=== PATIENT | female | born 1940 | race Caucasian/White ===

== ENCOUNTER → 2019-02-18 | Outpatient (CLI) | payer MEDICARE, SELFPAY ==
--- NOTE | 2019-02-18 10:46 | BD_ITS ---
STUDY: DUAL ENERGY X-RAY ABSORPTIOMETRY / DXA REASON FOR EXAM: Female, 78 years old. The patient is postmenopausal. Loss of height. TECHNIQUE: Bone Mineral Density (BMD) measurements of lumbar spine and bilateral hips were obtained. COMPARISON: None. FINDINGS: Lumbar Spine (L1-L4): g/cm2 (1.187) / T-score (0.1) / Z-score (2.0) Findings are suggestive of normal bone density with a low fracture risk. Left Femur Total: g/cm2 (1.036) / T-score (0.2) / Z-score (2.2) Left Femoral Neck: g/cm2 (0.975) / T-score (-0.5) / Z-score (1.7) Right Femur Total: g/cm2 (1.005) / T-score (0.0) / Z-score (2.0) Right Femoral Neck: g/cm2 (0.987) / T-score (-0.4) / Z-score (1.8) BD/Dexa Bone Density Study IMPRESSION: The patient is considered normal as outlined below according to World Jesse Organization (WHO) criteria with a low fracture risk. Reference Information: The T-score is the number of standard deviations above or below the standard which is normal for young adults at their peak bone mineral density. The World Health Organization (WHO) interprets the T-scores as follows: Above -1 Normal bone density Between -1 and -2.5 Osteopenia Equal to / or below -2.5 Osteoporosis As a practical clinical guideline, osteopenia may be graded as follows: Mild -1 through -1.5 Moderate -1.6 through -2.0 Severe -2.1 through -2.4 The Z-score is the number of standard deviations above or below age-matched controls. A Z-score of less than -1.5 would be considered abnormal. References: 1. NIH Osteoporosis and Related Bone Diseases http://www.osteo.org 2. International Society for Clinical Densitometry http://www.iscd.org 3. National Osteoporosis Foundation http://www.nof.org Electronically Signed: Santiago Bradshaw, at 15:55 EDT , Service support ,
== END | disposition home or self-care (01) ==
LOC: OPBD 10:35
PROVIDERS: Family Provider Family Medicine; PCP Family Medicine; Referring Provider Family Medicine; Visit Provider Family Medicine
DX: Z78.0 Asymptomatic menopausal state (principal)
CPT/HCPCS: 77080

== ENCOUNTER 2019-04-10 09:56 | Day surgery (SDC) | payer MEDICARE, SELFPAY ==
[2019-02-18 13:08] VITALS: BMI 26.5
[2019-04-10 10:47] VITALS: BP 137/76; PULSE 70; RESP 16; TEMP 36.6; O2SAT 96; BMI 25.5
--- NOTE | 2019-04-10 10:57 | PCM.HP.BLA ---
Problem List (1) Personal history of colonic polyps Status: Acute History and Physical Date of Admission: 04/10/19 Intake Vital Signs 02/18/19 Height 5 ft 0.5 in 02/18/19 Weight: 138 lb 02/18/19 Body Mass Index (BMI) 26.5 02/18/19 Blood Pressure 145/82 H 02/18/19 Blood Pressure Location Rt brachial 02/18/19 Blood Pressure Position Sitting 02/18/19 Respiratory Rate 14 02/18/19 Pulse Rate 88 02/18/19 Pulse Source Monitor 02/18/19 Temperature 98.8 F 02/18/19 Temperature Source Oral 02/18/19 Pulse Ox 96 02/18/19 Oxygen Delivery Method room air Intake Visit Reasons: SCREENING C-SCOPE Crisis Worker Required: No Is patient in pain?: No Allergies No Known Allergies Allergy (Verified 02/18/19 13:09) PFSH Medical History Intermittent constipation (Acute) COPD (chronic obstructive pulmonary disease) (Chronic) SOB (shortness of breath) (Acute) Arthritis (Acute) Thyroid disease (Acute) Surgical History Hx of colonoscopy (Acute) Hx of foot surgery (Acute) Family History Mother Hypertension Social History Smoking Status: Former smoker second hand exposure: No alcohol intake: current alcohol intake frequency: holidays/special occasions only substance use type: does not use caffeine: Yes frequency: does not exercise HPI HPI HPI: MARIELA LARIOS, is a 78 F who presents to the office today for surgical consultation regarding personal history of colon polyps. The patient's most recent colonoscopy was performed about 6 years ago in [facility]. At that time she had had a history of adenomatous polyp. She denies bright red blood per rectum or melena. No change of body habits. No change of bowel habits. She does have COPD. She was a long-term cigarette smoker. She quit 6 years ago. She is on inhalers. She denies myocardial infarction or CVA or diabetes. HPI HPI HPI: MARIELA LARIOS, is a 78 F who presents to the office today for ROS General General: No weight change, appetite, fatigue, colon cancer, breast cancer or weakness HEENT HEENT: No difficulty swallowing, eye injury, eye surgery, swollen glands or hoarseness Endo Endocrine: Yes thyroid disease; no diabetes mellitus, thyroid cancer, Hair loss, heat intolerance or cold intolerance Skin Skin: No rash or changing moles Musc Musculoskeletal: Yes arthritis; no back problems, rheumatoid arthritis, gout or joint pain Cardio Cardiovascular: No murmur, pacemaker, heart disease, atrial fibrillation, high blood pressure, heart attack, heart stent, palpitations, shortness of breat with exertion or chest pain Psych Psychiatric: No depression, anxiety or hearing voices Resp Respiratory: Yes shortness of breath, No sleep apnea, No cough, Yes COPD, No asthma, No emphysema, No wheezing Gastro Gastrointestinal: No abdominal pain, No nausea or vomiting, No diarrhea, No constipation, No blood in stool, No acid reflux, No hemorrhoids, No ulcers, No gallbladder problem, No black,tarry stools Dennis Hematologic: No blood thinners, No blood disorders, No bleeding, No anemia, No blood clots Neuro Neurologic: Yes numbness, Yes tingling, No weakness Exam Const General: cooperative, comfortable, no acute distress Nutritional Appearance: average body habitus Orientation: alert, awake [facility] Head: normal to inspection Eyes General: appearance normal, both eyes and all related structures Chest Other: Increased anterior posterior diameter Resp Other: Bibasilar dry rales Cardio Rate: regular rate Rhythm: regular rhythm Heart Sounds: no murmurs GI Palpation: soft, no hepatosplenomegaly Auscultation: normal bowel sounds Skin General: no rashes or lesions noted Neuro Cranial Nerves: CN's II-XI intact bilaterally Extrem General: no calf tenderness bilaterally Psych Affect: normal affect Assessment & Plan Problems 1. Personal history of colonic polyps Z86.010 Plan 78-year-old female with a personal history of colon polyps and most recent colonoscopy at least 6 years ago. She has COPD. I would recommend a colonoscopy with possible biopsy or polypectomy as indicated. We would utilize monitored anesthesia care and we would utilize room air rather than CO2. She has had an opportunity to ask and have questions answered. She is aware of the technique, benefit, risks, alternatives.. We will schedule and proceed at her discretion. I appreciate the opportunity of assisting with her surgical care. CC: Dr. Ramez Pierce M.D., F.A.C.S. Coding Level of Care Code Off vis,new,level 2 Diagnoses Personal history of colonic polyps Z86.010 02/18/19 [id number] <Electronically signed by Sammy Pierce MD> Date Sammy Pierce MD Cosigner Signature: Date (if applicable) CC: Ramez Toledo MD ~ I have reevaluated the patient today. She denies any change in her chronic lung disease. She does note some upper airway wheezing. She does have an intermittent productive cough of white phlegm. She denies chest pain. She denies fever or chills. She denies abdominal pain. She otherwise states that her general health is been stable. On clinical examination she has some slight expiratory wheeze left upper lobe more so than the right. Inspiration effort is good. Cardiac exam: Breath sounds are somewhat distant but regular Abdomen slightly bulbous. Soft, nontender, normal bowel sounds, no mass Calves are supple nontender The patient is aware of the technique, benefits, risks, alternatives to a colonoscopy. As noted she has a personal history of colon polyps. She has had an opportunity to ask and have questions answered. We will proceed as noted. Sammy Pierce M.D., F.A.C.S.
--- NOTE | 2019-04-10 11:00 | COLBX_PTH ---
PATIENT: MARIELA LARIOS LOC: EN U#:[id number] AGE/SX: 78/F ROOM: RE04/10/[address]: Dr. Sammy Pierce MD : 1940 BED: DIS: 04/10/2019 SPEC #: [id number] RECD: 04/10/19 11:48 STATUS: SAMANTHA REFadumo #: [id number] SOCO: 04/10/19 11:[address]: Sammy Pierce DEPT: SURGICAL PATHOLOGY RECD BY: Adelfo Summers ENTERED: 04/10/19 14:32 SP TYPE: COLON BX OTHR DR: Dr. Ramez Toledo MD Tissues: Rectum, NOS Procedures: Surgery Specimen Level IV HEADER OPERATION: Colonoscopy (MAC) PRE-OP DIAGNOSIS: Screening, colon polyps TISSUE SUBMITTED: Polyp of proximal rectum MICROSCOPIC DIAGNOSIS Proximal rectal polyp, biopsy: Tubular adenoma. AM:tigist 04/11/19 MICROSCOPIC DESCRIPTION Slides are reviewed. GROSS DESCRIPTION Received in fixative is one container labeled with the patient's name and designated polyp of proximal rectum. The specimen consists of one irregular fragment of light ledezma soft tissue with fecal debris that measures 0.5 x 0.3 x 0.1 cm. The specimen is totally submitted in one cassette. / AM:tigist 04/10/19 TC:5 CPT: 62881
[2019-04-10 11:11] LABS: Bedside Glucose 149 mg/dL (70-110)
[2019-04-10 11:40] VITALS: BP 115/67; BP 137/76; PULSE 81; RESP 16; TEMP 36.6; O2SAT 96
--- NOTE | 2019-04-10 11:41 | OP.ENDO_ITS ---
04/10/2019 Ramez Toledo Re : Colonoscopy procedure for Dai Jacobson [place] This procedure was performed on March. My impressions and recommendations are as follows: Impressions : - Hemorrhoids found on perianal exam. - One 6 mm polyp in the rectum, removed with a hot snare. Resected and retrieved. - Diverticulosis in the sigmoid colon and in the descending colon. Recommendations : - Discharge patient to home. - Resume previous diet. - Continue present medications. - Repeat colonoscopy in 5 years for surveillance. - Telephone my office for pathology results in 1 week. My findings are described in the full procedure note, which is enclosed. If I can be of further assistance, please feel free to contact me at Doctor phone number(s): Work: . Sincerely, Sammy Pierce MD 04/10/2019 11:41:01 AM This report has been signed electronically.
[2019-04-10 11:45] VITALS: BP 122/81; BP 137/76; PULSE 75; RESP 16; O2SAT 95
[2019-04-10 11:50] VITALS: BP 135/80; BP 137/76; PULSE 69; RESP 16; O2SAT 94
[2019-04-10 11:56] VITALS: BP 128/72; BP 137/76; PULSE 66; RESP 16; TEMP 36.4; O2SAT 94
[2019-04-10 12:12] VITALS: BP 137/76
== END 2019-04-10 12:29 | disposition home or self-care (01) ==
LOC: EN 09:57 → AC 10:03
PROVIDERS: Family Provider Family Medicine; PCP Family Medicine; Referring Provider Family Medicine; Visit Provider Surgery
PROC: 0DJD8ZZ Inspection of Lower Intestinal Tract, Via Natural or Artificial Opening Endoscopic (ICD-10-PCS; CPT 45378; principal; 2019-04-10 10:55)
DX: D12.8 Benign neoplasm of rectum (principal); K64.9 Unspecified hemorrhoids; K57.30 Diverticulosis of large intestine without perforation or abscess without bleeding; Z86.010 Personal history of colon polyps; J44.9 Chronic obstructive pulmonary disease, unspecified; E78.00 Pure hypercholesterolemia, unspecified; E11.9 Type 2 diabetes mellitus without complications; E06.9 Thyroiditis, unspecified; Z79.84 Long term (current) use of oral hypoglycemic drugs; Z79.899 Other long term (current) drug therapy; Z87.891 Personal history of nicotine dependence
CPT/HCPCS: 45385; 82962; 88305; J7120; J2405

== ENCOUNTER 2021-11-02 12:15 | Outpatient (CLI) | payer MEDICARE, SELFPAY ==
[2021-11-02 12:20] VITALS: BP 180/99; PULSE 97; RESP 16; TEMP 36.9; O2SAT 92; BMI 24.4
[2021-11-02] MEDS: 0.9% Saline Lock 10 ML Syringe IV (12:35)
[2021-11-02 13:23] VITALS: BP 139/78; PULSE 80; RESP 16; TEMP 36.9; O2SAT 93
[2021-11-02 14:09] VITALS: BP 140/73; PULSE 79; RESP 18; TEMP 36.8; O2SAT 94
== END 2021-11-02 14:33 | disposition home or self-care (01) ==
LOC: MS3OUT 12:15 → MS3 12:16
PROVIDERS: PCP Family Medicine; Referring Provider Nurse Practitioner Adult Health; Visit Provider Nurse Practitioner Adult Health
DX: U07.1 COVID-19 (principal)
CPT/HCPCS: J7050; M0245; Q0245; A4216

== ENCOUNTER 2022-05-25 21:14 | Observation (INO) | payer MEDICARE, SELFPAY ==
[2022-05-25] VITALS (7 sets, daily range): BP systolic 128–167; BP diastolic 70–86; PULSE 78–112; RESP 13–26; TEMP 36.6–37.2; O2SAT 92–98; BMI 24.4
--- NOTE | 2022-05-25 21:50 | EKG12_ITS ---
Test Reason : sob Blood Pressure : / mmHG Vent. Rate : 092 BPM Atrial Rate : 092 BPM P-R Int : 150 ms QRS Dur : 070 ms QT Int : 350 ms P-R-T Axes : 054 046 041 degrees QTc Int : 432 ms Normal sinus rhythm Nonspecific T wave abnormality Abnormal ECG Confirmed by SHOLA KINCAID, GINGER ([id number]), copy editor KEIRY BE ([id number]) on 05/29/2022 11:22:58 AM Referred By: Hung Confirmed By:GINGER JOLLEY MD
[2022-05-25] MEDS: Ipratropium/Albuterol Sulfate 3 ML AMPUL.NEB INHALATION (22:01)
[2022-05-25] MEDS: Albuterol 2.5 MG/3 ML VIAL.NEB. INHALATION ×3 (22:01)
[2022-05-25] MEDS: MethylPREDNISolone 125 MG/2 ML Vial IV (22:07)
[2022-05-25 22:10] LABS: Absolute Lymphocyte Count 1.61 X10^3/uL (0.83-4.51); Basophil# 0.08 X10^3/uL; Basophil% 0.6 % (0-1); Eosinophil# 0.26 X10^3/uL; Hematocrit 34.4 % (37-47); Hemoglobin 11.3 g/dL (12.0-15.0); Lymphocyte # 1.61 X10^3/ul (0.83-4.51); Lymphocyte % 12.2 % (19-41); Mean Corp Hgb Conc 32.8 g/dL (32-36); Mean Corpuscular Hgb 28.9 pg (27.0-32.0); Mean Platelet Vol. 9.2 fl (6.2-12.0); Monocyte# 1.17 X10^3/uL; Monocyte% 8.8 % (0-10); NRBC Flagged by Analyzer 0 % (0-5); Neutrophil # 9.98 X10^3/uL (2.7-7.7); Neutrophil % 75.3 % (47-70); Platelet Count 511 K/mm3 (150-450); RBC Distribution Width CV 14.6 % (11.6-14.6); RBC Distribution Width SD 43.9 fl (35.1-43.9); Red Blood Count 3.91 M/mm3 (4.2-5.4); White Blood Count 13.3 K/mm3 (4.4-11.0)
--- NOTE | 2022-05-25 22:27 | RAD_ITS ---
STUDY: X-RAY CHEST REASON FOR EXAM: Female, 81 years old. cough TECHNIQUE: AP portable. 10:23 PM. COMPARISON: None. FINDINGS: LUNGS: Reticular opacities in the lung bases greater on the right. Blunting of the costophrenic angles bilaterally. No consolidation. No pneumothorax. MEDIASTINUM: Aorta atherosclerotic and tortuous. CARDIAC SILHOUETTE: Not enlarged. BONES AND SOFT TISSUES: Degenerative changes in the dorsal spine. RAD/Chest 1 View (Portable) IMPRESSION: Basilar opacities greater on the right likely scarring or atelectasis, early infiltrate especially at the right lung base difficult to completely exclude. Follow-up may be helpful. Small bilateral pleural effusions versus pleural thickening. Electronically Signed: Jenni Wasserman MD at 22:54 EDT ,
[2022-05-25 22:28] LABS: Anion Gap 7 (5-15); BUN 13 mg/dL (7-18); BUN/Creat Ratio 17.8 RATIO (10-20); Calcium,Total 9.8 mg/dL (8.5-10.1); Chloride 95 mmol/L (98-107); Creatinine, Serum 0.73 mg/dL (0.55-1.02); EST Glomerular Filtration Rate 81 mL/min (>60); Est Glom Filt Rate - Afr Amer 98 mL/min (>60); Estimated Creatinine Clearance 31.15 ml/min; Glucose 146 mg/dL (74-106); Potassium 4.2 mmol/L (3.5-5.1); Sodium Level 131 mmol/L (136-145); Troponin-I HS 4 pg/mL (3.0-54.0)
[2022-05-25 22:35] LABS: Lactic Acid 1.9 mmol/L (0.4-1.9)
--- NOTE | 2022-05-25 22:50 | ED.VIS.DYS ---
HPI History of Present Illness Chief Complaint: Shortness of Breath Informant: patient and family Onset/Context/Timing Onset: Days Context: gradual Timing: Continuous Quality: Positive for Wheezing Current Severity: Mild Maximum Severity: Moderate Worsened by: Exertion and Coughing Relieved by: Rest Associated Symptoms cough and green sputum; Negative for ear pain, fever, sore throat or chills Chest Pain: Positive for None Narrative Narrative: 81-year-old female history of COPD not on home O2. Also diabetes hypertension. States she has had shortness of breath since May 15. She went to an urgent care this past Sunday was diagnosed with pneumonia after chest x-ray and started on antibiotic Augmentin twice a day. States she just feels worse. More short of breath. Wheezing. Denies fever or chills. No chest pain. No hemoptysis. No history of DVT or PE and no risk factors. States her cough is productive of greenish phlegm. Had a negative COVID test also at the urgent care. PE Risk Factors: Negative for Cancer, OCP + Smoking + > 35, Prior DVT or PE, Recent immobilization, Recent surgery or Recent travel Prior similar symptoms: Yes Recent Illness/Hospitalization: No PFSH PFSH Medical History (Updated 05/25/22 @ 23:[address] En Contreras MD) Arthritis COPD (chronic obstructive pulmonary disease) Diabetes mellitus, type 2 Former tobacco use HTN (hypertension) Intermittent constipation Normocytic anemia Thyroid disease Home Medications albuterol sulfate 90 mcg/actuation aerosol inhaler (ProAir HFA) 1 - 2 puff inhalation Q6H PRN PRN Sob &/Or Wheezing 04/03/19 [History Last Taken Unknown] fluticasone 250 mcg-salmeterol 50 mcg/dose blistr powdr for inhalation (Advair Diskus) 1 puff IH BID 04/03/19 [History Last Taken Unknown] metformin 500 mg tablet 1,000 mg PO QHS 04/03/19 [History Last Taken Unknown] simvastatin 40 mg tablet 40 mg PO QHS 04/03/19 [History Last Taken Unknown] furosemide 20 mg tablet 20 mg PO DAILY 05/25/22 [History Last Taken Unknown] levothyroxine 75 mcg tablet 75 mcg PO DAILY 05/25/22 [History Last Taken Unknown] lisinopril 5 mg tablet 5 mg PO DAILY 05/25/22 [History Last Taken Unknown] montelukast 10 mg tablet 10 tab PO QHS 05/25/22 [History Last Taken Unknown] Allergy/AdvReac Type Severity Reaction Status Date / Time No Known Allergies Allergy Verified 05/25/22 21:16 Family History Mother Hypertension Surgical History (Updated 05/25/22 @ 22:[address] Celena House MD) H/O rectal polypectomy History of surgery of uterus Hx of colonoscopy Hx of foot surgery Social History Smoking Status: Former smoker how long ago did patient quit smoking: Quit 07/22/2013, smoked 1 ppd x 50 years until quit. second hand exposure: No alcohol intake: never substance use type: does not use caffeine: Yes frequency: does not exercise ROS ROS ED ROS Narrative Cough, shortness of breath and wheezing. Green phlegm. Review of Systems ROS Unobtainable: Denies due to encephalopathy Constitutional Constitutional ED: Denies chills or fever(s) Eyes Eyes: Denies blurry vision ENT ENT ED: Denies ear pain or sore throat Cardiovascular Cardiovascular: Denies chest pain or palpitations Respiratory/Chest Respiratory/Chest: Reports cough, dyspnea and sputum Gastrointestinal Gastrointestinal: Denies abdominal pain Genitourinary Genitourinary ED: Denies dysuria or hematuria Musculoskeletal Musculoskeletal: Denies arthralgias Integumentary Denies abscess Neurologic Neurologic: Denies headache(s) Psychiatric Psychiatric: Denies anxiety Endocrine Endocrinology: Denies cold intolerance Hematologic/Lymphatic Hematologic/Lymphatic: Denies easy bleeding Allergic/Immunologic Allergic/Immunologic ED: Denies mouth swelling EXAM Physical Exam Narrative Exam Narrative: 7-year-old female walking across the room from the bathroom. Vital signs are stable. She is dyspneic with walking tachycardic and tachypneic. Pulse ox 92% on room air no hypoxia but when she was walking it was in the mid to high 80s. H EENT exam unremarkable. Moist with membranes. Posterior pharynx unremarkable. Neck nontender no lymphadenopathy. No JVD. Lungs coarse breath sounds bilaterally. Expiratory wheezing throughout. Heart tachycardic rate about 110 no murmur. Abdomen soft nontender. Moving all 4 extremities. Calves nontender without edema or cords. Neurologically she is awake and alert. When the patient sat down in bed and rested her breathing improved. Const Vital Signs: 05/25/22 21:14 05/25/22 21:32 05/25/22 21:49 Temperature 97.8 F 98.9 F Temperature Source Temporal Temporal Pulse Rate 112 H 78 Respiratory Rate 20 H 14 Respiratory Effort Normal Short of Breath Respiratory Depth Normal Respiratory Pattern Blood Pressure 167/86 H 128/78 H Blood Pressure Mean 113 94 Pulse Ox 92 98 Oxygen Delivery Method Room Air Room Air Room Air 05/25/22 22:04 Temperature Temperature Source Pulse Rate 95 Respiratory Rate 25 H Respiratory Effort Respiratory Depth Respiratory Pattern Normal Blood Pressure Blood Pressure Mean Pulse Ox Oxygen Delivery Method Positive well nourished and well developed; Negative for obese, cachectic, contractures or unkempt General Appearance ED: well developed; Negative for unkempt, cachectic, contractures or pallor Nutritional Appearance: Negative for cachectic or obese HEENT Reports moist mucous membranes; Denies dry mucous membranes atraumatic; Negative for trauma or tenderness Mouth ED: No dry mucous membranes Mouth: No dry mucous membranes Eyes PERRL and EOMs intact bilaterally General Eye ED: Negative for pale conjunctiva or scleral icterus Neck no lymphadenopathy, supple, no meningeal signs and no JVD General: Negative for tenderness Resp No normal respiratory effort and No clear to auscultation bilaterally Resp Narrative: Coarse breath sounds. Expiratory wheezing throughout. No rales or rhonchi. Equal symmetrical. Effort and Inspection: Negative for pain with movement Auscultation: wheezes; Negative for rales or rhonchi Cardio regular rhythm, S1 normal heart sound, S2 normal heart sound and no murmurs; Negative for regular rate Rate: tachycardic GI non-tender, non-distended and no masses Auscultation: normoactive bowel sounds Palpation: soft; Negative for tender Back/Spine no CVA tenderness and normal to inspection General Back: Negative for CVA tenderness Extremity normal to inspection General Extremety ED: Negative for edema or tenderness General Extremity: Negative for edema Neuro oriented x3 and CN's II-XII intact bilaterally Sensorium / Orientation: alert, oriented to person, oriented to place and oriented to time; Negative for orientation impaired, confused, lethargic or stuporous Speech: speech normal Gait (Neuro): normal gait Motor Exam: strength 5/5 throughout Psych mental status grossly normal Appearance: Negative for unkempt Attitude: No agitated Mood & Affect: Negative for depressed Thought Process: normal thought process Skin no wounds General Skin Exam: Negative for jaundice or pallor Lesions: no lesions Rashes: no rashes Trauma: Negative for abrasion MDM MDM MDM Narrative Medical decision making narrative: 81-year-old with URI with COPD exacerbation. She will be treated with aerosols and Solu-Medrol IV. Chest x-ray and labs to be obtained to be evaluated for potential pneumonia versus COPD flare versus other etiologies. Clinically I do not think this is cardiac. She has no risk factors or history of a prior DVT or PE. Most likely patient will need to be admitted due to hypoxia with a COPD flare and an underlying URI. Repeat exam at 10:57 PM patient doing better but still wheezing even just sitting in bed. The patient, I and her granddaughter who is a nurse at [employer] [facility] all talked she is willing to be admitted for COPD flare and hypoxia. I will speak to the hospitalist. Lab Data Attestation: I reviewed the patient's lab results. Lab results narrative: CBC shows a white count 13.3. H&H 11.3 and 34. Platelets of 511. Electrolytes show sodium 131. Gap of 7 normal BUN and creatinine. Glucose 146. Lactic acid is normal 1.9 and troponin is normal at 4. Chest x-ray shows chronic changes atelectasis in the bases. No obvious pneumonia. Cannot be ruled out in the bases. Labs: Laboratory Results - last 24 hr 05/25/22 05/25/22 05/25/22 21:48 21:48 21:48 WBC 13.3 H RBC 3.91 L Hgb 11.3 L Hct 34.4 L MCV 88.0 MCH 28.9 MCHC 32.8 RDW Std Deviation 43.9 RDW Coeff of Katia 14.6 Plt Count 511 H MPV 9.2 Immature Gran % (Auto) 1.100 H Neut % (Auto) 75.3 H Lymph % (Auto) 12.2 L Faulkner % (Auto) 8.8 Eos % (Auto) 2.0 Baso % (Auto) 0.6 Absolute Neuts (auto) 10.0 H Absolute Lymphs (auto) 1.61 Nucleated RBC % 0 Sodium 131 L Potassium 4.2 Chloride 95 L Carbon Dioxide 29.0 Anion Gap 7 BUN 13 Creatinine 0.73 Estim Creat Clear Calc 31.15 Est GFR (MDRD) Af Amer 98 Est GFR (MDRD) Non-Af 81 BUN/Creatinine Ratio 17.8 Glucose 146 H Lactic Acid 1.9 Calcium 9.8 Troponin I High Sens 4 Radiography Chest X-Ray - ED: 1 View, Read by ED Physician, Heart, Lungs, Mediastinum, Bony Structures, No Acute Disease and Chronic Changes Diagnostic Testing: Chest x-ray, portable, single view interpreted myself is consistent with COPD with atelectasis in the bases. Rhythm Strip Rhythm Strip: Sinus Rhythm Rate: 92 Ectopy: None EKG Initial EKG: Attestation: I personally reviewed and interpreted this EKG as follows: Interpretation: Sinus Rhythm and No Acute Injury Pattern Comments: Normal sinus rhythm rate 92 no acute signs of KS nor ischemia nor dysrhythmia. Discharge Plan Triage Chief Complaint: Shortness of Breath ED Provider: En Contreras Dx/Rx/DC Orders Clinical Impression: SOB (shortness of breath), COPD (chronic obstructive pulmonary disease), Bronchitis, Hypoxia, History of diabetes mellitus Prescriptions: No Action metformin 500 MG tablet 1,000 mg PO QHS fluticasone propion-salmeterol [Advair Diskus] 1 EACH blister with device 1 puff IH BID simvastatin 40 MG tablet 40 mg PO QHS albuterol sulfate [ProAir HFA] 1 PUFF inhaler 1 - 2 puff inhalation Q6H PRN PRN (Reason: Sob &/Or Wheezing) lisinopril 5 mg tablet 5 mg PO DAILY furosemide 20 mg tablet 20 mg PO DAILY montelukast 10 mg tablet 10 tab PO QHS levothyroxine 75 mcg tablet 75 mcg PO DAILY Primary Care Provider: Ramez Toledo Referrals: Ramez Toledo MD [Primary Care Provider] - Disposition Disposition: Acute Care Hospital [facility]
--- NOTE | 2022-05-25 23:14 | PCM.HP.STD ---
HPI - General General Date of Admission: 05/25/22 Date of Service: 05/25/22 Chief Complaint: Recent URI symptom onset, UC Dx PNA, worsening dyspnea, wheezing. HPI Narrative The patient is an 81 y/o F w/ PMHx: Diabetes mellitus type II, HTN, HLD, COPD w/ Former tobacco use, Hypothyroidism, Hx COVID-19 illness who presents to the [facility] ED on 05/25/22 with history of symptoms since 05/15/22 with mildly productive cough of green occasional sputum, fatigue, malaise, dyspnea, worse with exertion with wheezing without any fever or chills with diagnosis of pneumonia on the Sunday of week of presentation per UC with initiation on Augmentin at that time with worsening dyspnea, ongoing cough and wheezing since prompting eventual ED evaluation. From review of records patient prior to this with most recent antibiotic therapies noted to be cefdinir on 04/24/2022 and prior to this Levaquin on 01/02/2022. From review of records patient most recently prescribed prednisone therapy 05/08/2022 noted to be only a short 5-day burst therapy. In the ED patient was noted to have oxygen 85% while walking to the restroom with notable tachycardia, increased work of breathing and accessory muscle usage consistent with respiratory distress, improved with rest and oxygen supplementation. Ports that on 05/15/2022 she was outside in the heat for prolonged period of time for May 15 and did eat a significant amount of salty foods following which she had lower extremity swelling. She contacted her primary care physician who put her on Lasix and she notes that she only took it for 2 days and the swelling resolved following with no further edema noted. Her PCP has already set her up for an echo per her report. Work-up in the ED included T97.8, heart rate initially 112 with most recent repeat 95, BP initially 167/86 with most recent repeat 120/78, respiratory rate 20, 92% on room air initially with improvement to 98% on room air following interventions in the ED, CBC with WC 13.3, hemoglobin 11.3, platelet 511 with left shift, BMP with sodium 131, chloride 95, glucose 146, lactic acid 1.9, troponin 4, chest x-ray with basilar opacities greater on the right likely scarring or atelectasis, early infiltrate especially the right lung base difficult to completely exclude, small bilateral pleural effusions versus pleural thickening. In the ED patient administered normal saline bolus, DuoNeb and albuterol therapy as well as Solu-Medrol 125 mg IV x1. PFSH Medical History (Updated 05/25/22 @ 23:[address] Celena House MD) Arthritis COPD (chronic obstructive pulmonary disease) Diabetes mellitus, type 2 Former tobacco use HTN (hypertension) Intermittent constipation Normocytic anemia Thyroid disease Home Medications albuterol sulfate 90 mcg/actuation aerosol inhaler (ProAir HFA) 1 - 2 puff inhalation Q6H PRN PRN Sob &/Or Wheezing 04/03/19 [History Last Taken Unknown] fluticasone 250 mcg-salmeterol 50 mcg/dose blistr powdr for inhalation (Advair Diskus) 1 puff IH BID 04/03/19 [History Last Taken Unknown] metformin 500 mg tablet 1,000 mg PO QHS 04/03/19 [History Last Taken Unknown] simvastatin 40 mg tablet 40 mg PO QHS 04/03/19 [History Last Taken Unknown] furosemide 20 mg tablet 20 mg PO DAILY 05/25/22 [History Last Taken Unknown] levothyroxine 75 mcg tablet 75 mcg PO DAILY 05/25/22 [History Last Taken Unknown] lisinopril 5 mg tablet 5 mg PO DAILY 05/25/22 [History Last Taken Unknown] montelukast 10 mg tablet 10 tab PO QHS 05/25/22 [History Last Taken Unknown] Allergy/AdvReac Type Severity Reaction Status Date / Time No Known Allergies Allergy Verified 05/25/22 21:16 Family History (Updated 05/25/22 @ 23:[address] Celena House MD) Mother Hypertension Father Cancer Passed age 2828 years old, she notes suspect if was cancer but unclear exact etiology. Surgical History (Updated 05/25/22 @ 22:[address] Celena House MD) H/O rectal polypectomy History of surgery of uterus Hx of colonoscopy Hx of foot surgery Social History (Updated 05/25/22 @ 23:[address] Celena House MD) household members: none Smoking Status: Former smoker how long ago did patient quit smoking: Quit 07/22/2013, smoked 1 ppd x 50 years until quit. second hand exposure: No alcohol intake: never substance use type: does not use caffeine: Yes frequency: does not exercise ROS ROS Narrative Admission Review of Systems: CONSTITUTIONAL: No weight loss, fever, chills, + weakness or fatigue. HEENT: Eyes: No visual loss, blurred vision, double vision or yellow sclerae. Ears, Nose, Throat: No hearing loss, sneezing, congestion, runny nose or sore throat. SKIN: No rash or itching, lesions, wounds. CARDIOVASCULAR: No chest pain, chest pressure or chest discomfort, palpitations, edema, orthopnea, syncopal events. RESPIRATORY: + shortness of breath, cough with occasional green sputum, wheezing, No hemoptysis. GASTROINTESTINAL: No anorexia, nausea, vomiting or diarrhea, abdominal pain, melena, BRBPR. GENITOURINARY: No dysuria, frequency, urgency or retention. NEUROLOGICAL: + Occasional headache, No dizziness, syncope, paralysis, ataxia, numbness or tingling in the extremities, focal weakness, change in bowel or bladder control, seizure. MUSCULOSKELETAL:+ muscle, back pain, joint pain or stiffness. HEMATOLOGIC:+ anemia, bleeding or bruising. LYMPHATICS: No enlarged nodes. No history of splenectomy. PSYCHIATRIC: No history of depression or anxiety. ENDOCRINOLOGIC: No reports of sweating, cold or heat intolerance. No polyuria or polydipsia. ALLERGIES: + history of rhinitis. Vital Signs Vital Signs Vital Signs: 05/25/22 21:14 05/25/22 21:32 05/25/22 21:49 Temperature 97.8 F 98.9 F Temperature Source Temporal Temporal Pulse Rate 112 H 78 Respiratory Rate 20 H 14 Respiratory Effort Normal Short of Breath Respiratory Depth Normal Respiratory Pattern Blood Pressure 167/86 H 128/78 H Blood Pressure Mean 113 94 Pulse Ox 92 98 Oxygen Delivery Method Room Air Room Air Room Air 05/25/22 22:04 Temperature Temperature Source Pulse Rate 95 Respiratory Rate 25 H Respiratory Effort Respiratory Depth Respiratory Pattern Normal Blood Pressure Blood Pressure Mean Pulse Ox Oxygen Delivery Method Weight Weight: 125 lb Body Mass Index (BMI) 24.4 Physical Exam Narrative Physical Examination: General: Awake, alert, oriented x 3 and cooperative, seated upright in the ED bed, fatigued appearing, still mildly increased respiratory rate and expiratory wheezing, notes feeling less dyspneic however since initial presentation. Skin: Normal color, normal turgor, no icterus, no cyanosis. HEENT: AT/NC, EOMI, PERRLA, MMM, no carotid bruits or JVD noted. Lungs: Significantly diminished, diffuse expiratory wheezing, mildly increased respiratory rate and some accessory muscle usage however respiratory distress is lessening since initial presentation and ambulation noted with worsened hypoxia, no rales or rhonchi. Heart: Mildly tachycardic with rhythm; no gallop, rub audible. Abdomen: Soft, NTTP, ND, distant normal BS, no HSM. Extremities: No cyanosis, clubbing, or edema. Neurological: Patient awake, alert, oriented as noted cognitive function intact; pupils equally reactive to light and accommodation, cranial nerves II-XII grossly normal, moving all 4 extremities, no focal deficits, strength severely global decrease secondary to acute presentation Psychiatric: Affect appears fatigued, respiratory distress lessening, no acute evidence of depressive or anxiety feelings. Results Lab / Micro Data Result Diagrams: 05/25/22 21:48 05/25/22 21:48 Labs: Laboratory Results - last 24 hr 05/25/22 21:48: WBC 13.3 H, RBC 3.91 L, Hgb 11.3 L, Hct 34.4 L, MCV 88.0, MCH 28.9, MCHC 32.8, RDW Std Deviation 43.9, RDW Coeff of Katia 14.6, Plt Count 511 H, MPV 9.2, Immature Gran % (Auto) 1.100 H, Neut % (Auto) 75.3 H, Lymph % (Auto) 12.2 L, [place] % (Auto) 8.8, Eos % (Auto) 2.0, Baso % (Auto) 0.6, Absolute Neuts (auto) 10.0 H, Absolute Lymphs (auto) 1.61, Nucleated RBC % 0 05/25/22 21:48: Sodium 131 L, Potassium 4.2, Chloride 95 L, Carbon Dioxide 29.0, Anion Gap 7, BUN 13, Creatinine 0.73, Estim Creat Clear Calc 31.15, Est GFR (MDRD) Af Amer 98, Est GFR (MDRD) Non-Af 81, BUN/Creatinine Ratio 17.8, Glucose 146 H, Calcium 9.8, Troponin I High Sens 4 05/25/22 21:48: Lactic Acid 1.9 Rhythm Strip Rhythm Strip: Sinus Rhythm Rate: 92 Ectopy: None Radiology Impression Chest X-Ray 05/25/22 22:27 IMPRESSION: Basilar opacities greater on the right likely scarring or atelectasis, early infiltrate especially at the right lung base difficult to completely exclude. Follow-up may be helpful. Small bilateral pleural effusions versus pleural thickening. Electronically Signed: Jenni Wasserman MD at 22:54 EDT , Assessment & Plan Assessment/Plan (1) Bronchitis: (2) COPD exacerbation: PLAN: Plan The patient is an 81 y/o F w/ PMHx: Diabetes mellitus type II, HTN, HLD, COPD w/ Former tobacco use, Hypothyroidism, Hx COVID-19 illness who presents to the [facility] ED on 05/25/22 with history of symptoms since 05/15/22 with mildly productive cough of green occasional sputum, fatigue, malaise, dyspnea, worse with exertion with wheezing without any fever or chills with diagnosis of pneumonia on the Sunday of week of presentation per UC with initiation on Augmentin at that time with worsening dyspnea, ongoing cough and wheezing since prompting eventual ED evaluation. #1. Acute Hypoxic Respiratory Failure secondary to Acute on chronic COPD exacerbation with recently Diagnosed PNA, lower suspicion however, suspect more likely Viral Bronchitis/Acute Viral Syndrome: Will admit to [facility], maintain on oxygen with wean as tolerated to room air, continue ATC duonebs, PRN albuterol, IV methylprednisolone, HOB, IS parameters, lower suspicion actual PNA, suspect more likely viral, will defer abx therapy pending sputum cultures, respiratory viral panel, COVID testing and procalcitonin. Will add abx therapy if lab evaluation as noted concerning or onset fever or concerns for bacterial etiology. #2. Diabetes mellitus type II: Hold oral home regimen, ADA diet, accu checks w/ ISS. #3. Normocytic anemia: Admission hemoglobin 11.3, MCV 88, unclear baseline as no prior trending available, will repeat CBC in a.m. and further investigate if consistent or any concerning changes. #4. Hypertension: We will continue patient home lisinopril, as needed IV hydralazine. Will discontinue lasix as patient was transiently taking for concern BL LE edema; however, this occurred following prolonged standing in the heat with notably high sodium content food intake on 05/15/22 and completely resolved. #5. Hyperlipidemia: We will continue patient on statin regimen. #6. Allergic Rhinits: We will continue home montelukast regimen. #7. DVT prophylaxis: SCDs, Lovenox. #8. CODE status: Patient HUBERT is her daughter she notes and living will is in place. Discussed CODE status at length including difference between FULL code, DNR-CCA and DNR-CC status. Following discussions about the differences in these status, requested DNR-CCA, no intubation which was confirmed again with both her and her granddaughter present. Advanced Care Planning Face to Face Time: 16 minutes. Charges/Coding Visit Charges Inpatient E&M: 34254 Init Hosp L3 Procedures Hospitalists Procedures: 10554 Advncd Care Plan 30 Min
[2022-05-26] VITALS (11 sets, daily range): BP systolic 108–132; BP diastolic 55–73; PULSE 30–99; RESP 18–20; TEMP 36.3–37.2; O2SAT 92–98; BMI 24.0
[2022-05-26 00:05] LABS: Procalcitonin 0.18 ng/mL (0.00-0.09)
[2022-05-26] MEDS: 0.9% Normal Saline 1,000 ML 100 ML IV (01:09)
[2022-05-26] MEDS: guaiFENesin 600 MG Tablet PO ×3 (01:09→21:50)
[2022-05-26] MEDS: 0.9% Saline Lock 10 ML Syringe IV ×3 (05:25→21:49)
[2022-05-26] MEDS: Levothyroxine 75 MCG Tablet PO (05:25)
[2022-05-26] MEDS: Insulin Lispro 100 UNIT/ML INSULN.PEN SC ×3 (05:32→21:50)
[2022-05-26 05:55] LABS: Bedside Glucose 227 mg/dL (74-106)
[2022-05-26 06:16] LABS: Absolute Lymphocyte Count 0.55 X10^3/uL (0.83-4.51); Absolute Neutrophil Count 12.8 X10^3/uL (2.0-7.7); Basophil# 0.03 X10^3/uL; Basophil% 0.2 % (0-1); Eosinophil# 0.01 X10^3/uL; Eosinophils% 0.1 % (0-5); Hematocrit 30.7 % (37-47); Hemoglobin 10.2 g/dL (12.0-15.0); Lymphocyte # 0.55 X10^3/ul (0.83-4.51); Mean Corp Hgb Conc 33.2 g/dL (32-36); Mean Corpuscular Volume 87.2 fL (81-99); Monocyte# 0.11 X10^3/uL; Monocyte% 0.8 % (0-10); NRBC Flagged by Analyzer 0 % (0-5); Neutrophil # 12.78 X10^3/uL (2.7-7.7); POSITIVE DIFFERENTIAL YES; Platelet Count 446 K/mm3 (150-450); RBC Distribution Width CV 14.7 % (11.6-14.6); Red Blood Count 3.52 M/mm3 (4.2-5.4); White Blood Count 13.6 K/mm3 (4.4-11.0)
[2022-05-26 06:34] LABS: Differential Comment SCANNED; Differential Indicated SCAN CRITERIA MET
[2022-05-26 06:40] LABS: ALB/GLOB Ratio 0.8 RATIO (0.9-2.4); AST(SGOT) 13 U/L (15-37); Alanine Aminotransfer ALT/SGPT 19 U/L (13-56); Alkaline Phosphatase 87 U/L (45-117); Anion Gap 6 (5-15); BUN 11 mg/dL (7-18); BUN/Creat Ratio 15.4 RATIO (10-20); Chloride 98 mmol/L (98-107); Creatinine, Serum 0.71 mg/dL (0.55-1.02); EST Glomerular Filtration Rate 83 mL/min (>60); Est Glom Filt Rate - Afr Amer 101 mL/min (>60); Estimated Creatinine Clearance 31.15 ml/min; Globulin 3.9 g/dL (2.2-4.2); Glucose 221 mg/dL (74-106); Potassium 4.5 mmol/L (3.5-5.1); Protein, Total 6.9 g/dL (6.4-8.2); Sodium Level 132 mmol/L (136-145)
[2022-05-26] MEDS: Ipratropium/Albuterol Sulfate 3 ML AMPUL.NEB INHALATION ×4 (07:25→19:10)
--- NOTE | 2022-05-26 07:31 | PN.HOSP_ITS ---
Subjective Subjective Patient is an 81-year-old lady recently diagnosed with pneumonia as outpatient presented to the emergency department with worsening dyspnea. Imaging studies obtained on admission demonstrated bibasilar opacities greater on the right. Admitted to regular nursing floor for subsequent manage Objective Data Objective Data Vital Signs: Vital Signs Temp Pulse Resp BP Pulse Ox O2 Del Method O2 Flow Rate 98 F 89 18 116/67 94 Nasal Cannula 2 05/26/22 05:20 05/26/22 07:26 05/26/22 07:26 05/26/22 05:20 05/26/22 07:26 05/26/22 07:26 05/26/22 07:26 Oxygen Flow Rate (L/min) 2 Oxygen Delivery Method Nasal Cannula Weight: 56 kg Body Mass Index (BMI) 24.0 Intake & Output: Intake and Output for Last 24 Hours 05/24/22 05/25/22 05/26/22 23:59 23:59 23:59 Intake Total 500 / 500 Balance 500 / 500 Lab / Micro Data Result Diagrams: 05/26/22 05:50 05/26/22 05:50 Labs: Laboratory Results - last 24 hr 05/25/22 21:48: WBC 13.3 H, RBC 3.91 L, Hgb 11.3 L, Hct 34.4 L, MCV 88.0, MCH 28.9, MCHC 32.8, RDW Std Deviation 43.9, RDW Coeff of Katia 14.6, Plt Count 511 H, MPV 9.2, Immature Gran % (Auto) 1.100 H, Neut % (Auto) 75.3 H, Lymph % (Auto) 12.2 L, [place] % (Auto) 8.8, Eos % (Auto) 2.0, Baso % (Auto) 0.6, Absolute Neuts (auto) 10.0 H, Absolute Lymphs (auto) 1.61, Nucleated RBC % 0 05/25/22 21:48: Sodium 131 L, Potassium 4.2, Chloride 95 L, Carbon Dioxide 29.0, Anion Gap 7, BUN 13, Creatinine 0.73, Estim Creat Clear Calc 31.15, Est GFR (MDRD) Af Amer 98, Est GFR (MDRD) Non-Af 81, BUN/Creatinine Ratio 17.8, Glucose 146 H, Calcium 9.8, Troponin I High Sens 4 05/25/22 21:48: Lactic Acid 1.9 05/25/22 23:30: COVID-19 (ROM) Not Detected 05/25/22 23:33: Procalcitonin 0.18 H 05/26/22 05:19: POC Glucose 227 H 05/26/22 05:50: WBC 13.6 H, RBC 3.52 L, Hgb 10.2 L, Hct 30.7 L, MCV 87.2, MCH 29.0, MCHC 33.2, RDW Std Deviation 44.0 H, RDW Coeff of Katia 14.7 H, Plt Count 446, MPV 9.0, Immature Gran % (Auto) 0.900, Neut % (Auto) 94.0 H, Lymph % (Auto) 4.0 L, [place] % (Auto) 0.8, Eos % (Auto) 0.1, Baso % (Auto) 0.2, Absolute Neuts (auto) 12.8 H, Absolute Lymphs (auto) 0.55 L, Nucleated RBC % 0, Differential Comment SCANNED 05/26/22 05:50: Sodium 132 L, Potassium 4.5, Chloride 98, Carbon Dioxide 28.0, Anion Gap 6, BUN 11, Creatinine 0.71, Estim Creat Clear Calc 31.15, Est GFR (MDRD) Af Amer 101, Est GFR (MDRD) Non-Af 83, BUN/Creatinine Ratio 15.4, Glucose 221 H, Calcium 9.0, Total Bilirubin 0.50, AST 13 L, ALT 19, Alkaline Phosphatase 87, Total Protein 6.9, Albumin 3.0 L, Globulin 3.9, Albumin/Globulin Ratio 0.8 L Micro: Microbiology 05/25/22 23:30 Mucosa - Nose Respiratory Panel (PCR) - Final 05/26/22 01:20 Sputum, Expectorated/Coughed Gram Stain - Preliminary 05/25/22 23:40 Urine, Clean Catch Legionella Antigen - Final 05/25/22 23:40 Urine, Clean Catch Streptococcus pneumoniae Antigen (M - Final Radiography Diagnostic Testing: Radiology Impression Chest X-Ray 05/25/22 22:27 IMPRESSION: Basilar opacities greater on the right likely scarring or atelectasis, early infiltrate especially at the right lung base difficult to completely exclude. Follow-up may be helpful. Small bilateral pleural effusions versus pleural thickening. Electronically Signed: Jenni Wasserman MD at 22:54 EDT , Rhythm Strip Rhythm Strip: Sinus Rhythm Rate: 92 Ectopy: None Physical Exam Narrative GENERAL: cooperative HEENT: Atraumatic; EYES; Anicteric, Normal Conjunctiva NECK; supple, normal thyroid, RESPIRATORY: Diminished to auscultation CARDIOVASCULAR: Regular S1 S2, GI: soft, normoactive bowel sounds, : No Renal angle tenderness; EXTREMITIES: No edema, no clubbing, MUSCULOSKELETAL: no muscle wasting NEURO: Awake; no lateralizing signs. SKIN: No Rash PSYCH; Flat affect Assessment & Plan Assessment/Plan (1) Bronchitis: (2) COPD exacerbation: PLAN: Plan Patient is an 81-year-old lady recently diagnosed with pneumonia as outpatient presented to the emergency department with worsening dyspnea. Imaging studies obtained on admission demonstrated bibasilar opacities greater on the right. Admitted to regular nursing floor for subsequent management 1. Pneumonia - Suspected to be secondary to streptococcal pneumonia, Blood and sputum cultures sent. Patient placed on Rocephin and Zithromax and placed on oxygen titrated to keep Pulse Ox greater than 90 2. COPD with acute exacerbation ? Precipitated by above. Managed with systemic steroid bronchodilator treatment and antibiotics as documented above 3. Acute hypoxic respiratory failure ruled out 4. Hypertension - Blood pressure controlled, home medications continued with dose adjustment as needed 5. Dyslipidemia -Patient is on statin therapy, continued at home dose 6. Hypothyroidism - Patient is on levothyroxine home dose continued 7. Diabetes mellitus type II -patient's oral hypoglycemics held. Placed on Accu-Cheks a.c. and at bedtime and covered with sliding scale insulin 8. DVT prophylaxis ? SC Lovenox Charges/Coding Visit Charges Inpatient E&M: 55537 Subs Hosp L2
[2022-05-26] MEDS: Ceftriaxone 1 GM/50 ML BAG IV (09:11)
[2022-05-26] MEDS: Lisinopril 5 MG Tablet PO (09:14)
[2022-05-26] MEDS: Enoxaparin 40 MG/0.4 ML Syringe SC (09:14)
[2022-05-26] MEDS: Insulin Lispro 100 UNIT/ML INSULN.PEN 15 UNIT SC (11:44)
[2022-05-26 11:50] LABS: Bedside Glucose > 500 mg/dL (74-106)
[2022-05-26] MEDS: Insulin Glargine-YFGN 100 UNIT/ML Pen 15 UNIT SC (12:28)
--- NOTE | 2022-05-26 12:36 | CASEMGMT ---
FAUSTO LALA Assessment: Face to Face with pt for initial transition planning/care coordination assessment. FAUSTO LALA introduced self and role at [facility], pt voices understanding and consents to assessment. Pt sitting up in chair on RA in no distress. Pt is A/O x4 and answers all questions appropriately at this time. Care providers, pharmacy, and demographics verified/updated. Admitting Dx: COPD exac, recent pna PCP: [place] Specialists:Pt denies. [facility] Insurance: [employer] Prescription Benefit: yes LW/HPOA: Pt states she has a LW/DPOA and she thinks her dtr Esther is her DPOA. She is aware this is not on file at [facility] and she may bring in to be scanned into her chart. LNOK: Esther Rivers, dtr Living Arrangements: Pt lives alone in a single story house. She enters through her garage with 12-13 steps with a rail. Pt reports she is I in ADL's and denies concerns at home. Transportation: Pt drives self and denies concerns with transportation. DME/HHC/SNF: Pt has a cane and shower chair at home but does not use. She has a pox, handheld shower, walk in shower, high rise toilets as well as an adjustable bed. Pt denies hx of HHC or SNF stays. Pt states no concerns with going home at time of dc. Discussed having HHC SN and pt states her dtr and 2 granddtrs are nurses. Discussed how she felt her strength was. Therapy is not currently ordered. Pt states she uses the weedeater, weed blower at home and still goes out and plays cards. Currently she denies need for therapy. She denies need for HHC or any outpt therapy. She is aware if this should change to notify her nurse and therapy can be ordered. Provided pt with a local in network list of DME providers should pt need oxygen, pt chose [employer]. Green sheet on the chart. Pt states no further concerns/needs. CM to follow. Advised pt to ask CM if any further question/concerns/needs arise, voices understanding. Pt Goal: Home Plan: Home, follow for oxygen.
[2022-05-26 14:25] LABS: Bedside Glucose 284 mg/dL (74-106)
[2022-05-26 17:05] LABS: Bedside Glucose 91 mg/dL (74-106)
[2022-05-26] MEDS: Atorvastatin Calcium 20 MG Tablet PO (21:50)
[2022-05-26] MEDS: Montelukast 10 MG Tablet PO (21:50)
[2022-05-26 22:20] LABS: Bedside Glucose 285 mg/dL (74-106)
[2022-05-27] VITALS (8 sets, daily range): BP systolic 106–123; BP diastolic 61–72; PULSE 69–80; RESP 18; TEMP 36.6–37.2; O2SAT 93–99
[2022-05-27] MEDS: Insulin Lispro 100 UNIT/ML INSULN.PEN SC (06:33)
[2022-05-27] MEDS: Levothyroxine 75 MCG Tablet PO (06:33)
[2022-05-27] MEDS: 0.9% Saline Lock 10 ML Syringe IV (06:33)
[2022-05-27 07:01] LABS: Bedside Glucose 187 mg/dL (74-106)
[2022-05-27 07:01] LABS: Absolute Lymphocyte Count 1.06 X10^3/uL (0.83-4.51); Absolute Neutrophil Count 13.2 X10^3/uL (2.0-7.7); Basophil# 0.02 X10^3/uL; Basophil% 0.1 % (0-1); Hematocrit 30.6 % (37-47); Hemoglobin 9.7 g/dL (12.0-15.0); Lymphocyte # 1.06 X10^3/ul (0.83-4.51); Mean Corp Hgb Conc 31.7 g/dL (32-36); Mean Corpuscular Hgb 28.6 pg (27.0-32.0); Mean Corpuscular Volume 90.3 fL (81-99); Mean Platelet Vol. 9.1 fl (6.2-12.0); Monocyte# 0.63 X10^3/uL; Monocyte% 4.2 % (0-10); NRBC Flagged by Analyzer 0 % (0-5); Neutrophil # 13.23 X10^3/uL (2.7-7.7); Neutrophil % 87.2 % (47-70); Platelet Count 459 K/mm3 (150-450); RBC Distribution Width CV 15.3 % (11.6-14.6); RBC Distribution Width SD 46.3 fl (35.1-43.9); Red Blood Count 3.39 M/mm3 (4.2-5.4); White Blood Count 15.2 K/mm3 (4.4-11.0)
[2022-05-27] MEDS: Ipratropium/Albuterol Sulfate 3 ML AMPUL.NEB INHALATION (07:06)
--- NOTE | 2022-05-27 07:32 | PN.HOSP_ITS ---
Subjective Subjective Patient seen breathing improved plan is for patient to be assessed for possible discharge Objective Data Objective Data Vital Signs: Vital Signs Temp Pulse Resp BP Pulse Ox O2 Del Method O2 Flow Rate 98 F 76 18 106/61 93 Room Air 1 05/27/22 03:58 05/27/22 07:06 05/27/22 07:06 05/27/22 03:58 05/27/22 07:06 05/27/22 07:06 05/27/22 04:01 Oxygen Flow Rate (L/min) 1 Oxygen Delivery Method Room Air Weight: 58.1 kg Body Mass Index (BMI) 24.0 Intake & Output: Intake and Output for Last 24 Hours 05/25/22 05/26/22 05/27/22 23:59 23:59 23:59 Intake Total 500 / 500 2955 / 3255 500 / 500 Balance 500 / 500 2955 / 3255 500 / 500 Lab / Micro Data Result Diagrams: 05/27/22 06:45 05/27/22 06:45 Labs: Laboratory Results - last 24 hr 05/26/22 11:33: POC Glucose > 500 H* 05/26/22 13:56: POC Glucose 284 H 05/26/22 16:43: POC Glucose 91 05/26/22 21:49: POC Glucose 285 H 05/27/22 06:32: POC Glucose 187 H 05/27/22 06:45: WBC 15.2 H, RBC 3.39 L, Hgb 9.7 L, Hct 30.6 L, MCV 90.3, MCH 28.6, MCHC 31.7 L, RDW Std Deviation 46.3 H, RDW Coeff of Katia 15.3 H, Plt Count 459 H, MPV 9.1, Immature Gran % (Auto) 1.500 H, Neut % (Auto) 87.2 H, Lymph % (Auto) 7.0 L, [place] % (Auto) 4.2, Eos % (Auto) 0.0, Baso % (Auto) 0.1, Absolute Neuts (auto) 13.2 H, Absolute Lymphs (auto) 1.06, Nucleated RBC % 0 Micro: Microbiology 05/26/22 01:20 Sputum, Expectorated/Coughed Gram Stain - Final 05/25/22 23:30 Mucosa - Nose Respiratory Panel (PCR) - Final 05/25/22 23:40 Urine, Clean Catch Legionella Antigen - Final 05/25/22 23:40 Urine, Clean Catch Streptococcus pneumoniae Antigen (M - Final Rhythm Strip Rhythm Strip: Sinus Rhythm Rate: 92 Ectopy: None Physical Exam Narrative GENERAL: cooperative HEENT: Atraumatic; EYES; Anicteric, Normal Conjunctiva NECK; supple, normal thyroid, RESPIRATORY: Diminished to auscultation CARDIOVASCULAR: Regular S1 S2, GI: soft, normoactive bowel sounds, : No Renal angle tenderness; EXTREMITIES: No edema, no clubbing, MUSCULOSKELETAL: no muscle wasting NEURO: Awake; no lateralizing signs. SKIN: No Rash PSYCH; Flat affect Assessment & Plan Assessment/Plan (1) Bronchitis: (2) COPD exacerbation: PLAN: Plan Patient is an 81-year-old lady recently diagnosed with pneumonia as outpatient presented to the emergency department with worsening dyspnea. Imaging studies obtained on admission demonstrated bibasilar opacities greater on the right. Admitted to regular nursing floor for subsequent management 1. Pneumonia - Suspected to be secondary to streptococcal pneumonia, Blood and sputum cultures sent. Patient placed on Rocephin and Zithromax and placed on oxygen titrated to keep Pulse Ox greater than 90 -05/27/2022; plan is for patient to be assessed for possible discharge 2. COPD with acute exacerbation ? Precipitated by above. Managed with systemic steroid bronchodilator treatment and antibiotics as documented above 3. Acute hypoxic respiratory failure ruled out 4. Hypertension - Blood pressure controlled, home medications continued with dose adjustment as needed 5. Dyslipidemia -Patient is on statin therapy, continued at home dose 6. Hypothyroidism - Patient is on levothyroxine home dose continued 7. Diabetes mellitus type II -patient's oral hypoglycemics held. Placed on Accu-Cheks a.c. and at bedtime and covered with sliding scale insulin 8. DVT prophylaxis ? SC Lovenox Charges/Coding Visit Charges Inpatient E&M: 19441 Subs Hosp L2
[2022-05-27 07:34] LABS: Anion Gap 6 (5-15); BUN 18 mg/dL (7-18); BUN/Creat Ratio 25.1 RATIO (10-20); Calcium,Total 9.8 mg/dL (8.5-10.1); Chloride 101 mmol/L (98-107); Creatinine, Serum 0.72 mg/dL (0.55-1.02); EST Glomerular Filtration Rate 83 mL/min (>60); Est Glom Filt Rate - Afr Amer 100 mL/min (>60); Estimated Creatinine Clearance 30.62 ml/min; Glucose 178 mg/dL (74-106); Potassium 4.5 mmol/L (3.5-5.1); Sodium Level 135 mmol/L (136-145)
[2022-05-27] MEDS: Ceftriaxone 1 GM/50 ML BAG IV (09:33)
[2022-05-27] MEDS: guaiFENesin 600 MG Tablet PO (09:34)
[2022-05-27] MEDS: Insulin Glargine-YFGN 100 UNIT/ML Pen 15 UNIT SC (09:34)
[2022-05-27] MEDS: Enoxaparin 40 MG/0.4 ML Syringe SC (09:34)
--- NOTE | 2022-05-27 09:34 | PCM.DC.SUM ---
Providers Date of Admission: 05/25/22 Date of Discharge: 05/27/22 Primary Care Physician: Dr. Ramez Toledo MD Reason For Visit: COPD EXACERBATION, RECENT PNA Diagnosis Discharge Diagnosis (1) Bronchitis: Status: Acute Code(s): J40 - Bronchitis, not specified as acute or chronic (2) COPD exacerbation: Status: Chronic Code(s): J44.1 - Chronic obstructive pulmonary disease with (acute) exacerbation Plan Patient is an 81-year-old lady recently diagnosed with pneumonia as outpatient presented to the emergency department with worsening dyspnea. Imaging studies obtained on admission demonstrated bibasilar opacities greater on the right. Admitted to regular nursing floor for subsequent management 1. Pneumonia - Suspected to be secondary to streptococcal pneumonia, Blood and sputum cultures sent. Patient placed on Rocephin and Zithromax and placed on oxygen titrated to keep Pulse Ox greater than 90 -05/27/2022; was discharged home on cefdinir and azithromycin 2. COPD with acute exacerbation ? Precipitated by above. Managed with systemic steroid bronchodilator treatment and antibiotics as documented above 3. Acute hypoxic respiratory failure ruled out 4. Hypertension - Blood pressure controlled, home medications continued with dose adjustment as needed 5. Dyslipidemia -Patient is on statin therapy, continued at home dose 6. Hypothyroidism - Patient is on levothyroxine home dose continued 7. Diabetes mellitus type II -patient's oral hypoglycemics held. Placed on Accu-Cheks a.c. and at bedtime and covered with sliding scale insulin 8. DVT prophylaxis ? SC Lovenox Medications at Discharge Home Medications albuterol sulfate 90 mcg/actuation aerosol inhaler (ProAir HFA) 1 - 2 puff inhalation Q6H PRN PRN Sob &/Or Wheezing 04/03/19 metformin 500 mg tablet 500 mg PO TIDCM diabetes 04/03/19 simvastatin 40 mg tablet 40 mg PO QHS cholesterol 04/03/19 levothyroxine 75 mcg tablet 75 mcg PO DAILY thyroid 05/25/22 lisinopril 5 mg tablet 5 mg PO DAILY HTN 05/25/22 montelukast 10 mg tablet 10 tab PO QHS COPD 05/25/22 fluticasone fur. 200 mcg-umeclid 62.5 mcg-vilant 25 mcg inhalat.powder (Trelegy Ellipta) 1 ea inhalation BID copd 05/26/22 azithromycin 500 mg tablet (Zithromax) 500 mg PO DAILY 3 days #3 tabs 05/27/22 cefdinir 300 mg capsule 300 mg PO BID #10 caps 05/27/22 guaifenesin 600 mg tablet, extended release 12 hr 600 mg PO BID 7 days #14 tabs 05/27/22 prednisone 20 mg tablet 40 mg PO DAILY #10 tabs 05/27/22 Hospital Course Summary of Care Provided Minutes Spent on Discharge: 35 Physical Exam Narrative GENERAL: cooperative HEENT: Atraumatic; EYES; Anicteric, Normal Conjunctiva NECK; supple, normal thyroid, RESPIRATORY: Diminished to auscultation CARDIOVASCULAR: Regular S1 S2, GI: soft, normoactive bowel sounds, : No Renal angle tenderness; EXTREMITIES: No edema, no clubbing, MUSCULOSKELETAL: no muscle wasting NEURO: Awake; no lateralizing signs. SKIN: No Rash PSYCH; Flat affect Weight / BMI Weight Weight: 58.1 kg Body Mass Index (BMI) 24.0 ABG / Lab / Microbiology Data Result Diagrams: 05/27/22 06:45 05/27/22 06:45 Laboratory: Laboratory Results - last 24 hr 05/26/22 11:33: POC Glucose > 500 H* 05/26/22 13:56: POC Glucose 284 H 05/26/22 16:43: POC Glucose 91 05/26/22 21:49: POC Glucose 285 H 05/27/22 06:32: POC Glucose 187 H 05/27/22 06:45: WBC 15.2 H, RBC 3.39 L, Hgb 9.7 L, Hct 30.6 L, MCV 90.3, MCH 28.6, MCHC 31.7 L, RDW Std Deviation 46.3 H, RDW Coeff of Katia 15.3 H, Plt Count 459 H, MPV 9.1, Immature Gran % (Auto) 1.500 H, Neut % (Auto) 87.2 H, Lymph % (Auto) 7.0 L, [place] % (Auto) 4.2, Eos % (Auto) 0.0, Baso % (Auto) 0.1, Absolute Neuts (auto) 13.2 H, Absolute Lymphs (auto) 1.06, Nucleated RBC % 0 05/27/22 06:45: Sodium 135 L, Potassium 4.5, Chloride 101, Carbon Dioxide 28.0, Anion Gap 6, BUN 18, Creatinine 0.72, Estim Creat Clear Calc 30.62, Est GFR (MDRD) Af Amer 100, Est GFR (MDRD) Non-Af 83, BUN/Creatinine Ratio 25.1 H, Glucose 178 H, Calcium 9.8, Magnesium 2.0 Microbiology: Microbiology 05/26/22 01:20 Sputum, Expectorated/Coughed Gram Stain - Final 05/25/22 23:30 Mucosa - Nose Respiratory Panel (PCR) - Final 05/25/22 23:40 Urine, Clean Catch Legionella Antigen - Final 05/25/22 23:40 Urine, Clean Catch Streptococcus pneumoniae Antigen (M - Final D/C Instructions Discharge Diet: No restrictions Discharge Activity: Return to Normal Activity Call your doctor if you observe: Fever of 101 or Higher, Shortness of breath, Fainting spells and Chest pain Meaningful Use Info Meaningful Use Diagnoses (Choose all that apply): None applicable Discharge Plan Admission Admit Date/Time: 05/25/22 23:07 Attending Provider: Ramez Henry Primary Care Provider: Ramez Toledo Consulting Providers: Celena House Discharge Orders/Prescriptions Prescriptions: New cefdinir 300 mg capsule 300 mg PO BID Qty: 10 0RF prednisone 20 mg tablet 40 mg PO DAILY Qty: 10 0RF guaifenesin 600 mg Tablet Extended Release 12hr 600 mg PO BID 7 Days Qty: 14 0RF azithromycin [Zithromax] 500 mg tablet 500 mg PO DAILY 3 Days Qty: 3 0RF Continued metformin 500 MG tablet 500 mg PO TIDCM simvastatin 40 MG tablet 40 mg PO QHS albuterol sulfate [ProAir HFA] 1 PUFF inhaler 1 - 2 puff inhalation Q6H PRN PRN (Reason: Sob &/Or Wheezing) lisinopril 5 mg tablet 5 mg PO DAILY montelukast 10 mg tablet 10 tab PO QHS levothyroxine 75 mcg tablet 75 mcg PO DAILY Trelegy Ellipta 200-62.5-25 mcg blister with device 1 ea INHALATION BID Label Comments: INHALE ONE (1) PUFF BY MOUTH EVERY DAY AT THE SAME TIME EACH DAY. STOP TRELEGY 100/62.5/25 RX Referrals / Follow Up: Ramez Toledo MD [Primary Care Provider] - In 1 Week Disposition Disposition (needs filled in before D/C Order can be placed): Home, Self Care Charges/Coding Visit Charges Inpatient E&M: 19283 Disch Hosp
[2022-05-27] MEDS: Lisinopril 5 MG Tablet PO (09:36)
== END 2022-05-27 12:18 | disposition home or self-care (01) | DRG 178 ==
LOC: ED 23:09 → MS3 23:39
PROVIDERS: Admitting Provider Family Medicine; Emergency Provider Emergency Medicine; PCP Family Medicine; Visit Provider Internal Medicine
DX: J15.1 Pneumonia due to Pseudomonas (principal); J44.1 Chronic obstructive pulmonary disease with (acute) exacerbation; J44.0 Chronic obstructive pulmonary disease with (acute) lower respiratory infection; E11.9 Type 2 diabetes mellitus without complications; D64.9 Anemia, unspecified; E03.9 Hypothyroidism, unspecified; E78.5 Hyperlipidemia, unspecified; I10 Essential (primary) hypertension; J30.9 Allergic rhinitis, unspecified; Z66 Do not resuscitate; Z79.84 Long term (current) use of oral hypoglycemic drugs; Z79.899 Other long term (current) drug therapy; Z86.16 Personal history of COVID-19; Z87.891 Personal history of nicotine dependence
CPT/HCPCS: 36415; 71045; 80048; 80053; 82962; 83605; 83735; 84145; 84484; 85025; 87070; 87077; 87184; 87186; 87205; 87449; 87633; 87635; 93005; 94640; 94667; 94668; 96361; 96365; 96366; 96367; 96372; 96375; 96376; 99221; 99251; 99285; J7030; J7040; A4216; G0378; G0463; U0003; U0005

== ENCOUNTER → 2022-08-15 | Outpatient (CLI) | payer MEDICARE, SELFPAY ==
--- NOTE | 2022-08-16 10:20 | PFT ---
INTRODUCTION: The patient is an 82-year-old female that presents for pulmonary function studies secondary to a diagnosis of COPD. Respiratory therapy reported good patient effort. Bronchodilators were used during testing. INTERPRETATION: Forced expiration spirometry demonstrates the presence of a moderate large airways obstructive ventilatory defect. There was no significant response to aerosolized bronchodilators. Spirograms are of good quality but do not plateau indicating slow emptying of the lungs. Body plethysmography was performed and revealed an elevated RV to 154% of predicted, indicative of underlying air trapping. Diffusing capacity by single breath CO was within normal limits. IMPRESSION: Irreversible moderate large airways obstructive ventilatory defect with associated air trapping.
== END | disposition home or self-care (01) ==
PROVIDERS: PCP Family Medicine; Referring Provider Internal Medicine Critical Care Medicine; Visit Provider Internal Medicine Critical Care Medicine
DX: J44.9 Chronic obstructive pulmonary disease, unspecified (principal)
CPT/HCPCS: 94060; 94726; 94729

== ENCOUNTER → 2022-08-21 | Outpatient (CLI) | payer MEDICARE, SELFPAY ==
[2022-08-21 12:30] VITALS: PULSE 107; PULSE 109; PULSE 110; PULSE 113; PULSE 116; PULSE 94; PULSE 97; O2SAT 84; O2SAT 87; O2SAT 90; O2SAT 91; O2SAT 92; O2SAT 93; O2SAT 95; O2SAT 97
--- NOTE | 2022-08-21 12:49 | CPS ---
Pt was placed on oxygen at 2 minutes. Pt started at 1lpm. At 5 minutes pt was increased to 2 lpm.
--- NOTE | 2022-08-22 06:42 | WT_ITS ---
PSN 6 Minute Walk Test 6 Minute Walk Test 6 Minute Walk Test: 6 Minute Walk Test PSN:6-Minute Walk Test Start: 08/21/22 12:42 Freq: Status: Active Protocol: [id number] Document 08/21/22 12:30 [facility] (Rec: 08/21/22 12:52 [facility] [id number]) 6 Minute Walk Test Date Performed 08/21/22 Time Performed 12:30 Height 5 ft Weight: 125 lb Weight in Pounds 125.[address]: Kamran Mathews Assistive device used: None Pre-test Oxygen Delivery Method Room Air Pulse Ox (%) 91 Pulse Rate (60-100 beats/min) 94 Dyspnea Eliud Scale (0-10) 0 Exertion Eliud Scale (6-20) 6 1st minute Oxygen Delivery Method Room Air Pulse Ox (%) 90 Pulse Rate (60-100 beats/min) 110 H 2nd minute Oxygen Delivery Method Room Air Pulse Ox (%) 84 Pulse Rate (60-100 beats/min) 116 H Dyspnea Eliud Scale (0-10) 2 Reported Symptoms Increased Work of Breathing 3rd minute Oxygen Flow Rate (L/min) (L/min) 1 Oxygen Delivery Method Nasal Cannula Pulse Ox (%) 93 Pulse Rate (60-100 beats/min) 109 H 4th minute Oxygen Flow Rate (L/min) (L/min) 1 Oxygen Delivery Method Nasal Cannula Pulse Ox (%) 92 Pulse Rate (60-100 beats/min) 107 H 5th minute Oxygen Flow Rate (L/min) (L/min) 1 Oxygen Delivery Method Nasal Cannula Pulse Ox (%) 87 Pulse Rate (60-100 beats/min) 113 H Dyspnea Eliud Scale (0-10) 3 Reported Symptoms Increased Work of Breathing 6th minute Oxygen Flow Rate (L/min) (L/min) 2 Oxygen Delivery Method Nasal Cannula Pulse Ox (%) 95 Pulse Rate (60-100 beats/min) 107 H Dyspnea Eliud Scale (0-10) 0 Exertion Eliud Scale (6-20) 11 Post-test Oxygen Flow Rate (L/min) (L/min) 2 Oxygen Delivery Method Nasal Cannula Pulse Ox (%) 97 Pulse Rate (60-100 beats/min) 97 Full Laps Walked 16 Partial Lap, Number of Tiles Walked 0 Total Distance Walked (ft) 944 08/21/22 12:49 Cardiopulmonary Services by Gabbie Sharma Pt was placed on oxygen at 2 minutes. Pt started at 1lpm. At 5 minutes pt was increased to 2 lpm. Initialized on 08/21/22 12:49 - END OF NOTE Interpretation Interpretation: The patient ambulated 944 feet over the course of 6 minutes beginning on room air without assistive devices or breaks. Pretesting oxygen saturation was noted to be 91% on room air. With ambulation, the patient desaturated on several occasions requiring the initiation and subsequent escalation in supplemental oxygen flow rate to 2 L/min to maintain appropriate oxygen saturations. Recommendations Recommendations: 2 L/min of supplemental oxygen should be utilized with exertion.
== END | disposition home or self-care (01) ==
PROVIDERS: PCP Family Medicine; Referring Provider Internal Medicine Critical Care Medicine; Visit Provider Internal Medicine Critical Care Medicine
DX: J44.9 Chronic obstructive pulmonary disease, unspecified (principal)
CPT/HCPCS: 94618

== ENCOUNTER 2022-09-12 12:31 | Emergency (ER) | payer MEDICARE, SELFPAY ==
[2022-09-12 12:32] VITALS: BP 129/107; PULSE 83; RESP 18; TEMP 35.6; O2SAT 94; BMI 23.0
--- NOTE | 2022-09-12 12:49 | EDS_ITS ---
HPI History of Present Illness Chief Complaint: Fatigue Narrative Narrative: 82-year-old female here with fatigue. History of COPD, thyroid disease, diabetes, COVID-19. The patient is accompanied by her daughter they state the patient is having fatigue for the last week. Daughter thinks patient has pneumonia. Notes a nonproductive cough. Symptoms are constant, severe without leaving exacerbating features. No chest pain, no shortness of breath outside of the ordinary, no vomiting, no urinary complaints. No bleeding diathesis noted. No recent sick contacts [facility] Medical History Arthritis COPD (chronic obstructive pulmonary disease) Diabetes mellitus, type 2 Former tobacco use HTN (hypertension) Intermittent constipation Normocytic anemia Thyroid disease Home Medications albuterol sulfate 90 mcg/actuation aerosol inhaler (ProAir HFA) 1 - 2 puff inhalation Q6H PRN PRN Sob &/Or Wheezing 04/03/19 [History Last Taken Unknown] metformin 500 mg tablet 500 mg PO TIDCM diabetes 04/03/19 [History Last Taken 05/25/22] simvastatin 40 mg tablet 40 mg PO QHS cholesterol 04/03/19 [History Last Taken 05/24/22] levothyroxine 75 mcg tablet 75 mcg PO DAILY thyroid 05/25/22 [History Last Taken 05/25/22] lisinopril 5 mg tablet 5 mg PO DAILY HTN 05/25/22 [History Last Taken 05/25/22] montelukast 10 mg tablet 10 tab PO QHS COPD 05/25/22 [History Last Taken Unknown] fluticasone fur. 200 mcg-umeclid 62.5 mcg-vilant 25 mcg inhalat.powder (Trelegy Ellipta) 1 ea inhalation BID copd 05/26/22 [History Last Taken Unknown] guaifenesin 600 mg tablet, extended release 12 hr 600 mg PO BID 7 days #14 tabs 05/27/22 [Rx Last Taken Unknown] amoxicillin 500 mg-potassium clavulanate 125 mg tablet (Augmentin) 1 tab PO Q12H 7 days #14 tabs 09/12/22 [Rx Last Taken Unknown] Allergy/AdvReac Type Severity Reaction Status Date / Time No Known Allergies Allergy Verified 09/12/22 12:33 Family History Mother Hypertension Father Cancer Passed age 2828 years old, she notes suspect if was cancer but unclear exact etiology. Surgical History H/O rectal polypectomy History of surgery of uterus Hx of colonoscopy Hx of foot surgery Social History household members: none Smoking Status: Former smoker how long ago did patient quit smoking: Quit 07/22/2013, smoked 1 ppd x 50 years until quit. second hand exposure: No alcohol intake: never substance use type: does not use caffeine: Yes frequency: does not exercise ROS ROS ED ROS Narrative Constitutional: Denies fever, endorses fatigue HEENT: Denies sore throat Neck: Denies neck pain Cardiovascular: Denies chest pain, syncope Respiratory: Denies shortness of breath, endorses cough GI: Denies nausea vomiting or abdominal pain : Denies changes in urinary habits Musculoskeletal: Denies muscle or joint pain Neurologic: Denies numbness weakness or loss of sensation Skin denies rash EXAM Physical Exam Narrative Exam Narrative: Nursing triage notes reviewed, Vital signs reviewed Constitutional: please see mdm HENT: MMM Eyes: Pupils equal round and reactive to light, Extraocular muscles intact Neck: No stridor, no JVD, full neck ROM Lungs: crackles noted in the bases, worse on right, no increased work of breathing, no conversational dyspnea, no accessory muscle use, no nasal flaring. No respiratory distress noted Heart: Regular rate and rhythm, No murmurs, No rubs and No gallops, 2+ distal pulses (radial, femoral, posterior tibial) in all extremities Abdomen: Soft, there is no tenderness, rigidity, rebound or guarding, no obvious peritoneal signs, no palpable pulsatile abdominal masses, no auscultated abdominal bruit : No CVAT Extremities: No edema Neuro: No focal neurological deficits, cranial nerves II through XII intact, 5/5 strength in all extremities. Intact sensation to light touch in all extremities, 2+ reflexes bilateral patella dens. Normal gait. No ataxia. Skin: No rash or lesions noted Const Vital Signs: 09/12/22 12:32 09/12/22 13:20 09/12/22 16:45 Temperature 96.1 F L Temperature Source Temporal Pulse Rate 83 63 Respiratory Rate 18 20 H Respiratory Effort Normal Blood Pressure 129/107 H 118/68 Blood Pressure Mean 114 84 Pulse Ox 94 92 Oxygen Delivery Method Room Air Room Air MDM MDM MDM Narrative Medical decision making narrative: 82-year-old female here with nondescript fatigue in setting of cough, COPD. Patient is hemodynamically stable, afebrile, nontoxic-appearing. Exam with crackles in the bases. Given the nonspecific nature of the patient's complaint was concerned about a broad set of etiologies that can potentially explain her symptoms including ACS, arrhythmia, anemia, pneumonia, COVID, flu, thyroid dysfunction. Obtained a broad lab and imaging work-up to further elucidate the etiology of the patient's complaints. Labs and images were remarkable for evidence of pneumonia and urinary inflammation. No evidence of leukocytosis. The patient was ambulated here without [place] hypoxia she had COPD and saturated 90%. Per daughter she does have oxygen available at home as well as a pulse ox. Did give oral Augmentin here and Augmentin for home-going. Strict return precautions Lab Data Attestation: I reviewed the patient's lab results. Lab results narrative: CBC without leukocytosis, severe anemia, no thrombocytopenia. BMP without evidence of significant electrolyte abnormalities, no anion gap, no acute kidney injury. LFTs show no evidence of hepatobiliary pathology. Lipase is wnl indicating no pancreatic inflammation. UA with evidence of inflammation Troponin is negative, no evidence of myocardial ischemia Labs: Laboratory Results - last 24 hr 09/12/22 09/12/22 09/12/22 13:40 13:40 14:45 WBC 8.6 RBC 5.09 Hgb 14.7 Hct 43.3 MCV 85.1 MCH 28.9 MCHC 33.9 RDW Std Deviation 38.5 RDW Coeff of Katia 12.5 Plt Count 362 MPV 9.1 Immature Gran % (Auto) 0.900 Neut % (Auto) 67.1 Lymph % (Auto) 19.1 [place] % (Auto) 10.5 H Eos % (Auto) 1.5 Baso % (Auto) 0.9 Absolute Neuts (auto) 5.7 Absolute Lymphs (auto) 1.64 Nucleated RBC % 0 Sodium 134 L Potassium 3.8 Chloride 98 Carbon Dioxide 31.0 Anion Gap 5 BUN 11 Creatinine 0.69 Estim Creat Clear Calc 30.62 Est GFR (MDRD) Af Amer 104 Est GFR (MDRD) Non-Af 86 BUN/Creatinine Ratio 15.9 Glucose 87 Calcium 9.7 Total Bilirubin 0.40 Direct Bilirubin 0.10 AST 9 L ALT 11 L Alkaline Phosphatase 91 Troponin I High Sens 3 Total Protein 8.0 Albumin 3.4 Globulin 4.6 H Lipase 107 Urine Color Yellow Urine Clarity Clear Urine pH 5.0 Ur Specific [place] 1.015 Urine Protein 30 H Urine Glucose (UA) Normal Urine Ketones Negative Urine Occult Blood 10 H Urine Nitrite Negative Urine Bilirubin Negative Urine Urobilinogen 1 H Ur Leukocyte Esterase 500 H Urine RBC Cancelled Urine WBC Cancelled Ur Squamous Epith Cells Cancelled Ur Transition Epith Cell Cancelled Ur Renal Epithelial Cell Cancelled Calcium Oxalate Crystal Cancelled Uric Acid Crystals Cancelled Triple Phos Crystals Cancelled Other Crystals Cancelled Amorphous Sediment Cancelled Urine Bacteria Cancelled Hyaline Casts Cancelled Fine Granular Casts Cancelled Coarse Granular Casts Cancelled Waxy Casts Cancelled RBC Casts Cancelled WBC Casts Cancelled Urine Mucus Cancelled Urine Trichomonas Cancelled Urine Yeast Cancelled Radiography Diagnostic Testing: Clinical Impression(s) from Imaging Studies Chest X-Ray 09/12/22 13:26 IMPRESSION: Right middle lobe pneumonia with volume loss in the right middle lobe. Stable scarring at the left lung base. Electronically Signed: Santiago Bradshaw MD at 14:27 EDT , Treatment and Re-Evaluation Narrative: Patient ambulated here without significant hypoxia. She has oxygen at home is appropriate discharge home. Shared decision making: I had a long discussion with the patient and or visitors regarding risk/benefits of further testing or admission. They decided to forego any further testing or admission at this time. They are aware of of the risk/benefits inherent in this decision and have voiced understanding. Discharge Plan Triage Chief Complaint: Fatigue Other Complaint: General Illness ED Provider: Issa Huynh Dx/Rx/DC Orders Clinical Impression: Pneumonia Instructions: ED Pneumonia (Adult) Prescriptions: New amoxicillin-pot clavulanate [Augmentin] 500-125 mg tablet 1 tab PO Q12H 7 Days Qty: 14 0RF No Action metformin 500 MG tablet 500 mg PO TIDCM simvastatin 40 MG tablet 40 mg PO QHS albuterol sulfate [ProAir HFA] 1 PUFF inhaler 1 - 2 puff inhalation Q6H PRN PRN (Reason: Sob &/Or Wheezing) lisinopril 5 mg tablet 5 mg PO DAILY montelukast 10 mg tablet 10 tab PO QHS levothyroxine 75 mcg tablet 75 mcg PO DAILY Trelegy Ellipta 200-62.5-25 mcg blister with device 1 ea INHALATION BID Label Comments: INHALE ONE (1) PUFF BY MOUTH EVERY DAY AT THE SAME TIME EACH DAY. STOP TRELEGY 100/62.5/25 RX guaifenesin 600 mg Tablet Extended Release 12hr 600 mg PO BID 7 Days Qty: 14 0RF Primary Care Provider: Ramez Toledo Referrals: Ramez Toledo MD [Primary Care Provider] - Disposition Disposition: Home, Self Care Discharge Date/Time: 09/12/22 16:56
--- NOTE | 2022-09-12 13:26 | RAD_ITS ---
STUDY: X-RAY CHEST REASON FOR EXAM: Female, 82 years old. Fatigue, cough r/o PNA TECHNIQUE: PA and lateral views of the chest. COMPARISON: Comparison is made with prior study dated 05/25/2022. FINDINGS: EKG electrodes are seen. Hyperinflation. There is evidence of right middle lobe infiltrate with some volume loss with right middle lobe pneumonia. Stable scarring at the left lung base. There is no demonstrated pleural abnormality. Normal size heart. Normal mediastinum and simone. Normal visualized pulmonary arteries. There is atherosclerotic calcification of the aortic arch with tortuosity. There are diffuse degenerative changes of the visualized thoracic spine. Normal visualized ribs, clavicles, and shoulders. There is no demonstrated abnormality of the visualized soft tissue structures of the upper abdomen. RAD/Chest PA and Lateral IMPRESSION: Right middle lobe pneumonia with volume loss in the right middle lobe. Stable scarring at the left lung base. Electronically Signed: Santiago Bradshaw MD at 14:27 EDT ,
[2022-09-12] MEDS: Ondansetron ODT 4 MG Tablet PO (13:43)
[2022-09-12 14:01] LABS: Absolute Lymphocyte Count 1.64 X10^3/uL (0.83-4.51); Absolute Neutrophil Count 5.7 X10^3/uL (2.0-7.7); Basophil# 0.08 X10^3/uL; Basophil% 0.9 % (0-1); Eosinophil# 0.13 X10^3/uL; Eosinophils% 1.5 % (0-5); Hematocrit 43.3 % (37-47); Hemoglobin 14.7 g/dL (12.0-15.0); Lymphocyte # 1.64 X10^3/ul (0.83-4.51); Lymphocyte % 19.1 % (19-41); Mean Corp Hgb Conc 33.9 g/dL (32-36); Mean Corpuscular Hgb 28.9 pg (27.0-32.0); Mean Corpuscular Volume 85.1 fL (81-99); Mean Platelet Vol. 9.1 fl (6.2-12.0); Monocyte% 10.5 % (0-10); NRBC Flagged by Analyzer 0 % (0-5); Neutrophil # 5.74 X10^3/uL (2.7-7.7); Neutrophil % 67.1 % (47-70); Platelet Count 362 K/mm3 (150-450); RBC Distribution Width CV 12.5 % (11.6-14.6); RBC Distribution Width SD 38.5 fl (35.1-43.9); Red Blood Count 5.09 M/mm3 (4.2-5.4); White Blood Count 8.6 K/mm3 (4.4-11.0)
[2022-09-12 14:19] LABS: AST(SGOT) 9 U/L (15-37); Alanine Aminotransfer ALT/SGPT 11 U/L (13-56); Albumin, Serum 3.4 g/dL (3.2-5.0); Alkaline Phosphatase 91 U/L (45-117); Anion Gap 5 (5-15); BUN 11 mg/dL (7-18); BUN/Creat Ratio 15.9 RATIO (10-20); Calcium,Total 9.7 mg/dL (8.5-10.1); Chloride 98 mmol/L (98-107); Creatinine, Serum 0.69 mg/dL (0.55-1.02); EST Glomerular Filtration Rate 86 mL/min (>60); Est Glom Filt Rate - Afr Amer 104 mL/min (>60); Estimated Creatinine Clearance 30.62 ml/min; Globulin 4.6 g/dL (2.2-4.2); Glucose 87 mg/dL (74-106); Lipase 107 U/L (73-393); Potassium 3.8 mmol/L (3.5-5.1); Sodium Level 134 mmol/L (136-145); Troponin-I HS 3 pg/mL (3.0-54.0)
[2022-09-12 14:55] LABS: Color, Urine Yellow (Yellow); Glucose, Dipstick Normal (Normal); Ketone-Dipstick Negative (Negative); Leukocyte Esterase-Dipstick 500 /ul (Negative); Nitrite-Dipstick Negative (Negative); Occult Blood-Urine 10 /ul (Negative); Protein-Dipstick 30 mg/dl (Negative); Specific Gravity, Urine 1.015 (1.002-1.030); Urine Bilirubin Dipstick Negative (Negative); Urine Clarity Clear (Clear); Urine Urobilinogen 1 mg/dl (Normal)
[2022-09-12 16:45] VITALS: BP 118/68; PULSE 63; RESP 20; O2SAT 92
[2022-09-12] MEDS: Amox/Clavulanate 875 MG Tablet PO (16:47)
== END 2022-09-12 16:56 | disposition home or self-care (01) ==
PROVIDERS: Emergency Provider Emergency Medicine; PCP Family Medicine; Visit Provider Emergency Medicine
DX: J18.9 Pneumonia, unspecified organism (principal); J44.0 Chronic obstructive pulmonary disease with (acute) lower respiratory infection; E11.9 Type 2 diabetes mellitus without complications; I10 Essential (primary) hypertension; E07.9 Disorder of thyroid, unspecified; Z79.84 Long term (current) use of oral hypoglycemic drugs; M19.90 Unspecified osteoarthritis, unspecified site; Z79.899 Other long term (current) drug therapy; Z86.16 Personal history of COVID-19; Z87.891 Personal history of nicotine dependence
CPT/HCPCS: 71046; 80048; 80076; 81002; 83690; 84484; 85025; 87428; 99282; A4216

== ENCOUNTER 2023-02-02 11:21 | Emergency (ER) | payer MEDICARE, SELFPAY ==
[2023-02-02 11:22] VITALS: BP 182/78; PULSE 85; RESP 16; TEMP 36.2; O2SAT 95; BMI 25.7
--- NOTE | 2023-02-02 13:16 | EX.ED.DYSGE1 ---
HPI <JOHNSON Brunner - Last Filed: 02/02/23 15:10> History of Present Illness Chief Complaint: Shortness of Breath Narrative Narrative: 82-year-old female with PMH of HTN, DM2, COPD presents with persistent productive cough. She was seen in urgent care and diagnosed with pneumonia on January 22 and completed a course of Augmentin and doxycycline. Her cough has improved but persisted. She has seen Dr. Mathews in pulmonology in the past and was told to wear 3 L of O2 at night. During the course of her pneumonia she has been wearing it continuously day and night. She feels short of breath with exertion. No orthopnea or lower extremity swelling. No recent fever. She tried to follow-up with her PCP today but he called out sick and will not be available for 3 weeks so she came here for evaluation. She is a former smoker. PFSH <JOHNSON Brunner - Last Filed: 02/02/23 15:10> [facility] Medical History Arthritis COPD (chronic obstructive pulmonary disease) Diabetes mellitus, type 2 Former tobacco use HTN (hypertension) Intermittent constipation Normocytic anemia Thyroid disease Home Medications albuterol sulfate 90 mcg/actuation aerosol inhaler (ProAir HFA) 1 - 2 puff inhalation Q6H PRN PRN Sob &/Or Wheezing 04/03/19 [History Last Taken Unknown] metformin 500 mg tablet 500 mg PO TIDCM diabetes 04/03/19 [History Last Taken 05/25/22] simvastatin 40 mg tablet 40 mg PO QHS cholesterol 04/03/19 [History Last Taken 05/24/22] levothyroxine 75 mcg tablet 75 mcg PO DAILY thyroid 05/25/22 [History Last Taken 05/25/22] lisinopril 5 mg tablet 5 mg PO DAILY HTN 05/25/22 [History Last Taken 05/25/22] montelukast 10 mg tablet 10 tab PO QHS COPD 05/25/22 [History Last Taken Unknown] fluticasone fur. 200 mcg-umeclid 62.5 mcg-vilant 25 mcg inhalat.powder (Trelegy Ellipta) 1 ea inhalation BID copd 05/26/22 [History Last Taken Unknown] Allergy/AdvReac Type Severity Reaction Status Date / Time No Known Allergies Allergy Verified 02/02/23 11:22 Family History Mother Hypertension Father Cancer Passed age 2828 years old, she notes suspect if was cancer but unclear exact etiology. Surgical History H/O rectal polypectomy History of surgery of uterus Hx of colonoscopy Hx of foot surgery Social History household members: none Smoking Status: Former smoker how long ago did patient quit smoking: Quit 07/22/2013, smoked 1 ppd x 50 years until quit. second hand exposure: No alcohol intake: never substance use type: does not use caffeine: Yes frequency: does not exercise ROS <JOHNSON Brunner - Last Filed: 02/02/23 15:10> ROS ED ROS Narrative Constitutional: Negative for fever, chills, malaise. CVS: Negative for palpitations, chest pain. Respiratory: Positive for shortness of breath, cough. GI: Negative for abdominal pain, nausea, vomiting. Neuro: Negative for headache. EXAM <JOHNSON Brunner - Last Filed: 02/02/23 15:10> Physical Exam Narrative Exam Narrative: CONST: Patient sitting in no acute distress. EYES: Normal inspection. NECK: Normal inspection. RESP: No respiratory distress, mild expiratory wheezing in all lung ku. CVS: Regular rate and rhythm, no murmur, no gallop. ABD: Soft and nontender, no guarding or rebound, nondistended. SKIN: Color normal, no rash, warm, dry, intact. EXTREMITIES: Normal appearance, no pedal edema. NEURO: Oriented x4. PSYCH: Normal affect. Const Vital Signs: 02/02/23 11:22 02/02/23 13:30 02/02/23 13:35 Temperature 97.1 F L 98.2 F Temperature Source Temporal Oral Pulse Rate 85 65 Respiratory Rate 16 16 Respiratory Effort Normal Non-Labored Respiratory Depth Normal Respiratory Pattern Normal Blood Pressure 182/78 H 145/76 H Blood Pressure Mean 112 99 Pulse Ox 95 93 Oxygen Delivery Method Nasal Cannula Room Air Room Air Oxygen Flow Rate (L/min) 3 02/02/23 13:41 Temperature Temperature Source Pulse Rate 76 Respiratory Rate 18 Respiratory Effort Respiratory Depth Respiratory Pattern Blood Pressure Blood Pressure Mean Pulse Ox Oxygen Delivery Method Oxygen Flow Rate (L/min) <Dr. Issa Huynh DO - Last Filed: 02/02/23 14:54> Physical Exam Const Vital Signs: 02/02/23 11:22 02/02/23 13:30 02/02/23 13:35 Temperature 97.1 F L 98.2 F Temperature Source Temporal Oral Pulse Rate 85 65 Respiratory Rate 16 16 Respiratory Effort Normal Non-Labored Respiratory Depth Normal Respiratory Pattern Normal Blood Pressure 182/78 H 145/76 H Blood Pressure Mean 112 99 Pulse Ox 95 93 Oxygen Delivery Method Nasal Cannula Room Air Room Air Oxygen Flow Rate (L/min) 3 02/02/23 13:41 Temperature Temperature Source Pulse Rate 76 Respiratory Rate 18 Respiratory Effort Respiratory Depth Respiratory Pattern Blood Pressure Blood Pressure Mean Pulse Ox Oxygen Delivery Method Oxygen Flow Rate (L/min) MDM <JOHNSON Brunner - Last Filed: 02/02/23 15:10> [facility] Narrative Medical decision making narrative: Patient completed 2 antibiotics for pneumonia about a week ago. She is here to check that her infection has resolved. Cough has improved but is still lingering. Some mild dyspnea on exertion which is chronic with COPD. She appears well and nontoxic. Normal vital signs?93% on room air. She had been wearing 3 L at home day and night during this infection. She has some mild expiratory wheezing in all lung uk which improved after DuoNeb. No signs of fluid overload. No risk factors for DVT/PE. Show normal white count of 8.8, hemoglobin 13.1. BMP unremarkable. EKG is sinus rhythm with no ischemic changes and troponin is 5. CXR shows some patchiness/blunting of the right lower lobe suggesting atelectasis or early infiltrate. Patient states she was told by urgent care she had a large right-sided pneumonia. This imaging is not available but I suspect that she is improving as she feels better, has a normal white count, is not requiring oxygen. She was ambulated at room air and was 93% or above. We made a mutual decision that no further antibiotics are indicated right now. 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 ED attending note: I evaluated the patient in conjunction with the CRISTIAN. I agree with his/her statements and above findings. I have personally performed a face to face assessment of the patient and have reviewed the CRISTIAN Note. I performed a substantive portion of the visit including all aspects of the following. I personally saw the patient performed chart review, physical exam, reviewed labs, imaging (if obtained), and formulated a treatment and management plan. Patient here for shortness of breath and essentially sure that her pneumonia has resolved. States approximate 11 days ago she finished a course of antibiotics. States she feels better however wants to make sure her pneumonia has resolved. Exam: Nursing triage notes reviewed, Vital signs reviewed Constitutional: please see mdm HENT: MMM Eyes: Pupils equal round and reactive to light, Extraocular muscles intact Neck: No stridor, no JVD, full neck ROM Lungs: Clear to auscultation, No wheezing or rales. No increased work of breathing, no conversational dyspnea, no accessory muscle use, no nasal flaring. No respiratory distress noted Heart: Regular rate and rhythm, No murmurs, No rubs and No gallops, 2+ distal pulses (radial, femoral, posterior tibial) in all extremities Abdomen: Soft, there is no tenderness, rigidity, rebound or guarding, no obvious peritoneal signs, no palpable pulsatile abdominal masses, no auscultated abdominal bruit : No CVAT Extremities: No edema Neuro: No focal neurological deficits, cranial nerves II through XII intact, 5/5 strength in all extremities. Intact sensation to light touch in all extremities, 2+ reflexes bilateral patella dens. Normal gait. No ataxia. Skin: No rash or lesions noted MDM/plan: Chief Complaint: Concern for pneumonia External records reviewed: Chest x-ray from 09/12/2022 shows right sided pneumonia I considered the following differential diagnosis: Pneumonia, ACS, anemia, arrhythmia EKG without arrhythmia or ACS. Labs without anemia. Will obtain a chest x-ray to rule out pneumonia and dispo based on walking pulse ox, vital signs and shared decision making. Factors affecting care: Hypertension, type 2 diabetes, atrial fibrillation Social determinants of health: Elderly History obtained from others: The patient significant other/family member Shared decision making: I will have a discussion with the patient and or visitors regarding risk/benefits of further testing or admission. They will be made aware of of the risk/benefits inherent in this decision they will be given the opportunity to voice understanding. Consults: None Lab Data Labs: Laboratory Results - last 24 hr 02/02/23 02/02/23 13:30 13:30 WBC 8.8 RBC 4.54 Hgb 13.1 Hct 39.6 MCV 87.2 MCH 28.9 MCHC 33.1 RDW Std Deviation 41.1 RDW Coeff of Katia 13.0 Plt Count 335 MPV 8.7 Immature Gran % (Auto) 0.200 Neut % (Auto) 74.0 H Lymph % (Auto) 14.9 L [place] % (Auto) 6.6 Eos % (Auto) 3.5 Baso % (Auto) 0.8 Absolute Neuts (auto) 6.5 Absolute Lymphs (auto) 1.30 Nucleated RBC % 0 Sodium 135 L Potassium 4.5 Chloride 98 Carbon Dioxide 32.0 Anion Gap 5 BUN 13 Creatinine 0.59 Estim Creat Clear Calc 30.62 Est GFR (MDRD) Af Amer 124 Est GFR (MDRD) Non-Af 103 BUN/Creatinine Ratio 21.9 H Glucose 105 Calcium 9.7 Troponin I High Sens 5 Radiography Diagnostic Testing: Clinical Impression(s) from Imaging Studies Chest X-Ray 02/02/23 13:17 IMPRESSION: Hyperinflation. Increased markings at the lung bases with blunting of the right costophrenic angle suggestive of bibasilar atelectasis and/or early infiltrates. Follow-up recommended. Electronically Signed: Santiago Bradshaw MD at 13:42 EDT , <Dr. Issa Huynh, DO - Last Filed: 02/02/23 14:54> [facility] Narrative Medical decision making narrative: ED attending note: I evaluated the patient in conjunction with the CRISTIAN. I agree with his/her statements and above findings. I have personally performed a face to face assessment of the patient and have reviewed the CRISTIAN Note. I performed a substantive portion of the visit including all aspects of the following. I personally saw the patient performed chart review, physical exam, reviewed labs, imaging (if obtained), and formulated a treatment and management plan. Patient here for shortness of breath and essentially sure that her pneumonia has resolved. States approximate 11 days ago she finished a course of antibiotics. States she feels better however wants to make sure her pneumonia has resolved. Exam: Nursing triage notes reviewed, Vital signs reviewed Constitutional: please see mdm HENT: MMM Eyes: Pupils equal round and reactive to light, Extraocular muscles intact Neck: No stridor, no JVD, full neck ROM Lungs: Clear to auscultation, No wheezing or rales. No increased work of breathing, no conversational dyspnea, no accessory muscle use, no nasal flaring. No respiratory distress noted Heart: Regular rate and rhythm, No murmurs, No rubs and No gallops, 2+ distal pulses (radial, femoral, posterior tibial) in all extremities Abdomen: Soft, there is no tenderness, rigidity, rebound or guarding, no obvious peritoneal signs, no palpable pulsatile abdominal masses, no auscultated abdominal bruit : No CVAT Extremities: No edema Neuro: No focal neurological deficits, cranial nerves II through XII intact, 5/5 strength in all extremities. Intact sensation to light touch in all extremities, 2+ reflexes bilateral patella dens. Normal gait. No ataxia. Skin: No rash or lesions noted MDM/plan: Chief Complaint: Concern for pneumonia External records reviewed: Chest x-ray from 09/12/2022 shows right sided pneumonia I considered the following differential diagnosis: Pneumonia, ACS, anemia, arrhythmia EKG without arrhythmia or ACS. Labs without anemia. Will obtain a chest x-ray to rule out pneumonia and dispo based on walking pulse ox, vital signs and shared decision making. Factors affecting care: Hypertension, type 2 diabetes, atrial fibrillation Social determinants of health: Elderly History obtained from others: The patient significant other/family member Shared decision making: I will have a discussion with the patient and or visitors regarding risk/benefits of further testing or admission. They will be made aware of of the risk/benefits inherent in this decision they will be given the opportunity to voice understanding. Consults: None Lab Data Attestation: I reviewed the patient's lab results. Lab results narrative: CBC without leukocytosis, severe anemia, no thrombocytopenia. BMP with mild hyponatremia, no significant [place] abnormalities, no anion gap to suggest endorgan hypoperfusion Troponin is negative, no evidence of myocardial ischemia Labs: Laboratory Results - last 24 hr 02/02/23 02/02/23 13:30 13:30 WBC 8.8 RBC 4.54 Hgb 13.1 Hct 39.6 MCV 87.2 MCH 28.9 MCHC 33.1 RDW Std Deviation 41.1 RDW Coeff of Katia 13.0 Plt Count 335 MPV 8.7 Immature Gran % (Auto) 0.200 Neut % (Auto) 74.0 H Lymph % (Auto) 14.9 L [place] % (Auto) 6.6 Eos % (Auto) 3.5 Baso % (Auto) 0.8 Absolute Neuts (auto) 6.5 Absolute Lymphs (auto) 1.30 Nucleated RBC % 0 Sodium 135 L Potassium 4.5 Chloride 98 Carbon Dioxide 32.0 Anion Gap 5 BUN 13 Creatinine 0.59 Estim Creat Clear Calc 30.62 Est GFR (MDRD) Af Amer 124 Est GFR (MDRD) Non-Af 103 BUN/Creatinine Ratio 21.9 H Glucose 105 Calcium 9.7 Troponin I High Sens 5 Radiography Chest X-Ray - ED: Read by ED Physician Diagnostic Testing: Clinical Impression(s) from Imaging Studies Chest X-Ray 02/02/23 13:17 IMPRESSION: Hyperinflation. Increased markings at the lung bases with blunting of the right costophrenic angle suggestive of bibasilar atelectasis and/or early infiltrates. Follow-up recommended. Electronically Signed: Santiago Bradshaw MD at 13:42 EDT , I have personally reviewed the patient's chest x-ray. Chest x-ray is unremarkable for pulmonary edema, pneumothorax, obvious pneumonia or focal cardiopulmonary abnormality. There is blunting of bilateral costophrenic angles as well as atelectasis likely in the right lower lobe. EKG Initial EKG: Attestation: I personally reviewed and interpreted this EKG as follows: Comments: EKG with normal sinus rhythm, normal axis, normal intervals, no STEMI Discharge Plan Triage Chief Complaint: Shortness of Breath ED Midlevel Provider: Holli Le ED Provider: Issa Huynh Dx/Rx/DC Orders Clinical Impression: Cough, History of bacterial pneumonia Instructions: ED Bronchitis with Wheezing (Adult) Prescriptions: No Action metformin 500 MG tablet 500 mg PO TIDCM simvastatin 40 MG tablet 40 mg PO QHS albuterol sulfate [ProAir HFA] 1 PUFF inhaler 1 - 2 puff inhalation Q6H PRN PRN (Reason: Sob &/Or Wheezing) lisinopril 5 mg tablet 5 mg PO DAILY montelukast 10 mg tablet 10 tab PO QHS levothyroxine 75 mcg tablet 75 mcg PO DAILY Trelegy Ellipta 200-62.5-25 mcg blister with device 1 ea INHALATION BID Label Comments: INHALE ONE (1) PUFF BY MOUTH EVERY DAY AT THE SAME TIME EACH DAY. STOP TRELEGY 100/62.5/25 RX Primary Care Provider: Ramez Toledo Referrals: Ramez Toledo MD [Primary Care Provider] - Activity Restrictions/Additional Instructions: Your chest x-ray showed a very small amount of right lower lobe patchiness which may be pneumonia. This is likely resolving from her prior infection. Your oxygen level here was normal on room air. You have a normal white count and no signs of infection on the blood work. I recommend calling Dr. Mathews to get an appointment sooner than 3 weeks for follow-up. If you develop a fever or worsening symptoms come back to the ER for evaluation. Disposition Disposition: Home, Self Care
--- NOTE | 2023-02-02 13:17 | RAD_ITS ---
STUDY: X-RAY CHEST REASON FOR EXAM: Female, 82 years old. Dyspnea. Shortness of breath. TECHNIQUE: PA and lateral views of the chest. COMPARISON: Comparison is made with prior study dated September 12, 2022. FINDINGS: Hyperinflation. Mild degree of increased markings at the lung bases suggestive of either atelectasis and/or infiltrates. There is blunting of the right costophrenic angle. Normal size heart. Normal mediastinum and simone. Normal visualized pulmonary arteries. There is atherosclerotic calcification of the aortic arch with tortuosity. There are diffuse degenerative changes of the visualized thoracic spine. Normal visualized ribs, clavicles, and shoulders. There is no demonstrated abnormality of the visualized soft tissue structures of the upper abdomen. RAD/Chest PA and Lateral IMPRESSION: Hyperinflation. Increased markings at the lung bases with blunting of the right costophrenic angle suggestive of bibasilar atelectasis and/or early infiltrates. Follow-up recommended. Electronically Signed: Santiago Bradshaw MD at 13:42 EDT ,
--- NOTE | 2023-02-02 13:20 | EKG12_ITS ---
Test Reason : SOB Blood Pressure : / mmHG Vent. Rate : 067 BPM Atrial Rate : 067 BPM P-R Int : 166 ms QRS Dur : 072 ms QT Int : 392 ms P-R-T Axes : 039 024 038 degrees QTc Int : 414 ms Normal sinus rhythm Normal ECG Confirmed by SHOLA KINCAID, GINGER ([id number]), science editor JIL WEAVER ([id number]) on 02/05/2023 2:15:56 PM Referred By: Confirmed By:GINGER JOLLEY MD
[2023-02-02 13:30] VITALS: BP 145/76; PULSE 65; RESP 16; TEMP 36.8; O2SAT 93
[2023-02-02 13:35] LABS: Absolute Neutrophil Count 6.5 X10^3/uL (2.0-7.7); Basophil# 0.07 X10^3/uL; Basophil% 0.8 % (0-1); Eosinophil# 0.31 X10^3/uL; Eosinophils% 3.5 % (0-5); Hematocrit 39.6 % (37-47); Hemoglobin 13.1 g/dL (12.0-15.0); Lymphocyte % 14.9 % (19-41); Mean Corp Hgb Conc 33.1 g/dL (32-36); Mean Corpuscular Hgb 28.9 pg (27.0-32.0); Mean Corpuscular Volume 87.2 fL (81-99); Mean Platelet Vol. 8.7 fl (6.2-12.0); Monocyte# 0.58 X10^3/uL; Monocyte% 6.6 % (0-10); NRBC Flagged by Analyzer 0 % (0-5); Neutrophil # 6.47 X10^3/uL (2.7-7.7); Platelet Count 335 K/mm3 (150-450); RBC Distribution Width SD 41.1 fl (35.1-43.9); Red Blood Count 4.54 M/mm3 (4.2-5.4); White Blood Count 8.8 K/mm3 (4.4-11.0)
[2023-02-02] MEDS: Ipratropium/Albuterol Sulfate 3 ML AMPUL.NEB INHALATION (13:39)
[2023-02-02 13:41] VITALS: PULSE 76; RESP 18
[2023-02-02 13:52] LABS: Anion Gap 5 (5-15); BUN 13 mg/dL (7-18); BUN/Creat Ratio 21.9 RATIO (10-20); Calcium,Total 9.7 mg/dL (8.5-10.1); Chloride 98 mmol/L (98-107); Creatinine, Serum 0.59 mg/dL (0.55-1.02); EST Glomerular Filtration Rate 103 mL/min (>60); Est Glom Filt Rate - Afr Amer 124 mL/min (>60); Estimated Creatinine Clearance 30.62 ml/min; Glucose 105 mg/dL (74-106); Potassium 4.5 mmol/L (3.5-5.1); Sodium Level 135 mmol/L (136-145); Troponin-I HS 5 pg/mL (3.0-54.0)
[2023-02-02 14:43] VITALS: O2SAT 94
[2023-02-02 15:23] VITALS: BP 125/70; PULSE 73; RESP 16; O2SAT 98
== END 2023-02-02 15:25 | disposition home or self-care (01) ==
PROVIDERS: Physician Assistant; Emergency Provider Emergency Medicine; PCP Family Medicine; Visit Provider Emergency Medicine
DX: R05.9 Cough, unspecified (principal); J44.9 Chronic obstructive pulmonary disease, unspecified; Z87.891 Personal history of nicotine dependence
CPT/HCPCS: 71046; 80048; 84484; 85025; 93005; 94640; 99282; A4216

== ENCOUNTER 2023-02-19 19:03 | Emergency (ER) | payer MEDICARE, SELFPAY ==
[2023-02-19 19:04] VITALS: BP 168/88; PULSE 102; RESP 20; TEMP 37.5; O2SAT 94; BMI 23.6
[2023-02-19 21:55] VITALS: BP 121/70; PULSE 84; PULSE 86; RESP 23; TEMP 36.7; O2SAT 93; O2SAT 94
[2023-02-19 21:58] VITALS: O2SAT 93
--- NOTE | 2023-02-19 22:00 | RAD_ITS ---
INDICATION: sob EXAMINATION/TECHNIQUE: X-RAY - XR Chest 1 View COMPARISON: February 02, 2023. FINDINGS: LINES/DEVICES: None. LUNGS: Right basilar opacity with superimposed linear atelectasis. No left lung consolidation. Mild diffuse chronic interstitial coarsening. No pneumothorax. MEDIASTINUM AND CARDIOVASCULAR STRUCTURES: Cardiac silhouette not enlarged. Mild aortic atherosclerosis. BONES AND SOFT TISSUES: Unremarkable. RAD/Chest 1 View (Portable) IMPRESSION: Right costophrenic angle opacity compatible with effusion and/or consolidation with superimposed linear atelectasis. Correlate for clinical pneumonia. Electronically Signed: Blu Bundy MD at 22:27 EDT ,
[2023-02-19 22:15] VITALS: BP 121/76; PULSE 84; RESP 26; TEMP 36.9; O2SAT 93
[2023-02-19 22:18] LABS: Absolute Lymphocyte Count 1.35 X10^3/uL (0.83-4.51); Absolute Neutrophil Count 10.5 X10^3/uL (2.0-7.7); Basophil# 0.08 X10^3/uL; Basophil% 0.6 % (0-1); Eosinophil# 0.23 X10^3/uL; Eosinophils% 1.7 % (0-5); Hemoglobin 12.1 g/dL (12.0-15.0); Lymphocyte # 1.35 X10^3/ul (0.83-4.51); Lymphocyte % 10.3 % (19-41); Mean Corp Hgb Conc 32.7 g/dL (32-36); Mean Corpuscular Hgb 28.3 pg (27.0-32.0); Mean Corpuscular Volume 86.4 fL (81-99); Mean Platelet Vol. 8.7 fl (6.2-12.0); Monocyte# 0.91 X10^3/uL; Monocyte% 6.9 % (0-10); NRBC Flagged by Analyzer 0 % (0-5); Neutrophil # 10.53 X10^3/uL (2.7-7.7); Platelet Count 392 K/mm3 (150-450); RBC Distribution Width SD 40.5 fl (35.1-43.9); Red Blood Count 4.28 M/mm3 (4.2-5.4); White Blood Count 13.2 K/mm3 (4.4-11.0)
--- NOTE | 2023-02-19 22:26 | EX.ED.DYSGE1 ---
HPI History of Present Illness Chief Complaint: Shortness of Breath Informant: patient Onset/Context/Timing Onset: Weeks Context: Gradual Onset Current Severity: Mild Maximum Severity: Moderate Narrative Narrative: Patient presents secondary to continued shortness of breath and concern for pneumonia. She is a history of COPD and wears oxygen mostly at night, but recently wearing it throughout the day as well. She was diagnosed with pneumonia 3 weeks ago and treated with doxycycline and Augmentin. She was back in the ER in late January and states she was told she still had pneumonia but should follow-up with her senior net web developer. She was not given additional antibiotics. She denies fever at home. She is coughing up clear phlegm. She describes a mild ache to the left lower ribs. [facility] Medical History Arthritis COPD (chronic obstructive pulmonary disease) Diabetes mellitus, type 2 Former tobacco use HTN (hypertension) Intermittent constipation Normocytic anemia Thyroid disease Home Medications albuterol sulfate 90 mcg/actuation aerosol inhaler (ProAir HFA) 1 - 2 puff inhalation Q6H PRN PRN Sob &/Or Wheezing 04/03/19 [History Last Taken Unknown] metformin 500 mg tablet 500 mg PO TIDCM diabetes 04/03/19 [History Last Taken 05/25/22] simvastatin 40 mg tablet 40 mg PO QHS cholesterol 04/03/19 [History Last Taken 05/24/22] levothyroxine 75 mcg tablet 75 mcg PO DAILY thyroid 05/25/22 [History Last Taken 05/25/22] lisinopril 5 mg tablet 5 mg PO DAILY HTN 05/25/22 [History Last Taken 05/25/22] montelukast 10 mg tablet 10 tab PO QHS COPD 05/25/22 [History Last Taken Unknown] fluticasone fur. 200 mcg-umeclid 62.5 mcg-vilant 25 mcg inhalat.powder (Trelegy Ellipta) 1 ea inhalation BID copd 05/26/22 [History Last Taken Unknown] levofloxacin 750 mg tablet 750 mg PO DAILY #4 tabs 02/19/23 [Rx Last Taken Unknown] prednisone 20 mg tablet 40 mg PO DAILY #8 tabs 02/19/23 [Rx Last Taken Unknown] Allergy/AdvReac Type Severity Reaction Status Date / Time No Known Allergies Allergy Verified 02/19/23 19:08 Family History Mother Hypertension Father Cancer Passed age 2828 years old, she notes suspect if was cancer but unclear exact etiology. Surgical History H/O rectal polypectomy History of surgery of uterus Hx of colonoscopy Hx of foot surgery Social History household members: none Smoking Status: Former smoker how long ago did patient quit smoking: Quit 07/22/2013, smoked 1 ppd x 50 years until quit. second hand exposure: No alcohol intake: never substance use type: does not use caffeine: Yes frequency: does not exercise ROS ROS ED Constitutional Constitutional ED: Denies chills or fever(s) Eyes Eyes: Denies change in vision or discharge from eye(s) ENT ENT ED: Denies discharge from eye(s), rhinorrhea or sore throat Cardiovascular Cardiovascular: Reports chest pain; Denies palpitations Respiratory/Chest Respiratory/Chest: Reports cough, dyspnea and sputum Gastrointestinal Gastrointestinal: Denies abdominal pain, nausea or vomiting Genitourinary Genitourinary ED: Denies dysuria Musculoskeletal Musculoskeletal: Denies back pain or extremity pain Integumentary Denies Abrasions or rash Neurologic Neurologic: Denies headache(s) or weakness Psychiatric Psychiatric: Denies anxiety or depression Allergic/Immunologic Allergic/Immunologic ED: Denies lip swelling or urticaria EXAM Physical Exam Const Vital Signs: 02/19/23 19:04 02/19/23 21:55 02/19/23 21:55 Temperature 99.5 F H 98.0 F Temperature Source Temporal Temporal Pulse Rate 102 H 86 84 Respiratory Rate 20 H 23 H 23 H Respiratory Effort Respiratory Depth Respiratory Pattern Blood Pressure 168/88 H 121/70 H 121/70 H Blood Pressure Mean 114 87 87 Pulse Ox 94 94 94 Oxygen Delivery Method Nasal Cannula Nasal Cannula Nasal Cannula Oxygen Flow Rate (L/min) 2 2 2 02/19/23 21:55 02/19/23 21:55 02/19/23 21:58 Temperature Temperature Source Pulse Rate Respiratory Rate 23 H Respiratory Effort Normal Non-Labored Respiratory Depth Normal Respiratory Pattern Normal Blood Pressure Blood Pressure Mean Pulse Ox 93 Oxygen Delivery Method Nasal Cannula Nasal Cannula Nasal Cannula Oxygen Flow Rate (L/min) 2 2 2 02/19/23 22:15 Temperature 98.5 F Temperature Source Oral Pulse Rate 84 Respiratory Rate 26 H Respiratory Effort Respiratory Depth Respiratory Pattern Blood Pressure 121/76 H Blood Pressure Mean 91 Pulse Ox 93 Oxygen Delivery Method Nasal Cannula Oxygen Flow Rate (L/min) 2 Positive well nourished and well developed General Appearance ED: well developed HEENT Reports normocephalic and head/scalp atraumatic Eyes PERRL and EOMs intact bilaterally Neck supple Chest Wall inspection of chest normal and palpation of chest normal Resp Resp Narrative: Lung sounds slight diminished at the bases. Mild tachypnea. Speaking in full sentences. Cardio regular rate and regular rhythm GI normal to inspection, nondistended, normoactive bowel sounds Palpation: soft Back/Spine no CVA tenderness Extremity normal to inspection Extremity Narrative: No peripheral edema. Neuro oriented x3 and no sensory deficits noted Sensorium / Orientation: alert Motor Exam: strength 5/5 throughout Psych mental status grossly normal Skin no rashes or lesions noted MDM MDM MDM Narrative Medical decision making narrative: Patient placed on aircraft assembler. EKG obtained to evaluate for cardiac arrhythmia/ischemia. Chest x-ray obtained to evaluate for acute lung pathology, cardiac size, or mediastinal abnormality. Labwork obtained to evaluate for leukocytosis, anemia, and electrolyte derangement. Swab for COVID and influenza obtained. Lab Data Attestation: I reviewed the patient's lab results. Labs: Laboratory Results - last 24 hr 02/19/23 02/19/23 22:10 22:10 WBC 13.2 H RBC 4.28 Hgb 12.1 Hct 37.0 MCV 86.4 MCH 28.3 MCHC 32.7 RDW Std Deviation 40.5 RDW Coeff of Katia 13.0 Plt Count 392 MPV 8.7 Immature Gran % (Auto) 0.500 Neut % (Auto) 80.0 H Lymph % (Auto) 10.3 L [place] % (Auto) 6.9 Eos % (Auto) 1.7 Baso % (Auto) 0.6 Absolute Neuts (auto) 10.5 H Absolute Lymphs (auto) 1.35 Nucleated RBC % 0 Sodium 134 L Potassium 3.6 Chloride 102 Carbon Dioxide 27.0 Anion Gap 5 BUN 8 Creatinine 0.52 L Estim Creat Clear Calc 30.62 Est GFR (MDRD) Af Amer 144 Est GFR (MDRD) Non-Af 119 BUN/Creatinine Ratio 15.3 Glucose 102 Calcium 9.1 Troponin I High Sens 4 Radiography Chest X-Ray - ED: 1 View, Read by ED Physician and Chronic Changes Diagnostic Testing: Clinical Impression(s) from Imaging Studies Chest X-Ray 02/19/23 22:00 IMPRESSION: Right costophrenic angle opacity compatible with effusion and/or consolidation with superimposed linear atelectasis. Correlate for clinical pneumonia. 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 This is an increased when compared to her recent labs. Chemistry studies are unremarkable. Troponin is normal at 4. Chest x-ray per my interpretation reveals chronic changes with what appears to be scarring at the right base. This is difficult to assess for an underlying infiltrate. Radiology interpretation is reviewed and does feel this could be scarring, atelectasis, or early infiltrate. COVID and influenza swab is negative. Test results discussed with patient and family at bedside. She does have increased shortness of breath with underlying COPD and an elevated white count. I will treat her with a course of Levaquin as well as steroids. She has an appointment to see her senior net web developer in 3 days. Return instructions provided. Discharge Plan Triage Chief Complaint: Shortness of Breath ED Provider: Mickie Acosta Dx/Rx/DC Orders Clinical Impression: COPD exacerbation Instructions: ED COPD Flare Prescriptions: New levofloxacin 750 mg tablet 750 mg PO DAILY Qty: 4 0RF prednisone 20 mg tablet 40 mg PO DAILY Qty: 8 0RF No Action metformin 500 MG tablet 500 mg PO TIDCM simvastatin 40 MG tablet 40 mg PO QHS albuterol sulfate [ProAir HFA] 1 PUFF inhaler 1 - 2 puff inhalation Q6H PRN PRN (Reason: Sob &/Or Wheezing) lisinopril 5 mg tablet 5 mg PO DAILY montelukast 10 mg tablet 10 tab PO QHS levothyroxine 75 mcg tablet 75 mcg PO DAILY Trelegy Ellipta 200-62.5-25 mcg blister with device 1 ea INHALATION BID Label Comments: INHALE ONE (1) PUFF BY MOUTH EVERY DAY AT THE SAME TIME EACH DAY. STOP TRELEGY 100/62.5/25 RX Primary Care Provider: Ramez Toledo Referrals: Kamran Mathews MD [Med Staff - Active Staff] - Keep Chidi appointment Ramez Toledo MD [Primary Care Provider] - Disposition Disposition: Home, Self Care
[2023-02-19 22:42] LABS: Anion Gap 5 (5-15); BUN 8 mg/dL (7-18); BUN/Creat Ratio 15.3 RATIO (10-20); Calcium,Total 9.1 mg/dL (8.5-10.1); Chloride 102 mmol/L (98-107); Creatinine, Serum 0.52 mg/dL (0.55-1.02); EST Glomerular Filtration Rate 119 mL/min (>60); Est Glom Filt Rate - Afr Amer 144 mL/min (>60); Estimated Creatinine Clearance 30.62 ml/min; Glucose 102 mg/dL (74-106); Potassium 3.6 mmol/L (3.5-5.1); Sodium Level 134 mmol/L (136-145); Troponin-I HS 4 pg/mL (3.0-54.0)
[2023-02-19 23:33] VITALS: BP 145/77; PULSE 83; RESP 18; O2SAT 94
[2023-02-19 23:40] VITALS: BP 145/77; PULSE 80; RESP 22; O2SAT 95
[2023-02-19] MEDS: levoFLOXacin 750 MG Tablet PO (23:46)
[2023-02-19] MEDS: predniSONE 20 MG Tablet 40 MG PO (23:46)
== END 2023-02-19 23:48 | disposition home or self-care (01) ==
PROVIDERS: Emergency Provider Emergency Medicine; PCP Family Medicine; Visit Provider Emergency Medicine
DX: J44.1 Chronic obstructive pulmonary disease with (acute) exacerbation (principal); E11.9 Type 2 diabetes mellitus without complications; I10 Essential (primary) hypertension; Z79.84 Long term (current) use of oral hypoglycemic drugs; Z79.899 Other long term (current) drug therapy; Z87.891 Personal history of nicotine dependence
CPT/HCPCS: 71045; 80048; 84484; 85025; 87811; 93005; 94760; 99284

== ENCOUNTER → 2023-03-15 | Outpatient (CLI) | payer MEDICARE, SELFPAY ==
--- NOTE | 2023-03-15 14:40 | BD_ITS ---
STUDY: DUAL ENERGY X-RAY ABSORPTIOMETRY / DXA REASON FOR EXAM: Female, 82 years old. [id number] TECHNIQUE: Bone Mineral Density (BMD) measurements of lumbar spine and bilateral hips were obtained. COMPARISON: Comparison is made with prior study of February 18, 2019. FINDINGS: Lumbar Spine (L1-L4): g/cm2 (1.053) / T-score (0.3) / Z-score (3.1) Findings are suggestive of normal bone density with a low fracture risk. Left Femur Total: g/cm2 (0.915) / T-score (-0.2) / Z-score (2.1) Left Femoral Neck: g/cm2 (0.814) / T-score (-0.3) / Z-score (2.2) Right Femur Total: g/cm2 (0.849) / T-score (-0.8) / Z-score (1.5) Right Femoral Neck: g/cm2 (0.793) / T-score (-0.5) / Z-score (2.0) The T-Scores on the most recent prior examination were: Lumbar Spine (L1-L4): There has been improvement of bone density since the previous examination. Left Femur Total: which represents a worsening of 5.5%. Right Femur Total: which represents a worsening of 0.6%. BD/Dexa Bone Density Study IMPRESSION: The patient is considered normal as outlined below according to World Jesse Organization (WHO) criteria with a low fracture risk. There has been worsening of bone density since the previous examination. Reference Information: The T-score is the number of standard deviations above or below the standard which is normal for young adults at their peak bone mineral density. The World Health Organization (WHO) interprets the T-scores as follows: Above -1 Normal bone density Between -1 and -2.5 Osteopenia Equal to / or below -2.5 Osteoporosis As a practical clinical guideline, osteopenia may be graded as follows: Mild -1 through -1.5 Moderate -1.6 through -2.0 Severe -2.1 through -2.4 The Z-score is the number of standard deviations above or below age-matched controls. A Z-score of less than -1.5 would be considered abnormal. References: 1. NIH Osteoporosis and Related Bone Diseases www osteo.org 2. International Society for Clinical Densitometry www iscd.org 3. National Osteoporosis Foundation www nof.org Electronically Signed: Santiago Bradshaw MD at 14:23 EDT ,
== END | disposition home or self-care (01) ==
PROVIDERS: PCP Family Medicine; Referring Provider Family Medicine; Visit Provider Family Medicine
DX: Z13.820 Encounter for screening for osteoporosis (principal); J44.9 Chronic obstructive pulmonary disease, unspecified; Z78.0 Asymptomatic menopausal state
CPT/HCPCS: 77080; 87070; 87077; 87186; 87205

== ENCOUNTER → 2023-04-02 | Outpatient (CLI) | payer MEDICARE, SELFPAY | END | disposition home or self-care (01) | LOC: LABSPEC 11:28 | PROVIDERS: PCP Family Medicine; Referring Provider Family Medicine; Visit Provider Family Medicine | DX: J44.9 Chronic obstructive pulmonary disease, unspecified (principal) | CPT/HCPCS: 87070; 87205 ==

== ENCOUNTER 2023-04-24 15:26 | Observation (INO) | payer MEDICARE, SELFPAY ==
[2023-04-24] VITALS (7 sets, daily range): BP systolic 124–160; BP diastolic 63–88; PULSE 85–113; RESP 16–26; TEMP 35.7–37.2; O2SAT 90–95; BMI 24.0; BMI 22.6
--- NOTE | 2023-04-24 15:41 | EKG12_ITS ---
Test Reason : SOB Blood Pressure : / mmHG Vent. Rate : 095 BPM Atrial Rate : 095 BPM P-R Int : 154 ms QRS Dur : 072 ms QT Int : 338 ms P-R-T Axes : 054 044 049 degrees QTc Int : 424 ms Normal sinus rhythm Normal ECG Confirmed by JUAN DANIEL KINCAID, ELIUD ([id number]), loan expeditor JIL WEAVER ([id number]) on 04/27/2023 10:01:39 A M Referred By: COR Confirmed By:HERI FRANCES MD
--- NOTE | 2023-04-24 15:43 | EDS_ITS ---
HPI History of Present Illness Chief Complaint: Shortness of Breath Narrative Narrative: Patient has a history of COPD. She presents with dyspnea and productive cough for the past few days. She is on home oxygen only when she ambulates but when she is at rest she is not on any kind of home oxygen. She arrives to the ED and she was hypoxic at 89% on her oxygen. She is denying any fevers or chills. No chest pain. No lower extremity edema or calf pain. [facility] Medical History Arthritis COPD (chronic obstructive pulmonary disease) Diabetes mellitus, type 2 Former tobacco use HTN (hypertension) Intermittent constipation Normocytic anemia Thyroid disease Home Medications albuterol sulfate 90 mcg/actuation aerosol inhaler (ProAir HFA) 1 - 2 puff inhalation Q6H PRN PRN Sob &/Or Wheezing 04/03/19 [History Last Taken Unknown] metformin 500 mg tablet 500 mg PO TIDCM diabetes 04/03/19 [History Last Taken 05/25/22] simvastatin 40 mg tablet 40 mg PO QHS cholesterol 04/03/19 [History Last Taken 05/24/22] levothyroxine 75 mcg tablet 75 mcg PO DAILY thyroid 05/25/22 [History Last Taken 05/25/22] lisinopril 5 mg tablet 5 mg PO DAILY HTN 05/25/22 [History Last Taken 05/25/22] montelukast 10 mg tablet 10 tab PO QHS COPD 05/25/22 [History Last Taken Unknown] fluticasone fur. 200 mcg-umeclid 62.5 mcg-vilant 25 mcg inhalat.powder (Trelegy Ellipta) 1 ea inhalation BID copd 05/26/22 [History Last Taken Unknown] levofloxacin 750 mg tablet 750 mg PO DAILY #4 tabs 02/19/23 [Rx Last Taken Unknown] prednisone 20 mg tablet 40 mg PO DAILY #8 tabs 02/19/23 [Rx Last Taken Unknown] Allergy/AdvReac Type Severity Reaction Status Date / Time No Known Allergies Allergy Verified 02/22/23 13:45 Family History Mother Hypertension Father Cancer Passed age 2828 years old, she notes suspect if was cancer but unclear exact etiology. Surgical History H/O rectal polypectomy History of surgery of uterus Hx of colonoscopy Hx of foot surgery Social History household members: none Smoking Status: Former smoker how long ago did patient quit smoking: Quit 07/22/2013, smoked 1 ppd x 50 years until quit. second hand exposure: No alcohol intake: never substance use type: does not use caffeine: Yes frequency: does not exercise ROS ROS ED ROS Narrative Past medical history: Reviewed, includes pulmonary fibrosis, COPD, thyroid disease and diabetes Medications: Reviewed Social history: Noncontributory Review of systems: All systems negative except as indicated General: No fever ENT: No upper airway congestion, normal voice Neck: No neck pain Cardiovascular: No chest pain Respiratory: Dyspnea as in HPI Gastrointestinal: No abdominal pain, nausea vomiting or diarrhea Genitourinary: No dysuria Musculoskeletal: Denies myalgias no difficulty with ambulation Skin: No rash EXAM Physical Exam Narrative Exam Narrative: Physical exam General: Patient is on oxygen and she appears relatively comfortable Head: Normocephalic, Atraumatic Eyes: Conjunctiva not pale ENT: Moist mucous membranes, no signs of congestion Neck: Supple, Nontender, No lymphadenopathy Cardiovascular: Regular tachycardia no obvious murmur Respiratory: Coarse breath sounds, and expiratory wheezing bilaterally, some diminished breath sounds bilaterally. She is slightly tachypneic about 20/min. She does however speak in full sentences. Abdomen: Soft, Nontender, Nondistended Back: Nontender, Normal Inspection. Negative for: CVA tenderness Extremities: Nontender, No edema, no calf pain. Skin: Normal color, No rash Const Vital Signs: 04/24/23 15:27 04/24/23 16:01 04/24/23 16:01 Temperature 96.2 F L 96.2 F L Temperature Source Temporal Temporal Pulse Rate 113 H 94 Respiratory Rate 26 H 24 H Respiratory Effort Short of Breath Labored Respiratory Depth Normal Respiratory Pattern Tachypnea Blood Pressure 160/88 H 139/73 H Blood Pressure Mean 112 95 Pulse Ox 90 94 Oxygen Delivery Method Nasal Cannula Nasal Cannula Nasal Cannula Oxygen Flow Rate (L/min) 3 3 3 04/24/23 16:02 Temperature Temperature Source Pulse Rate 93 Respiratory Rate 26 H Respiratory Effort Respiratory Depth Respiratory Pattern Tachypnea Blood Pressure Blood Pressure Mean Pulse Ox Oxygen Delivery Method Oxygen Flow Rate (L/min) MDM MDM MDM Narrative Medical decision making narrative: Patient has COPD exacerbation, I believe she likely has an underlying lung infection her white count is elevated she has green sputum even no chest x-ray read by me does not show an obvious pneumonia. It does show chronic scarring. She is given nebulizers, Solu-Medrol, antibiotics I reevaluated her she is slightly improved but is not well enough to be discharged. I will admit her she is still oxygen dependent and normally she is not oxygen dependent at home unless she exerts herself. Because of the increased oxygen requirement COPD exacerbation is not improving that well and the leukocytosis I will admit her. I will talk to the hospitalist for admission. I talked with daughter who gave me some of the history and is okay with the plan Independent interpretation Telemetry: Sinus rhythm with a rate in the 90s without ectopy. Chest x-ray: Chronic fibrotic changes without pneumonia as interpreted by me. Lab Data Labs: Laboratory Results - last 24 hr 04/24/23 04/24/23 04/24/23 16:07 16:07 16:07 WBC 16.1 H RBC 4.30 Hgb 12.1 Hct 37.2 MCV 86.5 MCH 28.1 MCHC 32.5 RDW Std Deviation 40.8 RDW Coeff of Katia 13.0 Plt Count 432 MPV 8.8 Immature Gran % (Auto) 0.400 Neut % (Auto) 87.8 H Lymph % (Auto) 4.3 L [place] % (Auto) 5.4 Eos % (Auto) 1.6 Baso % (Auto) 0.5 Absolute Neuts (auto) 14.1 H Absolute Lymphs (auto) 0.69 L Nucleated RBC % 0 Sodium 136 Potassium 3.5 Chloride 101 Carbon Dioxide 28.0 Anion Gap 7 BUN 8 Creatinine 0.58 Estim Creat Clear Calc 30.62 Est GFR (MDRD) Af Amer 126 Est GFR (MDRD) Non-Af 104 BUN/Creatinine Ratio 13.7 Glucose 137 H Lactic Acid 1.1 Calcium 9.2 Total Bilirubin 0.30 AST 7 L ALT 9 L Alkaline Phosphatase 77 Troponin I High Sens 4 B-Natriuretic Peptide Total Protein 6.8 Albumin 2.7 L Globulin 4.1 Albumin/Globulin Ratio 0.7 L 04/24/23 16:07 WBC RBC Hgb Hct MCV MCH MCHC RDW Std Deviation RDW Coeff of Katia Plt Count MPV Immature Gran % (Auto) Neut % (Auto) Lymph % (Auto) [place] % (Auto) Eos % (Auto) Baso % (Auto) Absolute Neuts (auto) Absolute Lymphs (auto) Nucleated RBC % Sodium Potassium Chloride Carbon Dioxide Anion Gap BUN Creatinine Estim Creat Clear Calc Est GFR (MDRD) Af Amer Est GFR (MDRD) Non-Af BUN/Creatinine Ratio Glucose Lactic Acid Calcium Total Bilirubin AST ALT Alkaline Phosphatase Troponin I High Sens B-Natriuretic Peptide 37.2 Total Protein Albumin Globulin Albumin/Globulin Ratio EKG Initial EKG: Comments: Sinus rhythm with a rate of 95. Normal IL and QTc intervals. No ischemic changes. Normal EKG Interpreted by emergency doctor Discharge Plan Triage Chief Complaint: Shortness of Breath ED Provider: Benoit Miles Dx/Rx/DC Orders Clinical Impression: COPD (chronic obstructive pulmonary disease), Hypoxia, Pulmonary infection Prescriptions: No Action metformin 500 MG tablet 500 mg PO TIDCM simvastatin 40 MG tablet 40 mg PO QHS albuterol sulfate [ProAir HFA] 1 PUFF inhaler 1 - 2 puff inhalation Q6H PRN PRN (Reason: Sob &/Or Wheezing) lisinopril 5 mg tablet 5 mg PO DAILY montelukast 10 mg tablet 10 tab PO QHS levothyroxine 75 mcg tablet 75 mcg PO DAILY Trelegy Ellipta 200-62.5-25 mcg blister with device 1 ea INHALATION BID Label Comments: INHALE ONE (1) PUFF BY MOUTH EVERY DAY AT THE SAME TIME EACH DAY. STOP TRELEGY 100/62.5/25 RX levofloxacin 750 mg tablet 750 mg PO DAILY Qty: 4 0RF prednisone 20 mg tablet 40 mg PO DAILY Qty: 8 0RF Primary Care Provider: Ramez Toledo Referrals: Ramez Toledo MD [Primary Care Provider] - Disposition Disposition: Acute Care Hospital [facility]
[2023-04-24] MEDS: Ceftriaxone 1 GM/50 ML BAG IV (16:04)
[2023-04-24] MEDS: Ipratropium/Albuterol Sulfate 3 ML AMPUL.NEB INHALATION (16:13)
[2023-04-24 16:21] LABS: Absolute Lymphocyte Count 0.69 X10^3/uL (0.83-4.51); Absolute Neutrophil Count 14.1 X10^3/uL (2.0-7.7); Basophil# 0.08 X10^3/uL; Basophil% 0.5 % (0-1); Eosinophil# 0.25 X10^3/uL; Eosinophils% 1.6 % (0-5); Hematocrit 37.2 % (37-47); Hemoglobin 12.1 g/dL (12.0-15.0); Lymphocyte # 0.69 X10^3/ul (0.83-4.51); Lymphocyte % 4.3 % (19-41); Mean Corp Hgb Conc 32.5 g/dL (32-36); Mean Corpuscular Hgb 28.1 pg (27.0-32.0); Mean Corpuscular Volume 86.5 fL (81-99); Mean Platelet Vol. 8.8 fl (6.2-12.0); Monocyte# 0.87 X10^3/uL; Monocyte% 5.4 % (0-10); NRBC Flagged by Analyzer 0 % (0-5); Neutrophil # 14.09 X10^3/uL (2.7-7.7); Neutrophil % 87.8 % (47-70); Platelet Count 432 K/mm3 (150-450); RBC Distribution Width SD 40.8 fl (35.1-43.9); White Blood Count 16.1 K/mm3 (4.4-11.0)
--- NOTE | 2023-04-24 16:25 | RAD_ITS ---
INDICATION: sob EXAMINATION/TECHNIQUE: X-RAY - XR Chest 1 View COMPARISON: 02/19/2023, 02/02/2023. FINDINGS: LINES/DEVICES: None. LUNGS: Interstitial prominence in the lower lobes bilaterally, increased compared to the prior studies. No consolidation, edema or effusion. No pneumothorax. MEDIASTINUM AND CARDIOVASCULAR STRUCTURES: Cardiac silhouette not enlarged. Central airways and mediastinal contour are unremarkable. BONES AND SOFT TISSUES: Unremarkable. RAD/Chest 1 View (Portable) IMPRESSION: Bibasilar interstitial prominence increased from prior studies, suspicious for pneumonia. Electronically Signed: Nedra Viera MD at 17:40 EDT Reading Location ID and State: [id number] / Tel , Service support ,
[2023-04-24 16:33] LABS: ALB/GLOB Ratio 0.7 RATIO (0.9-2.4); AST(SGOT) 7 U/L (15-37); Alanine Aminotransfer ALT/SGPT 9 U/L (13-56); Albumin, Serum 2.7 g/dL (3.2-5.0); Alkaline Phosphatase 77 U/L (45-117); Anion Gap 7 (5-15); BUN 8 mg/dL (7-18); BUN/Creat Ratio 13.7 RATIO (10-20); Calcium,Total 9.2 mg/dL (8.5-10.1); Chloride 101 mmol/L (98-107); Creatinine, Serum 0.58 mg/dL (0.55-1.02); EST Glomerular Filtration Rate 104 mL/min (>60); Est Glom Filt Rate - Afr Amer 126 mL/min (>60); Estimated Creatinine Clearance 30.62 ml/min; Globulin 4.1 g/dL (2.2-4.2); Glucose 137 mg/dL (74-106); Potassium 3.5 mmol/L (3.5-5.1); Protein, Total 6.8 g/dL (6.4-8.2); Sodium Level 136 mmol/L (136-145); Troponin-I HS (w/2H Reflex) 4 pg/mL (3.0-54.0)
[2023-04-24 16:40] LABS: BNP,B-Type NATRIURETIC PEPTIDE 37.2 pg/mL (0-100)
[2023-04-24 16:56] LABS: Lactic Acid 1.1 mmol/L (0.4-1.9)
[2023-04-24] MEDS: MethylPREDNISolone 125 MG/2 ML Vial IV (17:11)
--- NOTE | 2023-04-24 17:35 | PCM.HP.STD ---
HPI - General General Date of Admission: 04/24/23 Date of Service: 04/24/23 Chief Complaint: As of breath and exertional dyspnea [facility] Narrative MARIELA LARIOS, is a 82 F with a history of severe COPD. Presented to hospital with 2-week history of worsening shortness of breath, exertional dyspnea and cough productive of greenish sputum. Denies any fever or chills. Also having wheezing. Did not report any chest pain. Did not report any lower extremity swelling. [facility] Medical History Arthritis COPD (chronic obstructive pulmonary disease) Diabetes mellitus, type 2 Former tobacco use HTN (hypertension) Intermittent constipation Normocytic anemia Thyroid disease Home Medications albuterol sulfate 90 mcg/actuation aerosol inhaler (ProAir HFA) 1 - 2 puff inhalation Q6H PRN PRN Sob &/Or Wheezing 04/03/19 [History Last Taken Unknown] metformin 500 mg tablet 500 mg PO TIDCM diabetes 04/03/19 [History Last Taken 05/25/22] simvastatin 40 mg tablet 40 mg PO QHS cholesterol 04/03/19 [History Last Taken 05/24/22] levothyroxine 75 mcg tablet 75 mcg PO DAILY thyroid 05/25/22 [History Last Taken 05/25/22] lisinopril 5 mg tablet 5 mg PO DAILY HTN 05/25/22 [History Last Taken 05/25/22] montelukast 10 mg tablet 10 tab PO QHS COPD 05/25/22 [History Last Taken Unknown] fluticasone fur. 200 mcg-umeclid 62.5 mcg-vilant 25 mcg inhalat.powder (Trelegy Ellipta) 1 ea inhalation BID copd 05/26/22 [History Last Taken Unknown] levofloxacin 750 mg tablet 750 mg PO DAILY #4 tabs 02/19/23 [Rx Last Taken Unknown] prednisone 20 mg tablet 40 mg PO DAILY #8 tabs 02/19/23 [Rx Last Taken Unknown] Allergy/AdvReac Type Severity Reaction Status Date / Time No Known Allergies Allergy Verified 02/22/23 13:45 Family History Mother Hypertension Father Cancer Passed age 2828 years old, she notes suspect if was cancer but unclear exact etiology. Surgical History H/O rectal polypectomy History of surgery of uterus Hx of colonoscopy Hx of foot surgery Social History household members: none Smoking Status: Former smoker how long ago did patient quit smoking: Quit 07/22/2013, smoked 1 ppd x 50 years until quit. second hand exposure: No alcohol intake: never substance use type: does not use caffeine: Yes frequency: does not exercise ROS ROS Narrative Did not report any abdominal pain nausea vomiting or lower extremity swelling. All other systems reviewed and essentially negative or as above in the body of the history. Vital Signs Vital Signs Vital Signs: 04/24/23 15:27 04/24/23 16:01 04/24/23 16:01 Temperature 35.7 C L 35.7 C L Temperature Source Temporal Temporal Pulse Rate 113 H 94 Respiratory Rate 26 H 24 H Respiratory Effort Short of Breath Labored Respiratory Depth Normal Respiratory Pattern Tachypnea Blood Pressure 160/88 H 139/73 H Blood Pressure Mean 112 95 Pulse Ox 90 94 Oxygen Delivery Method Nasal Cannula Nasal Cannula Nasal Cannula Oxygen Flow Rate (L/min) 3 3 3 04/24/23 16:02 Temperature Temperature Source Pulse Rate 93 Respiratory Rate 26 H Respiratory Effort Respiratory Depth Respiratory Pattern Tachypnea Blood Pressure Blood Pressure Mean Pulse Ox Oxygen Delivery Method Oxygen Flow Rate (L/min) Weight Weight: 55.9 kg Body Mass Index (BMI) 24.0 Physical Exam Narrative General exam. Elderly man, dyspneic at rest, mildly ill-appearing, depressed appearing HEENT. Oral mucosa moist, no pallor or jaundice. No cyanosis. Skin. No bruises noted Neck. Neck is supple. Lungs. Diminished breath sounds bilaterally, expiratory wheezing 2+ bilaterally, transmitted sounds 2+, harsh breath sounds. Heart. Heart sounds slightly distant. First and second heart sounds heard, no murmurs. Extremities. 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 Conscious alert and oriented x3. Cranial nerves II to XII grossly intact. Results Lab / Micro Data Result Diagrams: 04/24/23 16:07 04/24/23 16:07 Labs: Laboratory Results - last 24 hr 04/24/23 16:07: WBC 16.1 H, RBC 4.30, Hgb 12.1, Hct 37.2, MCV 86.5, MCH 28.1, MCHC 32.5, RDW Std Deviation 40.8, RDW Coeff of Katia 13.0, Plt Count 432, MPV 8.8, Immature Gran % (Auto) 0.400, Neut % (Auto) 87.8 H, Lymph % (Auto) 4.3 L, Piatt % (Auto) 5.4, Eos % (Auto) 1.6, Baso % (Auto) 0.5, Absolute Neuts (auto) 14.1 H, Absolute Lymphs (auto) 0.69 L, Nucleated RBC % 0 04/24/23 16:07: Sodium 136, Potassium 3.5, Chloride 101, Carbon Dioxide 28.0, Anion Gap 7, BUN 8, Creatinine 0.58, Estim Creat Clear Calc 30.62, Est GFR (MDRD) Af Amer 126, Est GFR (MDRD) Non-Af 104, BUN/Creatinine Ratio 13.7, Glucose 137 H, Calcium 9.2, Total Bilirubin 0.30, AST 7 L, ALT 9 L, Alkaline Phosphatase 77, Troponin I High Sens 4, Total Protein 6.8, Albumin 2.7 L, Globulin 4.1, Albumin/Globulin Ratio 0.7 L 04/24/23 16:07: Lactic Acid 1.1 04/24/23 16:07: B-Natriuretic Peptide 37.2 Chest x-ray reviewed, no clear alveolar infiltrates but increasing distal markings in the lung bases. Assessment & Plan Assessment/Plan (1) COPD exacerbation: PLAN: Plan 1. Acute COPD exacerbation most likely precipitated by lower respiratory tract infection/acute bacterial bronchitis. Patient coughing up greenish phlegm and so will need to cover for Pseudomonas. We will start patient on IV Zosyn in addition to inhaled bronchodilators, steroids with Solu-Medrol 40 mg every 12 hours. Mucolytics to assist with expectoration and airway clearance. 2. Acute on chronic hypoxic respiratory failure. Supplemental oxygen to keep oxygen saturation greater than 94%. Charges/Coding Visit Charges Inpatient E&M: 70788 Init Hosp L3
[2023-04-24 18:12] LABS: Reflex Troponin-HS? (from REC) Y
[2023-04-24 20:34] LABS: Troponin-I HS 4 pg/mL (3.0-54.0)
[2023-04-24] MEDS: Albuterol 2.5 MG/3 ML VIAL.NEB. INHALATION (21:07)
[2023-04-24] MEDS: Budesonide Respules 0.5 MG/2 ML AMPUL.NEB. INHALATION (21:07)
[2023-04-24] MEDS: 0.9% Saline Lock 10 ML Syringe IV (22:05)
[2023-04-24] MEDS: Montelukast 10 MG Tablet PO (22:06)
[2023-04-24] MEDS: Atorvastatin Calcium 20 MG Tablet PO (22:06)
[2023-04-24] MEDS: guaiFENesin 1,200 MG Tablet 1200 MG PO (22:06)
[2023-04-24] MEDS: Methylprednisolone Sod Succ 40 MG/ML VIAL IV (22:06)
[2023-04-24] MEDS: 0.9% Normal Saline 1,000 ML 100 ML IV (22:07)
[2023-04-25] VITALS (8 sets, daily range): BP systolic 118–135; BP diastolic 64–95; PULSE 65–82; RESP 16–21; TEMP 36.3–36.7; O2SAT 95–100
[2023-04-25] MEDS: Levothyroxine 75 MCG Tablet PO (06:23)
--- NOTE | 2023-04-25 07:20 | PN_ITS ---
Progress Note Upon review of the patient's medical history, the patient may benefit form participation in Outpatient Pulmonary Rehab. If the patient's PCP or P ulmonologist is agreeable to the recommendation an electronic order can be placed in [employer] for [place] . BRETT Adame HIGH SCHO[employer] AUTO REPAIR TEACHER Clinical Sugar Refinery Supervisor & Pulmonary Rehabilitation
--- NOTE | 2023-04-25 07:20 | PCM.PN.BLA ---
Progress Note Upon review of the patient's medical history, the patient may benefit form participation in Outpatient Pulmonary Rehab. If the patient's PCP or Member Service Specialist is agreeable to the recommendation an electronic order can be placed in [employer] [facility] for [place] . BRETT Adame SOLDER TECHNICIAN Clinical Sat Act Instructor & Pulmonary Rehabilitation
[2023-04-25 08:01] LABS: Absolute Lymphocyte Count 0.67 X10^3/uL (0.83-4.51); Absolute Neutrophil Count 7.3 X10^3/uL (2.0-7.7); Basophil# 0.01 X10^3/uL; Basophil% 0.1 % (0-1); Lymphocyte # 0.67 X10^3/ul (0.83-4.51); Lymphocyte % 8.3 % (19-41); Mean Corp Hgb Conc 32.4 g/dL (32-36); Mean Corpuscular Volume 86.4 fL (81-99); Mean Platelet Vol. 9.2 fl (6.2-12.0); Monocyte# 0.12 X10^3/uL; Monocyte% 1.5 % (0-10); NRBC Flagged by Analyzer 0 % (0-5); Neutrophil # 7.25 X10^3/uL (2.7-7.7); Neutrophil % 89.6 % (47-70); Platelet Count 445 K/mm3 (150-450); RBC Distribution Width CV 12.9 % (11.6-14.6); RBC Distribution Width SD 40.3 fl (35.1-43.9); Red Blood Count 4.28 M/mm3 (4.2-5.4); White Blood Count 8.1 K/mm3 (4.4-11.0)
[2023-04-25] MEDS: 0.9% Normal Saline 1,000 ML 100 ML IV (08:27)
[2023-04-25] MEDS: metFORMIN HCl 500 MG Tablet PO ×3 (08:27→17:27)
[2023-04-25] MEDS: Lisinopril 5 MG Tablet PO (08:28)
[2023-04-25] MEDS: guaiFENesin 1,200 MG Tablet 1200 MG PO ×2 (08:28→22:57)
[2023-04-25] MEDS: Methylprednisolone Sod Succ 40 MG/ML VIAL IV ×2 (08:28→22:58)
[2023-04-25 08:38] LABS: ALB/GLOB Ratio 0.6 RATIO (0.9-2.4); AST(SGOT) 5 U/L (15-37); Alanine Aminotransfer ALT/SGPT 8 U/L (13-56); Albumin, Serum 2.6 g/dL (3.2-5.0); Alkaline Phosphatase 78 U/L (45-117); Anion Gap 5 (5-15); BUN 11 mg/dL (7-18); BUN/Creat Ratio 17.6 RATIO (10-20); Calcium,Total 9.2 mg/dL (8.5-10.1); Chloride 103 mmol/L (98-107); Creatinine, Serum 0.63 mg/dL (0.55-1.02); EST Glomerular Filtration Rate 96 mL/min (>60); Est Glom Filt Rate - Afr Amer 117 mL/min (>60); Estimated Creatinine Clearance 30.62 ml/min; Globulin 4.3 g/dL (2.2-4.2); Glucose 189 mg/dL (74-106); Potassium 4.1 mmol/L (3.5-5.1); Protein, Total 6.9 g/dL (6.4-8.2); Sodium Level 136 mmol/L (136-145)
--- NOTE | 2023-04-25 10:54 | PN_ITS ---
Subjective Subjective Patient seen and examined. She said she felt better today. She denied any fever or chills, but said her shortness of breath was improving. Review of systems is otherwise negative. Objective Data Objective Data Vital Signs: Vital Signs Temp Pulse Resp BP Pulse Ox O2 Del Method O2 Flow Rate 97.4 F L 65 18 135/64 H 95 Nasal Cannula 3 04/25/23 09:00 04/25/23 09:00 04/25/23 09:00 04/25/23 09:00 04/25/23 09:54 04/25/23 09:54 04/25/23 09:54 Oxygen Flow Rate (L/min) 3 Oxygen Delivery Method Nasal Cannula Weight: 115 lb 12.8 oz Body Mass Index (BMI) 22.6 Intake & Output: Intake and Output for Last 24 Hours 04/23/23 04/24/23 04/25/23 23:59 23:59 23:59 Intake Total 305 / 305 1900 / 1900 Output Total 200 / 200 Balance 305 / 305 1700 / 1700 Lab / Micro Data Result Diagrams: 04/25/23 07:20 04/25/23 07:20 Labs: Laboratory Results - last 24 hr 04/24/23 16:07: WBC 16.1 H, RBC 4.30, Hgb 12.1, Hct 37.2, MCV 86.5, MCH 28.1, MCHC 32.5, RDW Std Deviation 40.8, RDW Coeff of Katia 13.0, Plt Count 432, MPV 8.8, Immature Gran % (Auto) 0.400, Neut % (Auto) 87.8 H, Lymph % (Auto) 4.3 L, [place] % (Auto) 5.4, Eos % (Auto) 1.6, Baso % (Auto) 0.5, Absolute Neuts (auto) 14.1 H, Absolute Lymphs (auto) 0.69 L, Nucleated RBC % 0 04/24/23 16:07: Sodium 136, Potassium 3.5, Chloride 101, Carbon Dioxide 28.0, Anion Gap 7, BUN 8, Creatinine 0.58, Estim Creat Clear Calc 30.62, Est GFR (MDRD) Af Amer 126, Est GFR (MDRD) Non-Af 104, BUN/Creatinine Ratio 13.7, Glucose 137 H, Calcium 9.2, Total Bilirubin 0.30, AST 7 L, ALT 9 L, Alkaline Phosphatase 77, Troponin I High Sens 4, Total Protein 6.8, Albumin 2.7 L, Globulin 4.1, Albumin/Globulin Ratio 0.7 L 04/24/23 16:07: Lactic Acid 1.1 04/24/23 16:07: B-Natriuretic Peptide 37.2 04/24/23 20:02: Troponin I High Sens 4 04/25/23 07:20: WBC 8.1, RBC 4.28, Hgb 12.0, Hct 37.0, MCV 86.4, MCH 28.0, MCHC 32.4, RDW Std Deviation 40.3, RDW Coeff of Katia 12.9, Plt Count 445, MPV 9.2, Immature Gran % (Auto) 0.500, Neut % (Auto) 89.6 H, Lymph % (Auto) 8.3 L, [place] % (Auto) 1.5, Eos % (Auto) 0.0, Baso % (Auto) 0.1, Absolute Neuts (auto) 7.3, Absolute Lymphs (auto) 0.67 L, Nucleated RBC % 0 04/25/23 07:20: Sodium 136, Potassium 4.1, Chloride 103, Carbon Dioxide 28.0, Anion Gap 5, BUN 11, Creatinine 0.63, Estim Creat Clear Calc 30.62, Est GFR (MDRD) Af Amer 117, Est GFR (MDRD) Non-Af 96, BUN/Creatinine Ratio 17.6, Glucose 189 H, Calcium 9.2, Total Bilirubin 0.30, AST 5 L, ALT 8 L, Alkaline Phosphatase 78, Total Protein 6.9, Albumin 2.6 L, Globulin 4.3 H, Albumin/Globulin Ratio 0.6 L Radiography Diagnostic Testing: Radiology Impression Chest X-Ray 04/24/23 16:25 IMPRESSION: Bibasilar interstitial prominence increased from prior studies, suspicious for pneumonia. Electronically Signed: Nedra Viera MD at 17:40 EDT Reading Location ID and State: [id number] / Tel , Service support , Physical Exam Const alert, oriented x3 and no apparent distress General Appearance: cooperative HEENT normocephalic, head/scalp atraumatic, moist oral mucous membranes and oropharynx normal Neck no lymphadenopathy and supple Lymph Lymphatic: no lymphadenopathy noted and no lymphedema noted Cardio Cardio Narrative: mildly diminished breath sounds bibasally, mild wheezing, no crackles. on 3L of oxygen by nasal canula GI normal to inspection, nondistended, normoactive bowel sounds, soft to palpation, non-tender and non-distended Extremity normal capillary refill, no clubbing, cyanosis or edema and no calf tenderness Skin General Skin Exam: no breakdown Neuro CN's II-XII intact bilaterally, no focal motor deficits, no sensory deficits noted and deep tendon reflexes 2+ bilaterally Motor Exam: strength 5/5 throughout Psych thought process normal, cooperative and affect normal Appearance: appropriate Assessment & Plan Assessment/Plan (1) COPD (chronic obstructive pulmonary disease): (2) Hypoxia: (3) COPD exacerbation: PLAN: Plan #Hypoxia due to COPD exacerbation * on 3L of oxygen. Breathing treatment with bronchodilators * titrate oxygen to maintain sats >90% * on IV solumedrol * also on IV zosyn due to concerns about Pseudomonas respiratory infection * sputum cultures ordered and pending * on trelegy * #Hypothyroidism; on synthroid #TYpe 2 diabetes mellitus: on metformin. ISS. Accuchecks ACHS #Hyperlipidemia: on statin. #hypertension; on lisinopril Charges/Coding Visit Charges Inpatient E&M: 04397 Subs Hosp L2
[2023-04-25] MEDS: Ipratropium/Albuterol Sulfate 3 ML AMPUL.NEB INHALATION ×3 (11:10→20:18)
[2023-04-25] MEDS: Budesonide Respules 0.5 MG/2 ML AMPUL.NEB. INHALATION (11:11)
--- NOTE | 2023-04-25 11:35 | CASEMGMT ---
RN?CM?DATA ASSISTANT?CM?to room to meet with patient for initial transition planning/care coordination?assessment.?RN?CM?introduced self and role at [facility].? Pt voices understanding and consents to?assessment?at this time.? Pt resting in bed in no distress at this time.? Pt is A/O at this time and answers all questions appropriately.?? Care providers, pharmacy, and demographics verified/updated at this time. PCP: Dr Ramez Toledo Specialists: Dr Mathews-pulmonology Preferred Pharmacy: [facility] Retail Insurance: [email or web address] Prescription Benefit:?Yes Living Will/HPOA:? Pt states she has a LW and HCPOA, who is her dtr, Esther. She thinks her son, Ramez Jacobson, is listed as 1st alternative. She was made aware these are not on file @ [facility]. LNOK:Dtr, Esther. Son, Ramez Living Arrangements: Lives alone in one-story home w/12-13 steps to enter thru the garage w/railing. Pt states she is indep w/ADL's, IADL's, and manages her own medications. Dtr and 2 GD's are nurses. 2 live nearby. Transportation:?Pt states drives self and states no transportation concerns at this time.?Dtr will take her home @ d/c DME: States has the following DME:?Pt has a shower chair and cane, but does not use them. She also has an adjustable bed, hand held shower,, comfort height commode, O2 through [employer]--2 l/m during the day and 3 l/m @ HS, nebulizer and a pulse ox. Pt has a concentrator and portable O2 tanks and states a tank can be brought in @ d/c for her to go home on. Pt states no need for further DME at this time.? HHC/SNF: No hx of either. Pt denies need for HHC. Discussed Pt Link and she is interested in consult. Order placed. OP Pulm Rehab: Pt states is interested in this, but not sure. She asks if they can do a T/Th/Fri schedule instead of MWF. Call placed to pulm rehab and informed they only do MWF's. Pt made aware. Pt informed, if she decides she would like to do Pulm Rehab, to f/u with PCP or Dr Mathews so order can be sent. Pt wishes to return home and states has no concerns with going home at time of discharge.? CM?to follow for any increase in home oxygen needs and any further discharge planning/needs.? Pt voices no further concerns/needs at this time.? Advised pt to ask for?CM?if any further questions/concerns/needs arise.? Voices understanding. PLAN:??Home. Pt Link consult placed. Follow for any increase in O2 needs. Norberto BSN?RN?CM
[2023-04-25] MEDS: Acetaminophen 325 MG Tablet 650 MG PO (12:16)
--- NOTE | 2023-04-25 13:34 | CASEMGMT ---
Social Work Pt made aware by RNCM that advance directives are not on file at [facility] and requested documents be brought in for scanning into medical record. Pt confirms her dgt Denae is HCPOA. CHAYA Covarrubias
[2023-04-25] MEDS: Ensure Plus High Protein 120 ML LIQUID PO (17:27)
--- NOTE | 2023-04-25 20:21 | CPS ---
Pulmicort breathing tx skipped to get patient back on schedule for A.M.
[2023-04-25] MEDS: Montelukast 10 MG Tablet PO (22:57)
[2023-04-25] MEDS: Atorvastatin Calcium 20 MG Tablet PO (22:57)
[2023-04-26] VITALS (8 sets, daily range): BP systolic 125–149; BP diastolic 54–70; PULSE 63–94; RESP 16–20; TEMP 36.3–36.8; O2SAT 94–100
[2023-04-26] MEDS: Levothyroxine 75 MCG Tablet PO (05:54)
[2023-04-26] MEDS: Budesonide Respules 0.5 MG/2 ML AMPUL.NEB. INHALATION ×2 (07:32→19:38)
[2023-04-26] MEDS: Ipratropium/Albuterol Sulfate 3 ML AMPUL.NEB INHALATION ×3 (07:32→19:37)
[2023-04-26] MEDS: guaiFENesin 1,200 MG Tablet 1200 MG PO ×2 (08:06→21:13)
[2023-04-26] MEDS: Methylprednisolone Sod Succ 40 MG/ML VIAL IV ×2 (08:06→21:13)
[2023-04-26] MEDS: metFORMIN HCl 500 MG Tablet PO ×3 (08:06→17:49)
[2023-04-26] MEDS: Lisinopril 5 MG Tablet PO (08:06)
[2023-04-26] MEDS: Ensure Plus High Protein 120 ML LIQUID PO ×3 (08:09→17:49)
[2023-04-26 09:24] LABS: Absolute Lymphocyte Count 0.78 X10^3/uL (0.83-4.51); Absolute Neutrophil Count 10.6 X10^3/uL (2.0-7.7); Hematocrit 35.9 % (37-47); Hemoglobin 11.3 g/dL (12.0-15.0); Lymphocyte # 0.78 X10^3/ul (0.83-4.51); Lymphocyte % 6.6 % (19-41); Mean Corp Hgb Conc 31.5 g/dL (32-36); Mean Corpuscular Hgb 27.9 pg (27.0-32.0); Mean Corpuscular Volume 88.6 fL (81-99); Mean Platelet Vol. 9.4 fl (6.2-12.0); Monocyte# 0.33 X10^3/uL; Monocyte% 2.8 % (0-10); NRBC Flagged by Analyzer 0 % (0-5); Neutrophil # 10.64 X10^3/uL (2.7-7.7); Neutrophil % 89.9 % (47-70); Platelet Count 422 K/mm3 (150-450); RBC Distribution Width CV 12.9 % (11.6-14.6); RBC Distribution Width SD 42.1 fl (35.1-43.9); Red Blood Count 4.05 M/mm3 (4.2-5.4); White Blood Count 11.8 K/mm3 (4.4-11.0)
[2023-04-26 10:37] LABS: Anion Gap 7 (5-15); BUN 15 mg/dL (7-18); BUN/Creat Ratio 22.5 RATIO (10-20); Calcium,Total 9.5 mg/dL (8.5-10.1); Chloride 104 mmol/L (98-107); Creatinine, Serum 0.67 mg/dL (0.55-1.02); EST Glomerular Filtration Rate 90 mL/min (>60); Est Glom Filt Rate - Afr Amer 108 mL/min (>60); Estimated Creatinine Clearance 30.62 ml/min; Glucose 193 mg/dL (74-106); Potassium 3.9 mmol/L (3.5-5.1); Sodium Level 135 mmol/L (136-145)
--- NOTE | 2023-04-26 13:48 | PN_ITS ---
Subjective Subjective Patient seen and examined. She says her breathing is improving. Her breathing is improving. She is still coughing. She denies any chest pain, palpitations, dizziness, review of systems is otherwise negative. Objective Data Objective Data Vital Signs: Vital Signs Temp Pulse Resp BP Pulse Ox O2 Del Method O2 Flow Rate 97.8 F 63 18 125/54 H 99 Nasal Cannula 2 04/26/23 13:05 04/26/23 13:05 04/26/23 13:05 04/26/23 13:05 04/26/23 13:05 04/26/23 13:05 04/26/23 13:05 Oxygen Flow Rate (L/min) 2 Oxygen Delivery Method Nasal Cannula Weight: 115 lb 12.8 oz Body Mass Index (BMI) 22.6 Intake & Output: Intake and Output for Last 24 Hours 04/24/23 04/25/23 04/26/23 23:59 23:59 23:59 Intake Total 305 / 305 3250 / 3250 1250 / 1250 Output Total 700 / 700 Balance 305 / 305 2550 / 2550 1250 / 1250 Medical Nutrition Assessment Dietitian: Malnutrition Criteria Met Start: 04/25/23 14:30 Freq: Status: Active Protocol: Document 04/25/23 14:30 AG (Rec: 04/25/23 14:30 AG [id number]) Nutrition Malnutrition Evidence of Malnutrition Exists Yes Malnutrition (moderate): Chronic Evidenced By Suboptimal Energy Intake ( Moderate),Weight Loss ( Moderate) Clinical Problem Chronic Disease or Condition Related Malnutrition Etiology moderate, chronic malnutrition related to inadequate energy intake w/ increased energy needs d/t COPD Signs/Symptoms as evidenced by estimated PO intake meeting <75% of estimated energy needs >3 months; unintentional wt loss of 14.2#/11% wt loss x 6 months Status Active Problem Recommendation Dietitian Recommendations/Changes continue regular diet as tolerated; will offer 120mL ensure plus high protein 4x/ day w/ medpass for additional calories/protein if consumed Lab / Micro Data Result Diagrams: 04/26/23 08:43 04/26/23 08:43 Labs: Laboratory Results - last 24 hr 04/26/23 08:43: WBC 11.8 H, RBC 4.05 L, Hgb 11.3 L, Hct 35.9 L, MCV 88.6, MCH 27.9, MCHC 31.5 L, RDW Std Deviation 42.1, RDW Coeff of Katia 12.9, Plt Count 422, MPV 9.4, Immature Gran % (Auto) 0.700, Neut % (Auto) 89.9 H, Lymph % (Auto) 6.6 L, [place] % (Auto) 2.8, Eos % (Auto) 0.0, Baso % (Auto) 0.0, Absolute Neuts (auto) 10.6 H, Absolute Lymphs (auto) 0.78 L, Nucleated RBC % 0 04/26/23 08:43: Sodium 135 L, Potassium 3.9, Chloride 104, Carbon Dioxide 24.0, Anion Gap 7, BUN 15, Creatinine 0.67, Estim Creat Clear Calc 30.62, Est GFR (MDRD) Af Amer 108, Est GFR (MDRD) Non-Af 90, BUN/Creatinine Ratio 22.5 H, Glucose 193 H, Calcium 9.5 Micro: Microbiology 04/25/23 03:55 Sputum, Expectorated/Coughed Gram Stain - Final 04/25/23 03:55 Sputum, Expectorated/Coughed Respiratory Culture - Preliminary Appears to be normal respiratory katja. Further studies to follow. Physical Exam Const alert, oriented x3 and no apparent distress General Appearance: cooperative HEENT normocephalic, head/scalp atraumatic, moist oral mucous membranes and oropharynx normal Eyes PERRL Neck no lymphadenopathy and supple Lymph Lymphatic: no lymphadenopathy noted and no lymphedema noted Resp Resp Narrative: diminished breath sounds bibasally, no wheezes or crackles. on 2L of oxygen by nasal canula. Cardio regular rate, regular rhythm, S1 normal heart sound, S2 normal heart sound and no murmurs GI normal to inspection, nondistended, normoactive bowel sounds, soft to palpation, non-tender and non-distended Extremity normal capillary refill, no clubbing, cyanosis or edema and no calf tenderness Skin General Skin Exam: no breakdown Neuro CN's II-XII intact bilaterally, no focal motor deficits, no sensory deficits noted and deep tendon reflexes 2+ bilaterally Motor Exam: strength 5/5 throughout Psych thought process normal, cooperative and affect normal Appearance: appropriate Assessment & Plan Assessment/Plan (1) COPD (chronic obstructive pulmonary disease): (2) Hypoxia: (3) COPD exacerbation: PLAN: Plan #Hypoxia due to COPD exacerbation * on 2L of oxygen. Breathing treatment with bronchodilators * titrate oxygen to maintain sats >90% * on IV solumedrol * also on IV zosyn due to concerns about Pseudomonas respiratory infection * sputum cultures reviewed mixed normal respiratory katja. * on trelegy * #Hypothyroidism; on synthroid #TYpe 2 diabetes mellitus: on metformin. ISS. Accuchecks ACHS #Hyperlipidemia: on statin. #hypertension; on lisinopril DVT prophylaxis: lovenox Charges/Coding Visit Charges Inpatient E&M: 20947 Subs Hosp L2
[2023-04-26] MEDS: Enoxaparin 40 MG/0.4 ML Syringe SC (15:46)
[2023-04-26] MEDS: Montelukast 10 MG Tablet PO (21:12)
[2023-04-26] MEDS: Docusate Sodium 100 MG Capsule PO (21:13)
[2023-04-26] MEDS: 0.9% Saline Lock 10 ML Syringe IV (21:13)
[2023-04-26] MEDS: Atorvastatin Calcium 20 MG Tablet PO (21:13)
[2023-04-27 05:47] VITALS: BP 158/74; PULSE 53; RESP 18; TEMP 36.7; O2SAT 99
[2023-04-27] MEDS: Levothyroxine 75 MCG Tablet PO (05:54)
[2023-04-27 06:16] LABS: Absolute Lymphocyte Count 0.59 X10^3/uL (0.83-4.51); Absolute Neutrophil Count 8.2 X10^3/uL (2.0-7.7); Basophil# 0.02 X10^3/uL; Basophil% 0.2 % (0-1); Hematocrit 34.1 % (37-47); Hemoglobin 10.9 g/dL (12.0-15.0); Lymphocyte # 0.59 X10^3/ul (0.83-4.51); Lymphocyte % 6.3 % (19-41); Mean Corpuscular Hgb 28.4 pg (27.0-32.0); Mean Corpuscular Volume 88.8 fL (81-99); Mean Platelet Vol. 9.3 fl (6.2-12.0); Monocyte# 0.28 X10^3/uL; NRBC Flagged by Analyzer 0 % (0-5); Neutrophil # 8.23 X10^3/uL (2.7-7.7); POSITIVE DIFFERENTIAL YES; Platelet Count 405 K/mm3 (150-450); RBC Distribution Width CV 13.1 % (11.6-14.6); RBC Distribution Width SD 42.2 fl (35.1-43.9); Red Blood Count 3.84 M/mm3 (4.2-5.4); White Blood Count 9.4 K/mm3 (4.4-11.0)
[2023-04-27 06:20] LABS: Differential Indicated SCAN CRITERIA MET
[2023-04-27 06:50] LABS: Anion Gap 7 (5-15); BUN 20 mg/dL (7-18); BUN/Creat Ratio 27.3 RATIO (10-20); Calcium,Total 9.3 mg/dL (8.5-10.1); Chloride 103 mmol/L (98-107); Creatinine, Serum 0.73 mg/dL (0.55-1.02); EST Glomerular Filtration Rate 81 mL/min (>60); Est Glom Filt Rate - Afr Amer 97 mL/min (>60); Estimated Creatinine Clearance 30.62 ml/min; Glucose 191 mg/dL (74-106); Potassium 4.4 mmol/L (3.5-5.1); Sodium Level 137 mmol/L (136-145)
[2023-04-27 07:21] LABS: Differential Comment SCANNED
[2023-04-27 07:46] VITALS: O2SAT 97
[2023-04-27 09:05] VITALS: BP 166/76; PULSE 60; RESP 18; TEMP 36.9; O2SAT 100
[2023-04-27] MEDS: Lisinopril 5 MG Tablet PO (09:11)
[2023-04-27] MEDS: Ensure Plus High Protein 120 ML LIQUID PO (09:11)
[2023-04-27] MEDS: Methylprednisolone Sod Succ 40 MG/ML VIAL IV (09:11)
[2023-04-27] MEDS: guaiFENesin 1,200 MG Tablet 1200 MG PO (09:11)
[2023-04-27] MEDS: metFORMIN HCl 500 MG Tablet PO ×2 (09:11→11:53)
[2023-04-27] MEDS: 0.9% Saline Lock 10 ML Syringe IV (09:12)
[2023-04-27 09:25] VITALS: O2SAT 95; O2SAT 98
[2023-04-27] MEDS: Ipratropium/Albuterol Sulfate 3 ML AMPUL.NEB INHALATION (11:19)
[2023-04-27 11:20] VITALS: PULSE 72; RESP 16
--- NOTE | 2023-04-27 11:41 | DCINST_ITS ---
Discharge Instructions Diet Discharge Diet: Low fat / Low cholesterol Activity Discharge Activity: Return to Normal Activity Weight Bearing Status: Weight bearing as tolerated Dressing / Incision Call your doctor if you observe: Fever of 101 or Higher, Shortness of breath, Dizziness, Swelling in the ankles and Chest pain Follow Up Care Test Results: Test results from this visit will be discussed in further detail at your follow- up appointment, if applicable. Discharge Plan Admission Admit Date/Time: 04/24/23 17:27 Primary Reason for Your Visit: copd exacerbation Attending Provider: Kinsey Palumbo Primary Care Provider: Ramez Toledo Consulting Providers: Rosa Hobson Instructions Patient Instructions: Discharge Instructions: COPD, Breathing Controlled Dc Discharge Orders/Prescriptions Prescriptions: New prednisone 20 mg tablet 40 mg PO DAILY Qty: 10 0RF Continued metformin 500 MG tablet 500 mg PO TIDCM simvastatin 40 MG tablet 40 mg PO QHS albuterol sulfate [ProAir HFA] 1 PUFF inhaler 1 - 2 puff inhalation Q6H PRN PRN (Reason: Sob &/Or Wheezing) lisinopril 5 mg tablet 5 mg PO DAILY levothyroxine 75 mcg tablet 75 mcg PO DAILY Trelegy Ellipta 200-62.5-25 mcg blister with device 1 ea INHALATION BID Label Comments: INHALE ONE (1) PUFF BY MOUTH EVERY DAY AT THE SAME TIME EACH DAY. STOP TRELEGY 100/62.5/25 RX Referrals / Follow Up: Ramez Toledo MD [Primary Care Provider] - Within 2 Weeks Disposition Disposition (needs filled in before D/C Order can be placed): Home, Self Care
--- NOTE | 2023-04-27 11:41 | PCM.DC.SUM ---
Providers Date of Admission: 04/24/23 Date of Discharge: 04/27/23 Primary Care Physician: Dr. Ramez Toledo MD Reason For Visit: COPD EXACERBATION Diagnosis Discharge Diagnosis (1) COPD (chronic obstructive pulmonary disease): Status: Chronic Code(s): J44.9 - Chronic obstructive pulmonary disease, unspecified (2) Hypoxia: Status: Acute Code(s): R09.02 - Hypoxemia (3) COPD exacerbation: Status: Chronic Code(s): J44.1 - Chronic obstructive pulmonary disease with (acute) exacerbation Plan #Hypoxia due to COPD exacerbation on 2L of oxygen. Breathing treatment with bronchodilators titrate oxygen to maintain sats >90% on IV solumedrol also on IV zosyn due to concerns about Pseudomonas respiratory infection sputum cultures reviewed mixed normal respiratory katja. on trelegy #Hypothyroidism; on synthroid #TYpe 2 diabetes mellitus: on metformin. ISS. Accuchecks ACHS #Hyperlipidemia: on statin. #hypertension; on lisinopril DVT prophylaxis: lovenox Medications at Discharge Home Medications albuterol sulfate 90 mcg/actuation aerosol inhaler (ProAir HFA) 1 - 2 puff inhalation Q6H PRN PRN Sob &/Or Wheezing 04/03/19 metformin 500 mg tablet 500 mg PO TIDCM diabetes 04/03/19 simvastatin 40 mg tablet 40 mg PO QHS cholesterol 04/03/19 levothyroxine 75 mcg tablet 75 mcg PO DAILY thyroid 05/25/22 lisinopril 5 mg tablet 5 mg PO DAILY HTN 05/25/22 fluticasone fur. 200 mcg-umeclid 62.5 mcg-vilant 25 mcg inhalat.powder (Trelegy Ellipta) 1 ea inhalation BID copd 05/26/22 prednisone 20 mg tablet 40 mg PO DAILY #10 tabs 04/27/23 Hospital Course Operations None Procedures None Summary of Care Provided Minutes Spent on Discharge: 45 Hospital Course: Patient is an 82-year-old female with a past medical history as outlined was admitted to the ED on 04/24/2023 with a complaint of shortness of breath and exertional dyspnea. Patient did have a history of severe COPD and had had a 2-week history of worsening shortness of breath with exertional dyspnea and cough productive of greenish sputum. She denied any fever or chills but admitted to wheezing. She did not have any chest pain or lower extremity swelling. Chest x-ray showed no infiltrates but showed evidence of increased distal markings in the lung bases. BNP was only 37.2. Review of systems was otherwise negative. She was admitted and managed for acute COPD exacerbation. She was given IV Solu-Medrol and was initially placed on IV Zosyn due to concern about Pseudomonas infection. Patient's breathing improved and she came down to her baseline of 2 L of oxygen. She felt much better. Sputum culture showed mixed normal respiratory katja. She was discharged on 04/27/2023 and is to follow-up with her primary care doctor within 1 to 2 weeks. She is also to follow-up with her environmental professional. Patient seen and examined prior to discharge. She felt well and had no active complaints. She had an uneventful night. Review of systems otherwise negative. Labs and vitals reviewed. Home medication reviewed and reconciled. Physical Exam Const alert, oriented x3 and no apparent distress General Appearance: cooperative and comfortable HEENT normocephalic, head/scalp atraumatic, hearing grossly normal bilaterally, moist oral mucous membranes and oropharynx normal Mouth: oral and palatal mucosa normal Eyes PERRL and EOMs intact bilaterally Neck no lymphadenopathy and supple Lymph Lymphatic: no lymphadenopathy noted and no lymphedema noted Resp Resp Narrative: diminished breath sounds bibasally, no wheezes or crackles. on 2L of oxygen by nasal canula. Cardio regular rate, regular rhythm, S1 normal heart sound, S2 normal heart sound and no murmurs GI normal to inspection, nondistended, normoactive bowel sounds, soft to palpation, non-tender and non-distended Extremity normal to inspection, full ROM, normal capillary refill, no clubbing, cyanosis or edema and no calf tenderness Skin no rashes or lesions noted General Skin Exam: no breakdown Neuro oriented x3, CN's II-XII intact bilaterally, moves all extremities, no focal motor deficits, no sensory deficits noted and deep tendon reflexes 2+ bilaterally Sensorium / Orientation: awake and alert Motor Exam: strength 5/5 throughout Psych thought process normal, cooperative and affect normal Appearance: appropriate Medical Records Data Medical Nutrition Assessment Dietitian: Malnutrition Criteria Met Start: 04/25/23 14:30 Freq: Status: Active Protocol: Document 04/25/23 14:30 AG (Rec: 04/25/23 14:30 AG [id number]) Nutrition Malnutrition Evidence of Malnutrition Exists Yes Malnutrition (moderate): Chronic Evidenced By Suboptimal Energy Intake ( Moderate),Weight Loss ( Moderate) Clinical Problem Chronic Disease or Condition Related Malnutrition Etiology moderate, chronic malnutrition related to inadequate energy intake w/ increased energy needs d/t COPD Signs/Symptoms as evidenced by estimated PO intake meeting <75% of estimated energy needs >3 months; unintentional wt loss of 14.2#/11% wt loss x 6 months Status Active Problem Recommendation Dietitian Recommendations/Changes continue regular diet as tolerated; will offer 120mL ensure plus high protein 4x/ day w/ medpass for additional calories/protein if consumed Weight / BMI Weight Weight: 115 lb 12.8 oz Body Mass Index (BMI) 22.6 ABG / Lab / Microbiology Data Result Diagrams: 04/27/23 05:42 04/27/23 05:42 Laboratory: Laboratory Results - last 24 hr 04/27/23 05:42: WBC 9.4, RBC 3.84 L, Hgb 10.9 L, Hct 34.1 L, MCV 88.8, MCH 28.4, MCHC 32.0, RDW Std Deviation 42.2, RDW Coeff of Katia 13.1, Plt Count 405, MPV 9.3, Immature Gran % (Auto) 2.500 H, Neut % (Auto) 88.0 H, Lymph % (Auto) 6.3 L, [place] % (Auto) 3.0, Eos % (Auto) 0.0, Baso % (Auto) 0.2, Absolute Neuts (auto) 8.2 H, Absolute Lymphs (auto) 0.59 L, Nucleated RBC % 0, Differential Comment SCANNED 04/27/23 05:42: Sodium 137, Potassium 4.4, Chloride 103, Carbon Dioxide 27.0, Anion Gap 7, BUN 20 H, Creatinine 0.73, Estim Creat Clear Calc 30.62, Est GFR (MDRD) Af Amer 97, Est GFR (MDRD) Non-Af 81, BUN/Creatinine Ratio 27.3 H, Glucose 191 H, Calcium 9.3 Microbiology: Microbiology 04/25/23 03:55 Sputum, Expectorated/Coughed Gram Stain - Final 04/25/23 03:55 Sputum, Expectorated/Coughed Respiratory Culture - Final Mixed normal respiratory katja. No Streptococcus pneumoniae, beta-hemolytic Streptococcus or Staphylococcus aureus isolated. D/C Instructions Discharge Diet: Low fat / Low cholesterol Weight Bearing Status: Weight bearing as tolerated Call your doctor if you observe: Fever of 101 or Higher, Shortness of breath, Dizziness, Swelling in the ankles and Chest pain Meaningful Use Info Meaningful Use Diagnoses (Choose all that apply): None applicable Discharge Plan Admission Admit Date/Time: 04/24/23 17:27 Primary Reason for Your Visit: copd exacerbation Attending Provider: Kinsey Palumbo Primary Care Provider: Ramez Toledo Consulting Providers: Rosa Hobson Instructions Patient Instructions: Discharge Instructions: COPD, Breathing Controlled Dc Discharge Orders/Prescriptions Prescriptions: New prednisone 20 mg tablet 40 mg PO DAILY Qty: 10 0RF Continued metformin 500 MG tablet 500 mg PO TIDCM simvastatin 40 MG tablet 40 mg PO QHS albuterol sulfate [ProAir HFA] 1 PUFF inhaler 1 - 2 puff inhalation Q6H PRN PRN (Reason: Sob &/Or Wheezing) lisinopril 5 mg tablet 5 mg PO DAILY levothyroxine 75 mcg tablet 75 mcg PO DAILY Trelegy Ellipta 200-62.5-25 mcg blister with device 1 ea INHALATION BID Label Comments: INHALE ONE (1) PUFF BY MOUTH EVERY DAY AT THE SAME TIME EACH DAY. STOP TRELEGY 100/62.5/25 RX Referrals / Follow Up: Ramez Toledo MD [Primary Care Provider] - Within 2 Weeks Disposition Disposition (needs filled in before D/C Order can be placed): Home, Self Care Charges/Coding Visit Charges Inpatient E&M: 37719 Disch Hosp >30min
--- NOTE | 2023-04-27 12:09 | PHA.DC.MC ---
Pharmacy Service has performed discharge medication reconciliation and counseling for this patient. Patient requested meds to beds, this [facility] called retail and requested delivery. 1. PREDNISONE 40MG PO DAILY X 5 DAYS The patient's discharge medication list was reviewed for discrepancies and discrepancies were resolved. Home Medications albuterol sulfate 90 mcg/actuation aerosol inhaler (ProAir HFA) 1 - 2 puff inhalation Q6H PRN PRN Sob &/Or Wheezing 04/03/19 metformin 500 mg tablet 500 mg PO TIDCM diabetes 04/03/19 simvastatin 40 mg tablet 40 mg PO QHS cholesterol 04/03/19 levothyroxine 75 mcg tablet 75 mcg PO DAILY thyroid 05/25/22 lisinopril 5 mg tablet 5 mg PO DAILY HTN 05/25/22 fluticasone fur. 200 mcg-umeclid 62.5 mcg-vilant 25 mcg inhalat.powder (Trelegy Ellipta) 1 ea inhalation BID copd 05/26/22 prednisone 20 mg tablet 40 mg PO DAILY #10 tabs 04/27/23 The patient was counseled on the following discharge medications and changes in medications for homegoing were reviewed. The Reason for Use, instructions for use, and potential side effects were reviewed for all new medications. The patient's questions regarding all of their medications were answered. The patient was able to verbally demonstrate an understanding of their discharge medications. Patient counseled by pharmacy billing adjudicatorArnaldo.
--- NOTE | 2023-04-27 12:28 | CASEMGMT ---
FAUSTO LALA NOTE: Pt being discharged home. Pt has signed on for [facility] and unit to be delivered to pt's home on , per Terry from [facility]. RN SPIKE to room. Pt sitting on edge of bed, awaiting discharge. She denies having any discharge needs. Norberto WESTN FAUSTO CM
== END 2023-04-27 13:05 | disposition home or self-care (01) | DRG 191 ==
LOC: ED 17:15 → MS3 18:08
PROVIDERS: Admitting Provider Internal Medicine; Emergency Provider Emergency Medicine; PCP Family Medicine; Visit Provider Student in an Organized Health Care Education/Training Program
DX: J44.1 Chronic obstructive pulmonary disease with (acute) exacerbation (principal); E44.0 Moderate protein-calorie malnutrition; J96.11 Chronic respiratory failure with hypoxia; J84.10 Pulmonary fibrosis, unspecified; E11.9 Type 2 diabetes mellitus without complications; E03.9 Hypothyroidism, unspecified; E78.5 Hyperlipidemia, unspecified; I10 Essential (primary) hypertension; Z68.22 Body mass index [BMI] 22.0-22.9, adult; Z79.51 Long term (current) use of inhaled steroids; Z79.84 Long term (current) use of oral hypoglycemic drugs; Z79.899 Other long term (current) drug therapy; Z87.891 Personal history of nicotine dependence; Z79.890 Hormone replacement therapy; Z99.81 Dependence on supplemental oxygen
CPT/HCPCS: 36415; 71045; 80048; 80053; 83605; 83880; 84484; 85025; 87070; 87205; 93005; 94640; 96361; 96365; 96366; 96367; 96372; 96375; 96376; 99221; 99283; A4216; G0378

== ENCOUNTER → 2023-10-30 | Outpatient (CLI) | payer MEDICARE, SELFPAY | END | disposition home or self-care (01) | PROVIDERS: PCP Family Medicine; Referring Provider Nurse Practitioner Acute Care; Visit Provider Nurse Practitioner Acute Care | DX: J43.2 Centrilobular emphysema (principal) | CPT/HCPCS: 87070; 87205 ==

== ENCOUNTER 2024-03-19 07:00 | Emergency (ER) | payer MEDICARE, SELFPAY ==
[2024-03-19 07:01] VITALS: BP 153/82; PULSE 101; RESP 18; TEMP 36.6; O2SAT 98; BMI 22.4
[2024-03-19 07:05] VITALS: BP 153/82; PULSE 101; RESP 18; TEMP 36.6; O2SAT 98
--- NOTE | 2024-03-19 07:13 | EKG12_ITS ---
Test Reason : Blood Pressure : / mmHG Vent. Rate : 087 BPM Atrial Rate : 087 BPM P-R Int : 154 ms QRS Dur : 068 ms QT Int : 350 ms P-R-T Axes : 028 013 019 degrees QTc Int : 421 ms Normal sinus rhythm Normal ECG Confirmed by GINGER JOLLEY MD ([id number]), medical transcription editor KEIRY BE ([id number]) on 03/20/2024 10:12:32 AM Referred By: Confirmed By:GINGER JOLLEY MD
--- NOTE | 2024-03-19 07:14 | ED.VIS.DYS ---
HPI History of Present Illness Chief Complaint: Shortness of Breath Informant: patient Onset/Context/Timing Onset: Weeks Context: gradual Timing: Continuous Quality: Positive for Dyspnea on exertion and Wheezing Current Severity: Mild Maximum Severity: Moderate Worsened by: Exertion, Lying flat and Coughing Relieved by: Rest, Oxygen and Albuterol Associated Symptoms cough and green sputum; Negative for fever, sore throat or chills Chest Pain: Positive for None Narrative Narrative: 83-year-old female history of COPD typically on 2 L oxygen at home and also history of diabetes. States she has had increasing shortness of breath for weeks. She is gone from 2 to 3 L at home. She denies any fever or chills. No chest pain. No hemoptysis. No leg pain or swelling. No history of DVT or PE. She has green sputum and says has not any significant change. She denies recent hospitalization. She has both inhalers and nebulizer at home. She is not currently on nor has she recently been on steroids. PE Risk Factors: Negative for Cancer, OCP + Smoking + > 35, Prior DVT or PE, Recent immobilization, Recent surgery or Recent travel Prior similar symptoms: Yes Recent Illness/Hospitalization: No PFSH [facility] Medical History Anemia Arthritis Asthma COPD (chronic obstructive pulmonary disease) COPD (chronic obstructive pulmonary disease) Diabetes Diabetes mellitus, type 2 Former tobacco use HTN (hypertension) Hypothyroidism Intermittent constipation Normocytic anemia On home oxygen therapy Rheumatoid arthritis Thyroid disease Home Medications metformin 500 mg tablet 500 mg PO TIDCM diabetes 04/03/19 [History Last Taken 05/25/22] simvastatin 40 mg tablet 40 mg PO QHS cholesterol 04/03/19 [History Last Taken 05/24/22] levothyroxine 75 mcg tablet 75 mcg PO DAILY thyroid 05/25/22 [History Last Taken 05/25/22] hydrochlorothiazide 12.5 mg tablet 12.5 mg PO DAILY 06/07/23 [History Last Taken Unknown] albuterol sulfate 90 mcg/actuation aerosol inhaler (ProAir HFA) 1 - 2 puff inhalation Q6H PRN PRN Sob &/Or Wheezing #8.5 grams 01/31/24 [Rx Last Taken Unknown] fluticasone fur. 200 mcg-umeclid 62.5 mcg-vilant 25 mcg inhalat.powder (Trelegy Ellipta) 1 ea inhalation BID copd #60 ea 01/31/24 [Rx Last Taken Unknown] ipratropium 0.5 mg-albuterol 3 mg (2.5 mg base)/3 mL nebulization soln 1.5 ml continuous nebulization DAILY PRN shortness of breath or wheezing #180 mL 01/31/24 [Rx Last Taken Unknown] fluticasone propionate 50 mcg/actuation nasal spray,suspension 1 spray intranasal QDAY 02/20/24 [History Last Taken Unknown] furosemide 20 mg tablet 20 mg PO QDAY PRN swelling 02/20/24 [History Last Taken Unknown] lisinopril 10 mg tablet 10 mg PO QDAY 02/20/24 [History Last Taken Unknown] mirtazapine 7.5 mg tablet 7.5 mg PO QHS 02/20/24 [History Last Taken Unknown] montelukast 10 mg tablet 10 mg PO QDAY 02/20/24 [History Last Taken Unknown] omeprazole 40 mg capsule,delayed release 40 mg PO QDAY 02/20/24 [History Last Taken Unknown] ondansetron 4 mg disintegrating tablet mg PO PRN 02/20/24 [History Last Taken Unknown] prednisone 20 mg tablet 40 mg (2 x 20 mg) PO DAILY COPD 10 days #20 tabs 03/19/24 [Rx Last Taken Unknown] Allergy/AdvReac Type Severity Reaction Status Date / Time Sulfa (Sulfonamide Allergy Itching Verified 03/19/24 07:01 Antibiotics) Family History Mother Hypertension Father Cancer Passed age 2828 years old, she notes suspect if was cancer but unclear exact etiology. Surgical History H/O rectal polypectomy History of surgery of uterus Hx of colonoscopy Hx of foot surgery Social History household members: none Smoking Status: Former smoker how long ago did patient quit smoking: Quit 07/22/2013, smoked 1 ppd x 50 years until quit. second hand exposure: No alcohol intake: never substance use type: does not use caffeine: Yes frequency: does not exercise ROS ROS ED ROS Narrative Cough. Shortness of breath. Wheezing. Review of Systems ROS Unobtainable: Denies due to encephalopathy Constitutional Constitutional ED: Denies chills or fever(s) Eyes Eyes: Denies blurry vision ENT ENT ED: Denies ear pain Cardiovascular Cardiovascular: Denies chest pain Respiratory/Chest Respiratory/Chest: Reports cough, dyspnea, dyspnea on exertion and sputum Gastrointestinal Gastrointestinal: Denies abdominal pain, constipation, diarrhea, melena, nausea or vomiting Genitourinary Genitourinary ED: Denies dysuria or hematuria Musculoskeletal Musculoskeletal: Denies arthralgias Integumentary Denies abscess or Abrasions Neurologic Neurologic: Denies headache(s) Psychiatric Psychiatric: Denies anxiety or depression Endocrine Endocrinology: Denies cold intolerance Hematologic/Lymphatic Hematologic/Lymphatic: Denies easy bleeding, easy bruising or lymphadenopathy Allergic/Immunologic Allergic/Immunologic ED: Denies mouth swelling, tongue swelling or urticaria EXAM Physical Exam Narrative Exam Narrative: 83-year-old female walked into the room. Vital signs are stable afebrile. On 3 L of oxygen she is 98%. She is in no distress. No one else is present in the room. H EENT exam unremarkable. Moist mucous members. Neck nontender no JVD. No lymphadenopathy. Lungs prolonged expiratory phase. Expiratory wheezing bilaterally. Heart regular rhythm rate about 100 no murmur. Chest wall and ribs nontender. Abdomen soft nontender. Moving all 4 extremities. Equal symmetrical machine stitcher strength. Dorsi plantarflexion intact. Calves are nontender without edema nor cords. Neurologically she is awake and alert no focal motor deficits. Answering questions and following commands. Const Vital Signs: 03/19/24 07:01 03/19/24 07:25 03/19/24 07:13 Temperature 97.8 F Temperature Source Temporal Pulse Rate 101 H 87 Respiratory Rate 18 19 H Respiratory Effort Respiratory Pattern Blood Pressure 153/82 H Blood Pressure Mean 105 Pulse Ox 98 Oxygen Delivery Method Nasal Cannula Nasal Cannula Oxygen Flow Rate (L/min) 3 3 03/19/24 07:00 03/19/24 07:05 Temperature 97.8 F Temperature Source Oral Pulse Rate 101 H Respiratory Rate 18 Respiratory Effort Normal Non-Labored Respiratory Pattern Tachypnea Blood Pressure 153/82 H Blood Pressure Mean 105 Pulse Ox 98 Oxygen Delivery Method Nasal Cannula Nasal Cannula Oxygen Flow Rate (L/min) 3 3 Positive well nourished and well developed; Negative for obese, cachectic, contractures or unkempt General Appearance ED: well developed and NAD; Negative for unkempt, cachectic, contractures or pallor Nutritional Appearance: Negative for cachectic or obese HEENT Reports moist mucous membranes atraumatic; Negative for trauma or tenderness Eyes PERRL and EOMs intact bilaterally General Eye ED: Negative for pale conjunctiva or scleral icterus Neck no lymphadenopathy, supple, no meningeal signs and no JVD General: Negative for tenderness Lymph Lymphatic: Negative for other Chest Wall Chest: Negative for other Resp normal respiratory effort and No clear to auscultation bilaterally Auscultation: wheezes; Negative for rales Cardio regular rate, regular rhythm, S1 normal heart sound, S2 normal heart sound and no murmurs Rate: Negative for bradycardia or tachycardic Rhythm: Negative for abnormal rhythm GI non-tender, non-distended and no masses Auscultation: normoactive bowel sounds Palpation: soft; Negative for tender, guarding or rebound tenderness present Extremity normal to inspection General Extremety ED: Negative for edema, tenderness or other findings General Extremity: Negative for edema or other findings Neuro oriented x3 and CN's II-XII intact bilaterally Sensorium / Orientation: alert, oriented to person, oriented to place and oriented to time; Negative for orientation impaired, confused or lethargic Speech: speech normal Gait (Neuro): normal gait Motor Exam: strength 5/5 throughout Psych mental status grossly normal Appearance: Negative for unkempt Attitude: No agitated Mood & Affect: Negative for depressed, anxious or tearful Thought Process: normal thought process Skin no wounds and skin turgor normal General Skin Exam: Negative for jaundice or pallor Lesions: no lesions Rashes: no rashes Trauma: Negative for abrasion, laceration or puncture MDM MDM MDM Narrative Medical decision making narrative: 83-year-old female shortness of breath which I think is secondary to COPD flare. Treated with IV Solu-Medrol DuoNeb and albuterol aerosols and a respiratory/cardiac workup. She is not having any chest pain nor does she have any cardiac history I do not think this is cardiac. Pneumonia is a possibility versus COPD flare versus other etiologies. She is never had a DVT or PE and really has no risk factors for it. Repeat exam patient is doing better after aerosol treatments. She and I discussed outpatient therapy. She is not hypoxic on her oxygen she is comfortable being discharged home. She has both an inhaler and nebulizer at home and has albuterol for the nebulizer. I will place her on prednisone 40 mg a day for 10 days. Outpatient follow-up with her primary care physician Dr. Duran. I spoke with him via phone today. He will he will ensure close follow-up. History & Record Review Discussion w/independent historian: Patient Additional record(s) reviewed:: Prior inpatient record, Prior outpatient record, Prior ED visit and Prior labs Lab Data Attestation: I reviewed the patient's lab results. Lab results narrative: CBC shows a white count 12.6. H&H 11.3 and 36.9. Platelets 421. Electrolytes show sodium 135. Gap 5. Normal BUN and creatinine. Glucose 147. Troponin normal at 3. Labs are consistent with prior. Respiratory tests COVID, flu and RSV were negative. Labs: Laboratory Results - last 24 hr 03/19/24 07:25 WBC 12.6 H RBC 4.28 Hgb 11.3 L Hct 36.9 L MCV 86.2 MCH 26.4 L MCHC 30.6 L RDW Std Deviation 41.4 RDW Coeff of Katia 13.2 Plt Count 421 MPV 9.0 Immature Gran % (Auto) 0.400 Neut % (Auto) 81.3 H Lymph % (Auto) 6.7 L [place] % (Auto) 7.9 Eos % (Auto) 3.1 Baso % (Auto) 0.6 Absolute Neuts (auto) 10.2 H Absolute Lymphs (auto) 0.84 Nucleated RBC % 0 Sodium 135 L Potassium 3.6 Chloride 98 Carbon Dioxide 32.0 Anion Gap 5 BUN 8 Creatinine 0.66 Estim Creat Clear Calc 37.60 Est GFR (MDRD) Af Amer 110 Est GFR (MDRD) Non-Af 91 BUN/Creatinine Ratio 12.1 Glucose 147 H Calcium 9.5 Troponin I High Sens 3 Radiography Chest X-Ray - ED: 2 View, Read by ED Physician, Heart, Lungs, Mediastinum, Bony Structures, No Acute Disease and Chronic Changes Diagnostic Testing: Clinical Impression(s) from Imaging Studies Chest X-Ray 03/19/24 07:55 IMPRESSION: Hyperinflation. Persistent increased interstitial markings at the lung bases with areas of confluence suggestive of chronic interstitial fibrosis. Electronically Signed: Santiago Bradshaw MD at 8:15 EDT , Chest x-ray, 2 views, AP and lateral, interpreted by myself shows chronic changes consistent with COPD. No significant effusion. No infiltrate. Normal cardiac silhouette. No acute abnormalities. Rhythm Strip Rhythm Strip: Sinus Rhythm Rate: 87 Ectopy: None EKG Initial EKG: Attestation: I personally reviewed and interpreted this EKG as follows: Interpretation: Sinus Rhythm and No Acute Injury Pattern Comments: Normal sinus rhythm rate 87 no acute signs of IA, ischemia or dysrhythmia. Discharge Plan Triage Chief Complaint: Shortness of Breath ED Provider: En Contreras Dx/Rx/DC Orders Clinical Impression: Acute exacerbation of chronic obstructive pulmonary disease, History of diabetes mellitus Instructions: ED COPD Flare Prescriptions: New prednisone 20 mg tablet 40 mg PO DAILY 10 Days Qty: 20 0RF No Action hydrochlorothiazide 12.5 mg tablet 12.5 mg PO DAILY Trelegy Ellipta 200-62.5-25 mcg blister with device 1 ea INHALATION BID Qty: 60 11RF ipratropium-albuterol 0.5 mg-3 mg(2.5 mg base)/3 mL solution for nebulization 1.5 ml continuous nebulization DAILY PRN (Reason: shortness of breath or wheezing) Qty: 180 3RF albuterol sulfate [ProAir HFA] 90 mcg/actuation HFA aerosol inhaler 1 - 2 puff inhalation Q6H PRN PRN (Reason: Sob &/Or Wheezing) Qty: 8.5 3RF omeprazole 40 mg capsule,delayed release(DR/EC) 40 mg PO QDAY lisinopril 10 mg tablet 10 mg PO QDAY montelukast 10 mg tablet 10 mg PO QDAY furosemide 20 mg tablet 20 mg PO QDAY PRN (Reason: swelling) ondansetron 4 mg tablet,disintegrating PO PRN fluticasone propionate 50 mcg/actuation spray,suspension 1 spray intranasal QDAY mirtazapine 7.5 mg tablet 7.5 mg PO QHS metformin 500 MG tablet 500 mg PO TIDCM simvastatin 40 MG tablet 40 mg PO QHS levothyroxine 75 mcg tablet 75 mcg PO DAILY Primary Care Provider: Ciro Duran Referrals: Ciro uDran MD [Primary Care Provider] - 3-5 Days Activity Restrictions/Additional Instructions: Starting tomorrow prednisone 40 mg a day for 10 days. Use your inhaler at home as needed and also your nebulizer. Continue using your oxygen at 2 to 3 L. Follow-up with your doctor next week. Return if feeling worse. Disposition Disposition: Home, Self Care
[2024-03-19 07:25] VITALS: PULSE 87; RESP 19
[2024-03-19] MEDS: Ipratropium/Albuterol Sulfate 3 ML AMPUL.NEB INHALATION (07:25)
[2024-03-19] MEDS: Albuterol 2.5 MG/3 ML VIAL.NEB. INHALATION ×3 (07:30→07:36)
[2024-03-19 07:31] LABS: Absolute Lymphocyte Count 0.84 X10^3/uL (0.83-4.51); Absolute Neutrophil Count 10.2 X10^3/uL (2.0-7.7); Basophil# 0.08 X10^3/uL; Basophil% 0.6 % (0-1); Eosinophil# 0.39 X10^3/uL; Eosinophils% 3.1 % (0-5); Hematocrit 36.9 % (37-47); Hemoglobin 11.3 g/dL (12.0-15.0); Lymphocyte # 0.84 X10^3/ul (0.83-4.51); Lymphocyte % 6.7 % (19-41); Mean Corp Hgb Conc 30.6 g/dL (32-36); Mean Corpuscular Hgb 26.4 pg (27.0-32.0); Mean Corpuscular Volume 86.2 fL (81-99); Monocyte% 7.9 % (0-10); NRBC Flagged by Analyzer 0 % (0-5); Neutrophil # 10.24 X10^3/uL (2.7-7.7); Neutrophil % 81.3 % (47-70); Platelet Count 421 K/mm3 (150-450); RBC Distribution Width CV 13.2 % (11.6-14.6); RBC Distribution Width SD 41.4 fl (35.1-43.9); Red Blood Count 4.28 M/mm3 (4.2-5.4); White Blood Count 12.6 K/mm3 (4.4-11.0)
[2024-03-19] MEDS: MethylPREDNISolone 125 MG/2 ML Vial IV (07:38)
[2024-03-19 07:49] LABS: Anion Gap 5 (5-15); BUN 8 mg/dL (7-18); BUN/Creat Ratio 12.1 RATIO (10-20); Calcium,Total 9.5 mg/dL (8.5-10.1); Chloride 98 mmol/L (98-107); Creatinine, Serum 0.66 mg/dL (0.55-1.02); EST Glomerular Filtration Rate 91 mL/min (>60); Est Glom Filt Rate - Afr Amer 110 mL/min (>60); Glucose 147 mg/dL (74-106); Potassium 3.6 mmol/L (3.5-5.1); Sodium Level 135 mmol/L (136-145); Troponin-I HS 3 pg/mL (3.0-54.0)
--- NOTE | 2024-03-19 07:55 | RAD_ITS ---
STUDY: X-RAY CHEST REASON FOR EXAM: Female, 83 years old. Dyspnea TECHNIQUE: PA and lateral views of the chest. COMPARISON: Comparison is made with prior study dated April 24, 2023. FINDINGS: EKG electrodes are seen. Hyperinflation. Stable increased interstitial markings with areas of confluence at the lung bases suggestive of bibasilar scarring. Blunting of the posterior costophrenic angles. Normal size heart. Normal mediastinum and simone. Normal visualized pulmonary arteries. There is atherosclerotic calcification of the aortic arch with tortuosity. There are diffuse degenerative changes of the visualized thoracic spine. Normal visualized ribs, clavicles, and shoulders. There is no demonstrated abnormality of the visualized soft tissue structures of the upper abdomen. RAD/Chest PA and Lateral IMPRESSION: Hyperinflation. Persistent increased interstitial markings at the lung bases with areas of confluence suggestive of chronic interstitial fibrosis. Electronically Signed: Santiago Bradshaw MD at 8:15 EDT ,
[2024-03-19 08:46] VITALS: BP 133/86; PULSE 76; RESP 18; TEMP 36.7; O2SAT 94
== END 2024-03-19 08:47 | disposition home or self-care (01) ==
PROVIDERS: Emergency Provider Emergency Medicine; PCP Family Medicine; Visit Provider Emergency Medicine
DX: J44.1 Chronic obstructive pulmonary disease with (acute) exacerbation (principal); E11.9 Type 2 diabetes mellitus without complications; Z87.891 Personal history of nicotine dependence; Z99.81 Dependence on supplemental oxygen; I10 Essential (primary) hypertension; E03.9 Hypothyroidism, unspecified; Z79.899 Other long term (current) drug therapy; Z79.84 Long term (current) use of oral hypoglycemic drugs; Z79.890 Hormone replacement therapy; Z79.51 Long term (current) use of inhaled steroids
CPT/HCPCS: 71046; 80048; 84484; 85025; 87631; 93005; 94640; 96374; 99284; A4216

== ENCOUNTER 2024-05-27 17:02 | Inpatient (IN) | payer MEDICARE, SELFPAY ==
[2024-05-27] VITALS (24 sets, daily range): BP systolic 102–167; BP diastolic 65–98; PULSE 82–103; RESP 10–30; TEMP 36.2–36.9; O2SAT 94–99; BMI 23.0; BMI 22.6
--- NOTE | 2024-05-27 17:36 | EKG12_ITS ---
Test Reason : SOB Blood Pressure : / mmHG Vent. Rate : 097 BPM Atrial Rate : 097 BPM P-R Int : 170 ms QRS Dur : 072 ms QT Int : 344 ms P-R-T Axes : 065 023 064 degrees QTc Int : 436 ms Normal sinus rhythm Inferior infarct , age undetermined Abnormal ECG Confirmed by JUAN DANIEL KINCAID, ELIUD ([id number]), purchasing expeditor JIL WEAVER ([id number]) on 05/29/2024 10:37:22 A M Referred By: INDERJIT/ASAEL Confirmed By:HERI FRANCES MD
[2024-05-27] MEDS: Albuterol 2.5 MG/3 ML VIAL.NEB. INHALATION (17:48)
[2024-05-27] MEDS: Ipratropium/Albuterol Sulfate 3 ML AMPUL.NEB INHALATION ×2 (17:48→22:59)
[2024-05-27] MEDS: LORazepam 2 MG/ML Syringe 0.5 MG IV (17:49)
[2024-05-27] MEDS: MethylPREDNISolone 125 MG/2 ML Vial IV (17:50)
[2024-05-27 17:53] LABS: Absolute Lymphocyte Count 0.94 X10^3/uL (0.83-4.51); Absolute Neutrophil Count 8.3 X10^3/uL (2.0-7.7); Basophil# 0.08 X10^3/uL; Basophil% 0.8 % (0-1); Eosinophil# 0.28 X10^3/uL; Eosinophils% 2.6 % (0-5); Hematocrit 37.4 % (37-47); Hemoglobin 11.9 g/dL (12.0-15.0); Lymphocyte # 0.94 X10^3/ul (0.83-4.51); Lymphocyte % 8.8 % (19-41); Mean Corp Hgb Conc 31.8 g/dL (32-36); Mean Corpuscular Hgb 28.3 pg (27.0-32.0); Mean Corpuscular Volume 88.8 fL (81-99); Mean Platelet Vol. 9.3 fl (6.2-12.0); Monocyte% 9.4 % (0-10); NRBC Flagged by Analyzer 0 % (0-5); Neutrophil # 8.27 X10^3/uL (2.7-7.7); Neutrophil % 77.8 % (47-70); Platelet Count 296 K/mm3 (150-450); RBC Distribution Width CV 15.7 % (11.6-14.6); RBC Distribution Width SD 50.8 fl (35.1-43.9); Red Blood Count 4.21 M/mm3 (4.2-5.4); White Blood Count 10.6 K/mm3 (4.4-11.0)
--- NOTE | 2024-05-27 17:54 | ED.RN ---
Pt daughter states she started to use juuls .
--- NOTE | 2024-05-27 17:55 | RAD_ITS ---
RAD/Chest 1 View (Portable) IMPRESSION: No acute radiographic abnormalities. Electronically Signed: Adiel Mckeon MD at 19:25 EDT ,
[2024-05-27 18:20] LABS: Anion Gap 7 (5-15); BUN 10 mg/dL (7-18); BUN/Creat Ratio 15.1 RATIO (10-20); Calcium,Total 8.9 mg/dL (8.5-10.1); Chloride 98 mmol/L (98-107); Creatinine, Serum 0.66 mg/dL (0.55-1.02); EST Glomerular Filtration Rate 90 mL/min (>60); Est Glom Filt Rate - Afr Amer 109 mL/min (>60); Estimated Creatinine Clearance 36.93 ml/min; Glucose 144 mg/dL (74-106); Potassium 3.8 mmol/L (3.5-5.1); Sodium Level 134 mmol/L (136-145); Troponin-I HS 103 pg/mL (3.0-54.0)
--- NOTE | 2024-05-27 19:57 | HP.PCM.HOS_ITS ---
[facility] - General General Date of Admission: 05/27/24 Date of Service: 05/27/24 Chief Complaint: SOB and Cough. [facility] Narrative MARIELA LARIOS, is a 84 F with a past medical history of essential hypertension, hyperlipidemia, hypothyroidism, DM-2; of unknown control on Metformin, chronic anemia, RLS, GERD, OA and history of tobacco abuse with patient now using e-cigarettes with vaping; with subsequent asthma/COPD and chronic hypoxic respiratory failure on 3L NC (nocturnal) who presents to [facility] ER complaining of SOB and cough. Ms. Larios reports her symptoms began approximately three days prior to admission with the gradual- onset of progressively worsening cough and wheezing with GANDHI that progressed to SOB at rest. She also admits her increasingly frequent cough was productive of copious greenish sputum and severe wheezing that was not responsive to her normal treatment regimen, rescue inhalers on increasing her oxygen to 4L NC continuously so she finally activated EMS. She was noted to be on 4L NC when EMS arrived and then this was increased to 15L NRB and eventually to BiPAP which was started shortly after arrival. There is no report of fever, chills, nausea, vomiting, chest pain, chest pressure or diaphoresis but she does admit to trying to hide her e-cigarette use from her family with her granddaughter finding at least 4 e-cigarettes in her home and then disposing of them in an effort to prevent serial readmission. She also admits to loose stools but she denies blood in stools or abdominal pain. In the ER she was diagnosed with AE COPD with suspected superimposed acute bacterial bronchitis causing acute hypoxic and hypercapnic respiratory failure requiring BiPAP likely triggered by continued e-cigarette use with vaping complicated by laboratory evidence of elevated troponin likely due to acute cardiac strain causing NSTEMI-II and she was then admitted to the PCU for ongoing care for a stay that is expected to extend beyond 2 midnights. [facility] Medical History Anemia Hypothyroidism Diabetes Rheumatoid arthritis On home oxygen therapy Asthma COPD (chronic obstructive pulmonary disease) HTN (hypertension) Diabetes mellitus, type 2 Normocytic anemia Former tobacco use Intermittent constipation COPD (chronic obstructive pulmonary disease) Arthritis Thyroid disease Home Medications ?Medication ?Instructions ?Recorded ?Last Taken ?Type metformin 500 mg tablet 500 mg PO TIDCM diabetes 04/03/19 05/25/22 History simvastatin 40 mg tablet 40 mg PO QHS cholesterol 04/03/19 05/24/22 History levothyroxine 75 mcg tablet 75 mcg PO DAILY thyroid 05/25/22 05/25/22 History albuterol sulfate 90 mcg/actuation 1 - 2 puff inhalation Q6H PRN PRN 01/31/24 Unknown Rx aerosol inhaler (ProAir HFA) Sob &/Or Wheezing #8.5 grams ipratropium 0.5 mg-albuterol 3 mg 1.5 ml continuous nebulization 01/31/24 Unknown Rx (2.5 mg base)/3 mL nebulization DAILY PRN shortness of breath or soln wheezing #180 mL fluticasone propionate 50 1 spray intranasal QDAY 02/20/24 Unknown History mcg/actuation nasal spray,suspension lisinopril 10 mg tablet 10 mg PO QDAY 02/20/24 Unknown History mirtazapine 7.5 mg tablet 7.5 mg PO QHS 02/20/24 Unknown History montelukast 10 mg tablet 10 mg PO QDAY 02/20/24 Unknown History fluticasone fur. 200 mcg-umeclid 1 ea inhalation QDAY copd #60 ea 05/02/24 Unknown Rx 62.5 mcg-vilant 25 mcg inhalat.powder (Trelegy Ellipta) famotidine 40 mg tablet 40 mg PO DAILY 05/27/24 Unknown History Allergy/AdvReac Type Severity Reaction Status Date / Time Sulfa (Sulfonamide Allergy Itching Verified 05/02/24 08:20 Antibiotics) bacitracin (From Neosporin AdvReac Mild Rash Verified 05/02/24 08:21 ([id number])) neomycin (From Neosporin AdvReac Mild Rash Verified 05/02/24 08:21 ([id number])) polymyxin B (From Neosporin AdvReac Mild Rash Verified 05/02/24 08:21 ([id number])) Family History Mother Hypertension Father Cancer Passed age 2828 years old, she notes suspect if was cancer but unclear exact etiology. Surgical History H/O rectal polypectomy History of surgery of uterus Hx of colonoscopy Hx of foot surgery Social History household members: none Smoking Status: Former smoker how long ago did patient quit smoking: Quit 07/22/2013, smoked 1 ppd x 50 years until quit. second hand exposure: No alcohol intake: never substance use type: does not use caffeine: Yes frequency: does not exercise ROS ROS Narrative Review of systems: Constitutional: Patient denies fever or chills. Eyes: Patient denies changes in vision or discharge from eyes. ENT: Patient denies ear pain, sore throat or runny nose. CV: Patient denies chest pain, heart racing or palpitations. Resp: Patient admits to cough productive of greenish sputum along with GANDHI that progressed to SOB at rest as per HPI. GI: Patient admits to diarrhea but she denies abdominal pain, nausea or vomiting. : Patient denies dysuria or urinary retention. MSK: Patient denies arthralgias, myalgias or neck pain. Skin: Patient denies abscess, abrasions or rash. Neuro: Patient denies headache, paresthesias or focal neurologic deficits. Psych: Patient denies symptoms of uncontrolled depression or anxiety. Endocrine: Patient denies polyuria, polydipsia or polyphagia. 14 point ROS otherwise negative except for positives noted above in HPI. Vital Signs Vital Signs Vital Signs: 05/27/24 17:04 05/27/24 17:10 05/27/24 17:12 Temperature 98.2 F 98.5 F Temperature Source Oral Oral Pulse Rate 95 94 Respiratory Rate 27 H 27 H Respiratory Effort Short of Breath Labored Respiratory Pattern Tachypnea Blood Pressure 167/98 H 167/98 H Blood Pressure Mean 121 121 Pulse Ox 98 98 Oxygen Delivery Method Nasal Cannula Nasal Cannula Nasal Cannula Oxygen Flow Rate (L/min) 3 3 Fraction of Inspired Oxygen (FIO2) 3 05/27/24 17:36 05/27/24 17:40 05/27/24 17:41 Temperature Temperature Source Pulse Rate 89 93 Respiratory Rate 21 H 30 H Respiratory Effort Respiratory Pattern Blood Pressure Blood Pressure Mean Pulse Ox 99 97 Oxygen Delivery Method Bi-pap Oxygen Flow Rate (L/min) Fraction of Inspired Oxygen (FIO2) 35 05/27/24 17:41 05/27/24 17:45 05/27/24 18:00 Temperature Temperature Source Pulse Rate 93 95 99 Respiratory Rate 30 H 23 H 21 H Respiratory Effort Respiratory Pattern Normal Blood Pressure 125/71 H Blood Pressure Mean 88 Pulse Ox 99 98 98 Oxygen Delivery Method Oxygen Flow Rate (L/min) Fraction of Inspired Oxygen (FIO2) 35 05/27/24 18:10 05/27/24 18:15 05/27/24 18:16 Temperature 97.4 F L Temperature Source Temporal Pulse Rate 100 103 H 99 Respiratory Rate 21 H 25 H 22 H Respiratory Effort Respiratory Pattern Blood Pressure 128/79 H 128/79 H Blood Pressure Mean 95 94 Pulse Ox 95 97 97 Oxygen Delivery Method Bi-pap Oxygen Flow Rate (L/min) Fraction of Inspired Oxygen (FIO2) 30 05/27/24 18:30 05/27/24 18:45 05/27/24 19:00 Temperature 97.4 F L Temperature Source Temporal Pulse Rate 98 102 H 95 Respiratory Rate 24 H 17 18 Respiratory Effort Respiratory Pattern Blood Pressure 125/66 H 120/71 102/72 Blood Pressure Mean 85 86 82 Pulse Ox 94 94 94 Oxygen Delivery Method Bi-pap Oxygen Flow Rate (L/min) Fraction of Inspired Oxygen (FIO2) 30 05/27/24 19:00 05/27/24 19:10 05/27/24 19:15 Temperature Temperature Source Pulse Rate 99 93 Respiratory Rate 20 H 23 H Respiratory Effort Respiratory Pattern Blood Pressure 112/65 Blood Pressure Mean 78 Pulse Ox 95 Oxygen Delivery Method Bi-pap Oxygen Flow Rate (L/min) Fraction of Inspired Oxygen (FIO2) 30 05/27/24 19:37 Temperature Temperature Source Pulse Rate 94 Respiratory Rate 27 H Respiratory Effort Respiratory Pattern Tachypnea Blood Pressure Blood Pressure Mean Pulse Ox 96 Oxygen Delivery Method Oxygen Flow Rate (L/min) Fraction of Inspired Oxygen (FIO2) 28 Weight Weight: 117 lb 15.157 oz Body Mass Index (BMI) 23.0 Physical Exam Const alert, oriented x3, average body habitus and healthy appearing Constitutional Narrative: Patient breathing easier on BiPAP. General Appearance: cooperative HEENT normocephalic, head/scalp atraumatic, hearing grossly normal bilaterally and moist oral mucous membranes Eyes PERRL and EOMs intact bilaterally Neck no lymphadenopathy and supple Resp Resp Narrative: Diminished breath sounds with coarse rhonci and expiratory wheezing throughout. Auscultation: rhonchi and wheezes Cardio regular rate and regular rhythm GI normal to inspection, nondistended, normoactive bowel sounds, soft to palpation, non-tender and non-distended Extremity normal to inspection and full ROM Skin Skin Narrative: Patient has no evidence of abscess, rash or jaundice. Neuro oriented x3, CN's II-XII intact bilaterally, moves all extremities and no focal motor deficits Sensorium / Orientation: awake, alert, oriented to person, oriented to place and oriented to time Speech: speech normal Psych affect normal Results Medical Records Data Attestation: I reviewed the patient's medical records Lab / Micro Data Attestation: I reviewed the patient's lab results. 05/27/24 17:45 05/27/24 17:45 Labs: Laboratory Results - last 24 hr 05/27/24 17:45: WBC 10.6, RBC 4.21, Hgb 11.9 L, Hct 37.4, MCV 88.8, MCH 28.3, M CHC 31.8 L, RDW Std Deviation 50.8 H, RDW Coeff of Katia 15.7 H, Plt Count 296, MPV 9.3, Immature Gran % (Auto) 0.600, Neut % (Auto) 77.8 H, Lymph % (Auto) 8.8 L, [place] % (Auto) 9.4, Eos % (Auto) 2.6, Baso % (Auto) 0.8, Absolute Neuts (auto) 8.3 H, Absolute Lymphs (auto) 0.94, Nucleated RBC % 0, Sodium 134 L, Potassium 3.8, Chloride 98, Carbon Dioxide 29.0, Anion Gap 7, BUN 10, Creatinine 0.66, Estim Creat Clear Calc 36.93, Est GFR (MDRD) Af Amer 109, Est GFR (MDRD) Non-Af 90, BUN/Creatinine Ratio 15.1, Glucose 144 H, Calcium 8.9, Troponin I High Sens 103 H, B-Natriuretic Peptide 59.0 Micro: Microbiology 05/27/24 17:45 Mucosa - Nose SARS-CoV-2, Influenza & RSV (PCR) - Final ABG Data Interpretation: RUN DATE: 05/27/24 [facility] [place], DEPARTMENT OF LABORATORIES PAGE 1 RUN TIME: 2100 Specimen Inquiry [address] [place], [address] PATIENT: MARIELA LARIOS LOC: [facility] U #: [id number] : 1940 AGE/SX: 84/F FACILITY: [facility] ROOM: [facility] R E05/27/[address]: Dr. Ramez Arana, D STATUS:ADM IN ED: 1 DIS: ~ SPEC #: [id number] SOCO: 05/27/24 STATUS: COMP REQ #: [id number] RECD: 05/27/[address]: Dr. Ramez Arana, DO ENTERED: 05/27/[address]: Dr. Ciro Duran MD ~ Test Result Flag Adult Reference Range IBG Blood Gas Type ART SITE L Radial ALESSIO TEST Positive Mode Not entered O2 Delivery Dev BiPAP FI02 28.0 Comment 10/17 12 28% pH 7.38 7.35-7.45 pCO2 53.8 H 35-45 mmHg PO2 85 75-100 mmHG HCO3 31.7 H 22-26 mmol/L BE 7 H -2 to +2 mmol/L TOTAL CO2 33 mmol/L SO2 96 95-99 % END OF REPORT Imaging Radiology Impression Chest X-Ray 05/27/24 17:55 IMPRESSION: No acute radiographic abnormalities. Electronically Signed: Adiel Mckeon MD at 19:25 EDT , Assessment & Plan Assessment/Plan (1) COPD with exacerbation: (2) Electronic cigarette use: (3) Acute respiratory failure: QUALIFIERS: Respiratory failure complication: hypoxia and hypercapnia Qualified Code(s): J96.01 - Acute respiratory failure with hypoxia; J96.02 - Acute respiratory failure with hypercapnia (4) Elevated troponin: (5) Diarrhea: QUALIFIERS: Diarrhea type: presumed infectious Qualified Code(s): R19.7 - Diarrhea, unspecified (6) Essential hypertension: PLAN: Plan 1. AE COPD with suspected superimposed bacterial bronchitis in the setting of ongoing e-cigarette vaping - Admit to PCU. Continue IV Solumedrol and add IV Doxycycline with suspected superimposed bacterial bronchitis and tenuous respiratory status present on admission. Continue scheduled and prn nebulizers. Patient warned to stop e-cigarette use with Nicotine patch offered to control cravings. 2. Eskdv-ye-Whbhsxe Hypoxic Respiratory Failure requiring BiPAP arising from #1 - Wean BiPAP as tolerated. 3. Elevated troponin of 100 pg/mL present on admission up to 1,198 pg/mL on second check likely due to Acute Cardiac Strain with NSTEMI-II attributable to #1 & #2 - Continue ECASA plus add Plavix and full-dose Lovenox. Serialize troponin. Check echocardiogram to evaluate LVEF. Check Lexiscan NST to evaluate for possible underlying silent ischemia. 4. Diarrhea compounding #1 - #3 - Check stool studies and place on enteric precautions until infectious etiology is ruled out. Check CT scan of the abdomen and pelvis to evaluate for evidence of colitis. 5. Essential hypertension - Continue home regimen plus give prn IV Hydralazine for systolic blood pressure > 160 mmHg. 6. Hyperlipidemia - Resume statin and check Lipid Profile in light of #3. 7. Hypothyroidism - Continue Synthroid and check TSH. 8. DM-2; of unknown control on Metformin - ADA diet. FSBS q AC/HS plus lowest- intensity SSI. Hold Metformin. Check HgbA1c to objectively evaluate quality of diabetic control. 9. Chronic anemia - Stable with hemoglobin of 11.9 g/dL present on admission. 10. RLS - Resume nightly Mirtazapine as previous. 11. GERD - Continue Famotidine as previous. 12. OA - Stable. Give Tylenol prn. 13. DVT prophylaxis - Patient started on full-dose Lovenox at 50 mg sq BID for #3. Total time: Approximately 75 minutes. Charges/Coding Visit Charges Inpatient E&M: 62170 Init Hosp L3
[2024-05-27] MEDS: Aspirin 81 MG TAB.CHEW 324 MG PO (20:10)
--- NOTE | 2024-05-27 20:15 | ECHOD_ITS ---
Reason For Study: S/P [facility] Procedure This was a 2D Doppler, Color Flow transthoracic echocardiogram. Exam performed portable in patient room. Left Ventricle Normal LV size. The estimated ejection fraction is 60 %. Unable to assess diastolic dysfunction. No regional wall motion abnormalities noted. Right Ventricle Normal RV size. Normal systolic function. Atria Normal left atrium. Normal RA size. There is an echodensity in the right atrium that could be a mass lesion. Cardiac MRI could be considered for further evaluation if clinically indicated. No doppler evidence for ASD. Mitral Valve There is moderate mitral annular calcification. There is no mitral valve stenosis. No mitral valve insufficiency. Tricuspid Valve There is no tricuspid stenosis. No tricuspid valve insufficiency. Aortic Valve Trisinus/trileaflet aortic valve. There is no aortic stenosis. No aortic valve insufficiency. Pulmonic Valve There is no pulmonic valvular stenosis. No pulmonic valve insufficiency. Great Vessels Normal aortic root. Pericardium/Pleural No pericardial effusion. MMode/2D Measurements & Calculations LVIDd: 3.8 cm IVSd: 1.0 cm LVOT diam: 1.7 cm LVIDs: 2.5 cm LVPWd: 0.85 cm LVOT area: 2.2 cm2 RVDd: 3.6 cm FS: 36.0 % Ao root diam: 2.9 cm LAV(MOD-bp): 32.2 ml LVAd ap4: 19.8 cm2 LAV(MOD-bp) Indexed: 21.6 ml/m2 LVLd ap4: 6.7 cm LAV(MOD-sp2): 30.2 ml EDV(MOD-sp4): 47.6 ml LAV(MOD-sp4): 32.7 ml EDV(sp4-el): 49.3 ml LVAs ap4: 11.0 cm2 LVLs ap4: 5.6 cm ESV(MOD-sp4): 18.6 ml ESV(sp4-el): 18.2 ml EF(MOD-sp4): 60.9 % EF(sp4-el): 63.0 % LVAd ap2: 17.2 cm2 SV(MOD-sp4): 29.0 ml SV(MOD-sp2): 21.3 ml LVLd ap2: 6.6 cm EDV(MOD-sp2): 36.7 ml EDV(sp2-el): 37.9 ml LVAs ap2: 9.8 cm2 LVLs ap2: 5.3 cm ESV(MOD-sp2): 15.4 ml ESV(sp2-el): 15.2 ml EF(MOD-sp2): 58.0 % SV(sp4-el): 31.0 ml LA dimension(2D): 2.8 cm LA A4 area: 13.7 cm2 RA A4 area: 9.8 cm2 TAPSE: 1.7 cm Time Measurements MV dec time: 0.18 sec Doppler Measurements & Calculations MV E max ozzie: 85.2 cm/sec Lat Peak E' Ozzie: 9.2 cm/sec Med Peak E' Ozzie: 6.8 cm/sec MV A max ozzie: 143.0 cm/sec E/E' lat: 9.2 E/E' med: 12.5 MV E/A: 0.60 Ao V2 max: 122.9 cm/sec LV V1 max: 119.6 cm/sec MV dec slope: 482.3 cm/sec2 Ao max P.0 mmHg LV V1 max P.7 mmHg Ao V2 mean: 93.2 cm/sec LV V1 mean P.9 mmHg Ao mean P.7 mmHg LV V1 mean: 78.6 cm/sec Ao V2 VTI: 22.1 cm LV V1 VTI: 23.3 cm AV (velocity ratio): 1.1 EZRA(I,D): 2.3 cm2 EZRA(V,D): 2.1 cm2 SV(LVOT): 51.5 ml PA V2 max: 61.0 cm/sec PA max PG (full): 0.30 mmHg ECHO/Echo Complete Interpretation Summary The estimated ejection fraction is 60 %. Unable to assess diastolic dysfunction. Normal RA size. There is an echodensity in the right atrium that could be a mas s lesion. Cardiac MRI could be considered for further evaluation if clinically indicated. Ordering Physician: Ramez Arana Performed By: Carolyn Briones RDCS
[2024-05-27 20:45] LABS: Allen Test Positive; Base Excess 7 mmol/L (-2 to +2); Bicarbonate 31.7 mmol/L (22-26); Blood Gas Specimen Type ART; Comment 12/6 12 28%; Mode Not entered; O2 Delivery Device BiPAP; PO2 85 mmHG (75-100); SITE L Radial; SO2 96 % (95-99); Total Carbon Dioxide 33 mmol/L; pCO2 53.8 mmHg (35-45); pH 7.38 (7.35-7.45)
[2024-05-27] MEDS: Enoxaparin 60 MG/0.6 ML Syringe 53 MG SC (20:55)
--- NOTE | 2024-05-27 21:16 | ED.VIS.DYS ---
HPI History of Present Illness Chief Complaint: Shortness of Breath Narrative Narrative: 84-year-old female presenting in respiratory distress. She states she started feeling ill this morning and was coughing. No known fever. She normally on 3 L of oxygen. Has a history of COPD. She states she has been admitted for this in the past. Denies having chest pain. She states she has been producing thick sputum. [facility] Medical History Anemia Hypothyroidism Diabetes Rheumatoid arthritis On home oxygen therapy Asthma COPD (chronic obstructive pulmonary disease) HTN (hypertension) Diabetes mellitus, type 2 Normocytic anemia Former tobacco use Intermittent constipation COPD (chronic obstructive pulmonary disease) Arthritis Thyroid disease Home Medications ?Medication ?Instructions ?Recorded ?Last Taken ?Type metformin 500 mg tablet 500 mg PO TIDCM diabetes 04/03/19 05/25/22 History simvastatin 40 mg tablet 40 mg PO QHS cholesterol 04/03/19 05/24/22 History levothyroxine 75 mcg tablet 75 mcg PO DAILY thyroid 05/25/22 05/25/22 History albuterol sulfate 90 mcg/actuation 1 - 2 puff inhalation Q6H PRN PRN 01/31/24 Unknown Rx aerosol inhaler (ProAir HFA) Sob &/Or Wheezing #8.5 grams ipratropium 0.5 mg-albuterol 3 mg 1.5 ml continuous nebulization 01/31/24 Unknown Rx (2.5 mg base)/3 mL nebulization DAILY PRN shortness of breath or soln wheezing #180 mL fluticasone propionate 50 1 spray intranasal QDAY 02/20/24 Unknown History mcg/actuation nasal spray,suspension lisinopril 10 mg tablet 10 mg PO QDAY 02/20/24 Unknown History mirtazapine 7.5 mg tablet 7.5 mg PO QHS 02/20/24 Unknown History montelukast 10 mg tablet 10 mg PO QDAY 02/20/24 Unknown History fluticasone fur. 200 mcg-umeclid 1 ea inhalation QDAY copd #60 ea 05/02/24 Unknown Rx 62.5 mcg-vilant 25 mcg inhalat.powder (Trelegy Ellipta) famotidine 40 mg tablet 40 mg PO DAILY 05/27/24 Unknown History Allergy/AdvReac Type Severity Reaction Status Date / Time Sulfa (Sulfonamide Allergy Itching Verified 05/02/24 08:20 Antibiotics) bacitracin (From Neosporin AdvReac Mild Rash Verified 05/02/24 08:21 ([id number])) neomycin (From Neosporin AdvReac Mild Rash Verified 05/02/24 08:21 ([id number])) polymyxin B (From Neosporin AdvReac Mild Rash Verified 05/02/24 08:21 ([id number])) Family History Mother Hypertension Father Cancer Passed age 2828 years old, she notes suspect if was cancer but unclear exact etiology. Surgical History H/O rectal polypectomy History of surgery of uterus Hx of colonoscopy Hx of foot surgery Social History household members: none Smoking Status: Current every day smoker tobacco type: cigarettes and e-cigarettes how long ago did patient quit smoking: Quit 07/22/2013, smoked 1 ppd x 50 years until quit. second hand exposure: No alcohol intake: never substance use type: does not use caffeine: Yes frequency: does not exercise ROS ROS ED Constitutional Constitutional ED: Denies chills, fever(s) or sweats Eyes Eyes: Denies blurry vision or change in vision ENT ENT ED: Denies ear pain or sore throat Cardiovascular Cardiovascular: Denies chest pain, palpitations or racing heartbeat Respiratory/Chest Respiratory/Chest: Reports cough, dyspnea and dyspnea on exertion; Denies sputum Gastrointestinal Gastrointestinal: Reports diarrhea; Denies abdominal pain, constipation, nausea or vomiting Genitourinary Genitourinary ED: Denies dysuria, hematuria or urinary frequency Musculoskeletal Musculoskeletal: Denies arthralgias, myalgias or neck pain Integumentary Denies abscess, Abrasions or rash Neurologic Neurologic: Denies headache(s), paresthesias or weakness Psychiatric Psychiatric: Denies anxiety, depression, suicidal ideation or suicidal thoughts Endocrine Endocrinology: Denies polydipsia or polyuria EXAM Physical Exam Const Vital Signs: 05/27/24 17:04 05/27/24 17:10 05/27/24 17:12 Temperature 98.2 F 98.5 F Temperature Source Oral Oral Pulse Rate 95 94 Respiratory Rate 27 H 27 H Respiratory Effort Short of Breath Labored Respiratory Pattern Tachypnea Blood Pressure 167/98 H 167/98 H Blood Pressure Mean 121 121 Pulse Ox 98 98 Oxygen Delivery Method Nasal Cannula Nasal Cannula Nasal Cannula Oxygen Flow Rate (L/min) 3 3 Fraction of Inspired Oxygen (FIO2) 3 05/27/24 17:36 05/27/24 17:40 05/27/24 17:41 Temperature Temperature Source Pulse Rate 89 93 Respiratory Rate 21 H 30 H Respiratory Effort Respiratory Pattern Blood Pressure Blood Pressure Mean Pulse Ox 99 97 Oxygen Delivery Method Bi-pap Oxygen Flow Rate (L/min) Fraction of Inspired Oxygen (FIO2) 35 05/27/24 17:41 05/27/24 17:45 05/27/24 18:00 Temperature Temperature Source Pulse Rate 93 95 99 Respiratory Rate 30 H 23 H 21 H Respiratory Effort Respiratory Pattern Normal Blood Pressure 125/71 H Blood Pressure Mean 88 Pulse Ox 99 98 98 Oxygen Delivery Method Oxygen Flow Rate (L/min) Fraction of Inspired Oxygen (FIO2) 35 05/27/24 18:10 05/27/24 18:15 05/27/24 18:16 Temperature 97.4 F L Temperature Source Temporal Pulse Rate 100 103 H 99 Respiratory Rate 21 H 25 H 22 H Respiratory Effort Respiratory Pattern Blood Pressure 128/79 H 128/79 H Blood Pressure Mean 95 94 Pulse Ox 95 97 97 Oxygen Delivery Method Bi-pap Oxygen Flow Rate (L/min) Fraction of Inspired Oxygen (FIO2) 30 05/27/24 18:30 05/27/24 18:45 05/27/24 19:00 Temperature 97.4 F L Temperature Source Temporal Pulse Rate 98 102 H 95 Respiratory Rate 24 H 17 18 Respiratory Effort Respiratory Pattern Blood Pressure 125/66 H 120/71 102/72 Blood Pressure Mean 85 86 82 Pulse Ox 94 94 94 Oxygen Delivery Method Bi-pap Oxygen Flow Rate (L/min) Fraction of Inspired Oxygen (FIO2) 30 05/27/24 19:00 05/27/24 19:10 05/27/24 19:15 Temperature Temperature Source Pulse Rate 99 93 Respiratory Rate 20 H 23 H Respiratory Effort Respiratory Pattern Blood Pressure 112/65 Blood Pressure Mean 78 Pulse Ox 95 Oxygen Delivery Method Bi-pap Oxygen Flow Rate (L/min) Fraction of Inspired Oxygen (FIO2) 05/27/24 19:37 05/27/24 20:00 05/27/24 20:05 Temperature 97.1 F L 97.1 F L Temperature Source Temporal Pulse Rate 94 86 86 Respiratory Rate 27 H 22 H 24 H Respiratory Effort Respiratory Pattern Tachypnea Blood Pressure 110/72 110/72 Blood Pressure Mean 84 84 Pulse Ox 96 96 97 Oxygen Delivery Method Bi-pap Oxygen Flow Rate (L/min) Fraction of Inspired Oxygen (FIO2) 28 28 Positive well nourished General Appearance ED: Negative for pallor HEENT Reports dry mucous membranes Mouth ED: Yes dry mucous membranes Mouth: dry mucous membranes Eyes PERRL and EOMs intact bilaterally Resp Resp Narrative: Tachypneic and respiratory distress. Using accessory muscle use. Auscultation: wheezes expiratory wheezes Cardio regular rate and regular rhythm Neuro oriented x3 and CN's II-XII intact bilaterally Sensorium / Orientation: alert Motor Exam: strength 5/5 throughout Psych Mood & Affect: anxious Skin no wounds General Skin Exam: Negative for jaundice or pallor MDM MDM MDM Narrative Medical decision making narrative: Patient presenting with shortness of breath and cough that started today. She also reported a history of diarrhea today. Differential includes COVID, influenza, pneumonia, ACS, CHF, COPD exacerbation. Patient in respiratory distress was immediately put on BiPAP and given breathing treatments. Patient given Solu-Medrol 125. CBC will be obtained to assess white blood cell count, hemoglobin, platelets. BMP to assess renal function, electrolytes, glucose. High-sensitivity troponin and EKG to assess for ischemia/dysrhythmia. BNP to assess for CHF. Chest x-ray to rule out pneumonia or CHF. CBC shows normal white blood cell count 10.6. Hemoglobin 0.9. Platelets normal at 296. Renal function electrolytes within normal limits. BNP is 59. Chest x-ray interpreted by myself shows no acute. Radiologist interprets this and agrees. EKG is normal sinus rhythm at a rate of 97 bpm without sign of ischemic change or dysrhythmia. Troponin came back at 103 however the patient does not report any chest pain. Reevaluation the patient is doing much better on BiPAP. I did give her some Ativan for her anxiety. She seems a lot more comfortable. Given her need for BiPAP I will talk to the hospitalist for admission. Hospitalist requested to give her 1 dose of Lovenox which was given. She was also given aspirin in the ED. Impression: 1. Hypoxic respiratory failure 2. COPD exacerbation 3. Elevated troponin Lab Data Attestation: I reviewed the patient's lab results. Labs: Laboratory Results - last 24 hr 05/27/24 17:45 WBC 10.6 RBC 4.21 Hgb 11.9 L Hct 37.4 MCV 88.8 MCH 28.3 MCHC 31.8 L RDW Std Deviation 50.8 H RDW Coeff of Katia 15.7 H Plt Count 296 MPV 9.3 Immature Gran % (Auto) 0.600 Neut % (Auto) 77.8 H Lymph % (Auto) 8.8 L [place] % (Auto) 9.4 Eos % (Auto) 2.6 Baso % (Auto) 0.8 Absolute Neuts (auto) 8.3 H Absolute Lymphs (auto) 0.94 Nucleated RBC % 0 Sodium 134 L Potassium 3.8 Chloride 98 Carbon Dioxide 29.0 Anion Gap 7 BUN 10 Creatinine 0.66 Estim Creat Clear Calc 36.93 Est GFR (MDRD) Af Amer 109 Est GFR (MDRD) Non-Af 90 BUN/Creatinine Ratio 15.1 Glucose 144 H Calcium 8.9 Troponin I High Sens 103 H B-Natriuretic Peptide 59.0 Radiography Diagnostic Testing: Clinical Impression(s) from Imaging Studies Chest X-Ray 05/27/24 17:55 IMPRESSION: No acute radiographic abnormalities. Electronically Signed: Adiel Mckeon MD at 19:25 EDT , Discharge Plan Disposition Disposition: Acute Care Hospital [facility] Discharge Date/Time: 05/27/24 21:01
[2024-05-27] MEDS: 0.9% Normal Saline (1000mL) 1,000 ML 70 ML IV (21:45)
[2024-05-27] MEDS: Doxycycline 100 MG in Dextrose 5%-Water (250mL Bag) 250 ML 250 MG IV (21:45)
[2024-05-27] MEDS: Enoxaparin 60 MG/0.6 ML Syringe 50 MG SC (21:46)
[2024-05-27] MEDS: MethylPREDNISolone 125 MG/2 ML Vial 60 MG IV (21:46)
[2024-05-27] MEDS: Atorvastatin Calcium 20 MG Tablet PO (21:46)
[2024-05-27] MEDS: Lactobacillis Acidophilus 2 CAP PO (21:46)
[2024-05-27] MEDS: Mirtazapine 15 MG Tablet 7.5 MG PO (21:47)
[2024-05-27] MEDS: BENZOCAINE/MENTHOL 1 LOZENGE MUCOUS MEM (21:48)
[2024-05-27 22:22] LABS: Bedside Glucose 146 mg/dL (74-106)
[2024-05-27 22:37] LABS: Troponin-I HS 1198 pg/mL (3.0-54.0)
--- NOTE | 2024-05-27 22:37 | EKG12_ITS ---
Test Reason : AM EKG Blood Pressure : / mmHG Vent. Rate : 077 BPM Atrial Rate : 077 BPM P-R Int : 154 ms QRS Dur : 070 ms QT Int : 428 ms P-R-T Axes : 053 019 032 degrees QTc Int : 484 ms Normal sinus rhythm Normal ECG When compared with ECG of 27-MAY-2024 23:04, MANUAL COMPARISON REQUIRED, DATA IS UNCONFIRMED Confirmed by JUAN DANIEL KINCAID, ELIUD ([id number]), subeditor JIL WEAVER ([id number]) on 05/29/2024 10:39:39 A M Referred By: Confirmed By:HERI FRANCES MD
[2024-05-27] MEDS: Budesonide Respules 0.5 MG/2 ML AMPUL.NEB. INHALATION (22:59)
[2024-05-28] VITALS (8 sets, daily range): BP systolic 117–139; BP diastolic 73–87; PULSE 73–105; RESP 12–24; TEMP 36.4–36.7; O2SAT 93–100; BMI 22.7
[2024-05-28 00:39] LABS: Troponin-I HS 1183 pg/mL (3.0-54.0)
--- NOTE | 2024-05-28 05:55 | CT_ITS ---
EXAM: CT ABDOMEN AND PELVIS WITHOUT INTRAVENOUS CONTRAST CLINICAL INDICATION: Diarrhea. Evaluate for evidence of colitis. TECHNIQUE: Helically acquired images were obtained of the abdomen and pelvis without intravenous contrast. This CT exam was performed using one or more of the following dose reduction techniques: automated exposure control, adjustment of the mA and/or kV according to patient size, and/or use of iterative reconstruction technique. RADIATION DOSE: CTDIvol = 6.04 mGy, DLP = 271.80 mGy-cm COMPARISON: No relevant prior studies available. FINDINGS: LOWER THORAX: Scattered areas of mucus plugging in the lung bases bilaterally associated with subsegmental atelectasis. No cardiomegaly. No significant pericardial effusion. ABDOMEN: LIVER: Unremarkable. Homogeneous. GALLBLADDER AND BILE DUCTS: Unremarkable. No calcified gallstones. No gallbladder distention or wall edema. No intra- or extrahepatic biliary ductal dilation. PANCREAS: Unremarkable. No focal cystic mass. SPLEEN: Unremarkable. Normal size without focal cystic or solid mass. ADRENALS: Unremarkable. No nodules. KIDNEYS AND URETERS: Unremarkable. Normal renal size and position. No hydronephrosis. STOMACH AND BOWEL: Unremarkable. No stomach or bowel distention. No focal inflammatory change. PELVIS: APPENDIX: No evidence of acute appendicitis. BLADDER: Unremarkable. REPRODUCTIVE: Unremarkable as visualized. No mass. ABDOMEN and PELVIS: INTRAPERITONEAL SPACE: Unremarkable. No ascites or other fluid collection. No free air. BONES/JOINTS: Unremarkable. No suspicious lytic or blastic abnormality. SOFT TISSUES: Unremarkable. No discrete abdominal or pelvic wall hernia. VASCULATURE: Unremarkable. Abdominal aorta is non-dilated. LYMPH NODES: Unremarkable. No enlarged lymph nodes. CT/Abdomen/Pelvis without Cont IMPRESSION: 1. No acute abdominal pelvic abnormality. 2. Scattered areas of mucus plugging in the lung bases bilaterally associated with subsegmental atelectasis. 3. No evidence of colitis. Electronically Signed: Khurram Petersen MD at 7:52 EDT ,
--- NOTE | 2024-05-28 05:55 | EKG12_ITS ---
Test Reason : POSITIVE TROP Blood Pressure : / mmHG Vent. Rate : 094 BPM Atrial Rate : 094 BPM P-R Int : 170 ms QRS Dur : 074 ms QT Int : 356 ms P-R-T Axes : 058 015 046 degrees QTc Int : 445 ms Normal sinus rhythm Inferior infarct , age undetermined Abnormal ECG When compared with ECG of 27-MAY-2024 17:14, MANUAL COMPARISON REQUIRED, DATA IS UNCONFIRMED Confirmed by JUAN DANIEL KINCAID, ELIUD ([id number]), film or videotape editor JIL WEAVER ([id number]) on 05/29/2024 10:40:03 A M Referred By: Confirmed By:HERI FRANCES MD
[2024-05-28 06:08] LABS: Absolute Lymphocyte Count 0.31 X10^3/uL (0.83-4.51); Absolute Neutrophil Count 8.3 X10^3/uL (2.0-7.7); Basophil# 0.01 X10^3/uL; Basophil% 0.1 % (0-1); Hematocrit 33.8 % (37-47); Hemoglobin 10.9 g/dL (12.0-15.0); Lymphocyte # 0.31 X10^3/ul (0.83-4.51); Lymphocyte % 3.6 % (19-41); Mean Corp Hgb Conc 32.2 g/dL (32-36); Mean Corpuscular Hgb 27.9 pg (27.0-32.0); Mean Corpuscular Volume 86.7 fL (81-99); Mean Platelet Vol. 9.4 fl (6.2-12.0); Monocyte# 0.06 X10^3/uL; Monocyte% 0.7 % (0-10); NRBC Flagged by Analyzer 0 % (0-5); Neutrophil # 8.27 X10^3/uL (2.7-7.7); Neutrophil % 95.1 % (47-70); POSITIVE DIFFERENTIAL YES; Platelet Count 284 K/mm3 (150-450); RBC Distribution Width CV 15.6 % (11.6-14.6); RBC Distribution Width SD 49.1 fl (35.1-43.9); White Blood Count 8.7 K/mm3 (4.4-11.0)
[2024-05-28] MEDS: Clopidogrel Bisulfate 75 MG Tablet PO (06:18)
[2024-05-28] MEDS: Aspirin 81 MG TAB.CHEW PO (06:19)
[2024-05-28] MEDS: Levothyroxine 75 MCG Tablet PO (06:19)
[2024-05-28 06:48] LABS: Cholesterol 145 mg/dL (200); High Density Lipoprotein 49 mg/dL; Triglycerides 100 mg/dL; Very Low Density Lipoprotein 20 mg/dL (5-40)
[2024-05-28 06:50] LABS: ALB/GLOB Ratio 0.8 RATIO (0.9-2.4); AST(SGOT) 13 U/L (15-37); Alanine Aminotransfer ALT/SGPT 14 U/L (13-56); Albumin, Serum 2.8 g/dL (3.2-5.0); Alkaline Phosphatase 71 U/L (45-117); Anion Gap 6 (5-15); BUN 10 mg/dL (7-18); BUN/Creat Ratio 18.5 RATIO (10-20); Calcium,Total 8.3 mg/dL (8.5-10.1); Chloride 99 mmol/L (98-107); Creatinine, Serum 0.54 mg/dL (0.55-1.02); EST Glomerular Filtration Rate 114 mL/min (>60); Est Glom Filt Rate - Afr Amer 138 mL/min (>60); Estimated Creatinine Clearance 36.93 ml/min; Globulin 3.3 g/dL (2.2-4.2); Glucose 207 mg/dL (74-106); Magnesium 1.7 mg/dL (1.6-2.6); Phosphorus 2.9 mg/dL (2.5-4.9); Potassium 4.1 mmol/L (3.5-5.1); Protein, Total 6.1 g/dL (6.4-8.2); Sodium Level 131 mmol/L (136-145); Thyroid Stim Hormone (TSH) 2.75 uIU/mL (0.358-3.74)
[2024-05-28] MEDS: Ipratropium/Albuterol Sulfate 3 ML AMPUL.NEB INHALATION ×2 (07:02→19:02)
[2024-05-28] MEDS: Budesonide Respules 0.5 MG/2 ML AMPUL.NEB. INHALATION ×2 (07:02→19:02)
--- NOTE | 2024-05-28 09:48 | PN.HOSP_ITS ---
Subjective Subjective Still with significant wheezing, but she is down to 2 L nasal cannula she says she normally wears 3 L. Denies any chest pain Objective Data Objective Data Vital Signs: Vital Signs Temp Pulse Resp BP Pulse Ox O2 Del Method O2 Flow Rate 98.1 F 73 18 129/86 H 93 Nasal Cannula 2 05/28/24 06:15 05/28/24 07:02 05/28/24 07:02 05/28/24 06:15 05/28/24 07:02 05/28/24 07:02 05/28/24 07:02 FiO2 28 05/28/24 02:25 Oxygen Flow Rate (L/min) 2 Oxygen Delivery Method Nasal Cannula Weight: 116 lb 6.465 oz Body Mass Index (BMI) 22.7 Intake & Output: Intake and Output for Last 24 Hours 05/27/24 05/28/24 05/29/24 03:59 03:59 03:59 Intake Total 260 / 260 Balance 260 / 260 Lab / Micro Data 05/28/24 05:20 05/28/24 05:20 Labs: Laboratory Results - last 24 hr 05/27/24 17:45: WBC 10.6, RBC 4.21, Hgb 11.9 L, Hct 37.4, MCV 88.8, MCH 28.3, M CHC 31.8 L, RDW Std Deviation 50.8 H, RDW Coeff of Katia 15.7 H, Plt Count 296, MPV 9.3, Immature Gran % (Auto) 0.600, Neut % (Auto) 77.8 H, Lymph % (Auto) 8.8 L, [place] % (Auto) 9.4, Eos % (Auto) 2.6, Baso % (Auto) 0.8, Absolute Neuts (auto) 8.3 H, Absolute Lymphs (auto) 0.94, Nucleated RBC % 0, Sodium 134 L, Potassium 3.8, Chloride 98, Carbon Dioxide 29.0, Anion Gap 7, BUN 10, Creatinine 0.66, Estim Creat Clear Calc 36.93, Est GFR (MDRD) Af Amer 109, Est GFR (MDRD) Non-Af 90, BUN/Creatinine Ratio 15.1, Glucose 144 H, Calcium 8.9, Troponin I High Sens 103 H, B-Natriuretic Peptide 59.0 05/27/24 21:45: Troponin I High Sens 1198 H* 05/27/24 21:49: POC Glucose 146 H 05/27/24 23:45: Troponin I High Sens 1183 H* 05/28/24 05:20: WBC 8.7, RBC 3.90 L, Hgb 10.9 L, Hct 33.8 L, MCV 86.7, MCH 27.9, MCHC 32.2, RDW Std Deviation 49.1 H, RDW Coeff of Katia 15.6 H, Plt Count 284, MPV 9.4, Immature Gran % (Auto) 0.500, Neut % (Auto) 95.1 H, Lymph % (Auto) 3.6 L, [place] % (Auto) 0.7, Eos % (Auto) 0.0, Baso % (Auto) 0.1, Absolute Neuts (auto) 8.3 H, Absolute Lymphs (auto) 0.31 L, Nucleated RBC % 0, Sodium 131 L, Potassium 4.1, Chloride 99, Carbon Dioxide 26.0, Anion Gap 6, BUN 10, Creatinine 0.54 L, Estim Creat Clear Calc 36.93, Est GFR (MDRD) Af Amer 138, Est GFR (MDRD) Non-Af 114, BUN/Creatinine Ratio 18.5, Glucose 207 H, Calcium 8.3 L, Phosphorus 2.9, Magnesium 1.7, Total Bilirubin 0.30, AST 13 L, ALT 14, Alkaline Phosphatase 71, Total Protein 6.1 L, Albumin 2.8 L, Globulin 3.3, Albumin/Globulin Ratio 0.8 L, Triglycerides 100, Cholesterol 145, LDL Cholesterol 76, VLDL Cholesterol 20, HDL Cholesterol 49, TSH 2.75 Micro: Microbiology 05/27/24 17:45 Mucosa - Nose SARS-CoV-2, Influenza & RSV (PCR) - Final ABG Data ABG results: ABG 05/27/24 20:42 Specimen Type ART Sample Site L Radial pH 7.38 Bicarbonate Actual 31.7 H Total CO2 33 Base Excess 7 H O2 Saturation 96 O2 % 28.0 ABG pCO2 53.8 H ABG pO2 85 Ilir Test Positive O2 Delivery Device BiPAP Vent Mode Not entered Clinical Comments 10/17 12 28% Radiography Diagnostic Testing: Radiology Impression Chest X-Ray 05/27/24 17:55 IMPRESSION: No acute radiographic abnormalities. Electronically Signed: Adiel Mckeon MD at 19:25 EDT , Abdomen/Pelvis CT 05/28/24 05:55 IMPRESSION: 1. No acute abdominal pelvic abnormality. 2. Scattered areas of mucus plugging in the lung bases bilaterally associated with subsegmental atelectasis. 3. No evidence of colitis. Electronically Signed: Khurram Petersen MD at 7:52 EDT , Physical Exam Narrative General: Alert, Oriented x3, Cooperative, No apparent distress HEENT: Atraumatic, PERRLA, EOMI, Normocephalic Oral: Moist Mucosa Neck: Supple, No JVD Lungs: Diminished, Normal air movement, No rhonchi, wheeze, No rales Cardiovascular: Regular rate, Regular Rhythm, Normal S1, Normal S2, No murmurs Abdomen: Soft, Non Tender, Non-Distended, No Hepato-splenomegaly Extremities: No edema, Capillary Refill Less than 3 Seconds Skin: No rashes, No breakdown Musculoskeletal: No Tenderness to Palpation of Joints or Extremities Neurological: No focal neurological deficits, Motor Exam 5/5 strength throughout, Sensory exam intact to light touch and pain Psych/Mental Status: Normal Affect, Appropriate Assessment & Plan Assessment/Plan (1) COPD with exacerbation: (2) Elevated troponin: PLAN: Plan 1. Acute on chronic hypoxic respiratory failure secondary to acute COPD exacerbation/elevated troponin secondary to demand ? She normally wears 3 L nasal cannula and yesterday had such significant increased work of breathing prior to arrival that she was placed on BiPAP in the ER ? She is currently back to her baseline of 2 to 3 L nasal cannula at rest. She still has significant wheezing therefore we will continue with aggressive inhalers as well as steroids, will transition to 3 times daily dosing ? Continue with doxycycline as there is a concern for component of bacterial bronchitis on admission ? Cardiology was consulted and felt that it be fair to either do a stress test tomorrow or repeat troponin and if improving now that she is back to her baseline potentially follow-up as an outpatient given her age and her acute illness currently ? As she likely has demand ischemia given the fact that her chest pain has resolved, will not provide therapeutic anticoagulation 2. Essential HTN/HLD ? Blood pressure stable ? Continue with her home blood pressure medications ? Echo is pending ? Will monitor make adjustments as necessary 3. DM2 ? Will hold her home metformin ? Accu-Cheks ACHS ? Sliding scale insulin ? Will monitor make adjustments as necessary 4. Hypothyroidism ? Stable ? Continue with Synthroid 5. GERD ? Stable ? Continue with famotidine DVT: Lovenox Charges/Coding Visit Charges Inpatient E&M: 43605 Subs Hosp L2
[2024-05-28] MEDS: Fluticasone 0.05% 1 SPRAY NASAL.SRY NASAL (10:20)
[2024-05-28] MEDS: Lactobacillis Acidophilus 2 CAP PO (10:24)
[2024-05-28] MEDS: Enoxaparin 60 MG/0.6 ML Syringe 50 MG SC (10:25)
[2024-05-28] MEDS: Lisinopril 10 MG Tablet PO (10:26)
[2024-05-28] MEDS: Famotidine 20 MG Tablet 40 MG PO (10:26)
[2024-05-28] MEDS: Montelukast 10 MG Tablet PO (10:26)
[2024-05-28] MEDS: Doxycycline 100 MG in Dextrose 5%-Water (250mL Bag) 250 ML 250 MG IV ×2 (10:27→21:32)
[2024-05-28 10:59] LABS: Bedside Glucose 181 mg/dL (74-106)
--- NOTE | 2024-05-28 11:05 | CASEMGMT ---
RN CM Face to Face with patient for initial transition planning/care coordination assessment. RN CM introduced self and role at [facility]. Patient lying in bed, alert and oriented. Patient willing to participate in assessment and is able to answer all questions appropriately. Care providers, pharmacy, and demographics verified. PCP: Renee Specialists: Ángel Jorge, creasing and cutting press feeder Preferred Pharmacy: [facility] Insurance: [employer] Prescription Benefit: yes Living Will/HPOA: yes, daughter [place] LNOK: daughter, son Living Arrangements: Patient lives alone in a single story home with 2 steps to enter. Patient states she is independent at home. Transportation: self, daughter, friends DME/HHC: Patient states she has cane, walker, shower chair, raised toilet, nebulizer, pulse ox, and home oxygen through [facility] with portability. No previous HHC or SNF Patient wishes to discharge home, denies need for home health at this time, will monitor progress with therapy. Patient states she has no further needs or concerns at this time. CM to follow for discharge planning needs that may arise. Disposition Plan: Patient to discharge home with family support and follow-up plans in place. Will monitor for increase in home oxygen and therapy recommendations. Chyna ANTOINE, RN, CM
[2024-05-28 12:46] LABS: Bedside Glucose 178 mg/dL (74-106)
[2024-05-28] MEDS: 0.9% Normal Saline (1000mL) 1,000 ML 70 ML IV (13:47)
[2024-05-28] MEDS: Insulin Lispro 100 UNIT/ML INSULN.PEN SC ×2 (17:06→21:31)
[2024-05-28 17:16] LABS: Bedside Glucose 235 mg/dL (74-106)
--- NOTE | 2024-05-28 20:13 | CPS ---
Patient refused PAP therapy for the night.
[2024-05-28] MEDS: Mirtazapine 15 MG Tablet 7.5 MG PO (21:28)
[2024-05-28] MEDS: Atorvastatin Calcium 20 MG Tablet PO (21:29)
[2024-05-29] VITALS (7 sets, daily range): BP systolic 97–151; BP diastolic 64–76; PULSE 69–102; RESP 16–22; TEMP 36.4–36.8; O2SAT 92–100; BMI 23.0
[2024-05-29] MEDS: 0.9% Normal Saline (1000mL) 1,000 ML 70 ML IV (04:05)
--- NOTE | 2024-05-29 05:55 | RAD_ITS ---
STUDY: X-RAY CHEST REASON FOR EXAM: Female, 84 years old. Left pneumothorax eval TECHNIQUE: Single AP portable view of the chest. COMPARISON: Comparison is made with prior study dated May 27, 2024. FINDINGS: EKG electrodes are seen. Hyperinflation. Mild degree of increased markings at the lung bases suggestive of atelectasis and/or scarring. Stable calcified granuloma in the right lower lobe. There is blunting of both costophrenic angles. Normal size heart. Normal mediastinum and simone. Normal visualized pulmonary arteries. There is atherosclerotic calcification of the aortic arch with tortuosity. There are diffuse degenerative changes of the visualized thoracic spine. Normal visualized ribs, clavicles, and shoulders. There is no demonstrated abnormality of the visualized soft tissue structures of the upper abdomen. RAD/Chest 1 View (Portable) IMPRESSION: Mild degree of increased markings at the lung bases suggestive of atelectasis and/or scarring with blunting of both costophrenic angles. Since prior study, there has been improved aeration. Electronically Signed: Santiago Bradshaw MD at 8:19 EDT ,
[2024-05-29 06:13] LABS: Absolute Lymphocyte Count 0.87 X10^3/uL (0.83-4.51); Absolute Neutrophil Count 6.8 X10^3/uL (2.0-7.7); Basophil# 0.01 X10^3/uL; Basophil% 0.1 % (0-1); Eosinophil# 0.01 X10^3/uL; Eosinophils% 0.1 % (0-5); Hemoglobin 10.3 g/dL (12.0-15.0); Lymphocyte # 0.87 X10^3/ul (0.83-4.51); Lymphocyte % 10.5 % (19-41); Mean Corp Hgb Conc 32.2 g/dL (32-36); Mean Corpuscular Hgb 27.9 pg (27.0-32.0); Mean Corpuscular Volume 86.7 fL (81-99); Mean Platelet Vol. 9.4 fl (6.2-12.0); Monocyte# 0.59 X10^3/uL; Monocyte% 7.1 % (0-10); NRBC Flagged by Analyzer 0 % (0-5); Neutrophil # 6.77 X10^3/uL (2.7-7.7); Neutrophil % 81.6 % (47-70); Platelet Count 291 K/mm3 (150-450); RBC Distribution Width CV 15.9 % (11.6-14.6); RBC Distribution Width SD 49.5 fl (35.1-43.9); Red Blood Count 3.69 M/mm3 (4.2-5.4); White Blood Count 8.3 K/mm3 (4.4-11.0)
[2024-05-29 06:38] LABS: Anion Gap 5 (5-15); BUN 13 mg/dL (7-18); BUN/Creat Ratio 21.8 RATIO (10-20); Calcium,Total 9.2 mg/dL (8.5-10.1); Chloride 100 mmol/L (98-107); EST Glomerular Filtration Rate 102 mL/min (>60); Est Glom Filt Rate - Afr Amer 123 mL/min (>60); Estimated Creatinine Clearance 36.93 ml/min; Glucose 143 mg/dL (74-106); Potassium 4.1 mmol/L (3.5-5.1); Sodium Level 133 mmol/L (136-145)
[2024-05-29] MEDS: Levothyroxine 75 MCG Tablet PO (06:49)
[2024-05-29] MEDS: Insulin Lispro 100 UNIT/ML INSULN.PEN SC ×2 (06:54→11:16)
[2024-05-29 06:56] LABS: Bedside Glucose 184 mg/dL (74-106)
[2024-05-29] MEDS: Budesonide Respules 0.5 MG/2 ML AMPUL.NEB. INHALATION (06:56)
[2024-05-29] MEDS: Ipratropium/Albuterol Sulfate 3 ML AMPUL.NEB INHALATION ×2 (06:56→12:26)
[2024-05-29 07:15] LABS: Bedside Glucose 213 mg/dL (74-106)
[2024-05-29 09:10] LABS: Troponin-I HS 482 pg/mL (3.0-54.0)
[2024-05-29] MEDS: Fluticasone 0.05% 1 SPRAY NASAL.SRY NASAL (09:46)
[2024-05-29] MEDS: Aspirin 81 MG TAB.CHEW PO (09:52)
[2024-05-29] MEDS: Clopidogrel Bisulfate 75 MG Tablet PO (09:52)
[2024-05-29] MEDS: Famotidine 20 MG Tablet 40 MG PO (09:52)
[2024-05-29] MEDS: Enoxaparin 40 MG/0.4 ML Syringe SC (09:56)
[2024-05-29] MEDS: Montelukast 10 MG Tablet PO (09:56)
[2024-05-29] MEDS: Doxycycline 100 MG in Dextrose 5%-Water (250mL Bag) 250 ML 250 MG IV (11:14)
[2024-05-29] MEDS: Lisinopril 10 MG Tablet PO (11:20)
[2024-05-29 11:45] LABS: Bedside Glucose 161 mg/dL (74-106)
--- NOTE | 2024-05-29 12:16 | DCINST_ITS ---
Discharge Instructions Diet Discharge Diet: Low fat / Low cholesterol and Carb Control Diet Activity Discharge Activity: Return to Normal Activity Dressing / Incision Call your doctor if you observe: Fever of 101 or Higher, Shortness of breath, Dizziness, Fainting spells, Swelling in the ankles, Chest pain and Increased palpitations (irregular heartbeat) Follow Up Care Test Results: Test results from this visit will be discussed in further detail at your follow- up appointment, if applicable. Discharge Plan Admission Admit Date/Time: 05/27/24 20:06 Attending Provider: Vito Hernandes Primary Care Provider: Ciro Duran Consulting Providers: Ramez Arana Discharge Orders/Prescriptions Prescriptions: New aspirin 81 mg Tablet,Chewable 81 mg PO DAILYCM 30 Days Qty: 30 0RF prednisone 20 mg tablet 40 mg PO DAILY Qty: 10 0RF doxycycline hyclate 100 mg capsule 100 mg PO BID 5 Days Qty: 10 0RF Continued ipratropium-albuterol 0.5 mg-3 mg(2.5 mg base)/3 mL solution for nebulization 1.5 ml continuous nebulization DAILY PRN (Reason: shortness of breath or wheezing) Qty: 180 3RF albuterol sulfate [ProAir HFA] 90 mcg/actuation HFA aerosol inhaler 1 - 2 puff inhalation Q6H PRN PRN (Reason: Sob &/Or Wheezing) Qty: 8.5 3RF lisinopril 10 mg tablet 10 mg PO QDAY montelukast 10 mg tablet 10 mg PO QDAY fluticasone propionate 50 mcg/actuation spray,suspension 1 spray intranasal QDAY mirtazapine 7.5 mg tablet 7.5 mg PO QHS Trelegy Ellipta 200-62.5-25 mcg blister with device 1 ea INHALATION QDAY Qty: 60 11RF metformin 500 MG tablet 500 mg PO TIDCM simvastatin 40 MG tablet 40 mg PO QHS levothyroxine 75 mcg tablet 75 mcg PO DAILY famotidine 40 mg tablet 40 mg PO DAILY Referrals / Follow Up: Ciro Duran MD [Primary Care Provider] - Within 1 Week Khurram Queen MD [Med Staff - Active Staff] - Within 1 Month Disposition Disposition (needs filled in before D/C Order can be placed): Home, Self Care
--- NOTE | 2024-05-29 13:52 | PHA.DC.MC.R ---
Pharmacy [facility] has performed discharge medication reconciliation and counseling for this patient. The patient's discharge medication list was reviewed for discrepancies and discrepancies were resolved. The patient was counseled on the following discharge medications and changes in medications for homegoing were reviewed. 1. ASPIRIN 2. DOXYCYCLINE 3. PREDNISONE The Reason for Use, instructions for use, and potential side effects were reviewed for all new medications. The patient's questions regarding all of their medications were answered. The patient was able to verbally demonstrate an understanding of their discharge medications. The patient was counselled by Wilfred Monet PharmD candidate Medications at Discharge Home Medications metformin 500 mg tablet 500 mg PO TIDCM diabetes 04/03/19 simvastatin 40 mg tablet 40 mg PO QHS cholesterol 04/03/19 levothyroxine 75 mcg tablet 75 mcg PO DAILY thyroid 05/25/22 albuterol sulfate 90 mcg/actuation aerosol inhaler (ProAir HFA) 1 - 2 puff inhalation Q6H PRN PRN Sob &/Or Wheezing #8.5 grams 01/31/24 ipratropium 0.5 mg-albuterol 3 mg (2.5 mg base)/3 mL nebulization soln 1.5 ml continuous nebulization DAILY PRN shortness of breath or wheezing #180 mL 01/31/24 fluticasone propionate 50 mcg/actuation nasal spray,suspension 1 spray intranasal QDAY 02/20/24 lisinopril 10 mg tablet 10 mg PO QDAY 02/20/24 mirtazapine 7.5 mg tablet 7.5 mg PO QHS 02/20/24 montelukast 10 mg tablet 10 mg PO QDAY 02/20/24 fluticasone fur. 200 mcg-umeclid 62.5 mcg-vilant 25 mcg inhalat.powder (Trelegy Ellipta) 1 ea inhalation QDAY copd #60 ea 05/02/24 famotidine 40 mg tablet 40 mg PO DAILY 05/27/24 aspirin 81 mg chewable tablet 81 mg PO DAILYCM 30 days #30 tabs 05/29/24 doxycycline hyclate 100 mg capsule 100 mg PO BID 5 days #10 caps 05/29/24 prednisone 20 mg tablet 40 mg (2 x 20 mg) PO DAILY #10 tabs 05/29/24
--- NOTE | 2024-05-29 14:42 | CASEMGMT ---
Patient has order for discharge. RN CM in to discuss needs at discharge. Patient denies needs or help at discharge. Patient states daughter is a nurse and is able to assist if needed. Patient had no further questions or concerns.
--- NOTE | 2024-05-29 15:14 | DS.PCM_ITS ---
Providers Date of Admission: 05/27/24 Primary Care Physician: Dr. Ciro Duran MD Reason For Visit: AE COPD, ACUTE RESP FAILURE AND ELEVATED TROPONIN. Diagnosis Discharge Diagnosis (1) COPD with exacerbation: Status: Chronic Code(s): J44.1 - Chronic obstructive pulmonary disease with (acute) exacerbation (2) Elevated troponin: Status: Acute Code(s): R79.89 - Other specified abnormal findings of blood chemistry Medications at Discharge Home Medications metformin 500 mg tablet 500 mg PO TIDCM diabetes 04/03/19 simvastatin 40 mg tablet 40 mg PO QHS cholesterol 04/03/19 levothyroxine 75 mcg tablet 75 mcg PO DAILY thyroid 05/25/22 albuterol sulfate 90 mcg/actuation aerosol inhaler (ProAir HFA) 1 - 2 puff inhalation Q6H PRN PRN Sob &/Or Wheezing #8.5 grams 01/31/24 ipratropium 0.5 mg-albuterol 3 mg (2.5 mg base)/3 mL nebulization soln 1.5 ml continuous nebulization DAILY PRN shortness of breath or wheezing #180 mL 01/31/24 fluticasone propionate 50 mcg/actuation nasal spray,suspension 1 spray intranasal QDAY 02/20/24 lisinopril 10 mg tablet 10 mg PO QDAY 02/20/24 mirtazapine 7.5 mg tablet 7.5 mg PO QHS 02/20/24 montelukast 10 mg tablet 10 mg PO QDAY 02/20/24 fluticasone fur. 200 mcg-umeclid 62.5 mcg-vilant 25 mcg inhalat.powder (Trelegy Ellipta) 1 ea inhalation QDAY copd #60 ea 05/02/24 famotidine 40 mg tablet 40 mg PO DAILY 05/27/24 aspirin 81 mg chewable tablet 81 mg PO DAILYCM 30 days #30 tabs 05/29/24 doxycycline hyclate 100 mg capsule 100 mg PO BID 5 days #10 caps 05/29/24 prednisone 20 mg tablet 40 mg (2 x 20 mg) PO DAILY #10 tabs 05/29/24 Hospital Course Operations None Procedures 2-D Echocardiogram (The estimated ejection fraction is 60 %. Unable to assess diastolic dysfunction. Normal RA size. There is an echodensity in the right atrium that could be a mass lesion. Cardiac MRI could be considered for further evaluation if clinically indicated. ) Summary of Care Provided Minutes Spent on Discharge: 35 Hospital Course: Per HPI: MARIELA LARIOS, is a 84 F with a past medical history of essential hypertension, hyperlipidemia, hypothyroidism, DM-2; of unknown control on Metformin, chronic anemia, RLS, GERD, OA and history of tobacco abuse with patient now using e-cigarettes with vaping; with subsequent asthma/COPD and chronic hypoxic respiratory failure on 3L NC (nocturnal) who presents to [facility] ER complaining of SOB and cough. Ms. Larios reports her symptoms began approximately three days prior to admission with the gradual- onset of progressively worsening cough and wheezing with GANDHI that progressed to SOB at rest. She also admits her increasingly frequent cough was productive of copious greenish sputum and severe wheezing that was not responsive to her normal treatment regimen, rescue inhalers on increasing her oxygen to 4L NC continuously so she finally activated EMS. She was noted to be on 4L NC when EMS arrived and then this was increased to 15L NRB and eventually to BiPAP which was started shortly after arrival. There is no report of fever, chills, nausea, vomiting, chest pain, chest pressure or diaphoresis but she does admit to trying to hide her e-cigarette use from her family with her granddaughter finding at least 4 e-cigarettes in her home and then disposing of them in an effort to prevent serial readmission. She also admits to loose stools but she denies blood in stools or abdominal pain. In the ER she was diagnosed with AE COPD with suspected superimposed acute bacterial bronchitis causing acute hypoxic and hypercapnic respiratory failure requiring BiPAP likely triggered by continued e-cigarette use with vaping complicated by laboratory evidence of elevated troponin likely due to acute cardiac strain causing NSTEMI-II and she was then admitted to the PCU for ongoing care for a stay that is expected to extend beyond 2 midnights. Hospital Course: 1. Acute on chronic hypoxic respiratory failure secondary to acute COPD exacerbation/elevated troponin secondary to demand ? She normally wears 3 L nasal cannula and yesterday had such significant increased work of breathing prior to arrival that she was placed on BiPAP in the ER ? She is currently back to her baseline of 2 to 3 L nasal cannula at rest. She still has significant wheezing therefore we will continue with aggressive inhalers as well as steroids, will transition to 3 times daily dosing ? Continue with doxycycline as there is a concern for component of bacterial bronchitis on admission ? Cardiology was consulted and felt that it be fair to either do a stress test tomorrow or repeat troponin and if improving now that she is back to her baseline potentially follow-up as an outpatient given her age and her acute illness currently ? As she likely has demand ischemia given the fact that her chest pain has resolved, will not provide therapeutic anticoagulation ? Recheck troponin went from 1100 down to 482. She denies any chest pain discussed with cardiology and they felt that she would be safe to be discharged home and follow-up as an outpatient with cardiology had a stress test during this admission. Will continue her with aspirin but hold Plavix and no further anticoagulation. She did have an echo which demonstrated an EF of 60% but there is an atrial mass that would be better characterized on cardiac MRI which can only be ordered as an outpatient. Cardiology is aware. Will plan on doxycycline for 10 more days and just a few days of steroids on discharge as she had rapid improvement in respiratory status. I discussed with the plan for discharge today and she expressed understanding the risk benefits of going home and would like to go home today. 2. Essential HTN/HLD ? Blood pressure stable ? Continue with her home blood pressure medications ? Echo is pending ? Will monitor make adjustments as necessary 3. DM2 ? Will hold her home metformin ? Accu-Cheks ACHS ? Sliding scale insulin ? Will monitor make adjustments as necessary 4. Hypothyroidism ? Stable ? Continue with Synthroid 5. GERD ? Stable ? Continue with famotidine Physical Exam Narrative General: Alert, Oriented x3, Cooperative, No apparent distress HEENT: Atraumatic, PERRLA, EOMI, Normocephalic Oral: Moist Mucosa Neck: Supple, No JVD Lungs: Diminished, Normal air movement, No rhonchi, wheeze, No rales Cardiovascular: Regular rate, Regular Rhythm, Normal S1, Normal S2, No murmurs Abdomen: Soft, Non Tender, Non-Distended, No Hepato-splenomegaly Extremities: No edema, Capillary Refill Less than 3 Seconds Skin: No rashes, No breakdown Musculoskeletal: No Tenderness to Palpation of Joints or Extremities Neurological: No focal neurological deficits, Motor Exam 5/5 strength throughout, Sensory exam intact to light touch and pain Psych/Mental Status: Normal Affect, Appropriate Weight / BMI Weight Weight: 117 lb 15.157 oz Body Mass Index (BMI) 23.0 ABG / Lab / Microbiology Data 05/29/24 05:14 05/29/24 05:14 Laboratory: Laboratory Results - last 24 hr 05/28/24 16:58: POC Glucose 235 H 05/28/24 21:31: POC Glucose 184 H 05/29/24 05:14: WBC 8.3, RBC 3.69 L, Hgb 10.3 L, Hct 32.0 L, MCV 86.7, MCH 27.9, MCHC 32.2, RDW Std Deviation 49.5 H, RDW Coeff of Katia 15.9 H, Plt Count 291, MPV 9.4, Immature Gran % (Auto) 0.600, Neut % (Auto) 81.6 H, Lymph % (Auto) 10.5 L, [place] % (Auto) 7.1, Eos % (Auto) 0.1, Baso % (Auto) 0.1, Absolute Neuts (auto) 6.8, Absolute Lymphs (auto) 0.87, Nucleated RBC % 0, Sodium 133 L, Potassium 4.1, Chloride 100, Carbon Dioxide 28.0, Anion Gap 5, BUN 13, Creatinine 0.60, Estim Creat Clear Calc 36.93, Est GFR (MDRD) Af Amer 123, Est GFR (MDRD) Non-Af 102, BUN/Creatinine Ratio 21.8 H, Glucose 143 H, Calcium 9.2, Troponin I High Sens 482 H* 05/29/24 06:53: POC Glucose 213 H 05/29/24 11:12: POC Glucose 161 H Microbiology: Microbiology 05/27/24 17:45 Mucosa - Nose SARS-CoV-2, Influenza & RSV (PCR) - Final Radiography Diagnostic Testing: Radiology Impression Echocardiogram 05/27/24 20:15 Interpretation Summary The estimated ejection fraction is 60 %. Unable to assess diastolic dysfunction. Normal RA size. There is an echodensity in the right atrium that could be a mass lesion. Cardiac MRI could be considered for further evaluation if clinically indicated. Ordering Physician: Ramez Arana Performed By: Carolyn Briones ZEN Chest X-Ray 05/29/24 05:55 IMPRESSION: Mild degree of increased markings at the lung bases suggestive of atelectasis and/or scarring with blunting of both costophrenic angles. Since prior study, there has been improved aeration. Electronically Signed: Santiago Bradshaw MD at 8:19 EDT , D/C Instructions Discharge Diet: Low fat / Low cholesterol and Carb Control Diet Call your doctor if you observe: Fever of 101 or Higher, Shortness of breath, Dizziness, Fainting spells, Swelling in the ankles, Chest pain and Increased palpitations (irregular heartbeat) Meaningful Use Info Meaningful Use Meaningful Use Diagnoses (Choose all that apply): None applicable Ischemic Stroke Statin Dosing Therapy Reference: STATIN DOSE THERAPY REFERENCE: * Patients > 75 years receive moderate or high dose statin therapy. * Patients 75 years or YOUNGER should receive HIGH intensity statin dose unless contraindicated. You will be required to document reason for non-treatment if statin daily dose does not meet guidelines. HIGH DOSE STATIN THERAPY DAILY Atorvastatin > than or = to 40 mg Rosuvastatin > than or = to 20 mg Amlodipine + Atorvastatin > than or = to 2.5/40 mg Ezetimibe + Simvastatin 10/80 mg Simvastatin 80mg Discharge Plan Admission Admit Date/Time: 05/27/24 20:06 Attending Provider: Vito Hernandes Primary Care Provider: Ciro Duran Consulting Providers: Ramez Arana Discharge Orders/Prescriptions Prescriptions: New aspirin 81 mg Tablet,Chewable 81 mg PO DAILYCM 30 Days Qty: 30 0RF prednisone 20 mg tablet 40 mg PO DAILY Qty: 10 0RF doxycycline hyclate 100 mg capsule 100 mg PO BID 5 Days Qty: 10 0RF Continued ipratropium-albuterol 0.5 mg-3 mg(2.5 mg base)/3 mL solution for nebulization 1.5 ml continuous nebulization DAILY PRN (Reason: shortness of breath or wheezing) Qty: 180 3RF albuterol sulfate [ProAir HFA] 90 mcg/actuation HFA aerosol inhaler 1 - 2 puff inhalation Q6H PRN PRN (Reason: Sob &/Or Wheezing) Qty: 8.5 3RF lisinopril 10 mg tablet 10 mg PO QDAY montelukast 10 mg tablet 10 mg PO QDAY fluticasone propionate 50 mcg/actuation spray,suspension 1 spray intranasal QDAY mirtazapine 7.5 mg tablet 7.5 mg PO QHS Trelegy Ellipta 200-62.5-25 mcg blister with device 1 ea INHALATION QDAY Qty: 60 11RF metformin 500 MG tablet 500 mg PO TIDCM simvastatin 40 MG tablet 40 mg PO QHS levothyroxine 75 mcg tablet 75 mcg PO DAILY famotidine 40 mg tablet 40 mg PO DAILY Referrals / Follow Up: Ciro Duran MD [Primary Care Provider] - Within 1 Week Khurram Queen MD [Med Staff - Active Staff] - Within 1 Month Disposition Disposition (needs filled in before D/C Order can be placed): Home, Self Care Charges/Coding Visit Charges Inpatient E&M: 04325 Disch Hosp >30min
--- NOTE | 2024-05-29 15:34 | NURSING ---
reviewed discharge instruction voiced understanding, discharged with instructions per wheelchair with belongings per daughter Kane
== END 2024-05-29 15:47 | disposition home or self-care (01) | DRG 205 ==
LOC: ED 18:45 → PCU 20:30
PROVIDERS: Admitting Provider Internal Medicine; Emergency Provider Student in an Organized Health Care Education/Training Program; PCP Family Medicine; Visit Provider Family Medicine
DX: U07.0 Vaping-related disorder (principal); J96.21 Acute and chronic respiratory failure with hypoxia; I21.A1 Myocardial infarction type 2; J96.22 Acute and chronic respiratory failure with hypercapnia; J44.1 Chronic obstructive pulmonary disease with (acute) exacerbation; J44.0 Chronic obstructive pulmonary disease with (acute) lower respiratory infection; E11.9 Type 2 diabetes mellitus without complications; M06.9 Rheumatoid arthritis, unspecified; I10 Essential (primary) hypertension; E03.9 Hypothyroidism, unspecified; G25.81 Restless legs syndrome; R19.7 Diarrhea, unspecified; E78.5 Hyperlipidemia, unspecified; J20.9 Acute bronchitis, unspecified; K21.9 Gastro-esophageal reflux disease without esophagitis; F41.9 Anxiety disorder, unspecified; Z99.81 Dependence on supplemental oxygen; Z11.52 Encounter for screening for COVID-19; Z79.51 Long term (current) use of inhaled steroids; Z79.82 Long term (current) use of aspirin; Z79.84 Long term (current) use of oral hypoglycemic drugs; Z79.890 Hormone replacement therapy; Z79.899 Other long term (current) drug therapy; Z87.891 Personal history of nicotine dependence
CPT/HCPCS: 36415; 36600; 71045; 74176; 80048; 80053; 80061; 82803; 82962; 83735; 83880; 84100; 84443; 84484; 85025; 87631; 93005; 93306; 94002; 94003; 94640; 94668; 94762; 97162; 97166; 97802; 99285; J7030; A4216

== ENCOUNTER → 2024-06-11 | Outpatient (CLI) | payer MEDICARE, SELFPAY | END | disposition home or self-care (01) | LOC: LABSPEC 15:41 | PROVIDERS: PCP Family Medicine; Referring Provider Nurse Practitioner Acute Care; Visit Provider Nurse Practitioner Acute Care | DX: J43.2 Centrilobular emphysema (principal) | CPT/HCPCS: 87070; 87077; 87186; 87205 ==

== ENCOUNTER 2024-06-26 13:41 | Emergency (ER) | payer MEDICARE, SELFPAY ==
[2024-06-26 13:44] VITALS: BP 123/63; PULSE 91; RESP 22; TEMP 36.5; O2SAT 93
--- NOTE | 2024-06-26 13:59 | EKG12_ITS ---
Test Reason : SOB Blood Pressure : / mmHG Vent. Rate : 091 BPM Atrial Rate : 091 BPM P-R Int : 156 ms QRS Dur : 070 ms QT Int : 330 ms P-R-T Axes : 050 034 035 degrees QTc Int : 405 ms Normal sinus rhythm Normal ECG Confirmed by Khurram Queen ([id number]), content editor JIL WEAVER ([id number]) on 06/30/2024 8:58:18 AM Referred By: Confirmed By:Khurram Queen
[2024-06-26 14:14] LABS: Basophil# 0.07 X10^3/uL; Basophil% 0.9 % (0-1); Eosinophils% 3.7 % (0-5); Hematocrit 36.5 % (37-47); Hemoglobin 11.6 g/dL (12.0-15.0); Lymphocyte % 12.2 % (19-41); Mean Corp Hgb Conc 31.8 g/dL (32-36); Mean Corpuscular Volume 88.2 fL (81-99); Mean Platelet Vol. 8.8 fl (6.2-12.0); Monocyte% 9.7 % (0-10); NRBC Flagged by Analyzer 0 % (0-5); Neutrophil # 5.99 X10^3/uL (2.7-7.7); Neutrophil % 72.9 % (47-70); Platelet Count 356 K/mm3 (150-450); RBC Distribution Width CV 14.3 % (11.6-14.6); RBC Distribution Width SD 45.7 fl (35.1-43.9); Red Blood Count 4.14 M/mm3 (4.2-5.4); White Blood Count 8.2 K/mm3 (4.4-11.0)
--- NOTE | 2024-06-26 14:16 | ED.VIS.DYS ---
HPI History of Present Illness Chief Complaint: Shortness of Breath Informant: patient Onset/Context/Timing Onset: Days Context: gradual Timing: Continuous Quality: Positive for Dyspnea on exertion and Wheezing Current Severity: Mild Maximum Severity: Moderate Worsened by: Exertion and Coughing Relieved by: Oxygen Associated Symptoms cough and yellow sputum; Negative for fever Chest Pain: Positive for None Narrative Narrative: 84-year-old female history of COPD typically on 2 L of oxygen at home. Has had increasing shortness of breath with wheezing and coughing yellowish sputum for the last 4 days. Since Sunday. She denies any fever. No chest pain or hemoptysis. Had a similar event several months ago for which she was admitted. Also has a history of diabetes hypertension. Denies any underlying cardiac disease. PE Risk Factors: Negative for Cancer, OCP + Smoking + > 35, Prior DVT or PE, Recent immobilization, Recent surgery or Recent travel Prior similar symptoms: Yes Recent Illness/Hospitalization: Yes PFSH [facility] Medical History Hyperlipidemia Osteoarthritis Anemia Hypothyroidism Diabetes On home oxygen therapy Asthma COPD (chronic obstructive pulmonary disease) HTN (hypertension) Diabetes mellitus, type 2 Normocytic anemia Former tobacco use Intermittent constipation COPD (chronic obstructive pulmonary disease) Arthritis Thyroid disease Home Medications ?Medication ?Instructions ?Recorded ?Last Taken ?Type metformin 500 mg tablet 500 mg PO TIDCM diabetes 04/03/19 05/25/22 History simvastatin 40 mg tablet 40 mg PO QHS cholesterol 04/03/19 05/24/22 History albuterol sulfate 90 mcg/actuation 1 - 2 puff inhalation Q6H PRN PRN 01/31/24 Unknown Rx aerosol inhaler (ProAir HFA) Sob &/Or Wheezing #8.5 grams ipratropium 0.5 mg-albuterol 3 mg 1.5 ml continuous nebulization 01/31/24 Unknown Rx (2.5 mg base)/3 mL nebulization DAILY PRN shortness of breath or soln wheezing #180 mL lisinopril 10 mg tablet 10 mg PO QDAY 02/20/24 Unknown History montelukast 10 mg tablet 10 mg PO QDAY 02/20/24 Unknown History fluticasone fur. 200 mcg-umeclid 1 ea inhalation QDAY copd #60 ea 05/02/24 Unknown Rx 62.5 mcg-vilant 25 mcg inhalat.powder (Trelegy Ellipta) aspirin 81 mg chewable tablet 81 mg PO DAILYCM 30 days #30 tabs 05/29/24 Unknown Rx prednisone 10 mg tablet 10 mg PO QDAY #30 tabs 06/02/24 Unknown Rx fluticasone propionate 50 1 spray intranasal QDAY PRN 06/11/24 Unknown History mcg/actuation nasal spray,suspension levothyroxine 137 mcg capsule 137 mcg PO DAILY 06/11/24 Unknown History mirtazapine 15 mg tablet 15 mg PO QHS 06/11/24 Unknown History omeprazole 40 mg capsule,delayed 40 mg PO QDAY 06/11/24 Unknown History release ciprofloxacin HCl 500 mg tablet 500 mg PO BID #14 tabs 06/19/24 Unknown Rx albuterol sulfate 2.5 mg/3 mL 2.5 mg (3 mL) inhalation Q4H PRN 06/26/24 Unknown Rx (0.083 %) solution for nebulization #25 vials prednisone 20 mg tablet 40 mg (2 x 20 mg) PO DAILY 10 days 06/26/24 Unknown Rx #20 tabs Allergy/AdvReac Type Severity Reaction Status Date / Time Sulfa (Sulfonamide Allergy Itching Verified 06/26/24 13:43 Antibiotics) bacitracin (From Neosporin AdvReac Mild Rash Verified 06/26/24 13:43 ([id number])) neomycin (From Neosporin AdvReac Mild Rash Verified 06/26/24 13:43 ([id number])) polymyxin B (From Neosporin AdvReac Mild Rash Verified 06/26/24 13:43 ([id number])) Family History Mother Hypertension Father Cancer Passed age 2828 years old, she notes suspect if was cancer but unclear exact etiology. Brother Heart disease Surgical History History of bilateral cataract extraction H/O rectal polypectomy History of surgery of uterus Hx of colonoscopy Hx of foot surgery Social History household members: none Smoking Status: Former smoker how long ago did patient quit smoking: Quit 07/22/2013, smoked 1 ppd x 50 years until quit. second hand exposure: No alcohol intake: never substance use type: does not use caffeine: Yes frequency: does not exercise ROS ROS ED ROS Narrative Cough. Wheezing. Yellow sputum. Shortness of breath. Constitutional Constitutional ED: Denies fever(s) Eyes Eyes: Denies blurry vision ENT ENT ED: Denies ear pain Cardiovascular Cardiovascular: Denies chest pain Respiratory/Chest Respiratory/Chest: Reports cough, dyspnea and sputum Gastrointestinal Gastrointestinal: Denies abdominal pain Genitourinary Genitourinary ED: Denies dysuria or hematuria Musculoskeletal Musculoskeletal: Denies arthralgias Integumentary Denies abscess or Abrasions Neurologic Neurologic: Denies headache(s) Psychiatric Psychiatric: Denies anxiety or depression Endocrine Endocrinology: Denies cold intolerance Hematologic/Lymphatic Hematologic/Lymphatic: Denies easy bleeding, easy bruising or lymphadenopathy Allergic/Immunologic Allergic/Immunologic ED: Denies mouth swelling, tongue swelling or urticaria EXAM Physical Exam Narrative Exam Narrative: 84-year-old female signs are stable pulse ox 93% on 3 L. She is actively wheezing and accelerated and hospitalist respiratory rate. And prolonged expiratory phase. H EENT exam unremarkable. Neck nontender JVD. Lungs inspiratory wheezing. Bilaterally. Coarse breath sounds. Phonatory phase. Heart regular rhythm rate of 90. Limited hard time through the respiratory noise. Abdomen soft nontender very active moving all 4 extremities. Calves are nontender without edema or cords. Neurologically she is awake alert no focal motor deficits. Answering questions and following commands. Const Vital Signs: 06/26/24 13:42 06/26/24 13:44 06/26/24 13:59 Temperature 97.7 F L Temperature Source Temporal Pulse Rate 91 Respiratory Rate 22 H Respiratory Effort Short of Breath Respiratory Depth Normal Respiratory Pattern Normal Blood Pressure 123/63 H Blood Pressure Mean 83 Pulse Ox 93 Oxygen Delivery Method Nasal Cannula Nasal Cannula Room Air Oxygen Flow Rate (L/min) 3 06/26/24 14:40 06/26/24 15:42 Temperature Temperature Source Pulse Rate 95 87 Respiratory Rate 24 H 20 H Respiratory Effort Respiratory Depth Respiratory Pattern Normal Blood Pressure 136/71 H Blood Pressure Mean 92 Pulse Ox 98 Oxygen Delivery Method Nasal Cannula Oxygen Flow Rate (L/min) 3 Positive well nourished and well developed; Negative for obese, cachectic, contractures or unkempt General Appearance ED: well developed; Negative for unkempt, cachectic, contractures, NAD or pallor Nutritional Appearance: Negative for cachectic or obese HEENT Reports moist mucous membranes; Denies dry mucous membranes atraumatic; Negative for trauma or tenderness Mouth ED: No dry mucous membranes Mouth: No dry mucous membranes Eyes PERRL and EOMs intact bilaterally General Eye ED: Negative for pale conjunctiva or scleral icterus Neck no lymphadenopathy, supple, no meningeal signs and no JVD General: Negative for tenderness Lymph Lymphatic: Negative for other Resp No normal respiratory effort and No clear to auscultation bilaterally Auscultation: wheezes Cardio regular rate, regular rhythm, S1 normal heart sound, S2 normal heart sound and no murmurs Rate: Negative for bradycardia or tachycardic Rhythm: Negative for abnormal rhythm GI non-tender, non-distended and no masses Inspection: Negative for other Auscultation: normoactive bowel sounds Palpation: soft; Negative for tender, guarding or rebound tenderness present Back/Spine no CVA tenderness and normal to inspection General Back: Negative for CVA tenderness or tenderness Extremity normal to inspection General Extremety ED: Negative for edema or tenderness General Extremity: Negative for edema Neuro oriented x3 and CN's II-XII intact bilaterally Sensorium / Orientation: alert, oriented to person, oriented to place and oriented to time; Negative for orientation impaired, confused, lethargic or stuporous Speech: speech normal Motor Exam: strength 5/5 throughout Psych mental status grossly normal Appearance: Negative for unkempt Attitude: No agitated and No other Mood & Affect: Negative for depressed Thought Process: normal thought process Skin no wounds and skin turgor normal General Skin Exam: Negative for jaundice or pallor Lesions: no lesions Rashes: no rashes Trauma: Negative for abrasion or laceration MDM MDM MDM Narrative Medical decision making narrative: 84-year-old female with shortness of breath history of COPD increasing O2 requirement. Appears to be a COPD flare rule out viral syndrome versus pneumonia. Cardiac workup with chest x-ray and COVID studies. Treated with IV Solu-Medrol along with DuoNeb and albuterol aerosols. Repeat exam at 4:50 PM patient no significant change. We discussed admission versus being discharged home. She has oxygen at home. She has a nebulizer inhaler at home. She is currently not on steroids I will write a prescription sent to her pharmacy. She was given a dose here IV. She would prefer to be discharged home. History & Record Review Discussion w/independent historian: Patient Additional record(s) reviewed:: Prior inpatient record, Prior outpatient record, Prior ED visit and Prior labs Lab Data Attestation: I reviewed the patient's lab results. Lab results narrative: CBC shows a white count 8.2. H&H 11.6 and 36. Platelets 356. Chemistry shows sodium 134. Gap 6. Normal BUN and creatinine. Glucose 111. Troponin 4. COVID, flu and RSV negative. Chest x-ray chronic changes. Labs: Laboratory Results - last 24 hr 06/26/24 14:05 WBC 8.2 RBC 4.14 L Hgb 11.6 L Hct 36.5 L MCV 88.2 MCH 28.0 MCHC 31.8 L RDW Std Deviation 45.7 H RDW Coeff of Katia 14.3 Plt Count 356 MPV 8.8 Immature Gran % (Auto) 0.600 Neut % (Auto) 72.9 H Lymph % (Auto) 12.2 L [place] % (Auto) 9.7 Eos % (Auto) 3.7 Baso % (Auto) 0.9 Absolute Neuts (auto) 6.0 Absolute Lymphs (auto) 1.00 Nucleated RBC % 0 Sodium 134 L Potassium 3.8 Chloride 98 Carbon Dioxide 30.0 Anion Gap 6 BUN 8 Creatinine 0.73 Est GFR (MDRD) Af Amer 98 Est GFR (MDRD) Non-Af 81 BUN/Creatinine Ratio 11.0 Glucose 111 H Calcium 9.0 Troponin I High Sens 4 Radiography Chest X-Ray - ED: 1 View, Read by ED Physician, Heart, Lungs, Mediastinum, Bony Structures, No Acute Disease and Chronic Changes Diagnostic Testing: Clinical Impression(s) from Imaging Studies Chest X-Ray 06/26/24 14:34 IMPRESSION: Relatively stable chest with no acute superimposed finding. Electronically Signed: Marcelo Benavidez MD at 14:45 EDT Reading Location ID and State: [facility] / [place] , Service support , Chest x-ray, portable, single view interpreted both by myself and radiologist. Shows chronic changes. No acute process. No pneumonia. No effusion. Chronic changes consistent with COPD. Rhythm Strip Rhythm Strip: Sinus Rhythm Rate: 91 Ectopy: None EKG Initial EKG: Attestation: I personally reviewed and interpreted this EKG as follows: Interpretation: Sinus Rhythm and No Acute Injury Pattern Comments: Normal sinus rhythm rate 91 no acute signs of ND or ischemia. Discharge Plan Triage Chief Complaint: Shortness of Breath ED Provider: En Contreras Dx/Rx/DC Orders Clinical Impression: Acute exacerbation of chronic obstructive pulmonary disease, History of diabetes mellitus, History of hypertension Instructions: ED COPD Flare Prescriptions: New prednisone 20 mg tablet 40 mg PO DAILY 10 Days Qty: 20 0RF albuterol sulfate 2.5 mg /3 mL (0.083 %) solution for nebulization 2.5 mg inhalation Q4H PRN Qty: 25 0RF Rx Instructions: Use q4 hours and PRN for wheezing No Action ipratropium-albuterol 0.5 mg-3 mg(2.5 mg base)/3 mL solution for nebulization 1.5 ml continuous nebulization DAILY PRN (Reason: shortness of breath or wheezing) Qty: 180 3RF albuterol sulfate [ProAir HFA] 90 mcg/actuation HFA aerosol inhaler 1 - 2 puff inhalation Q6H PRN PRN (Reason: Sob &/Or Wheezing) Qty: 8.5 3RF lisinopril 10 mg tablet 10 mg PO QDAY montelukast 10 mg tablet 10 mg PO QDAY fluticasone propionate 50 mcg/actuation spray,suspension 1 spray intranasal QDAY PRN Trelegy Ellipta 200-62.5-25 mcg blister with device 1 ea INHALATION QDAY Qty: 60 11RF prednisone 10 mg tablet 10 mg PO QDAY Qty: 30 0RF Rx Instructions: take 4 tabs for three days, then 3 tabs for three days, then 2 tabs for three days, then 1 tab for 3 days omeprazole 40 mg capsule,delayed release(DR/EC) 40 mg PO QDAY mirtazapine 15 mg tablet 15 mg PO QHS levothyroxine 137 mcg capsule 137 mcg PO DAILY Rx Instructions: take 4 tablets by mouth once weekly metformin 500 MG tablet 500 mg PO TIDCM simvastatin 40 MG tablet 40 mg PO QHS aspirin 81 mg Tablet,Chewable 81 mg PO DAILYCM 30 Days Qty: 30 0RF ciprofloxacin HCl 500 mg tablet 500 mg PO BID Qty: 14 0RF Primary Care Provider: Ciro Duran Referrals: Ciro Duran MD [Primary Care Provider] - 3-5 Days Activity Restrictions/Additional Instructions: Make sure to use your air conditioner to help your breathing. Use your inhaler every 2-4 hours as needed. Use your nebulizer 2 to 4 hours as needed. The steroid prednisone 40 mg a day starting tomorrow for the next 10 days. Return if feeling worse. Follow-up with your doctor to ensure you are improving. Print Language: Uzbek Disposition Disposition: Home, Self Care
[2024-06-26 14:30] LABS: Anion Gap 6 (5-15); BUN 8 mg/dL (7-18); Chloride 98 mmol/L (98-107); Creatinine, Serum 0.73 mg/dL (0.55-1.02); EST Glomerular Filtration Rate 81 mL/min (>60); Est Glom Filt Rate - Afr Amer 98 mL/min (>60); Glucose 111 mg/dL (74-106); Potassium 3.8 mmol/L (3.5-5.1); Sodium Level 134 mmol/L (136-145); Troponin-I HS 4 pg/mL (3.0-54.0)
--- NOTE | 2024-06-26 14:34 | RAD_ITS ---
STUDY: X-RAY CHEST REASON FOR EXAM: Female, 84 years old. Chest pain. TECHNIQUE: Single frontal view of the chest. COMPARISON: May 29, 2024 FINDINGS: Stable hyperinflation. Mild diffuse interstitial prominence in both bases. There is no demonstrated pleural abnormality. Stable cardiomegaly. Normal mediastinum and simone. Normal visualized pulmonary arteries. Aortic tortuosity unchanged. No abnormality of the visualized soft tissue structures of the upper abdomen. RAD/Chest 1 View (Portable) IMPRESSION: Relatively stable chest with no acute superimposed finding. Electronically Signed: Marcelo Benavidez MD at 14:45 EDT ,
[2024-06-26 14:40] VITALS: PULSE 95; RESP 24
[2024-06-26 15:42] VITALS: BP 136/71; PULSE 87; RESP 20; O2SAT 98
[2024-06-26 17:02] VITALS: BP 150/80; PULSE 90; RESP 20; TEMP 37; O2SAT 96
== END 2024-06-26 17:15 | disposition home or self-care (01) ==
PROVIDERS: Emergency Provider Emergency Medicine; PCP Family Medicine; Visit Provider Emergency Medicine
DX: J44.1 Chronic obstructive pulmonary disease with (acute) exacerbation (principal); E11.9 Type 2 diabetes mellitus without complications; R06.02 Shortness of breath; Z87.891 Personal history of nicotine dependence; I10 Essential (primary) hypertension; E78.5 Hyperlipidemia, unspecified; Z99.81 Dependence on supplemental oxygen; Z79.84 Long term (current) use of oral hypoglycemic drugs; Z79.899 Other long term (current) drug therapy; Z79.82 Long term (current) use of aspirin; E03.9 Hypothyroidism, unspecified; Z98.41 Cataract extraction status, right eye; Z98.42 Cataract extraction status, left eye
CPT/HCPCS: 71045; 80048; 84484; 85025; 87631; 93005; 94640; 96374; 99284; A4216

== ENCOUNTER 2024-08-08 12:45 | Emergency (ER) | payer MEDICARE, SELFPAY ==
[2024-08-08] VITALS (8 sets, daily range): BP systolic 136–163; BP diastolic 74–93; PULSE 89–105; RESP 18–28; TEMP 36.6–37.5; O2SAT 84–97
--- NOTE | 2024-08-08 13:54 | ED.VIS.DYS ---
HPI History of Present Illness Chief Complaint: Shortness of Breath Informant: patient Onset/Context/Timing Onset: Weeks (1) Context: gradual Timing: Continuous Quality: Positive for Dyspnea on exertion and Orthopnea Worsened by: Exertion and Lying flat Relieved by: Oxygen Associated Symptoms cough and green sputum; Negative for rhinorrhea, post nasal drip, ear pain, fever, sore throat, chills, sweats, clear sputum, white sputum or yellow sputum Narrative Narrative: Patient presents with shortness of breath that has been getting worse over the last week. Patient states it is gradually getting worse. Patient states her breathing is worse when she lies flat and avoid she walks anywhere. Patient states she is coughing up some green sputum. Patient states her breathing is better with a shorter oxygen tubing. Patient denies any fevers or chills. Patient admits to some intermittent pain over the left side of her chest. Patient states it was there yesterday and last approximately 12 to 14 hours. Patient states it resolved on its own. Patient describes it as a dull sensation. [facility] Medical History Hyperlipidemia Osteoarthritis Anemia Hypothyroidism Diabetes On home oxygen therapy Asthma COPD (chronic obstructive pulmonary disease) HTN (hypertension) Diabetes mellitus, type 2 Normocytic anemia Former tobacco use Intermittent constipation COPD (chronic obstructive pulmonary disease) Arthritis Thyroid disease Home Medications ?Medication ?Instructions ?Recorded ?Last Taken ?Type metformin 500 mg tablet 500 mg PO TIDCM diabetes 04/03/19 05/25/22 History simvastatin 40 mg tablet 40 mg PO QHS cholesterol 04/03/19 05/24/22 History albuterol sulfate 90 mcg/actuation 1 - 2 puff inhalation Q6H PRN PRN 01/31/24 Unknown Rx aerosol inhaler (ProAir HFA) Sob &/Or Wheezing #8.5 grams ipratropium 0.5 mg-albuterol 3 mg 1.5 ml continuous nebulization 01/31/24 Unknown Rx (2.5 mg base)/3 mL nebulization DAILY PRN shortness of breath or soln wheezing #180 mL lisinopril 10 mg tablet 10 mg PO QDAY 02/20/24 Unknown History montelukast 10 mg tablet 10 mg PO QDAY 02/20/24 Unknown History fluticasone fur. 200 mcg-umeclid 1 ea inhalation QDAY copd #60 ea 05/02/24 Unknown Rx 62.5 mcg-vilant 25 mcg inhalat.powder (Trelegy Ellipta) aspirin 81 mg chewable tablet 81 mg PO DAILYCM 30 days #30 tabs 05/29/24 Unknown Rx fluticasone propionate 50 1 spray intranasal QDAY PRN 06/11/24 Unknown History mcg/actuation nasal spray,suspension levothyroxine 137 mcg capsule 137 mcg PO DAILY 06/11/24 Unknown History mirtazapine 15 mg tablet 15 mg PO QHS 06/11/24 Unknown History omeprazole 40 mg capsule,delayed 40 mg PO QDAY 06/11/24 Unknown History release albuterol sulfate 2.5 mg/3 mL 2.5 mg (3 mL) inhalation Q4H PRN 06/26/24 Unknown Rx (0.083 %) solution for nebulization #25 vials prednisone 20 mg tablet 40 mg (2 x 20 mg) PO DAILY 10 days 06/26/24 Unknown Rx #20 tabs doxycycline hyclate 100 mg tablet 100 mg PO BID #20 tabs 07/01/24 Unknown Rx Allergy/AdvReac Type Severity Reaction Status Date / Time Sulfa (Sulfonamide Allergy Itching Verified 08/08/24 12:46 Antibiotics) bacitracin (From Neosporin AdvReac Mild Rash Verified 08/08/24 12:46 ([id number])) neomycin (From Neosporin AdvReac Mild Rash Verified 08/08/24 12:46 ([id number])) polymyxin B (From Neosporin AdvReac Mild Rash Verified 08/08/24 12:46 ([id number])) Family History Mother Hypertension Father Cancer Passed age 2828 years old, she notes suspect if was cancer but unclear exact etiology. Brother Heart disease Surgical History History of bilateral cataract extraction H/O rectal polypectomy History of surgery of uterus Hx of colonoscopy Hx of foot surgery Social History household members: none Smoking Status: Former smoker how long ago did patient quit smoking: Quit 07/22/2013, smoked 1 ppd x 50 years until quit. second hand exposure: No alcohol intake: never substance use type: does not use caffeine: Yes frequency: does not exercise ROS ROS ED Constitutional Constitutional ED: Denies chills or fever(s) Eyes Eyes: Denies blurry vision or change in vision ENT ENT ED: Denies rhinorrhea or sore throat Cardiovascular Cardiovascular: Reports chest pain; Denies palpitations Respiratory/Chest Respiratory/Chest: Reports cough and dyspnea Gastrointestinal Gastrointestinal: Denies nausea or vomiting Genitourinary Genitourinary ED: Denies dysuria or hematuria Musculoskeletal Musculoskeletal: Denies back pain or neck pain Integumentary Denies abscess or rash Neurologic Neurologic: Denies headache(s) or weakness Allergic/Immunologic Allergic/Immunologic ED: Denies mouth swelling or urticaria EXAM Physical Exam Const Vital Signs: 08/08/24 12:45 08/08/24 12:45 08/08/24 12:45 Temperature 99 F 99 F Temperature Source Temporal Oral Pulse Rate 103 H 105 H 105 H Respiratory Rate 22 H 22 H 22 H Respiratory Effort Respiratory Depth Respiratory Pattern Blood Pressure 141/89 H 136/88 H 136/88 H Blood Pressure Mean 106 104 104 Pulse Ox 84 87 87 Oxygen Delivery Method Nasal Cannula Nasal Cannula Nasal Cannula Oxygen Flow Rate (L/min) 3 3 08/08/24 13:13 08/08/24 13:47 08/08/24 14:00 Temperature 99.1 F 99.1 F Temperature Source Oral Oral Pulse Rate 94 89 Respiratory Rate 25 H 20 H Respiratory Effort Short of Breath Respiratory Depth Shallow Respiratory Pattern Tachypnea Blood Pressure 157/82 H 157/82 H Blood Pressure Mean 107 107 Pulse Ox 96 97 Oxygen Delivery Method Nasal Cannula Nasal Cannula Nasal Cannula Oxygen Flow Rate (L/min) 3 3 3 08/08/24 14:03 08/08/24 14:11 08/08/24 14:11 Temperature Temperature Source Pulse Rate 92 Respiratory Rate 25 H Respiratory Effort Respiratory Depth Respiratory Pattern Tachypnea Blood Pressure Blood Pressure Mean Pulse Ox 97 95 Oxygen Delivery Method Nasal Cannula Nasal Cannula Oxygen Flow Rate (L/min) 3 3 08/08/24 15:00 Temperature 99.5 F H Temperature Source Oral Pulse Rate 93 Respiratory Rate 28 H Respiratory Effort Respiratory Depth Respiratory Pattern Blood Pressure 163/93 H Blood Pressure Mean 116 Pulse Ox 93 Oxygen Delivery Method Nasal Cannula Oxygen Flow Rate (L/min) 3 Positive well nourished and well developed General Appearance ED: well developed and NAD HEENT Reports moist mucous membranes atraumatic Neck supple, no meningeal signs and no JVD Resp normal respiratory effort Auscultation: rhonchi throughout Cardio regular rate GI non-tender and non-distended Palpation: soft Extremity normal to inspection General Extremety ED: Negative for edema or tenderness General Extremity: Negative for edema Neuro oriented x3, CN's II-XII intact bilaterally and no sensory deficits noted [place] Coma Scale: document GCS findings Spontaneous Obeys Commands Oriented 15 Sensorium / Orientation: alert Speech: speech normal Motor Exam: strength 5/5 throughout Psych mental status grossly normal MDM MDM MDM Narrative Medical decision making narrative: Differential diagnosis includes COPD exacerbation, pneumonia, bronchitis, viral illness, congestive heart failure, cardiac dysrhythmia, cardiac ischemia, and electrolyte abnormality. EKG will be obtained to assess for cardiac dysrhythmia and cardiac ischemia. Chest x-ray will be obtained to assess for pneumonia and pneumothorax. CBC will be obtained to assess for leukocytosis and anemia. Basic metabolic profile will be obtained to assess for electrolyte abnormality and renal function. High-sensitivity troponin will be obtained to assess for cardiac ischemia. COVID-19, influenza, and RSV PCR will be obtained to assess for viral illness. Lab Data Attestation: I reviewed the patient's lab results. Lab results narrative: CBC was reviewed. There is a slight leukocytosis of 12.0. The remainder is within normal limits. Basic metabolic profile was reviewed and was essentially within normal limits. High-sensitivity troponin was reviewed and was normal at 6. COVID-19 PCR was reviewed and was positive. Influenza PCR was reviewed and was negative for influenza A and influenza B. RSV PCR was reviewed and was negative. Labs: Laboratory Results - last 24 hr 08/08/24 13:08 WBC 12.0 H RBC 4.19 L Hgb 11.7 L Hct 37.4 MCV 89.3 MCH 27.9 MCHC 31.3 L RDW Std Deviation 44.4 H RDW Coeff of Katia 13.7 Plt Count 302 MPV 9.8 Immature Gran % (Auto) 0.700 Neut % (Auto) 81.5 H Lymph % (Auto) 7.0 L [place] % (Auto) 9.6 Eos % (Auto) 0.7 Baso % (Auto) 0.5 Absolute Neuts (auto) 9.8 H Absolute Lymphs (auto) 0.84 Nucleated RBC % 0 Sodium 135 L Potassium 3.6 Chloride 97 L Carbon Dioxide 30.0 Anion Gap 8 BUN 9 Creatinine 0.66 Est GFR (MDRD) Af Amer 110 Est GFR (MDRD) Non-Af 91 BUN/Creatinine Ratio 13.7 Glucose 107 H Calcium 9.3 Troponin I High Sens 6 Radiography Chest X-Ray - ED: 2 View, Read by ED Physician, Read by Radiologist and Chronic Changes Diagnostic Testing: Clinical Impression(s) from Imaging Studies Chest X-Ray 08/08/24 14:35 IMPRESSION: Hyperinflation. Findings suggestive of a atelectasis superimposed on bibasilar pulmonary fibrosis worse on the left side. Electronically Signed: Santiago Bradshaw MD at 15:32 EDT , PA and lateral chest x-ray was obtained. There are 2 views. On my independent interpretation, lung ku show atelectasis on pulmonary fibrosis on the left. There is normal cardiac silhouette. Bony thorax is normal. There is no acute process noted. Radiologist also interpreted the x-ray and agrees. Treatment and Re-Evaluation :: Patient was given a DuoNeb aerosol here. Patient was feeling better on reevaluation. Patient was advised of her findings. Patient was instructed to wear mask when in public. Patient is on home oxygen already at 3 L. Patient's pulse oximeter is stable on 3 L nasal cannula. Patient was instructed to take Tylenol or ibuprofen as needed for pain. Since her symptoms have been present for the last week, I do not feel Paxlovid is indicated at this time. Patient was instructed to follow-up with her primary care physician in 5 to 7 days. Patient understood and was agreeable with the plan. All questions were answered. Discharge Plan Triage Chief Complaint: Shortness of Breath ED Provider: Anuel Walden Dx/Rx/DC Orders Clinical Impression: COVID-19, COPD with exacerbation Instructions: Coronavirus Disease 2019 (COVID-19): Caring for Yourself or Others Prescriptions: No Action ipratropium-albuterol 0.5 mg-3 mg(2.5 mg base)/3 mL solution for nebulization 1.5 ml continuous nebulization DAILY PRN (Reason: shortness of breath or wheezing) Qty: 180 3RF albuterol sulfate [ProAir HFA] 90 mcg/actuation HFA aerosol inhaler 1 - 2 puff inhalation Q6H PRN PRN (Reason: Sob &/Or Wheezing) Qty: 8.5 3RF lisinopril 10 mg tablet 10 mg PO QDAY montelukast 10 mg tablet 10 mg PO QDAY fluticasone propionate 50 mcg/actuation spray,suspension 1 spray intranasal QDAY PRN Trelegy Ellipta 200-62.5-25 mcg blister with device 1 ea INHALATION QDAY Qty: 60 11RF omeprazole 40 mg capsule,delayed release(DR/EC) 40 mg PO QDAY mirtazapine 15 mg tablet 15 mg PO QHS levothyroxine 137 mcg capsule 137 mcg PO DAILY Rx Instructions: take 4 tablets by mouth once weekly doxycycline hyclate 100 mg tablet 100 mg PO BID Qty: 20 0RF metformin 500 MG tablet 500 mg PO TIDCM simvastatin 40 MG tablet 40 mg PO QHS aspirin 81 mg Tablet,Chewable 81 mg PO DAILYCM 30 Days Qty: 30 0RF prednisone 20 mg tablet 40 mg PO DAILY 10 Days Qty: 20 0RF albuterol sulfate 2.5 mg /3 mL (0.083 %) solution for nebulization 2.5 mg inhalation Q4H PRN Qty: 25 0RF Rx Instructions: Use q4 hours and PRN for wheezing Primary Care Provider: Ciro Duran Referrals: Ciro Duran MD [Primary Care Provider] - 3-5 Days Print Language: Moroccan Disposition Disposition: Home, Self Care
--- NOTE | 2024-08-08 14:01 | EKG12_ITS ---
Test Reason : SOB Blood Pressure : / mmHG Vent. Rate : 098 BPM Atrial Rate : 098 BPM P-R Int : 138 ms QRS Dur : 068 ms QT Int : 368 ms P-R-T Axes : 038 031 037 degrees QTc Int : 469 ms Normal sinus rhythm Normal ECG Confirmed by SHOLA KINCAID, GINGER ([id number]), editorial manager ANUEL MONGE ([id number]) on 08/12/2024 2:12:25 PM Referred By: Confirmed By:GINGER JOLLEY MD
[2024-08-08] MEDS: Ipratropium/Albuterol Sulfate 3 ML AMPUL.NEB INHALATION (14:10)
[2024-08-08 14:17] LABS: Absolute Lymphocyte Count 0.84 X10^3/uL (0.83-4.51); Absolute Neutrophil Count 9.8 X10^3/uL (2.0-7.7); Basophil# 0.06 X10^3/uL; Basophil% 0.5 % (0-1); Eosinophil# 0.09 X10^3/uL; Eosinophils% 0.7 % (0-5); Hematocrit 37.4 % (37-47); Hemoglobin 11.7 g/dL (12.0-15.0); Lymphocyte # 0.84 X10^3/ul (0.83-4.51); Mean Corp Hgb Conc 31.3 g/dL (32-36); Mean Corpuscular Hgb 27.9 pg (27.0-32.0); Mean Corpuscular Volume 89.3 fL (81-99); Mean Platelet Vol. 9.8 fl (6.2-12.0); Monocyte# 1.15 X10^3/uL; Monocyte% 9.6 % (0-10); NRBC Flagged by Analyzer 0 % (0-5); Neutrophil % 81.5 % (47-70); Platelet Count 302 K/mm3 (150-450); RBC Distribution Width CV 13.7 % (11.6-14.6); RBC Distribution Width SD 44.4 fl (35.1-43.9); Red Blood Count 4.19 M/mm3 (4.2-5.4)
[2024-08-08 14:30] LABS: Anion Gap 8 (5-15); BUN 9 mg/dL (7-18); BUN/Creat Ratio 13.7 RATIO (10-20); Calcium,Total 9.3 mg/dL (8.5-10.1); Chloride 97 mmol/L (98-107); Creatinine, Serum 0.66 mg/dL (0.55-1.02); EST Glomerular Filtration Rate 91 mL/min (>60); Est Glom Filt Rate - Afr Amer 110 mL/min (>60); Glucose 107 mg/dL (74-106); Potassium 3.6 mmol/L (3.5-5.1); Sodium Level 135 mmol/L (136-145); Troponin-I HS 6 pg/mL (3.0-54.0)
--- NOTE | 2024-08-08 14:35 | RAD_ITS ---
STUDY: X-RAY CHEST REASON FOR EXAM: Female, 84 years old. Cough TECHNIQUE: PA and lateral views of the chest. COMPARISON: Comparison is made with prior study dated June 26, 2024. FINDINGS: Hyperinflation. Persistent increased interstitial markings at the lung bases with areas of confluence worsened the lung bases. This has progressed as compared to prior study. This most likely represents bibasilar atelectasis superimposed on chronic interstitial fibrosis. There is no demonstrated pleural abnormality. Normal size heart. Normal mediastinum and simone. Normal visualized pulmonary arteries. There is atherosclerotic calcification of the aortic arch with tortuosity. There is demineralization of the osseous structures. Normal visualized ribs, clavicles, and shoulders. There is no demonstrated abnormality of the visualized soft tissue structures of the upper abdomen. RAD/Chest PA and Lateral IMPRESSION: Hyperinflation. Findings suggestive of a atelectasis superimposed on bibasilar pulmonary fibrosis worse on the left side. Electronically Signed: Santiago Bradshaw MD at 15:32 EDT ,
== END 2024-08-08 16:31 | disposition home or self-care (01) ==
PROVIDERS: Emergency Provider Emergency Medicine; PCP Family Medicine; Visit Provider Emergency Medicine
DX: U07.1 COVID-19 (principal); J44.1 Chronic obstructive pulmonary disease with (acute) exacerbation; E11.9 Type 2 diabetes mellitus without complications; I10 Essential (primary) hypertension; E78.5 Hyperlipidemia, unspecified; Z99.81 Dependence on supplemental oxygen; Z79.82 Long term (current) use of aspirin; Z79.84 Long term (current) use of oral hypoglycemic drugs; Z79.899 Other long term (current) drug therapy; Z87.891 Personal history of nicotine dependence
CPT/HCPCS: 99283; 71046; 80048; 84484; 85025; 87631; 93005; 94640

== ENCOUNTER 2024-08-11 10:05 | Inpatient (IN) | payer MEDICARE, SELFPAY ==
[2024-08-11] VITALS (18 sets, daily range): BP systolic 110–179; BP diastolic 59–96; PULSE 70–112; RESP 12–28; TEMP 34.3–36.8; O2SAT 86–100; BMI 22.4; BMI 24.5
--- NOTE | 2024-08-11 10:17 | ED.RN ---
Addendum entered by Geneva Brito 08/11/24 10:20: josefa rn notified pt brought back to room from triage and status.. Original Note: in triage pt wheezing with mod distress and tachypneic, taking back to a room placed on 4l o2 to get sats up to 95% was 87% on 3l home o2. respiratory notified from ekg and breathing.
--- NOTE | 2024-08-11 10:33 | EKG12_ITS ---
Test Reason : Blood Pressure : / mmHG Vent. Rate : 087 BPM Atrial Rate : 087 BPM P-R Int : 142 ms QRS Dur : 066 ms QT Int : 342 ms P-R-T Axes : 050 040 040 degrees QTc Int : 411 ms Normal sinus rhythm Normal ECG Confirmed by SHOLA KINCAID, GINGER ([id number]), editorial intern KEIRY BE ([id number]) on 08/12/2024 8:41:48 AM Referred By: RICKY Confirmed By:GINGER JOLLEY MD
[2024-08-11] MEDS: Ipratropium/Albuterol Sulfate 3 ML AMPUL.NEB INHALATION (10:55)
--- NOTE | 2024-08-11 10:57 | EX.ED.DYSGE1 ---
HPI History of Present Illness Chief Complaint: Shortness of Breath Narrative Narrative: Patient is a 84-year-old female with past medical history of COPD normally on 2 L nasal cannula, type 2 diabetes, hypertension, hypothyroidism who presents to the emergency department the chief complaint of cough wheezing and not feeling well. She states that she was diagnosed with COVID approximately 4 5 days ago. She states that about a week ago she finished a course of Levaquin and prednisone. Patient daughter at bedside states that they increased her oxygen at home yesterday as she seemed to have increased work of breathing. They states that she is coughing up a bunch of sputum. They state that she was recently here and ultimately was discharged home. [facility] Medical History Hyperlipidemia Osteoarthritis Anemia Hypothyroidism Diabetes On home oxygen therapy Asthma COPD (chronic obstructive pulmonary disease) HTN (hypertension) Diabetes mellitus, type 2 Normocytic anemia Former tobacco use Intermittent constipation COPD (chronic obstructive pulmonary disease) Arthritis Thyroid disease Home Medications ?Medication ?Instructions ?Recorded ?Last Taken ?Type metformin 500 mg tablet 500 mg PO TIDCM diabetes 04/03/19 05/25/22 History simvastatin 40 mg tablet 40 mg PO QHS cholesterol 04/03/19 05/24/22 History albuterol sulfate 90 mcg/actuation 1 - 2 puff inhalation Q6H PRN PRN 01/31/24 Unknown Rx aerosol inhaler (ProAir HFA) Sob &/Or Wheezing #8.5 grams ipratropium 0.5 mg-albuterol 3 mg 1.5 ml continuous nebulization 01/31/24 Unknown Rx (2.5 mg base)/3 mL nebulization DAILY PRN shortness of breath or soln wheezing #180 mL lisinopril 10 mg tablet 10 mg PO QDAY 02/20/24 Unknown History montelukast 10 mg tablet 10 mg PO QDAY 02/20/24 Unknown History fluticasone fur. 200 mcg-umeclid 1 ea inhalation QDAY copd #60 ea 05/02/24 Unknown Rx 62.5 mcg-vilant 25 mcg inhalat.powder (Trelegy Ellipta) aspirin 81 mg chewable tablet 81 mg PO DAILYCM 30 days #30 tabs 05/29/24 Unknown Rx fluticasone propionate 50 1 spray intranasal QDAY PRN 06/11/24 Unknown History mcg/actuation nasal spray,suspension levothyroxine 137 mcg capsule 137 mcg PO DAILY 06/11/24 Unknown History mirtazapine 15 mg tablet 15 mg PO QHS 06/11/24 Unknown History omeprazole 40 mg capsule,delayed 40 mg PO QDAY 06/11/24 Unknown History release albuterol sulfate 2.5 mg/3 mL 2.5 mg (3 mL) inhalation Q4H PRN 06/26/24 Unknown Rx (0.083 %) solution for nebulization #25 vials prednisone 20 mg tablet 40 mg (2 x 20 mg) PO DAILY 10 days 06/26/24 Unknown Rx #20 tabs doxycycline hyclate 100 mg tablet 100 mg PO BID #20 tabs 07/01/24 Unknown Rx Allergy/AdvReac Type Severity Reaction Status Date / Time Sulfa (Sulfonamide Allergy Itching Verified 08/11/24 10:06 Antibiotics) bacitracin (From Neosporin AdvReac Mild Rash Verified 08/11/24 10:06 ([id number])) neomycin (From Neosporin AdvReac Mild Rash Verified 08/11/24 10:06 ([id number])) polymyxin B (From Neosporin AdvReac Mild Rash Verified 08/11/24 10:06 ([id number])) Family History Mother Hypertension Father Cancer Passed age 2828 years old, she notes suspect if was cancer but unclear exact etiology. Brother Heart disease Surgical History History of bilateral cataract extraction H/O rectal polypectomy History of surgery of uterus Hx of colonoscopy Hx of foot surgery Social History household members: none Smoking Status: Former smoker how long ago did patient quit smoking: Quit 07/22/2013, smoked 1 ppd x 50 years until quit. second hand exposure: No alcohol intake: never substance use type: does not use caffeine: Yes frequency: does not exercise ROS ROS ED ROS Narrative Constitutional: Denies any fevers, chills, headaches Eyes: Denies change in vision double vision blurry vision Cardiovascular: Denies chest pain palpitation Respiratory: Complains of cough with increased sputum production as well as shortness of breath as well as wheezing Abdomen: Denies abdominal pain nausea vomit diarrhea : Denies any urinary symptoms Neurological: Denies numbness, weakness, tingling Musculoskeletal: Denies back pain Skin: Denies rashes or lesions EXAM Physical Exam Narrative Exam Narrative: General: Patient lying in bed did appear to be short of breath Head: Atraumatic, normocephalic Eyes: PERRL bilaterally, EOMI bilateral, no conjunctival injection noted Neck: Soft, supple, trachea midline Cardiovascular: Patient tachycardic with a regular rhythm no murmurs gallops rubs noted Respiratory: diffuse end expiratory wheezing noted bilaterally, rhonchi noted bilaterally as well Extremities: +5/5 strength noted in the bilateral lower extremities, no pedal edema noted exam Neurological: Patient is following commands knew that she was at [facility] there is 2023 Skin: Warm, dry, intact Const Vital Signs: 08/11/24 10:07 08/11/24 10:16 Temperature 97.5 F L Temperature Source Temporal Pulse Rate 77 Respiratory Rate 24 H Blood Pressure 126/64 H Blood Pressure Mean 84 Pulse Ox 86 95 Oxygen Delivery Method Nasal Cannula Nasal Cannula Oxygen Flow Rate (L/min) 3 4 MDM MDM MDM Narrative Medical decision making narrative: Patient is a 84-year-old female who presented to the emergency department with a chief complaint of cough and shortness of breath. Patient will have a workup performed here on the differential diagnose includes but not limited to COPD exacerbation, COVID, pneumonia, ACS. Once workup is obtained reviewed she will be reevaluated. Patient will be given 30 cc/kg bolus of IV fluids which was ordered at 10:35 AM. Patient will be given 3 DuoNebs as well as IV Solu-Medrol. Discharge Plan Triage Chief Complaint: Shortness of Breath ED Provider: Jimmie Ramirez Dx/Rx/DC Orders Prescriptions: No Action ipratropium-albuterol 0.5 mg-3 mg(2.5 mg base)/3 mL solution for nebulization 1.5 ml continuous nebulization DAILY PRN (Reason: shortness of breath or wheezing) Qty: 180 3RF albuterol sulfate [ProAir HFA] 90 mcg/actuation HFA aerosol inhaler 1 - 2 puff inhalation Q6H PRN PRN (Reason: Sob &/Or Wheezing) Qty: 8.5 3RF lisinopril 10 mg tablet 10 mg PO QDAY montelukast 10 mg tablet 10 mg PO QDAY fluticasone propionate 50 mcg/actuation spray,suspension 1 spray intranasal QDAY PRN Trelegy Ellipta 200-62.5-25 mcg blister with device 1 ea INHALATION QDAY Qty: 60 11RF omeprazole 40 mg capsule,delayed release(DR/EC) 40 mg PO QDAY mirtazapine 15 mg tablet 15 mg PO QHS levothyroxine 137 mcg capsule 137 mcg PO DAILY Rx Instructions: take 4 tablets by mouth once weekly doxycycline hyclate 100 mg tablet 100 mg PO BID Qty: 20 0RF metformin 500 MG tablet 500 mg PO TIDCM simvastatin 40 MG tablet 40 mg PO QHS aspirin 81 mg Tablet,Chewable 81 mg PO DAILYCM 30 Days Qty: 30 0RF prednisone 20 mg tablet 40 mg PO DAILY 10 Days Qty: 20 0RF albuterol sulfate 2.5 mg /3 mL (0.083 %) solution for nebulization 2.5 mg inhalation Q4H PRN Qty: 25 0RF Rx Instructions: Use q4 hours and PRN for wheezing Primary Care Provider: Ciro Duran Referrals: Ciro Duran MD [Primary Care Provider] - Print Language: Iranian
[2024-08-11 11:00] LABS: Absolute Lymphocyte Count 0.86 X10^3/uL (0.83-4.51); Absolute Neutrophil Count 6.9 X10^3/uL (2.0-7.7); Basophil# 0.07 X10^3/uL; Basophil% 0.7 % (0-1); Eosinophils% 2.1 % (0-5); Hematocrit 35.3 % (37-47); Hemoglobin 11.1 g/dL (12.0-15.0); Lymphocyte # 0.86 X10^3/ul (0.83-4.51); Lymphocyte % 9.1 % (19-41); Mean Corp Hgb Conc 31.4 g/dL (32-36); Mean Corpuscular Hgb 28.1 pg (27.0-32.0); Mean Corpuscular Volume 89.4 fL (81-99); Mean Platelet Vol. 9.2 fl (6.2-12.0); Monocyte# 1.37 X10^3/uL; Monocyte% 14.5 % (0-10); NRBC Flagged by Analyzer 0 % (0-5); Neutrophil # 6.88 X10^3/uL (2.7-7.7); Neutrophil % 73.2 % (47-70); Platelet Count 312 K/mm3 (150-450); RBC Distribution Width CV 13.6 % (11.6-14.6); RBC Distribution Width SD 44.6 fl (35.1-43.9); Red Blood Count 3.95 M/mm3 (4.2-5.4); White Blood Count 9.4 K/mm3 (4.4-11.0)
[2024-08-11] MEDS: 0.9% Normal Saline (1000mL) 1,000 ML 999 ML IV ×2 (11:08→11:18)
[2024-08-11 11:10] LABS: ALB/GLOB Ratio 0.7 RATIO (0.9-2.4); AST(SGOT) 10 U/L (15-37); Alanine Aminotransfer ALT/SGPT 9 U/L (13-56); Albumin, Serum 2.8 g/dL (3.2-5.0); Alkaline Phosphatase 71 U/L (45-117); Anion Gap 6 (5-15); BUN 9 mg/dL (7-18); BUN/Creat Ratio 12.2 RATIO (10-20); Calcium,Total 9.3 mg/dL (8.5-10.1); Chloride 98 mmol/L (98-107); Creatinine, Serum 0.74 mg/dL (0.55-1.02); EST Glomerular Filtration Rate 80 mL/min (>60); Est Glom Filt Rate - Afr Amer 96 mL/min (>60); Estimated Creatinine Clearance 36.93 ml/min; Globulin 3.8 g/dL (2.2-4.2); Glucose 138 mg/dL (74-106); Potassium 3.7 mmol/L (3.5-5.1); Protein, Total 6.6 g/dL (6.4-8.2); Sodium Level 136 mmol/L (136-145); Troponin-I HS 5 pg/mL (3.0-54.0)
[2024-08-11 11:25] LABS: Prothrombin Time (Protime)PT. 13.4 SECONDS (11.7-14.9)
[2024-08-11 11:26] LABS: Partial Thromboplast Time 31.5 Seconds (24.1-36.2)
[2024-08-11] MEDS: MethylPREDNISolone 125 MG/2 ML Vial IV (11:31)
[2024-08-11 11:54] LABS: Lactic Acid 0.9 mmol/L (0.4-1.9)
--- NOTE | 2024-08-11 11:55 | RAD_ITS ---
STUDY: X-RAY CHEST REASON FOR EXAM: Female, 84 years old. cough TECHNIQUE: Single AP portable view of the chest. COMPARISON: 08/08/2024 FINDINGS: Poor inspiration with bibasilar atelectasis. There is no demonstrated pleural abnormality. Normal size heart. Normal mediastinum and simone. Normal visualized pulmonary arteries. There is atherosclerotic tortuosity of the aortic arch and descending thoracic aorta. Normal visualized thoracic spine. Normal visualized ribs, clavicles, and shoulders. There is no demonstrated abnormality of the visualized soft tissue structures of the upper abdomen. RAD/Chest 1 View (Portable) IMPRESSION: Poor inspiration with some bibasilar atelectasis. Electronically Signed: Don Arango MD at 12:20 EDT ,
[2024-08-11] MEDS: Albuterol 2.5 MG/3 ML VIAL.NEB. INHALATION (12:10)
--- NOTE | 2024-08-11 12:28 | HP.PCM.HOS_ITS ---
[facility] - General General Date of Admission: 08/11/24 Date of Service: 08/11/24 Chief Complaint: shortness of breath, general feeling of unwellness. HPI Narrative MARIELA LARIOS, is a 84 F with a PMH as outlined including COPD on 2L of oxygen chronically at home who presents with a complaint of worsening shortness of breath and increased sputum production. She was diagnosed with covid 5 days prior to this admission and sent home. Daughter says she was sent home without being given any medications. However patient has been on antibiotics off and on for about 2 months due to recurrent pneumonia and COPD exacerbation. Patient continues to smoke and vape up until about a month ago because she was too weak to continue doing so. Daughter says patient had progressively been getting weaker since Sunday to the point where she could not perform her activities of daily living. She had had more incessant coughing which was productive of greenish sputum and his shortness of breath had also worsened. Daughter found her hypoxic at home today and so decided to bring her in to the ED. She denied any fever, chills, nausea, vomiting or any other symptoms. Review of systems is otherwise negative. Vitals in the ED were BP of 175/89, UT of 96, RR of 26 and temp of 98.2F. She was saturating at 100% on BIPAP. CBC shows hemoglobin of 11.1 with WBC of 9.4 and platelets of 312. INR is 1. Chemistry shows sodium of 136 with potassium of 3.7 and bicarb of 31. Creatinine is 0.74. Urinalysis was pending. CXR showed poor inspiration with some bibasilar atelectasis. She was initially started on oxygen by nasal cannula in the ED but she felt very weak and so was placed on BiPAP. She is being admitted to be managed for acute hypoxic respiratory failure due to COVID with probable superimposed pneumonia. [facility] Medical History (Updated 08/11/24 @ 15:55 by Rosey Humphreys) Rheumatoid arthritis Hyperlipidemia Osteoarthritis Anemia Hypothyroidism Diabetes On home oxygen therapy Asthma COPD (chronic obstructive pulmonary disease) HTN (hypertension) Diabetes mellitus, type 2 Normocytic anemia Former tobacco use Intermittent constipation COPD (chronic obstructive pulmonary disease) Arthritis Thyroid disease Home Medications ?Medication ?Instructions ?Recorded ?Last Taken ?Type metformin 500 mg tablet 500 mg PO BID diabetes 04/03/19 08/11/24 History simvastatin 40 mg tablet 40 mg PO QHS cholesterol 04/03/19 08/10/24 History albuterol sulfate 90 mcg/actuation 1 - 2 puff inhalation Q6H PRN PRN 01/31/24 08/11/24 Rx aerosol inhaler (ProAir HFA) Sob &/Or Wheezing #8.5 grams ipratropium 0.5 mg-albuterol 3 mg 1.5 ml continuous nebulization 01/31/24 08/11/24 Rx (2.5 mg base)/3 mL nebulization DAILY PRN shortness of breath or soln wheezing #180 mL lisinopril 10 mg tablet 10 mg PO QDAY 02/20/24 08/10/24 History montelukast 10 mg tablet 10 mg PO QDAY 02/20/24 08/10/24 History aspirin 81 mg chewable tablet 81 mg PO DAILYCM 30 days #30 tabs 05/29/24 08/10/24 Rx levothyroxine 137 mcg capsule 137 mcg PO DAILY 06/11/24 08/03/24 History mirtazapine 15 mg tablet 15 mg PO QHS 06/11/24 08/10/24 History omeprazole 40 mg capsule,delayed 40 mg PO QDAY 06/11/24 08/10/24 History release albuterol sulfate 2.5 mg/3 mL 2.5 mg (3 mL) inhalation Q4H PRN 06/26/24 08/11/24 Rx (0.083 %) solution for nebulization #25 vials fluticasone fur. 200 mcg-umeclid 1 ea inhalation BID copd 08/11/24 08/10/24 History 62.5 mcg-vilant 25 mcg inhalat.powder (Trelegy Ellipta) Allergy/AdvReac Type Severity Reaction Status Date / Time Sulfa (Sulfonamide Allergy Itching Verified 08/11/24 10:06 Antibiotics) bacitracin (From Neosporin AdvReac Mild Rash Verified 08/11/24 10:06 ([id number])) neomycin (From Neosporin AdvReac Mild Rash Verified 08/11/24 10:06 ([id number])) polymyxin B (From Neosporin AdvReac Mild Rash Verified 08/11/24 10:06 ([id number])) Family History Mother Hypertension Father Cancer Passed age 2828 years old, she notes suspect if was cancer but unclear exact etiology. Brother Heart disease Surgical History History of bilateral cataract extraction H/O rectal polypectomy History of surgery of uterus Hx of colonoscopy Hx of foot surgery Social History household members: none Smoking Status: Former smoker how long ago did patient quit smoking: Quit 07/22/2013, smoked 1 ppd x 50 years until quit. second hand exposure: No alcohol intake: never substance use type: does not use caffeine: Yes frequency: does not exercise ROS Constitutional Constitutional: Reports anorexia, fatigue, malaise and weakness; Denies change in weight, chills or fever(s) Eyes Eyes: Denies change in vision ENT HEENT: Denies dysphagia, headache(s), nasal discharge, post nasal drip, sinus pressure or sore throat Cardiovascular Cardiovascular: Reports dyspnea on exertion; Denies chest pain, edema, lightheadedness, orthopnea or palpitations Respiratory/Chest Respiratory/Chest: Reports cough, dyspnea, productive cough, shortness of breath at rest, shortness of breath with exertion and wheezing; Denies excessive phlegm production Gastrointestinal Gastrointestinal: Denies abdominal pain, constipation, diarrhea, dyspepsia, hematemesis, melena, nausea or vomiting Genitourinary Genitourinary: Denies burning urination or dysuria Musculoskeletal Musculoskeletal: Denies arthralgias Neurologic Neurologic: Denies confusion, dizziness, focal weakness, headache(s), numbness, paresthesias, seizures, syncope or tremor(s) Psychiatric Psychiatric: Denies anxiety or depression Endocrine Endocrinology: Denies change in body appearance Hematologic/Lymphatic Hematologic/Lymphatic: Denies anemia Vital Signs Vital Signs Vital Signs: 08/11/24 10:06 08/11/24 10:07 08/11/24 10:16 Temperature 97.5 F L Temperature Source Temporal Pulse Rate 102 H 77 Respiratory Rate 18 24 H Respiratory Effort Respiratory Depth Respiratory Pattern Blood Pressure 126/74 H 126/64 H Blood Pressure Mean 91 84 Pulse Ox 86 95 Oxygen Delivery Method Nasal Cannula Nasal Cannula Nasal Cannula Oxygen Flow Rate (L/min) 4 3 4 08/11/24 11:16 08/11/24 11:25 08/11/24 11:27 Temperature 97.5 F L Temperature Source Oral Pulse Rate 106 H Respiratory Rate 24 H Respiratory Effort Short of Breath Labored Accessory Muscle Use Respiratory Depth Deep Respiratory Pattern Tachypnea Blood Pressure 175/93 H Blood Pressure Mean 120 Pulse Ox 97 Oxygen Delivery Method Room Air Nasal Cannula Nasal Cannula Oxygen Flow Rate (L/min) 4 4 4 08/11/24 12:00 Temperature 98.1 F Temperature Source Oral Pulse Rate 78 Respiratory Rate 24 H Respiratory Effort Respiratory Depth Respiratory Pattern Blood Pressure 179/96 H Blood Pressure Mean 123 Pulse Ox Oxygen Delivery Method Bi-pap Oxygen Flow Rate (L/min) Weight Weight: 115 lb Body Mass Index (BMI) 22.4 Physical Exam Const alert and oriented x3 Constitutional Narrative: very frail and weak, on BIPAP, able to talk and complete sentences General Appearance: cooperative HEENT normocephalic, head/scalp atraumatic, moist oral mucous membranes and oropharynx normal Neck no lymphadenopathy and supple Resp Resp Narrative: Moderately diminished breath sounds bibasilarly. Bilateral crackles and wheezes. On BiPAP. Mildly tachypneic with respiratory rate of 24. Cardio regular rate, regular rhythm, S1 normal heart sound, S2 normal heart sound and no murmurs GI normal to inspection, nondistended, normoactive bowel sounds, soft to palpation, non-tender and non-distended Extremity normal to inspection, full ROM and no clubbing, cyanosis or edema Neuro oriented x3, CN's II-XII intact bilaterally, moves all extremities and no focal motor deficits Sensorium / Orientation: awake and alert Motor Exam: strength 5/5 throughout Psych affect normal Results Lab / Micro Data 08/11/24 10:40 08/11/24 10:40 Labs: Laboratory Results - last 24 hr 08/11/24 10:40: WBC 9.4, RBC 3.95 L, Hgb 11.1 L, Hct 35.3 L, MCV 89.4, MCH 28.1, MCHC 31.4 L, RDW Std Deviation 44.6 H, RDW Coeff of Katia 13.6, Plt Count 312, MPV 9.2, Immature Gran % (Auto) 0.400, Neut % (Auto) 73.2 H, Lymph % (Auto) 9.1 L, M ana % (Auto) 14.5 H, Eos % (Auto) 2.1, Baso % (Auto) 0.7, Absolute Neuts (auto) 6.9, Absolute Lymphs (auto) 0.86, Nucleated RBC % 0, PT 13.4, INR 1.0, APTT 31.5, Sodium 136, Potassium 3.7, Chloride 98, Carbon Dioxide 31.0, Anion Gap 6, BUN 9, Creatinine 0.74, Estim Creat Clear Calc 36.93, Est GFR (MDRD) Af Amer 96, Est GFR (MDRD) Non-Af 80, BUN/Creatinine Ratio 12.2, Glucose 138 H, Calcium 9.3, Total Bilirubin 0.70, AST 10 L, ALT 9 L, Alkaline Phosphatase 71, Troponin I High Sens 5, Total Protein 6.6, Albumin 2.8 L, Globulin 3.8, Albumin/Globulin Ratio 0.7 L 08/11/24 11:16: Lactic Acid 0.9 Imaging Radiology Impression Chest X-Ray 08/11/24 11:55 IMPRESSION: Poor inspiration with some bibasilar atelectasis. Electronically Signed: Don Arango MD at 12:20 EDT , Assessment & Plan Assessment/Plan (1) COPD exacerbation: (2) Pneumonia: (3) Hypoxia: (4) Acute respiratory failure: QUALIFIERS: Respiratory failure complication: hypoxia and hypercapnia Qualified Code(s): J96.01 - Acute respiratory failure with hypoxia; J96.02 - Acute respiratory failure with hypercapnia PLAN: Plan #Acute hypoxic respiratory failure due to probable pneumonia in the setting of COVID 19 infection and COPD exacerbation * Admit to PCU as patient does not want to be intubated and so does not need to be in the ICU. * Started feeling unwell about 4 days prior to admission and tested positive for COVID. She was sent home without any medication but subsequently became weaker and more debilitated so was brought in to the ED as daughter found her hypoxic. * Currently on BiPAP. Was placed on BiPAP when she came into the ED as she was having increased work of breathing was on oxygen by nasal cannula. * She has a [id number] history of smoking and had also been vaping recently up until about a month ago because she felt too weak to smoke or vape. * Patient has been in the hospital off and on for the past few months for recurrent pneumonia and has been on antibiotics such as Levaquin. * Chest x-ray on admission showed bibasilar atelectasis. CT of the chest done showed bibasilar symmetrical bronchiectasis, mucous plugging and bronchiolitis with mild emphysema and mild small noncalcified nodules. Recommendations for follow-up CT in 6 months to document stability. * Will start on IV Zosyn. Also started on remdesivir and Decadron IV 6 mg daily get sputum cultures and blood cultures. * Consult pulmonology. * Breathing treatments bronchodilators. Titrate oxygen to maintain saturation above 90%. * #Benign essential hypertension: On lisinopril. IV hydralazine as needed. #Type 2 diabetes mellitus: On metformin. Hold metformin. Insulin sliding scale. Accuchecks ACHS. #Hypothyroidism: On Synthroid # Hyperlipidemia: On statin DVT prophylaxis: Lovenox CODE STATUS: DNR CCA no intubation * Patient and daughter counseled extensively about different types of CODE STATUS including full code, DNR CCA and DNR CCA. Patient elects to be DNRCCA no intubation and did not want any CPR or intubation if needed as she says she did not want to continue living like this. * Total [id number] time 17 minutes. Charges/Coding Visit Charges Inpatient E&M: 26936 Init Hosp L3 Procedures Hospitalists Procedures: 46980 Advncd Care Plan 30 Min
[2024-08-11 12:33] LABS: Bacteria 0 SEEN /hpf (None Seen)
[2024-08-11] MEDS: Piperacil/Tazobactam 3.375 GM in 0.9% Normal Saline (50mL MB+) 50 ML IV ×2 (12:34→21:16)
[2024-08-11 12:38] LABS: Color, Urine Yellow (Yellow); Glucose, Dipstick Normal (Normal); Ketone-Dipstick 5 mg/dl (Negative); Leukocyte Esterase-Dipstick Negative /ul (Negative); Nitrite-Dipstick Negative (Negative); Occult Blood-Urine Negative /ul (Negative); Protein-Dipstick Negative (Negative); Specific Gravity, Urine 1.015 (1.002-1.030); Urine Bilirubin Dipstick Negative (Negative); Urine Clarity Clear (Clear); Urine Urobilinogen 4 mg/dl (Normal)
[2024-08-11] MEDS: Vancomycin HCl 1,250 MG in 0.9% Normal Saline (250mL Bag) 250 ML 167 MG IV (12:46)
[2024-08-11 13:07] LABS: Mucous, Urine 1+ /hpf (<or=2+); Red Blood Cells-Urine 0-5 SEEN /hpf (0-5); White Blood Cells 0-5 SEEN /hpf (0-5)
[2024-08-11 13:09] LABS: Squamous Epithelial Cells - UA 0-5 SEEN /hpf (5-10)
--- NOTE | 2024-08-11 13:15 | CT_ITS ---
INDICATION: sob, cough EXAMINATION: CT CHEST WITHOUT CONTRAST - CT Chest W/O Contrast Injection TECHNIQUE: Helically acquired images were obtained of the chest. A radiation dose optimization technique was used for this scan. IV Contrast dosage and agent: None. COMPARISON: Chest x-ray earlier today FINDINGS: LUNGS, PLEURA AND LARGE AIRWAYS: Mild emphysema. Mild diffuse cylindrical bronchiectasis with mucus plugging in the lower lobes. Ill-defined nodules and tree-in-bud densities within the periphery of the lower lobes consistent with bronchiolitis. 6 mm calcified nodule in the posterior right upper lobe of the lungs on image 51 and follow-up CT is recommended in 6 months to document stability. 4 mm noncalcified nodule posterior left upper lobe lung zone image 24. 6 mm subpleural nodule in the left upper lobe lung zone image 61. No pleural effusion or thickening. No pneumothorax. THYROID: No thyroid lesions. HEART AND PERICARDIUM: Heart size is normal. No pericardial effusion. CORONARY ARTERIES: Coronary artery calcification is seen. VESSELS: Thoracic aorta is not dilated. MEDIASTINUM AND LUDWIN: No mediastinal or hilar adenopathy. Esophagus is unremarkable. No hiatal hernia. UPPER ABDOMEN: Diffusely decreased attenuation of hepatic parenchyma consistent with fatty infiltration. BONES: No suspicious lytic or blastic abnormality. CT/Chest without Contrast IMPRESSION: Bibasilar symmetrical bronchiectasis, mucous plugging, and bronchiolitis. Mild emphysema with multiple small noncalcified nodules. Follow-up CT is recommended in 6 months to document stability. Fatty infiltration of liver. Electronically Signed: Don Arango MD at 13:44 EDT ,
[2024-08-11] MEDS: dexAMETHasone 10 MG/ML Vial 6 MG IV (16:02)
[2024-08-11] MEDS: 0.9% Saline Lock 10 ML Syringe IV (16:02)
[2024-08-12] VITALS (8 sets, daily range): BP systolic 116–165; BP diastolic 72–76; PULSE 56–74; RESP 12–24; TEMP 36.2–36.5; O2SAT 93–100
[2024-08-12] MEDS: Piperacil/Tazobactam 3.375 GM in 0.9% Normal Saline (50mL MB+) 50 ML IV ×3 (06:00→22:35)
[2024-08-12 06:27] LABS: Absolute Lymphocyte Count 0.46 X10^3/uL (0.83-4.51); Absolute Neutrophil Count 4.5 X10^3/uL (2.0-7.7); Basophil# 0.02 X10^3/uL; Basophil% 0.4 % (0-1); Hematocrit 30.6 % (37-47); Hemoglobin 9.6 g/dL (12.0-15.0); Lymphocyte # 0.46 X10^3/ul (0.83-4.51); Lymphocyte % 8.8 % (19-41); Mean Corp Hgb Conc 31.4 g/dL (32-36); Mean Corpuscular Hgb 28.1 pg (27.0-32.0); Mean Corpuscular Volume 89.5 fL (81-99); Mean Platelet Vol. 9.7 fl (6.2-12.0); Monocyte# 0.21 X10^3/uL; NRBC Flagged by Analyzer 0 % (0-5); Neutrophil # 4.48 X10^3/uL (2.7-7.7); Neutrophil % 86.2 % (47-70); POSITIVE DIFFERENTIAL YES; Platelet Count 310 K/mm3 (150-450); RBC Distribution Width CV 13.5 % (11.6-14.6); RBC Distribution Width SD 44.4 fl (35.1-43.9); Red Blood Count 3.42 M/mm3 (4.2-5.4); White Blood Count 5.2 K/mm3 (4.4-11.0)
[2024-08-12 06:43] LABS: Anion Gap 7 (5-15); BUN 14 mg/dL (7-18); BUN/Creat Ratio 25.1 RATIO (10-20); Calcium,Total 8.6 mg/dL (8.5-10.1); Chloride 104 mmol/L (98-107); Creatinine, Serum 0.56 mg/dL (0.55-1.02); EST Glomerular Filtration Rate 110 mL/min (>60); Est Glom Filt Rate - Afr Amer 133 mL/min (>60); Estimated Creatinine Clearance 40.63 ml/min; Glucose 156 mg/dL (74-106); Potassium 4.1 mmol/L (3.5-5.1); Sodium Level 137 mmol/L (136-145)
[2024-08-12 08:49] LABS: Alkaline Phosphatase 61 U/L (45-117)
[2024-08-12] MEDS: dexAMETHasone 10 MG/ML Vial 6 MG IV (09:14)
[2024-08-12] MEDS: Enoxaparin 40 MG/0.4 ML Syringe SC (09:14)
[2024-08-12] MEDS: 0.9% Saline Lock 10 ML Syringe IV (09:16)
[2024-08-12] MEDS: Remdesivir 200 MG in 0.9% Normal Saline (250mL Bag) 210 ML 250 MG IV (09:17)
--- NOTE | 2024-08-12 09:49 | EX.PCM.CONCC ---
Assessment & Plan Assessment/Plan (1) COPD exacerbation: (2) COVID-19: PLAN: Plan RECOMMENDATIONS: 1. Continue supplemental oxygen per baseline requirement. 2. Continue Decadron to complete 10 days of therapy. 3. At discharge, transition to Levaquin to complete 7 days of therapy. 4. Continue scheduled bronchodilators. 5. Perform walking oximetry study prior to consideration for discharge home. 6. The patient should follow-up in the pulmonary medicine clinic after discharge. 7. The patient appears medically stable for discharge. Please call if we can be of any additional assistance. IMPRESSIONS: 1. COPD exacerbation secondary to COVID-19 pneumonia The patient presented to the hospital with shortness of breath in the setting of chronic hypoxemic respiratory failure. She was recently diagnosed with COVID-19. Given the interval worsening in her symptoms, the patient was initiated on remdesivir and Decadron. In addition, the patient was initiated on antimicrobials over concerns for secondary pneumonia. The patient is significantly improved from a respiratory perspective. She is maintaining appropriate oxygen saturations on her baseline 2 to 3 L/min. The patient appears clinically stable for discharge home. At discharge, I recommended that she be transitioned to Levaquin to complete 7 days of therapy. In addition, the patient should be discharged home on enough Decadron to complete 10 days of therapy. She can follow-up in the pulmonary medicine clinic after discharge. 2. History of hypertension/hypothyroidism/hyperlipidemia/diabetes mellitus Complicates care, management, recovery and prognosis. Continue home medications as indicated. This note was generated with [employer] dictation software. It may contain incorrect words, spelling, and punctuation that were not noted in checking the note before signing. HPI Consult Data Date of Consult: 08/12/24 HPI Narrative Reason for Consultation: COPD exacerbation, COVID-19 pneumonia HPI Narrative: The patient is an 84-year-old female, with a history as outlined below, who presented to the emergency department on August 11 with shortness of breath. The patient is currently followed in the pulmonary medicine clinic due to a history of chronic hypoxemic respiratory failure and end-stage COPD. The patient apparently utilizes 2 L/min of oxygen at rest and 3 L/min with exertion. She has a history of frequent exacerbations, having last been treated with antibiotics and corticosteroids in June 2024. The patient was then evaluated in the emergency department on August 08, at which time, she tested positive for COVID-19. On presentation to the emergency department, the patient was documented to be afebrile and hemodynamically stable. Laboratory evaluation revealed a white blood cell count of 12,000. Chemistry profile was unremarkable. Lactate was within normal limits. CT imaging of the chest was completed and demonstrated a background of emphysema with bilateral subcentimeter pulmonary nodules and areas of bronchiectasis with mucous plugging. The patient was subsequently placed on Decadron, remdesivir and antimicrobials. She was admitted to the hospital for further management. The patient utilized BiPAP therapy overnight but has been weaned back to her baseline oxygen requirement of 2 L/min. [facility] Medical History (Updated 08/11/24 @ 15:55 by Rosey Humphreys) Rheumatoid arthritis Hyperlipidemia Osteoarthritis Anemia Hypothyroidism Diabetes On home oxygen therapy Asthma COPD (chronic obstructive pulmonary disease) HTN (hypertension) Diabetes mellitus, type 2 Normocytic anemia Former tobacco use Intermittent constipation COPD (chronic obstructive pulmonary disease) Arthritis Thyroid disease Home Medications ?Medication ?Instructions ?Recorded ?Last Taken ?Type metformin 500 mg tablet 500 mg PO BID diabetes 04/03/19 08/11/24 History simvastatin 40 mg tablet 40 mg PO QHS cholesterol 04/03/19 08/10/24 History albuterol sulfate 90 mcg/actuation 1 - 2 puff inhalation Q6H PRN PRN 01/31/24 08/11/24 Rx aerosol inhaler (ProAir HFA) Sob &/Or Wheezing #8.5 grams ipratropium 0.5 mg-albuterol 3 mg 1.5 ml continuous nebulization 01/31/24 08/11/24 Rx (2.5 mg base)/3 mL nebulization DAILY PRN shortness of breath or soln wheezing #180 mL lisinopril 10 mg tablet 10 mg PO QDAY 02/20/24 08/10/24 History montelukast 10 mg tablet 10 mg PO QDAY 02/20/24 08/10/24 History aspirin 81 mg chewable tablet 81 mg PO DAILYCM 30 days #30 tabs 05/29/24 08/10/24 Rx levothyroxine 137 mcg capsule 137 mcg PO DAILY 06/11/24 08/03/24 History mirtazapine 15 mg tablet 15 mg PO QHS 06/11/24 08/10/24 History omeprazole 40 mg capsule,delayed 40 mg PO QDAY 06/11/24 08/10/24 History release albuterol sulfate 2.5 mg/3 mL 2.5 mg (3 mL) inhalation Q4H PRN 06/26/24 08/11/24 Rx (0.083 %) solution for nebulization #25 vials fluticasone fur. 200 mcg-umeclid 1 ea inhalation BID copd 08/11/24 08/10/24 History 62.5 mcg-vilant 25 mcg inhalat.powder (Trelegy Ellipta) Allergy/AdvReac Type Severity Reaction Status Date / Time Sulfa (Sulfonamide Allergy Itching Verified 08/11/24 10:06 Antibiotics) bacitracin (From Neosporin AdvReac Mild Rash Verified 08/11/24 10:06 ([id number])) neomycin (From Neosporin AdvReac Mild Rash Verified 08/11/24 10:06 ([id number])) polymyxin B (From Neosporin AdvReac Mild Rash Verified 08/11/24 10:06 ([id number])) Family History Mother Hypertension Father Cancer Passed age 2828 years old, she notes suspect if was cancer but unclear exact etiology. Brother Heart disease Surgical History History of bilateral cataract extraction H/O rectal polypectomy History of surgery of uterus Hx of colonoscopy Hx of foot surgery Social History household members: none Smoking Status: Former smoker how long ago did patient quit smoking: Quit 07/22/2013, smoked 1 ppd x 50 years until quit. second hand exposure: No alcohol intake: never substance use type: does not use caffeine: Yes frequency: does not exercise ROS ROS Narrative 10 systems were reviewed with pertinent positives as noted in the HPI above. Physical Exam Const alert, oriented x3 and no apparent distress General Appearance: cooperative HEENT normocephalic, head/scalp atraumatic and moist oral mucous membranes Eyes PERRL, EOMs intact bilaterally and conjunctivae normal Neck supple General: trachea midline Chest inspection of chest normal Resp normal respiratory effort Auscultation: wheezes and diminished lung sounds Cardio regular rate and regular rhythm GI normal to inspection, nondistended, normoactive bowel sounds Extremity no clubbing, cyanosis or edema Skin no rashes or lesions noted Neuro CN's II-XII intact bilaterally, moves all extremities and no focal motor deficits Psych cooperative and affect normal Lab / Micro Data 08/12/24 05:11 08/12/24 05:11 Labs: Laboratory Results - last 24 hr 08/11/24 10:40: WBC 9.4, RBC 3.95 L, Hgb 11.1 L, Hct 35.3 L, MCV 89.4, MCH 28.1, MCHC 31.4 L, RDW Std Deviation 44.6 H, RDW Coeff of Katia 13.6, Plt Count 312, MPV 9.2, Immature Gran % (Auto) 0.400, Neut % (Auto) 73.2 H, Lymph % (Auto) 9.1 L, [place] % (Auto) 14.5 H, Eos % (Auto) 2.1, Baso % (Auto) 0.7, Absolute Neuts (auto) 6.9, Absolute Lymphs (auto) 0.86, Nucleated RBC % 0, PT 13.4, INR 1.0, APTT 31.5, Sodium 136, Potassium 3.7, Chloride 98, Carbon Dioxide 31.0, Anion Gap 6, BUN 9, Creatinine 0.74, Estim Creat Clear Calc 36.93, Est GFR (MDRD) Af Amer 96, Est GFR (MDRD) Non-Af 80, BUN/Creatinine Ratio 12.2, Glucose 138 H, Calcium 9.3, Total Bilirubin 0.70, AST 10 L, ALT 9 L, Alkaline Phosphatase 71, Troponin I High Sens 5, Total Protein 6.6, Albumin 2.8 L, Globulin 3.8, Albumin/Globulin Ratio 0.7 L 08/11/24 11:16: Lactic Acid 0.9 08/11/24 12:20: Urine Color Yellow, Urine Clarity Clear, Urine pH 6.0, Ur Specific [place] 1.015, Urine Protein Negative, Urine Glucose (UA) Normal, Urine Ketones 5 H, Urine Occult Blood Negative, Urine Nitrite Negative, Urine Bilirubin Negative, Urine Urobilinogen 4 H, Ur Leukocyte Esterase Negative, Urine RBC 0-5 SEEN, Urine WBC 0-5 SEEN, Ur Squamous Epith Cells 0-5 SEEN, Urine Bacteria 0 SEEN, Urine Mucus 1+ 08/12/24 05:11: WBC 5.2, RBC 3.42 L, Hgb 9.6 L, Hct 30.6 L, MCV 89.5, MCH 28.1, MCHC 31.4 L, RDW Std Deviation 44.4 H, RDW Coeff of Katia 13.5, Plt Count 310, MPV 9.7, Immature Gran % (Auto) 0.600, Neut % (Auto) 86.2 H, Lymph % (Auto) 8.8 L, [place] % (Auto) 4.0, Eos % (Auto) 0.0, Baso % (Auto) 0.4, Absolute Neuts (auto) 4.5, Absolute Lymphs (auto) 0.46 L, Nucleated RBC % 0, Sodium 137, Potassium 4.1, Chloride 104, Carbon Dioxide 26.0, Anion Gap 7, BUN 14, Creatinine 0.56, Estim Creat Clear Calc 40.63, Est GFR (MDRD) Af Amer 133, Est GFR (MDRD) Non-Af 110, BUN/Creatinine Ratio 25.1 H, Glucose 156 H, Calcium 8.6, Alkaline Phosphatase 61 Micro: Microbiology 08/11/24 16:08 Mucosa - Nasopharyngeal Respiratory Panel (PCR) - Final Imaging Radiology Impression Chest X-Ray 08/11/24 11:55 IMPRESSION: Poor inspiration with some bibasilar atelectasis. Electronically Signed: Don Arango MD at 12:20 EDT Reading Location ID and State: [id number] / [facility] Tel , Service support , Chest CT 08/11/24 13:15 IMPRESSION: Bibasilar symmetrical bronchiectasis, mucous plugging, and bronchiolitis. Mild emphysema with multiple small noncalcified nodules. Follow-up CT is recommended in 6 months to document stability. Fatty infiltration of liver. Electronically Signed: Don Arango MD at 13:44 EDT Reading Location ID and State: [id number] / [facility] Tel , Service support , Charges/Coding Visit Charges Inpatient E&M: 09380 Init Hosp L3
--- NOTE | 2024-08-12 11:54 | PCM.PROGNOTE ---
Subjective Subjective Patient seen and examined. She looks much better today and is off BIPAP and on 2L of oxygen. She tells me she feels much better. She is still coughing and it is still productive. She feels her shortness of breath has improved significantly. Review of systems is otherwise negative. Objective Data Objective Data Vital Signs: Vital Signs Temp Pulse Resp BP Pulse Ox O2 Del Method O2 Flow Rate 97.5 F L 67 20 H 165/76 H 98 Nasal Cannula 2 08/12/24 08:55 08/12/24 08:55 08/12/24 08:55 08/12/24 08:55 08/12/24 08:55 08/12/24 09:34 08/12/24 09:34 FiO2 40 08/12/24 03:00 Oxygen Flow Rate (L/min) 2 Oxygen Delivery Method Nasal Cannula Weight: 125 lb 7.088 oz Body Mass Index (BMI) 24.5 Intake & Output: Intake and Output for Last 24 Hours 08/10/24 08/11/24 08/12/24 23:59 23:59 23:59 Intake Total 1491.5 / 1491.5 470 / 470 Output Total 0 / 0 Balance 1491.5 / 1491.5 470 / 470 Lab / Micro Data 08/12/24 05:11 08/12/24 05:11 Labs: Laboratory Results - last 24 hr 08/11/24 11:16: Lactic Acid 0.9 08/11/24 12:20: Urine Color Yellow, Urine Clarity Clear, Urine pH 6.0, Ur Specific [place] 1.015, Urine Protein Negative, Urine Glucose (UA) Normal, Urine Ketones 5 H, Urine Occult Blood Negative, Urine Nitrite Negative, Urine Bilirubin Negative, Urine Urobilinogen 4 H, Ur Leukocyte Esterase Negative, Urine RBC 0-5 SEEN, Urine WBC 0-5 SEEN, Ur Squamous Epith Cells 0-5 SEEN, Urine Bacteria 0 SEEN, Urine Mucus 1+ 08/12/24 05:11: WBC 5.2, RBC 3.42 L, Hgb 9.6 L, Hct 30.6 L, MCV 89.5, MCH 28.1, MCHC 31.4 L, RDW Std Deviation 44.4 H, RDW Coeff of Katia 13.5, Plt Count 310, MPV 9.7, Immature Gran % (Auto) 0.600, Neut % (Auto) 86.2 H, Lymph % (Auto) 8.8 L, [place] % (Auto) 4.0, Eos % (Auto) 0.0, Baso % (Auto) 0.4, Absolute Neuts (auto) 4.5, Absolute Lymphs (auto) 0.46 L, Nucleated RBC % 0, Sodium 137, Potassium 4.1, Chloride 104, Carbon Dioxide 26.0, Anion Gap 7, BUN 14, Creatinine 0.56, Estim Creat Clear Calc 40.63, Est GFR (MDRD) Af Amer 133, Est GFR (MDRD) Non-Af 110, BUN/Creatinine Ratio 25.1 H, Glucose 156 H, Calcium 8.6, Alkaline Phosphatase 61 Micro: Microbiology 08/12/24 09:20 Nasal Secretion MRSA (PCR) - Final 08/11/24 12:20 Urine, Random Urine Culture - Preliminary Culture exhibits no growth. 08/11/24 16:08 Mucosa - Nasopharyngeal Respiratory Panel (PCR) - Final Radiography Diagnostic Testing: Radiology Impression Chest X-Ray 08/11/24 11:55 IMPRESSION: Poor inspiration with some bibasilar atelectasis. Electronically Signed: Don Arango MD at 12:20 EDT Reading Location ID and State: [id number] / [employer] Tel , Service support , Chest CT 08/11/24 13:15 IMPRESSION: Bibasilar symmetrical bronchiectasis, mucous plugging, and bronchiolitis. Mild emphysema with multiple small noncalcified nodules. Follow-up CT is recommended in 6 months to document stability. Fatty infiltration of liver. Electronically Signed: Don Arango MD at 13:44 EDT Reading Location ID and State: [id number] / [employer] Tel , Service support , Physical Exam Const alert and oriented x3 General Appearance: cooperative HEENT normocephalic, head/scalp atraumatic, moist oral mucous membranes and oropharynx normal Eyes PERRL and EOMs intact bilaterally Neck no lymphadenopathy and supple Lymph Lymphatic: no lymphadenopathy noted Resp Resp Narrative: mildly diminished breath sounds bibasally, mild wheezing, minimal crackles. Now off BIPAP and on 2L of oxygen by nasal canula Cardio regular rate, regular rhythm, S1 normal heart sound, S2 normal heart sound and no murmurs GI normal to inspection, nondistended, normoactive bowel sounds, soft to palpation, non-tender and non-distended Extremity normal to inspection, full ROM, normal capillary refill and no clubbing, cyanosis or edema General Extremity: no tenderness to palpation of joints or extremities Skin General Skin Exam: no breakdown Neuro oriented x3, CN's II-XII intact bilaterally, moves all extremities and no focal motor deficits Sensorium / Orientation: awake and alert Motor Exam: strength 5/5 throughout Psych thought process normal, cooperative and affect normal Appearance: appropriate Assessment & Plan Assessment/Plan (1) COPD exacerbation: (2) Pneumonia: (3) Hypoxia: (4) Acute respiratory failure: QUALIFIERS: Respiratory failure complication: hypoxia and hypercapnia Qualified Code(s): J96.01 - Acute respiratory failure with hypoxia; J96.02 - Acute respiratory failure with hypercapnia PLAN: Plan #Acute hypoxic respiratory failure due to probable pneumonia in the setting of COVID 19 infection and COPD exacerbation now off BIPAP. on 2L of oxygen. on zosyn, remdesivir and decadron. sputum and blood cultures pending. Respiratory panel was negative breathing treatment with bronchodilators. pulmonology consulted; recommends to complete a 10 day course of decadron,a nd to transition to levaquin at dischartge to complete a 7 day course of therapy. Patient has been in the hospital off and on for the past few months for recurrent pneumonia and has been on antibiotics such as Levaquin. Chest x-ray on admission showed bibasilar atelectasis. CT of the chest done showed bibasilar symmetrical bronchiectasis, mucous plugging and bronchiolitis with mild emphysema and mild small noncalcified nodules. Recommendations for follow-up CT in 6 months to document stability. Breathing treatments bronchodilators. Titrate oxygen to maintain saturation above 90%. MRSA screen was negative. #Benign essential hypertension: On lisinopril. IV hydralazine as needed. #Type 2 diabetes mellitus: On metformin. Hold metformin. Insulin sliding scale. Accuchecks ACHS. #Hypothyroidism: On Synthroid # Hyperlipidemia: On statin DVT prophylaxis: Lovenox CODE STATUS: DNR CCA no intubation Charges/Coding Visit Charges Inpatient E&M: 85561 Subs Hosp L2
--- NOTE | 2024-08-12 12:28 | CASEMGMT ---
Addendum entered by Steffanie Hawkins 08/12/24 12:36: FAUSTO LALA verified current O2 orders through [employer], 2L continuous. Original Note: FAUSTO LALA Assessment: Face to Face with pt for initial transition planning/care coordination assessment. FAUSTO LALA introduced self and role at [facility], pt voices understanding and consents to assessment. Pt is A&O x4 and answers all questions appropriately at this time. Pt lying in bed in no distress. Care providers, pharmacy, and demographics verified/updated. Strata: 3 Admitting Dx: Acute hypoxic resp. failure. PCP: Renee Specialists: Luisito, commercial sewing instructor. Preferred Pharmacy: [facility]. Insurance: [employer] Prescription Benefit: yes LNOK: Daughter; son. Living Arrangements: Pt lives alone in a 1 story home with 13 steps to enter. ADLs: Pt reports I with ADLs and IADLs. Transportation: Pt drives self and denies concerns with transportation. DME: O2 concentrator and portable tanks, Pt confirmed someone able to bring portable tank to go home with. Gets oxygen through [employer]. Walker, Shower bench. HHC/SNF: Denies Hx of. Pt states no concerns with going home at time of dc. Pt declined OP therapy and HHC. Pt states daughter is a nurse and works for a HHC company. Daughter lives near by and checks in with pt every day. Pt states no further concerns/needs. CM to follow. Advised pt to ask CM if any further question/concerns/needs arise, voices understanding. Pt Goal: Home Plan: Home, follow for O2 changes and plan of care. Asha LAMBERT CM
[2024-08-12] MEDS: Ipratropium/Albuterol Sulfate 3 ML AMPUL.NEB INHALATION ×2 (13:24→19:40)
[2024-08-12] MEDS: Lisinopril 10 MG Tablet PO (14:01)
[2024-08-12] MEDS: Pantoprazole Sodium 40 MG Tablet PO (14:01)
[2024-08-12] MEDS: Montelukast 10 MG Tablet PO (14:02)
[2024-08-12] MEDS: Insulin Lispro 100 UNIT/ML INSULN.PEN SC ×2 (15:43→22:41)
[2024-08-12] MEDS: Furosemide 40 MG/4 ML Vial IV (16:30)
[2024-08-12] MEDS: Mirtazapine 15 MG Tablet PO (22:33)
[2024-08-12] MEDS: Atorvastatin Calcium 20 MG Tablet PO (22:33)
[2024-08-12] MEDS: Acetaminophen 325 MG Tablet 650 MG PO (22:55)
[2024-08-12 23:04] LABS: Bedside Glucose 242 mg/dL (74-106)
[2024-08-12 23:04] LABS: Bedside Glucose 238 mg/dL (74-106)
[2024-08-13] VITALS (10 sets, daily range): BP systolic 129–161; BP diastolic 76–82; PULSE 56–78; RESP 12–24; TEMP 36.2–36.8; O2SAT 84–99
[2024-08-13] MEDS: Ipratropium/Albuterol Sulfate 3 ML AMPUL.NEB INHALATION ×4 (01:30→20:29)
[2024-08-13] MEDS: Piperacil/Tazobactam 3.375 GM in 0.9% Normal Saline (50mL MB+) 50 ML IV ×3 (06:07→22:04)
[2024-08-13 06:13] LABS: Absolute Lymphocyte Count 0.88 X10^3/uL (0.83-4.51); Absolute Neutrophil Count 6.3 X10^3/uL (2.0-7.7); Basophil# 0.02 X10^3/uL; Basophil% 0.2 % (0-1); Hematocrit 31.7 % (37-47); Hemoglobin 10.1 g/dL (12.0-15.0); Lymphocyte # 0.88 X10^3/ul (0.83-4.51); Mean Corp Hgb Conc 31.9 g/dL (32-36); Mean Corpuscular Hgb 27.8 pg (27.0-32.0); Mean Corpuscular Volume 87.3 fL (81-99); Mean Platelet Vol. 9.3 fl (6.2-12.0); Monocyte# 0.75 X10^3/uL; Monocyte% 9.4 % (0-10); NRBC Flagged by Analyzer 0 % (0-5); Neutrophil # 6.33 X10^3/uL (2.7-7.7); Neutrophil % 78.9 % (47-70); Platelet Count 351 K/mm3 (150-450); RBC Distribution Width CV 13.7 % (11.6-14.6); RBC Distribution Width SD 43.9 fl (35.1-43.9); Red Blood Count 3.63 M/mm3 (4.2-5.4)
[2024-08-13 06:31] LABS: Bedside Glucose 128 mg/dL (74-106)
[2024-08-13 07:11] LABS: ALB/GLOB Ratio 0.8 RATIO (0.9-2.4); AST(SGOT) 9 U/L (15-37); Alanine Aminotransfer ALT/SGPT 8 U/L (13-56); Albumin, Serum 2.7 g/dL (3.2-5.0); Alkaline Phosphatase 55 U/L (45-117); Anion Gap 7 (5-15); BUN 20 mg/dL (7-18); BUN/Creat Ratio 23.4 RATIO (10-20); Calcium,Total 9.3 mg/dL (8.5-10.1); Chloride 102 mmol/L (98-107); Creatinine, Serum 0.85 mg/dL (0.55-1.02); EST Glomerular Filtration Rate 67 mL/min (>60); Est Glom Filt Rate - Afr Amer 81 mL/min (>60); Estimated Creatinine Clearance 38.24 ml/min; Globulin 3.5 g/dL (2.2-4.2); Glucose 130 mg/dL (74-106); Potassium 3.6 mmol/L (3.5-5.1); Protein, Total 6.2 g/dL (6.4-8.2); Sodium Level 139 mmol/L (136-145)
[2024-08-13] MEDS: Aspirin 81 MG TAB.CHEW PO (10:25)
[2024-08-13] MEDS: Pantoprazole Sodium 40 MG Tablet PO (10:26)
[2024-08-13] MEDS: Lisinopril 10 MG Tablet PO (10:26)
[2024-08-13] MEDS: dexAMETHasone 10 MG/ML Vial 6 MG IV (10:26)
[2024-08-13] MEDS: Montelukast 10 MG Tablet PO (10:26)
[2024-08-13] MEDS: Furosemide 40 MG/4 ML Vial IV ×2 (10:28→18:22)
[2024-08-13] MEDS: Enoxaparin 40 MG/0.4 ML Syringe SC (10:29)
[2024-08-13] MEDS: 0.9% Saline Lock 10 ML Syringe IV ×3 (10:29→22:05)
[2024-08-13] MEDS: Remdesivir 100 MG in 0.9% Normal Saline (250mL Bag) 230 ML 250 MG IV (10:32)
[2024-08-13] MEDS: Insulin Lispro 100 UNIT/ML INSULN.PEN SC ×3 (12:02→22:03)
--- NOTE | 2024-08-13 12:06 | PN_ITS ---
Subjective Subjective Patient seen and examined. She had no active complaints and said she still felt the same as previously. She still feels weak. She is on her baseline 2L of oxygen. Review of systems is otherwise negative. She has remained hemodynamically stable. Objective Data Objective Data Vital Signs: Vital Signs Temp Pulse Resp BP Pulse Ox O2 Del Method O2 Flow Rate 97.2 F L 78 18 147/82 H 95 Nasal Cannula 2 08/13/24 10:07 08/13/24 10:07 08/13/24 10:07 08/13/24 10:07 08/13/24 10:13 08/13/24 10:07 08/13/24 10:13 FiO2 30 08/13/24 01:30 Oxygen Flow Rate (L/min) [ 4 AMBULATING with Oxygen #3] Oxygen Flow Rate (L/min) [ 3 AMBULATING with Oxygen #2] Oxygen Flow Rate (L/min) [ 2 AMBULATING with Oxygen #1] Oxygen Flow Rate (L/min) [At 2 REST with Oxygen] Oxygen Flow Rate (L/min) 2 Oxygen Delivery Method Nasal Cannula Weight: 125 lb 7.088 oz Body Mass Index (BMI) 24.5 Intake & Output: Intake and Output for Last 24 Hours 08/11/24 08/12/24 08/13/24 23:59 23:59 23:59 Intake Total 1491.5 / 1491.5 770 / 1010 830 / 830 Output Total 0 / 900 900 / 900 Balance 1491.5 / 1491.5 770 / 110 -70 / -70 Lab / Micro Data 08/13/24 05:42 08/13/24 05:42 Labs: Laboratory Results - last 24 hr 08/12/24 15:42: POC Glucose 238 H 08/12/24 22:40: POC Glucose 242 H 08/13/24 05:42: WBC 8.0, RBC 3.63 L, Hgb 10.1 L, Hct 31.7 L, MCV 87.3, MCH 27.8, MCHC 31.9 L, RDW Std Deviation 43.9, RDW Coeff of Katia 13.7, Plt Count 351, MPV 9.3, Immature Gran % (Auto) 0.500, Neut % (Auto) 78.9 H, Lymph % (Auto) 11.0 L, [place] % (Auto) 9.4, Eos % (Auto) 0.0, Baso % (Auto) 0.2, Absolute Neuts (auto) 6.3, Absolute Lymphs (auto) 0.88, Nucleated RBC % 0, Sodium 139, Potassium 3.6, Chloride 102, Carbon Dioxide 30.0, Anion Gap 7, BUN 20 H, Creatinine 0.85, Estim Creat Clear Calc 38.24, Est GFR (MDRD) Af Amer 81, Est GFR (MDRD) Non-Af 67, B UN/Creatinine Ratio 23.4 H, Glucose 130 H, Calcium 9.3, Total Bilirubin 0.30, A ST 9 L, ALT 8 L, Alkaline Phosphatase 55, Total Protein 6.2 L, Albumin 2.7 L, Globulin 3.5, Albumin/Globulin Ratio 0.8 L 08/13/24 06:11: POC Glucose 128 H Micro: Microbiology 08/11/24 11:16 Blood Culture (Wb) - Left Forearm Blood Culture - Preliminary No growth in 48 hours. 08/11/24 12:20 Urine, Random Urine Culture - Final Culture exhibits no growth. 08/12/24 21:00 Urine, Clean Catch Streptococcus pneumoniae Antigen (M - Final 08/12/24 21:00 Urine, Clean Catch Legionella Antigen - Final 08/12/24 09:20 Nasal Secretion MRSA (PCR) - Final 08/11/24 16:08 Mucosa - Nasopharyngeal Respiratory Panel (PCR) - Final Physical Exam Const alert and oriented x3 Constitutional Narrative: very frail and weak, remains off BIPAP General Appearance: cooperative HEENT normocephalic, head/scalp atraumatic, moist oral mucous membranes and oropharynx normal Eyes PERRL and EOMs intact bilaterally Neck no lymphadenopathy and supple Lymph Lymphatic: no lymphadenopathy noted Resp Resp Narrative: mildly diminished breath sounds bibasally, moderate wheezing, minimal crackles. Remains on 2L of oxygen Cardio regular rate, regular rhythm, S1 normal heart sound, S2 normal heart sound and no murmurs GI normal to inspection, nondistended, normoactive bowel sounds, soft to palpation, non-tender and non-distended Extremity normal to inspection, full ROM, normal capillary refill and no clubbing, cyanosis or edema General Extremity: no tenderness to palpation of joints or extremities Skin General Skin Exam: no breakdown Neuro oriented x3, CN's II-XII intact bilaterally, moves all extremities and no focal motor deficits Sensorium / Orientation: awake and alert Motor Exam: strength 5/5 throughout Psych thought process normal, cooperative and affect normal Appearance: appropriate Assessment & Plan Assessment/Plan (1) COPD exacerbation: (2) Pneumonia: (3) Hypoxia: (4) Acute respiratory failure: QUALIFIERS: Respiratory failure complication: hypoxia and hypercapnia Qualified Code(s): J96.01 - Acute respiratory failure with hypoxia; J96.02 - Acute respiratory failure with hypercapnia PLAN: Plan #Acute hypoxic respiratory failure due to probable pneumonia in the setting of COVID 19 infection and COPD exacerbation * remains on 2L of oxygen * on zosyn, remdesivir and decadron. IV lasix was added on yesterday due to presence of crackles. * sputum and blood cultures pending. Respiratory panel was negative * breathing treatment with bronchodilators. * pulmonology on board; recommends to complete a 10 day course of decadron,a nd to transition to levaquin at dischartge to complete a 7 day course of therapy. * Patient has been in the hospital off and on for the past few months for recurrent pneumonia and has been on antibiotics such as Levaquin. * Chest x-ray on admission showed bibasilar atelectasis. CT of the chest done showed bibasilar symmetrical bronchiectasis, mucous plugging and bronchiolitis with mild emphysema and mild small noncalcified nodules. Recommendations for follow-up CT in 6 months to document stability. * Breathing treatments bronchodilators. Titrate oxygen to maintain saturation above 90%. * MRSA screen was negative. * #Benign essential hypertension: On lisinopril. IV hydralazine as needed. #Type 2 diabetes mellitus: On metformin. Hold metformin. Insulin sliding scale. Accuchecks ACHS. #Hypothyroidism: On Synthroid # Hyperlipidemia: On statin DVT prophylaxis: Lovenox CODE STATUS: DNR CCA no intubation * * Disposition: Will hold off on discharge today as patient is wheezing significantly and oxygen requirements went up to 4 L ambulation which is higher than her baseline. Continue current treatment. FOr likely discharge tomorrow. Charges/Coding Visit Charges Inpatient E&M: 30661 Subs Hosp L2
[2024-08-13 12:24] LABS: Bedside Glucose 186 mg/dL (74-106)
[2024-08-13 16:57] LABS: Bedside Glucose 285 mg/dL (74-106)
[2024-08-13] MEDS: BENZOCAINE/MENTHOL 1 LOZENGE MUCOUS MEM (17:00)
[2024-08-13] MEDS: guaiFENesin 600 MG Tablet PO (18:22)
[2024-08-13] MEDS: Mirtazapine 15 MG Tablet PO (22:04)
[2024-08-13] MEDS: Atorvastatin Calcium 20 MG Tablet PO (22:04)
[2024-08-13 22:27] LABS: Bedside Glucose 191 mg/dL (74-106)
[2024-08-14] VITALS (8 sets, daily range): BP systolic 130–151; BP diastolic 71–76; PULSE 73–82; RESP 12–22; TEMP 36.1–36.7; O2SAT 83–99
[2024-08-14] MEDS: Ipratropium/Albuterol Sulfate 3 ML AMPUL.NEB INHALATION ×3 (02:05→13:42)
[2024-08-14] MEDS: Piperacil/Tazobactam 3.375 GM in 0.9% Normal Saline (50mL MB+) 50 ML IV (05:40)
[2024-08-14] MEDS: Insulin Lispro 100 UNIT/ML INSULN.PEN SC ×2 (05:45→11:51)
[2024-08-14 06:09] LABS: Bedside Glucose 155 mg/dL (74-106)
[2024-08-14 06:30] LABS: Absolute Lymphocyte Count 1.03 X10^3/uL (0.83-4.51); Absolute Neutrophil Count 6.4 X10^3/uL (2.0-7.7); Basophil# 0.02 X10^3/uL; Basophil% 0.2 % (0-1); Eosinophil# 0.02 X10^3/uL; Eosinophils% 0.2 % (0-5); Hematocrit 36.3 % (37-47); Hemoglobin 11.5 g/dL (12.0-15.0); Lymphocyte # 1.03 X10^3/ul (0.83-4.51); Lymphocyte % 12.3 % (19-41); Mean Corp Hgb Conc 31.7 g/dL (32-36); Mean Corpuscular Hgb 27.8 pg (27.0-32.0); Mean Corpuscular Volume 87.9 fL (81-99); Mean Platelet Vol. 9.3 fl (6.2-12.0); Monocyte# 0.85 X10^3/uL; Monocyte% 10.2 % (0-10); NRBC Flagged by Analyzer 0 % (0-5); Neutrophil # 6.38 X10^3/uL (2.7-7.7); Neutrophil % 76.5 % (47-70); Platelet Count 382 K/mm3 (150-450); RBC Distribution Width CV 13.8 % (11.6-14.6); RBC Distribution Width SD 44.4 fl (35.1-43.9); Red Blood Count 4.13 M/mm3 (4.2-5.4); White Blood Count 8.4 K/mm3 (4.4-11.0)
[2024-08-14 06:58] LABS: Anion Gap 8 (5-15); BUN 25 mg/dL (7-18); BUN/Creat Ratio 23.8 RATIO (10-20); Calcium,Total 9.5 mg/dL (8.5-10.1); Chloride 95 mmol/L (98-107); Creatinine, Serum 1.05 mg/dL (0.55-1.02); EST Glomerular Filtration Rate 53 mL/min (>60); Est Glom Filt Rate - Afr Amer 64 mL/min (>60); Estimated Creatinine Clearance 30.96 ml/min; Glucose 152 mg/dL (74-106); Potassium 3.2 mmol/L (3.5-5.1); Sodium Level 138 mmol/L (136-145)
[2024-08-14] MEDS: guaiFENesin 600 MG Tablet PO (08:33)
[2024-08-14] MEDS: Aspirin 81 MG TAB.CHEW PO (08:34)
[2024-08-14] MEDS: Lisinopril 10 MG Tablet PO (08:34)
[2024-08-14] MEDS: Montelukast 10 MG Tablet PO (08:34)
[2024-08-14] MEDS: Potassium Chloride Oral Tablet 20 MEQ 40 MEQ PO (08:34)
[2024-08-14] MEDS: Pantoprazole Sodium 40 MG Tablet PO (08:34)
--- NOTE | 2024-08-14 10:59 | DS.PCM_ITS ---
Providers Date of Admission: 08/11/24 Date of Discharge: 08/14/24 Primary Care Physician: Dr. Ciro Duran MD Consultations 08/11/24 15:41 Consult: Billing Representative / Pulmonary Medicine Routine Consulting Provider: Pulmonary Medicine [place] Reason for Consult: Covid-19, acute hypoxic respiratory failure EMERGENT Consult: No MD Notified: Yes Date Notified: 08/11/24 Time Notified: 15:10 Method of Notification: Text Reason For Visit: ACUTE HYPOXIC RESPIRATORY FAILURE Diagnosis Discharge Diagnosis (1) COPD exacerbation: Status: Chronic Code(s): J44.1 - Chronic obstructive pulmonary disease with (acute) exacerbation (2) Pneumonia: Status: Acute Code(s): J18.9 - Pneumonia, unspecified organism (3) Hypoxia: Status: Acute Code(s): R09.02 - Hypoxemia (4) Acute respiratory failure: Status: Acute Code(s): J96.00 - Acute respiratory failure, unspecified whether with hypoxia or hypercapnia Qualifiers: Respiratory failure complication: hypoxia and hypercapnia Qualified Code(s): J96.01 - Acute respiratory failure with hypoxia; J96.02 - Acute respiratory failure with hypercapnia Plan #Acute hypoxic respiratory failure due to probable pneumonia in the setting of COVID 19 infection and COPD exacerbation * remains on 2L of oxygen * on zosyn, remdesivir and decadron. IV lasix was added on yesterday due to presence of crackles. * sputum and blood cultures pending. Respiratory panel was negative * breathing treatment with bronchodilators. * pulmonology on board; recommends to complete a 10 day course of decadron,a nd to transition to levaquin at dischartge to complete a 7 day course of therapy. * Patient has been in the hospital off and on for the past few months for recurrent pneumonia and has been on antibiotics such as Levaquin. * Chest x-ray on admission showed bibasilar atelectasis. CT of the chest done showed bibasilar symmetrical bronchiectasis, mucous plugging and bronchiolitis with mild emphysema and mild small noncalcified nodules. Recommendations for follow-up CT in 6 months to document stability. * Breathing treatments bronchodilators. Titrate oxygen to maintain saturation above 90%. * MRSA screen was negative. * #Benign essential hypertension: On lisinopril. IV hydralazine as needed. #Type 2 diabetes mellitus: On metformin. Hold metformin. Insulin sliding scale. Accuchecks ACHS. #Hypothyroidism: On Synthroid # Hyperlipidemia: On statin DVT prophylaxis: Lovenox CODE STATUS: DNR CCA no intubation * * Disposition: Will hold off on discharge today as patient is wheezing significantly and oxygen requirements went up to 4 L ambulation which is higher than her baseline. Continue current treatment. FOr likely discharge tomorrow. Medications at Discharge Home Medications metformin 500 mg tablet 500 mg PO BID diabetes 04/03/19 simvastatin 40 mg tablet 40 mg PO QHS cholesterol 04/03/19 albuterol sulfate 90 mcg/actuation aerosol inhaler (ProAir HFA) 1 - 2 puff inhalation Q6H PRN PRN Sob &/Or Wheezing #8.5 grams 01/31/24 ipratropium 0.5 mg-albuterol 3 mg (2.5 mg base)/3 mL nebulization soln 1.5 ml continuous nebulization DAILY PRN shortness of breath or wheezing #180 mL 01/31/24 lisinopril 10 mg tablet 10 mg PO QDAY 02/20/24 montelukast 10 mg tablet 10 mg PO QDAY 02/20/24 aspirin 81 mg chewable tablet 81 mg PO DAILYCM 30 days #30 tabs 05/29/24 levothyroxine 137 mcg capsule 137 mcg PO DAILY 06/11/24 mirtazapine 15 mg tablet 15 mg PO QHS 06/11/24 omeprazole 40 mg capsule,delayed release 40 mg PO QDAY 06/11/24 albuterol sulfate 2.5 mg/3 mL (0.083 %) solution for nebulization 2.5 mg (3 mL) inhalation Q4H PRN #25 vials 06/26/24 fluticasone fur. 200 mcg-umeclid 62.5 mcg-vilant 25 mcg inhalat.powder (Trelegy Ellipta) 1 ea inhalation BID copd 08/11/24 dexamethasone 6 mg tablet 6 mg PO DAILY #6 tabs 08/14/24 levofloxacin 750 mg tablet 750 mg PO DAILY #5 tabs 08/14/24 Hospital Course Operations None Procedures None Summary of Care Provided Minutes Spent on Discharge: 55 Hospital Course: MARIELA LARIOS, is a 84 F with a PMH as outlined including COPD on 2L of oxygen chronically at home who presents with a complaint of worsening shortness of breath and increased sputum production. She was diagnosed with covid 5 days prior to this admission and sent home. Daughter says she was sent home without being given any medications. However patient has been on antibiotics off and on for about 2 months due to recurrent pneumonia and COPD exacerbation. Patient continues to smoke and vape up until about a month ago because she was too weak to continue doing so. Daughter says patient had progressively been getting weaker since Sunday to the point where she could not perform her activities of daily living. She had had more incessant coughing which was productive of greenish sputum and his shortness of breath had also worsened. Daughter found her hypoxic at home today and so decided to bring her in to the ED. She denied any fever, chills, nausea, vomiting or any other symptoms. Review of systems was otherwise negative. Vitals in the ED were BP of 175/89, NE of 96, RR of 26 and temp of 98.2F. She was saturating at 100% on BIPAP. CBC shows hemoglobin of 11.1 with WBC of 9.4 and platelets of 312. INR is 1. Chemistry shows sodium of 136 with potassium of 3.7 and bicarb of 31. Creatinine is 0.74. Urinalysis was pending. CXR showed poor inspiration with some bibasilar atelectasis. She was initially started on oxygen by nasal cannula in the ED but she felt very weak and so was placed on BiPAP. She was admitted to be managed for acute hypoxic respiratory failure due to COVID with probable superimposed pneumonia as well as probable COPD exacerbation. She was started on IV Decadron and IV remdesivir. She was also started on IV Zosyn. Her breathing gradually improved and she felt better. She was weaned down to 2 L of oxygen. Pulmonology was consulted and recommended that patient be discharged home on a course of Levaquin. She felt much better on 08/14/2024 and felt well enough to be discharged home. She did have walking pulse ox which showed that she required 3 L of oxygen. She usually wore 2 L of oxygen at home. She was discharged with a prescription for p.o. Decadron 6 mg daily to complete a 10-day course. She was also given a prescription for 5-day course of p.o. levofloxacin 750 mg daily. She was counseled to quit vaping and smoking. She was discharged home on 08/14/2024. She is follow-up with her primary care doctor within 1 to 2 weeks. Patient seen and examined prior to discharge. He had no active complaints and had an uneventful night. Review of systems otherwise negative. Labs and vitals reviewed. Home medication reviewed and reconciled. Physical Exam Const alert and oriented x3 Constitutional Narrative: feels much better today General Appearance: cooperative and comfortable HEENT normocephalic, head/scalp atraumatic, hearing grossly normal bilaterally, moist oral mucous membranes and oropharynx normal Mouth: oral and palatal mucosa normal Eyes PERRL and EOMs intact bilaterally Neck no lymphadenopathy and supple Lymph Lymphatic: no lymphadenopathy noted Resp Resp Narrative: mildly diminished breath sounds bibasally, moderate wheezing, minimal crackles. Remains on 2L of oxygen Cardio regular rate, regular rhythm, S1 normal heart sound, S2 normal heart sound and no murmurs GI normal to inspection, nondistended, normoactive bowel sounds, soft to palpation, non-tender and non-distended Extremity normal to inspection, full ROM, normal capillary refill and no clubbing, cyanosis or edema General Extremity: no tenderness to palpation of joints or extremities Skin General Skin Exam: no breakdown Neuro oriented x3, CN's II-XII intact bilaterally, moves all extremities and no focal motor deficits Sensorium / Orientation: awake and alert Motor Exam: strength 5/5 throughout Psych thought process normal, cooperative and affect normal Appearance: appropriate Weight / BMI Weight Weight: 125 lb 7.088 oz Body Mass Index (BMI) 24.5 ABG / Lab / Microbiology Data 08/14/24 05:12 08/14/24 05:12 Laboratory: Laboratory Results - last 24 hr 08/13/24 11:58: POC Glucose 186 H 08/13/24 16:29: POC Glucose 285 H 08/13/24 22:02: POC Glucose 191 H 08/14/24 05:12: WBC 8.4, RBC 4.13 L, Hgb 11.5 L, Hct 36.3 L, MCV 87.9, MCH 27.8, MCHC 31.7 L, RDW Std Deviation 44.4 H, RDW Coeff of Katia 13.8, Plt Count 382, MPV 9.3, Immature Gran % (Auto) 0.600, Neut % (Auto) 76.5 H, Lymph % (Auto) 12.3 L, [place] % (Auto) 10.2 H, Eos % (Auto) 0.2, Baso % (Auto) 0.2, Absolute Neuts (auto) 6.4, Absolute Lymphs (auto) 1.03, Nucleated RBC % 0, Sodium 138, Potassium 3.2 L , Chloride 95 L, Carbon Dioxide 35.0 H, Anion Gap 8, BUN 25 H, Creatinine 1.05 H , Estim Creat Clear Calc 30.96, Est GFR (MDRD) Af Amer 64, Est GFR (MDRD) Non-Af 53 L, BUN/Creatinine Ratio 23.8 H, Glucose 152 H, Calcium 9.5 08/14/24 05:44: POC Glucose 155 H Microbiology: Microbiology 08/11/24 11:16 Blood Culture (Wb) - Left Forearm Blood Culture - Preliminary No growth in 48 hours. 08/11/24 12:20 Urine, Random Urine Culture - Final Culture exhibits no growth. 08/12/24 21:00 Urine, Clean Catch Streptococcus pneumoniae Antigen (M - Final 08/12/24 21:00 Urine, Clean Catch Legionella Antigen - Final 08/12/24 09:20 Nasal Secretion MRSA (PCR) - Final 08/11/24 16:08 Mucosa - Nasopharyngeal Respiratory Panel (PCR) - Final D/C Instructions Discharge Diet: Low fat / Low cholesterol Discharge Activity: Return to Normal Activity Weight Bearing Status: Weight bearing as tolerated Call your doctor if you observe: Fever of 101 or Higher, Shortness of breath, Dizziness, Swelling in the ankles and Chest pain Meaningful Use Info Meaningful Use Meaningful Use Diagnoses (Choose all that apply): None applicable Ischemic Stroke Statin Dosing Therapy Reference: STATIN DOSE THERAPY REFERENCE: * Patients > 75 years receive moderate or high dose statin therapy. * Patients 75 years or YOUNGER should receive HIGH intensity statin dose unless contraindicated. You will be required to document reason for non-treatment if statin daily dose does not meet guidelines. HIGH DOSE STATIN THERAPY DAILY Atorvastatin > than or = to 40 mg Rosuvastatin > than or = to 20 mg Amlodipine + Atorvastatin > than or = to 2.5/40 mg Ezetimibe + Simvastatin 10/80 mg Simvastatin 80mg Discharge Plan Admission Admit Date/Time: 08/11/24 12:40 Primary Reason for Your Visit: COVID, acute on chronic hypoxic respiratory failure Attending Provider: Kinsey Palumbo Primary Care Provider: Ciro Duran Instructions Patient Instructions: Coronavirus Disease 2019 (COVID-19): Overview, COPD Controlled Breathing Dc, COPD Meds, ED Pneumonia (Adult) Discharge Orders/Prescriptions Prescriptions: New dexamethasone 6 mg tablet 6 mg PO DAILY Qty: 6 0RF levofloxacin 750 mg tablet 750 mg PO DAILY Qty: 5 0RF Continued ipratropium-albuterol 0.5 mg-3 mg(2.5 mg base)/3 mL solution for nebulization 1.5 ml continuous nebulization DAILY PRN (Reason: shortness of breath or wheezing) Qty: 180 3RF albuterol sulfate [ProAir HFA] 90 mcg/actuation HFA aerosol inhaler 1 - 2 puff inhalation Q6H PRN PRN (Reason: Sob &/Or Wheezing) Qty: 8.5 3RF lisinopril 10 mg tablet 10 mg PO QDAY montelukast 10 mg tablet 10 mg PO QDAY omeprazole 40 mg capsule,delayed release(DR/EC) 40 mg PO QDAY mirtazapine 15 mg tablet 15 mg PO QHS levothyroxine 137 mcg capsule 137 mcg PO DAILY Rx Instructions: take 4 tablets by mouth once weekly metformin 500 MG tablet 500 mg PO BID Rx Instructions: 1000 in am and 500 pm simvastatin 40 MG tablet 40 mg PO QHS aspirin 81 mg Tablet,Chewable 81 mg PO DAILYCM 30 Days Qty: 30 0RF albuterol sulfate 2.5 mg /3 mL (0.083 %) solution for nebulization 2.5 mg inhalation Q4H PRN Qty: 25 0RF Rx Instructions: Use q4 hours and PRN for wheezing Trelegy Ellipta 200-62.5-25 mcg blister with device 1 ea INHALATION BID Referrals / Follow Up: Cm Jorge DO [Med Staff - Active Staff] - 09/22/24 2:45 pm PodlogarSteffanie NP, DESKTOP ENGINEER-C [Non-Staff] - 08/25/24 2:40 pm Disposition Disposition (needs filled in before D/C Order can be placed): Home, Self Care Charges/Coding Visit Charges Inpatient E&M: 93337 Disch Hosp >30min
--- NOTE | 2024-08-14 11:25 | CASEMGMT ---
Addendum entered by Uzma Cardoza 08/14/24 12:15: Per Steffanie, pt concerned they will not be able to mushroom picker medications from [facility] before they close and she is agreeable to getting them from [facility] retail pharmacy. Call placed to the pharmacy to have Rx's transferred. Original Note: FAUSTO LALA NOTE: Discharge order is in. Home O2 amb testing has been completed. Pt requiring 2 L/M @ rest, per her baseline, but now needs 3 L/M w/exertion. Updated script obtained from Dr Palumbo and faxed to [facility] [place], along w/home O2 testing results. FAUSTO LALA spoke w/pt. She states feels ready to discharge and has no concerns w/discharging home alone. Her daughter will take her home and she states she can bring in her portable O2 to go home on. Pt made aware she is now needing 3 L/M w/exertion and that [facility] [place] has been notified. Pt denies need for HHC. Per palliative screening, pt meets criteria for palliative referral. Discussed Palliative w/pt and questions answered. She is agreeable to referral. Dr Palumbo made aware and order placed. Referral sent to [facility] via e-mail. Pt denies having other discharge needs/concerns and states is thankful to be going home. RNSteffanie, provided w/Palliative info sheet and states she will give to pt. 2 Rx's have been e-scribed to [facility] pharmacy and Steffanie states she will notify pt of this as well. Norberto ANTOINE RN, CM
[2024-08-14 12:12] LABS: Bedside Glucose 157 mg/dL (74-106)
== END 2024-08-14 17:08 | disposition home or self-care (01) | DRG 177 ==
LOC: ED 11:15 → PCU 13:20
PROVIDERS: Admitting Provider Student in an Organized Health Care Education/Training Program; Emergency Provider Emergency Medicine; PCP Family Medicine; Visit Provider Student in an Organized Health Care Education/Training Program
DX: U07.1 COVID-19 (principal); J96.21 Acute and chronic respiratory failure with hypoxia; J12.82 Pneumonia due to coronavirus disease 2019; J44.1 Chronic obstructive pulmonary disease with (acute) exacerbation; J44.0 Chronic obstructive pulmonary disease with (acute) lower respiratory infection; E11.9 Type 2 diabetes mellitus without complications; I10 Essential (primary) hypertension; E03.9 Hypothyroidism, unspecified; E78.5 Hyperlipidemia, unspecified; Z99.81 Dependence on supplemental oxygen; Z66 Do not resuscitate; Z79.51 Long term (current) use of inhaled steroids; Z79.82 Long term (current) use of aspirin; Z79.84 Long term (current) use of oral hypoglycemic drugs; Z79.899 Other long term (current) drug therapy; Z79.890 Hormone replacement therapy; Z87.891 Personal history of nicotine dependence
CPT/HCPCS: 36415; 71045; 71046; 71250; 80048; 80053; 81001; 82962; 83605; 84075; 84484; 85025; 85610; 85730; 87040; 87086; 87449; 87631; 87633; 87641; 93005; 94002; 94003; 94640; 94668; 94762; 97166; 99283; 99285; J7030; J7040; J7050; A4216; J0248; J1940

== ENCOUNTER 2024-11-18 12:18 | Inpatient (IN) | payer MEDICARE, SELFPAY ==
[2024-11-18] VITALS (13 sets, daily range): BP systolic 121–155; BP diastolic 67–80; PULSE 70–103; RESP 14–28; TEMP 36.3–36.4; O2SAT 91–98; BMI 23.9; BMI 24.4
[2024-11-18 13:20] LABS: Absolute Lymphocyte Count 1.14 X10^3/uL (0.83-4.51); Absolute Neutrophil Count 10.2 X10^3/uL (2.0-7.7); Basophil# 0.06 X10^3/uL; Basophil% 0.5 % (0-1); Eosinophil# 0.06 X10^3/uL; Eosinophils% 0.5 % (0-5); Hematocrit 38.2 % (37-47); Hemoglobin 12.4 g/dL (12.0-15.0); Lymphocyte # 1.14 X10^3/ul (0.83-4.51); Mean Corp Hgb Conc 32.5 g/dL (32-36); Mean Corpuscular Hgb 27.8 pg (27.0-32.0); Mean Corpuscular Volume 85.7 fL (81-99); Mean Platelet Vol. 8.8 fl (6.2-12.0); Monocyte# 1.16 X10^3/uL; Monocyte% 9.2 % (0-10); NRBC Flagged by Analyzer 0 % (0-5); Neutrophil # 10.17 X10^3/uL (2.7-7.7); Neutrophil % 80.2 % (47-70); Platelet Count 297 K/mm3 (150-450); RBC Distribution Width CV 13.9 % (11.6-14.6); RBC Distribution Width SD 42.8 fl (35.1-43.9); Red Blood Count 4.46 M/mm3 (4.2-5.4); White Blood Count 12.7 K/mm3 (4.4-11.0)
[2024-11-18 13:35] LABS: Anion Gap 10 (5-15); BUN 14 mg/dL (7-18); BUN/Creat Ratio 16.9 RATIO (10-20); Calcium,Total 9.2 mg/dL (8.5-10.1); Chloride 95 mmol/L (98-107); Creatinine, Serum 0.83 mg/dL (0.55-1.02); EST Glomerular Filtration Rate 69 mL/min (>60); Est Glom Filt Rate - Afr Amer 84 mL/min (>60); Glucose 134 mg/dL (74-106); Sodium Level 131 mmol/L (136-145)
--- NOTE | 2024-11-18 14:31 | EDS_ITS ---
HPI History of Present Illness Chief Complaint: Shortness of Breath Detail of Chief Complaint: Productive cough, increased wheezing, dyspnea on exertion Informant: patient and family Onset/Context/Timing Onset: Weeks (Approximately 1 to 1.5 weeks ago) Context: gradual Timing: Continuous and Waxes and wanes Quality: Positive for Dyspnea on exertion and Wheezing; Negative for Orthopnea or PND Current Severity: Moderate Maximum Severity: Severe Worsened by: Exertion and Coughing; Not Worsened By Lying flat Relieved by: Nothing Associated Symptoms cough, rhinorrhea, fever, subjective, chills and yellow sputum; Negative for post nasal drip, ear pain, sore throat, sweats, clear sputum, white sputum or green sputum Chest Pain: Positive for None Narrative Narrative: Patient is an 84-year-old woman with COPD on 2 L by nasal cannula normally. Daughter increased to 4 L since yesterday she was 81% and confused. She presents today because of increasing shortness of breath, productive cough, she has a subjective fever. She denies headache, double vision blurred vision loss of vision. Eyes ringers decreased hearing. Denies drainage from ear. She does endorse congestion. She denies sore throat. Cough is productive of yellowish- green sputum. There is no blood. There is no history of VTE. She denies leg pain or discoloration. She has mild swelling. Patient states she was on prednisone within the last 3 to 6 months. She was on a burst. Family member that is with her was diagnosed with COVID 7 days ago. Multiple other family numbers also have COVID. Patient denies abdominal pain, nausea, vomiting or diarrhea. Patient [place] dysuria, frequency, urgency or hematuria. PE Risk Factors: Negative for Cancer, OCP + Smoking + > 35, Prior DVT or PE, Recent immobilization, Recent surgery or Recent travel Prior similar symptoms: Yes (COPD exacerbation and COVID) Recent Illness/Hospitalization: No PFSH [facility] Medical History COPD exacerbation Pneumonia Hypoxia COVID-19 Acute respiratory failure Rheumatoid arthritis Hyperlipidemia Osteoarthritis Anemia Hypothyroidism Diabetes On home oxygen therapy Asthma COPD (chronic obstructive pulmonary disease) HTN (hypertension) Diabetes mellitus, type 2 Normocytic anemia Former tobacco use Intermittent constipation COPD (chronic obstructive pulmonary disease) Arthritis Thyroid disease Home Medications ?Medication ?Instructions ?Recorded ?Last Taken ?Type metformin 500 mg tablet 500 mg PO QPM diabetes 04/03/19 08/11/24 History simvastatin 40 mg tablet 40 mg PO QHS cholesterol 04/03/19 08/10/24 History ipratropium 0.5 mg-albuterol 3 mg 1.5 ml continuous nebulization 01/31/24 08/11/24 Rx (2.5 mg base)/3 mL nebulization DAILY PRN shortness of breath or soln wheezing #180 mL montelukast 10 mg tablet 10 mg PO DAILY 02/20/24 08/10/24 History aspirin 81 mg chewable tablet 81 mg PO DAILYCM 30 days #30 tabs 05/29/24 08/10/24 Rx levothyroxine 137 mcg capsule 548 mcg PO SA 06/11/24 08/03/24 History mirtazapine 15 mg tablet 15 mg PO QHS 06/11/24 08/10/24 History omeprazole 40 mg capsule,delayed 40 mg PO DAILY 06/11/24 08/10/24 History release albuterol sulfate 2.5 mg/3 mL 2.5 mg (3 mL) inhalation Q4H PRN 06/26/24 08/11/24 Rx (0.083 %) solution for nebulization #25 vials fluticasone fur. 200 mcg-umeclid 1 ea inhalation BID copd #60 ea 08/22/24 Unknown Rx 62.5 mcg-vilant 25 mcg inhalat.powder (Trelegy Ellipta) albuterol sulfate 90 mcg/actuation 1 - 2 inh inhalation Q6H PRN 11/18/24 Unknown History aerosol inhaler (Ventolin HFA) shortness of breath or wheezing lisinopril 20 mg tablet 20 mg PO DAILY 11/18/24 Unknown History metformin 500 mg tablet 1,000 mg PO DAILY 11/18/24 Unknown History oxycodone 5 mg tablet 2.5 mg PO Q6H PRN dyspnea 11/18/24 11/17/24 History prednisone 20 mg tablet 20 mg PO DAILY 11/18/24 Unknown History Allergy/AdvReac Type Severity Reaction Status Date / Time Sulfa (Sulfonamide Allergy Itching Verified 11/18/24 12:42 Antibiotics) bacitracin (From Neosporin AdvReac Mild Rash Verified 11/18/24 12:42 ([id number])) neomycin (From Neosporin AdvReac Mild Rash Verified 11/18/24 12:42 ([id number])) polymyxin B (From Neosporin AdvReac Mild Rash Verified 11/18/24 12:42 ([id number])) Family History Mother Hypertension Father Cancer Passed age 2828 years old, she notes suspect if was cancer but unclear exact etiology. Brother Heart disease Surgical History History of bilateral cataract extraction H/O rectal polypectomy History of surgery of uterus Hx of colonoscopy Hx of foot surgery Social History household members: none Smoking Status: Former smoker how long ago did patient quit smoking: Quit 07/22/2013, smoked 1 ppd x 50 years until quit. second hand exposure: No alcohol intake: never substance use type: does not use caffeine: Yes frequency: does not exercise ROS ROS ED Constitutional Constitutional ED: Reports chills and fever(s); Denies sweats or weight loss Eyes Eyes: Denies blurry vision or change in vision ENT ENT ED: Denies ear pain, rhinorrhea or sore throat Cardiovascular Cardiovascular: Denies chest pain, orthopnea, palpitations or paroxysmal nocturnal dyspnea Respiratory/Chest Respiratory/Chest: Reports cough, dyspnea, dyspnea on exertion and sputum; Denies orthopnea or paroxysmal nocturnal dyspnea Gastrointestinal Gastrointestinal: Denies abdominal pain, diarrhea, melena, nausea or vomiting Genitourinary Genitourinary ED: Denies dysuria, hematuria or urinary frequency Musculoskeletal Musculoskeletal: Denies arthralgias, back pain or myalgias Integumentary Denies abscess, Abrasions or rash Neurologic Neurologic: Reports weakness; Denies headache(s) or paresthesias Hematologic/Lymphatic Hematologic/Lymphatic: Denies easy bleeding or easy bruising EXAM Physical Exam Const Vital Signs: 11/18/24 12:42 11/18/24 12:52 11/18/24 12:52 Temperature 97.4 F L Temperature Source Temporal Pulse Rate 103 H Respiratory Rate 18 Respiratory Effort Respiratory Pattern Blood Pressure 121/78 H Blood Pressure Mean 92 Pulse Ox 93 93 Oxygen Delivery Method Nasal Cannula Nasal Cannula Room Air Oxygen Flow Rate (L/min) 4 11/18/24 14:24 11/18/24 14:24 11/18/24 14:41 Temperature Temperature Source Pulse Rate 88 92 Respiratory Rate 20 H 20 H Respiratory Effort Short of Breath Respiratory Pattern Tachypnea Blood Pressure Blood Pressure Mean Pulse Ox 95 Oxygen Delivery Method Nasal Cannula Nasal Cannula Oxygen Flow Rate (L/min) 4 4 11/18/24 14:42 11/18/24 16:00 11/18/24 16:00 Temperature Temperature Source Pulse Rate 93 94 Respiratory Rate 22 H 25 H Respiratory Effort Respiratory Pattern Blood Pressure 130/67 H 130/67 H Blood Pressure Mean 88 88 Pulse Ox 95 96 91 Oxygen Delivery Method Nasal Cannula Nasal Cannula Oxygen Flow Rate (L/min) 4 4 11/18/24 16:29 Temperature 97.4 F L Temperature Source Pulse Rate 98 Respiratory Rate 19 H Respiratory Effort Respiratory Pattern Blood Pressure 130/67 H Blood Pressure Mean 88 Pulse Ox 92 Oxygen Delivery Method Oxygen Flow Rate (L/min) Positive well nourished and well developed Constitutional Narrative: Patient is tachypneic and breathing much more rapidly than 20 times a minute that stuck in her by nursing staff. Matter fact there is use of accessory muscles. General Appearance ED: well developed; Negative for NAD or pallor HEENT Reports moist mucous membranes HEENT Narrative: Ears are normal. Nares are patent. Posterior pharynx is normal. atraumatic; Negative for trauma or tenderness Eyes PERRL and EOMs intact bilaterally General Eye ED: Negative for pale conjunctiva or scleral icterus Neck no lymphadenopathy, supple, no meningeal signs and no JVD Neck Narrative: Trachea is midline. There is no stridor. Resp No normal respiratory effort and No clear to auscultation bilaterally Resp Narrative: There is increased expiratory phase. There is no egophony or increased vocal fremitus. Auscultation: wheezes expiratory wheezes and throughout Cardio regular rate, regular rhythm, S1 normal heart sound, S2 normal heart sound and no murmurs GI non-tender, non-distended and no masses Auscultation: normoactive bowel sounds Palpation: soft Back/Spine no CVA tenderness Extremity Extremity Narrative: There is no discoloration, leg vein distention, palpable cords tenderness on the distribution deep venous system. General Extremety ED: Yes edema General Extremity: edema Neuro oriented x3 and CN's II-XII intact bilaterally [place] Coma Scale: document GCS findings Spontaneous Obeys Commands Oriented 15 Sensorium / Orientation: alert Skin no wounds and skin turgor normal General Skin Exam: Negative for jaundice or pallor MDM MDM MDM Narrative Medical decision making narrative: With multiple femoral risk with COVID this may be due to COVID infection. Will obtain rapid antigen for COVID, influenza and RSV. Because she has productive sputum with COPD will obtain chest x-ray to evaluate for pneumonia. Appropriate blood work was obtained to assess for endorgan dysfunction. Nurse protocol was initiated. Additional labs were added. Patient was treated with DuoNeb followed by 2 albuterol treatments and 60 mg of prednisone. Patient states she is normally able to go up and down steps in the home was not able to walk across the room. Rapid antigen for COVID, influenza and RSV are all negative. History & Record Review Additional record(s) reviewed:: Prior inpatient record (Patient was admitted May 2024 for acute on chronic respiratory failure.), Prior ED visit (Numerous visits for COPD and COVID-19 infection.) and Prior labs Lab Data Attestation: I reviewed the patient's lab results. Lab results narrative: White count is elevated. She has a slight shift. There is no bandemia. Comprehensive metabolic panel was elevated glucose 134 with a normal CO2 anion gap. Sodium slightly diminished at 131 and is approximately 7 mEq lower than it was August 2024. There is no endorgan dysfunction. Lactate is normal. Labs: Laboratory Results - last 24 hr 11/18/24 11/18/24 13:12 14:43 WBC 12.7 H 10.9 RBC 4.46 4.25 Hgb 12.4 12.0 Hct 38.2 37.0 MCV 85.7 87.1 MCH 27.8 28.2 MCHC 32.5 32.4 RDW Std Deviation 42.8 43.8 RDW Coeff of Katia 13.9 13.9 Plt Count 297 280 MPV 8.8 8.9 Immature Gran % (Auto) 0.600 0.800 Neut % (Auto) 80.2 H 80.1 H Lymph % (Auto) 9.0 L 9.3 L [place] % (Auto) 9.2 8.8 Eos % (Auto) 0.5 0.4 Baso % (Auto) 0.5 0.6 Absolute Neuts (auto) 10.2 H 8.7 H Absolute Lymphs (auto) 1.14 1.02 Nucleated RBC % 0 0 Sodium 131 L 131 L Potassium 4.0 4.0 Chloride 95 L 93 L Carbon Dioxide 26.0 34.0 H Anion Gap 10 4 L BUN 14 14 Creatinine 0.83 0.89 Estim Creat Clear Calc 36.14 Est GFR (MDRD) Af Amer 84 77 Est GFR (MDRD) Non-Af 69 64 BUN/Creatinine Ratio 16.9 15.7 Glucose 134 H 121 H Lactic Acid 1.1 Calcium 9.2 9.4 Total Bilirubin 0.80 AST 27 ALT 18 Alkaline Phosphatase 69 Total Protein 7.0 Albumin 3.2 Globulin 3.8 Albumin/Globulin Ratio 0.8 L Radiography Chest X-Ray - ED: 2 View, Unchanged (August 08, 2024), Normal, Heart, Mediastinum, Bony Structures, No Acute Disease, Chronic Changes and - (There is flattening of the diaphragms. There is chronic changes noted the right side. The film is rotated.) Management Discussion w/another healthcare provider: Hospitalist (Spoke with Dr. House. Patient be admitted [facility] floor. She was made aware of patient's history physical and reexamination.) Treatment and Re-Evaluation :: Patient was reassessed at 1616. She still is tachypneic. She has more wheezing. Her breathing is slightly labored. It is improved. Patient states she feels terrible compared to her baseline. Since patient is still wheezing with use of accessory muscles will contact hospitalist for admission. Discharge Plan Dx/Rx/DC Orders Clinical Impression: Acute exacerbation of chronic obstructive pulmonary disease, History of diabetes mellitus, Essential hypertension, Hyperlipidemia, Acute bronchospasm, Bronchitis, Chronic hypoxic respiratory failure Disposition Disposition: Acute Care [facility], [place]
[2024-11-18] MEDS: Albuterol 2.5 MG/3 ML VIAL.NEB. INHALATION ×3 (14:37)
[2024-11-18] MEDS: Ipratropium/Albuterol Sulfate 3 ML AMPUL.NEB INHALATION ×3 (14:37→23:25)
[2024-11-18 14:55] LABS: Absolute Lymphocyte Count 1.02 X10^3/uL (0.83-4.51); Absolute Neutrophil Count 8.7 X10^3/uL (2.0-7.7); Basophil# 0.07 X10^3/uL; Basophil% 0.6 % (0-1); Eosinophil# 0.04 X10^3/uL; Eosinophils% 0.4 % (0-5); Lymphocyte # 1.02 X10^3/ul (0.83-4.51); Lymphocyte % 9.3 % (19-41); Mean Corp Hgb Conc 32.4 g/dL (32-36); Mean Corpuscular Hgb 28.2 pg (27.0-32.0); Mean Corpuscular Volume 87.1 fL (81-99); Mean Platelet Vol. 8.9 fl (6.2-12.0); Monocyte# 0.96 X10^3/uL; Monocyte% 8.8 % (0-10); NRBC Flagged by Analyzer 0 % (0-5); Neutrophil # 8.73 X10^3/uL (2.7-7.7); Neutrophil % 80.1 % (47-70); Platelet Count 280 K/mm3 (150-450); RBC Distribution Width CV 13.9 % (11.6-14.6); RBC Distribution Width SD 43.8 fl (35.1-43.9); Red Blood Count 4.25 M/mm3 (4.2-5.4); White Blood Count 10.9 K/mm3 (4.4-11.0)
[2024-11-18 15:11] LABS: ALB/GLOB Ratio 0.8 RATIO (0.9-2.4); AST(SGOT) 27 U/L (15-37); Alanine Aminotransfer ALT/SGPT 18 U/L (13-56); Albumin, Serum 3.2 g/dL (3.2-5.0); Alkaline Phosphatase 69 U/L (45-117); Anion Gap 4 (5-15); BUN 14 mg/dL (7-18); BUN/Creat Ratio 15.7 RATIO (10-20); Calcium,Total 9.4 mg/dL (8.5-10.1); Chloride 93 mmol/L (98-107); Creatinine, Serum 0.89 mg/dL (0.55-1.02); EST Glomerular Filtration Rate 64 mL/min (>60); Est Glom Filt Rate - Afr Amer 77 mL/min (>60); Estimated Creatinine Clearance 36.14 ml/min; Globulin 3.8 g/dL (2.2-4.2); Glucose 121 mg/dL (74-106); Sodium Level 131 mmol/L (136-145)
[2024-11-18 15:17] LABS: Lactic Acid 1.1 mmol/L (0.4-1.9)
--- NOTE | 2024-11-18 15:24 | RAD_ITS ---
EXAM: XR CHEST, 2 VIEWS CLINICAL INDICATION: Wheezing, productive cough acute on chronic hypoxi TECHNIQUE: Frontal and lateral views of the chest. COMPARISON: August 11, 2024 FINDINGS: LUNGS AND PLEURAL SPACES: Emphysema is suggested. Bibasilar subsegmental atelectasis and/or pleural parenchymal scarring. Additional heterogeneous airspace disease at the right lung base may represent aspiration/pneumonia in the appropriate clinical setting. Chronic bronchitis. No pneumothorax. No effusion. HEART: Unremarkable. Cardiac silhouette not enlarged. MEDIASTINUM: Central airways and mediastinal contour are unremarkable. BONES/JOINTS: Diffuse osteopenia. Degenerative changes of the spine and acromioclavicular joints. No acute fracture. SOFT TISSUES: Unremarkable. VASCULATURE: Atherosclerotic calcifications of the nonenlarged thoracic aortic arch. RAD/Chest PA and Lateral IMPRESSION: Heterogeneous airspace disease at the right lung base may represent aspiration/pneumonia in the appropriate clinical setting and appears slightly different/increased from the prior study. Electronically Signed: Drake Álvarez MD at 16:36 EST ,
[2024-11-18] MEDS: predniSONE 20 MG Tablet 60 MG PO (15:28)
--- NOTE | 2024-11-18 16:35 | HP.PCM.HOS_ITS ---
HPI - General General Date of Admission: 11/18/24 Date of Service: 11/18/24 Chief Complaint: Dyspnea, wheezing, coughing. HPI Narrative The patient is an 84 y/o F w/ PMHx: CKD stage II per GFR trending, COPD/Asthma with Chronic Hypoxic Respiratory Failure, Hypothyroidism, Diabetes mellitus type II, HTN, HLD, Chronic normocytic anemia, Rheumatoid arthritis, Former tobacco use, GERD, Anxiety and Depression who presents to the [facility] ED on with history of approximately 1 to 1.5 weeks of gradually worsening dyspnea, worse with exertion with wheezing as well as productive cough with associated rhinorrhea, congestion, subjective fever and chills with sputum noted to be yellow in color normally requiring 2 L nasal cannula chronically however daughter noticed that she had been more confused checking her oxygenation which was 80% prompting her to increase it to 4 L but given worsening status prompted ED evaluation to be cautious. Patient and family do note that a recent family member was diagnosed with COVID approximately 7 days prior and multiple other family numbers have COVID as well. Patient is following with Hospice for symptom control. Workup in the ED included T97.4 Temporally, heart rate 103, BP 121/78, respiratory rate 18, 93% on 4 L nasal cannula with most recent usage noted previous to this 3 L on 08/22/2024, CBC with WC 10.9, hemoglobin 12, MCV 87.1, platelet 280 with left shift, CMP with sodium 131, potassium 4.0, chloride 93, carbon oxide 34, BUN/creatinine 14/0.89, GFR 64, glucose 121, lactic acid 1.1, hepatic profile unremarkable, rapid SARS COVID/influenza/RSV PCR negative, chest x-ray with chronic changes with no acute cardiopulmonary findings. In the ED patient ministered prednisone 60 mg p.o. x 1, DuoNeb therapy and doxycycline 100 mg p.o. x 1. [facility] Medical History COPD exacerbation Pneumonia Hypoxia COVID-19 Acute respiratory failure Rheumatoid arthritis Hyperlipidemia Osteoarthritis Anemia Hypothyroidism Diabetes On home oxygen therapy Asthma COPD (chronic obstructive pulmonary disease) HTN (hypertension) Diabetes mellitus, type 2 Normocytic anemia Former tobacco use Intermittent constipation COPD (chronic obstructive pulmonary disease) Arthritis Thyroid disease Home Medications ?Medication ?Instructions ?Recorded ?Last Taken ?Type metformin 500 mg tablet 500 mg PO QPM diabetes 04/03/19 08/11/24 History simvastatin 40 mg tablet 40 mg PO QHS cholesterol 04/03/19 08/10/24 History ipratropium 0.5 mg-albuterol 3 mg 1.5 ml continuous nebulization 01/31/24 08/11/24 Rx (2.5 mg base)/3 mL nebulization DAILY PRN shortness of breath or soln wheezing #180 mL montelukast 10 mg tablet 10 mg PO DAILY 02/20/24 08/10/24 History aspirin 81 mg chewable tablet 81 mg PO DAILYCM 30 days #30 tabs 05/29/24 08/10/24 Rx levothyroxine 137 mcg capsule 548 mcg PO SA 06/11/24 08/03/24 History mirtazapine 15 mg tablet 15 mg PO QHS 06/11/24 08/10/24 History omeprazole 40 mg capsule,delayed 40 mg PO DAILY 06/11/24 08/10/24 History release albuterol sulfate 2.5 mg/3 mL 2.5 mg (3 mL) inhalation Q4H PRN 06/26/24 08/11/24 Rx (0.083 %) solution for nebulization #25 vials fluticasone fur. 200 mcg-umeclid 1 ea inhalation BID copd #60 ea 08/22/24 Unknown Rx 62.5 mcg-vilant 25 mcg inhalat.powder (Trelegy Ellipta) albuterol sulfate 90 mcg/actuation 1 - 2 inh inhalation Q6H PRN 11/18/24 Unknown History aerosol inhaler (Ventolin HFA) shortness of breath or wheezing lisinopril 20 mg tablet 20 mg PO DAILY 11/18/24 Unknown History metformin 500 mg tablet 1,000 mg PO DAILY 11/18/24 Unknown History oxycodone 5 mg tablet 2.5 mg PO Q6H PRN dyspnea 11/18/24 11/17/24 History prednisone 20 mg tablet 20 mg PO DAILY 11/18/24 Unknown History Allergy/AdvReac Type Severity Reaction Status Date / Time Sulfa (Sulfonamide Allergy Itching Verified 11/18/24 12:42 Antibiotics) bacitracin (From Neosporin AdvReac Mild Rash Verified 11/18/24 12:42 ([id number])) neomycin (From Neosporin AdvReac Mild Rash Verified 11/18/24 12:42 ([id number])) polymyxin B (From Neosporin AdvReac Mild Rash Verified 11/18/24 12:42 ([id number])) Family History Mother Hypertension Father Cancer Passed age 2828 years old, she notes suspect if was cancer but unclear exact etiology. Brother Heart disease Surgical History History of bilateral cataract extraction H/O rectal polypectomy History of surgery of uterus Hx of colonoscopy Hx of foot surgery Social History household members: none Smoking Status: Former smoker how long ago did patient quit smoking: Quit 07/22/2013, smoked 1 ppd x 50 years until quit. second hand exposure: No alcohol intake: never substance use type: does not use caffeine: Yes frequency: does not exercise ROS ROS Narrative Admission Review of Systems: CONSTITUTIONAL: No weight loss, + subjective fever, chills, weakness or fatigue. HEENT: + congestion, rhinorrhea. Eyes: No visual loss, blurred vision, double vision or yellow sclerae. Ears, Nose, Throat: No hearing loss, sneezing, sore throat. SKIN: No rash or itching, lesions, wounds. CARDIOVASCULAR: + Mild BL LE edema. No chest pain, chest pressure or chest discomfort, palpitations, orthopnea, syncopal events. RESPIRATORY: + Shortness of breath, cough with occasional productive sputum, wheezing. No hemoptysis. GASTROINTESTINAL: No anorexia, nausea, vomiting or diarrhea, abdominal pain, melena, BRBPR. GENITOURINARY: No dysuria, frequency, urgency or retention. NEUROLOGICAL: No dizziness, syncope, paralysis, ataxia, numbness or tingling in the extremities, focal weakness, change in bowel or bladder control, seizure. MUSCULOSKELETAL:+ muscle, back pain, joint pain or stiffness. HEMATOLOGIC:+ anemia, easy bleeding/bruising. LYMPHATICS: No enlarged nodes. No history of splenectomy. PSYCHIATRIC: + History of anxiety and depression. ENDOCRINOLOGIC: No reports of sweating, cold or heat intolerance. No polyuria or polydipsia. ALLERGIES: + history of alergic rhinitis. Vital Signs Vital Signs Vital Signs: 11/18/24 12:42 11/18/24 12:52 11/18/24 12:52 Temperature 97.4 F L Temperature Source Temporal Pulse Rate 103 H Respiratory Rate 18 Respiratory Effort Respiratory Pattern Blood Pressure 121/78 H Blood Pressure Mean 92 Pulse Ox 93 93 Oxygen Delivery Method Nasal Cannula Nasal Cannula Room Air Oxygen Flow Rate (L/min) 4 11/18/24 14:24 11/18/24 14:24 11/18/24 14:41 Temperature Temperature Source Pulse Rate 88 92 Respiratory Rate 20 H 20 H Respiratory Effort Short of Breath Respiratory Pattern Tachypnea Blood Pressure Blood Pressure Mean Pulse Ox 95 Oxygen Delivery Method Nasal Cannula Nasal Cannula Oxygen Flow Rate (L/min) 4 4 11/18/24 14:42 11/18/24 16:00 11/18/24 16:00 Temperature Temperature Source Pulse Rate 93 94 Respiratory Rate 22 H 25 H Respiratory Effort Respiratory Pattern Blood Pressure 130/67 H 130/67 H Blood Pressure Mean 88 88 Pulse Ox 95 96 91 Oxygen Delivery Method Nasal Cannula Nasal Cannula Oxygen Flow Rate (L/min) 4 4 11/18/24 16:29 Temperature 97.4 F L Temperature Source Pulse Rate 98 Respiratory Rate 19 H Respiratory Effort Respiratory Pattern Blood Pressure 130/67 H Blood Pressure Mean 88 Pulse Ox 92 Oxygen Delivery Method Oxygen Flow Rate (L/min) Weight Weight: 122 lb 9.232 oz Body Mass Index (BMI) 23.9 Physical Exam Narrative Physical Examination: General: Awake, alert, oriented x 3 and cooperative, seated upright in the ED bed, fatigued, mildly increased respiratory rate and expiratory wheezing, some accessory muscle usage noted. Skin: Normal color, normal turgor, no icterus, no cyanosis except occasional staged ecchymoses, abrasion. HEENT: AT/NC, EOMI, PERRLA, mildly dry MM, no carotid bruits or JVD noted. Lungs: Significantly diminished, diffuse expiratory wheezing, mildly increased respiratory rate and some accessory muscle usage however overt respiratory distress, no rales or rhonchi. Heart: Mildly tachycardic with regular rhythm; no gallop, rub audible. Abdomen: Soft, NTTP, ND, normal BS, no appreciated HSM. Extremities: No cyanosis, no clubbing, mild distal ankle not markedly pitting edema. Neurological: Patient awake, alert, oriented as noted cognitive function intact; pupils equally reactive to light and accommodation, cranial nerves gross normal, moving all 4 extremities, no focal deficits, strength severely globally decreased secondary to acute presentation. Psychiatric: Affect appears fatigued, no acute evidence of depressive or anxiety feelings but does have underlying history. Results Lab / Micro Data 11/18/24 14:43 11/18/24 14:43 Labs: Laboratory Results - last 24 hr 11/18/24 13:12: WBC 12.7 H, RBC 4.46, Hgb 12.4, Hct 38.2, MCV 85.7, MCH 27.8, MCHC 32.5, RDW Std Deviation 42.8, RDW Coeff of Katia 13.9, Plt Count 297, MPV 8.8, Immature Gran % (Auto) 0.600, Neut % (Auto) 80.2 H, Lymph % (Auto) 9.0 L, [place] % (Auto) 9.2, Eos % (Auto) 0.5, Baso % (Auto) 0.5, Absolute Neuts (auto) 10.2 H, Absolute Lymphs (auto) 1.14, Nucleated RBC % 0, Sodium 131 L, Potassium 4.0, Chloride 95 L, Carbon Dioxide 26.0, Anion Gap 10, BUN 14, Creatinine 0.83, Est GFR (MDRD) Af Amer 84, Est GFR (MDRD) Non-Af 69, BUN/Creatinine Ratio 16.9, Glucose 134 H, Calcium 9.2 11/18/24 14:43: WBC 10.9, RBC 4.25, Hgb 12.0, Hct 37.0, MCV 87.1, MCH 28.2, MCHC 32.4, RDW Std Deviation 43.8, RDW Coeff of Katia 13.9, Plt Count 280, MPV 8.9, Immature Gran % (Auto) 0.800, Neut % (Auto) 80.1 H, Lymph % (Auto) 9.3 L, Bradley % (Auto) 8.8, Eos % (Auto) 0.4, Baso % (Auto) 0.6, Absolute Neuts (auto) 8.7 H, Absolute Lymphs (auto) 1.02, Nucleated RBC % 0, Sodium 131 L, Potassium 4.0, C hloride 93 L, Carbon Dioxide 34.0 H, Anion Gap 4 L, BUN 14, Creatinine 0.89, Estim Creat Clear Calc 36.14, Est GFR (MDRD) Af Amer 77, Est GFR (MDRD) Non-Af 64, BUN/Creatinine Ratio 15.7, Glucose 121 H, Lactic Acid 1.1, Calcium 9.4, Total Bilirubin 0.80, AST 27, ALT 18, Alkaline Phosphatase 69, Total Protein 7.0, Albumin 3.2, Globulin 3.8, Albumin/Globulin Ratio 0.8 L Micro: Microbiology 11/18/24 15:25 Mucosa - Nose SARS-CoV-2, Influenza & RSV (PCR) - Final Assessment & Plan Assessment/Plan (1) Acute exacerbation of chronic obstructive pulmonary disease: PLAN: Plan The patient is an 84 y/o F w/ PMHx: CKD stage II per GFR trending, COPD/Asthma with Chronic Hypoxic Respiratory Failure, Hypothyroidism, Diabetes mellitus type II, HTN, HLD, Chronic normocytic anemia, Rheumatoid arthritis, Former tobacco use, GERD, Anxiety and Depression who presents to the [facility] ED on with history of approximately 1 to 1.5 weeks of gradually worsening dyspnea, worse with exertion with wheezing as well as productive cough with associated rhinorrhea, congestion, subjective fever and chills with sputum noted to be yellow in color normally requiring 2 L nasal cannula chronically however daughter noticed that she had been more confused checking her oxygenation which was 80% prompting her to increase it to 4 L. #1. Acute on Chronic COPD/asthma exacerbation w/ Acute on chronic hypoxic respiratory failure with recent significant exposure to COVID: ED evaluation with negative COVID PCR testing despite recent history of ill contacts and certainly by this point would have expected a positive test given the timeline. Will admit to medical surgical floor, maintain on oxygen with wean as tolerated to home oxygen supplementation, continue ATC duonebs, PRN albuterol, IV methylprednisolone, HOB, IS parameters, will obtain sputum Cx, respiratory viral panel, procalcitonin, patient was administered oral doxycycline in the ED and patient does have a left shift with recent subjective fevers and markedly productive sputum thus based on history given Pseudomonas previously noted will place on Levaquin but may alter pending sensitivities and speciation. Patient and daughter notes she does well and improves quickly with BIPAP usage also thus will start upon transition. PT/OT/case management consulted for discharge planning. #2. Chronic Kidney Disease Stage II per GFR trending: Admission BUN/Cr 14/0.9, GFR 64, baseline renal function primarily 0.5-0.8, repeat BMP in AM. #3. Chronic normocytic anemia: Admission hemoglobin 12.0, MCV 87.1, baseline hemoglobin more recently 12 however in the past has been 10-11 range, continue to trend. #4. Allergic rhinitis: Associated with patient underlying asthma/COPD as noted, will continue patient on montelukast regimen. #5. Rheumatoid arthritis: Per current list is on daily chronic low-dose prednisone therapy, temporally holding given usage of IV Solu-Medrol, resume once appropriate. #6. Hypertension: Continue home regimen including lisinopril, PRN hydralazine. #7. Hyperlipidemia: We will continue patient on statin therapy. #8. Anxiety and depression: Will continue patient home mirtazapine regimen. #9. GERD: We will continue patient home omeprazole regimen. #10. Hypothyroidism: We will continue patient home levothyroxine regimen. #11. Diabetes mellitus type II: Hold oral home regimen, ADA diet, accu checks w/ ISS. #12. DVT prophylaxis: Lovenox. #13. CODE status: Patient HUBERT is her daughter who is present and living will is currently in place. Discussed CODE status at length including difference between FULL code, DNR-CCA and DNR-CC status. Following discussions about the differences in these status, requested DNR-CCA, no intubation. Patient is following with hospice program for symptom control and actually was recently placed on narcotics for dyspnea. Advanced Care Planning Face to Face Time: 16 minutes. Charges/Coding Visit Charges Inpatient E&M: 16288 Init Hosp L3 Procedures Hospitalists Procedures: 92446 Advncd Care Plan 30 Min
[2024-11-18] MEDS: Doxycycline 100 MG CAPSULE PO (16:45)
[2024-11-18] MEDS: 0.9% Normal Saline (1000mL) 1,000 ML 100 ML IV (18:32)
[2024-11-18] MEDS: levoFLOXacin 750 MG Tablet PO (20:45)
[2024-11-18] MEDS: oxyCODONE 5 MG Tablet 2.5 MG PO (23:13)
[2024-11-18] MEDS: Mirtazapine 15 MG Tablet PO (23:14)
[2024-11-18] MEDS: Atorvastatin Calcium 20 MG Tablet PO (23:14)
[2024-11-18] MEDS: 0.9% Saline Lock 10 ML Syringe IV (23:15)
[2024-11-18] MEDS: Insulin Lispro 100 UNIT/ML INSULN.PEN SC (23:37)
[2024-11-19] VITALS (13 sets, daily range): BP systolic 132–148; BP diastolic 82–90; PULSE 78–119; RESP 14–28; TEMP 35.7–36.6; O2SAT 94–100; BMI 24.5
[2024-11-19 00:17] LABS: Bedside Glucose 254 mg/dL (74-106)
[2024-11-19] MEDS: Ipratropium/Albuterol Sulfate 3 ML AMPUL.NEB INHALATION ×5 (03:35→19:16)
[2024-11-19 04:43] LABS: Absolute Lymphocyte Count 0.36 X10^3/uL (0.83-4.51); Absolute Neutrophil Count 7.5 X10^3/uL (2.0-7.7); Basophil# 0.02 X10^3/uL; Basophil% 0.2 % (0-1); Hemoglobin 11.5 g/dL (12.0-15.0); Lymphocyte # 0.36 X10^3/ul (0.83-4.51); Lymphocyte % 4.5 % (19-41); Mean Corp Hgb Conc 32.9 g/dL (32-36); Mean Corpuscular Hgb 28.1 pg (27.0-32.0); Mean Corpuscular Volume 85.6 fL (81-99); Mean Platelet Vol. 9.2 fl (6.2-12.0); Monocyte# 0.08 X10^3/uL; NRBC Flagged by Analyzer 0 % (0-5); Neutrophil % 93.4 % (47-70); POSITIVE DIFFERENTIAL YES; Platelet Count 281 K/mm3 (150-450); RBC Distribution Width CV 13.8 % (11.6-14.6); RBC Distribution Width SD 43.1 fl (35.1-43.9); Red Blood Count 4.09 M/mm3 (4.2-5.4)
[2024-11-19 05:06] LABS: ALB/GLOB Ratio 0.8 RATIO (0.9-2.4); AST(SGOT) 22 U/L (15-37); Alanine Aminotransfer ALT/SGPT 17 U/L (13-56); Albumin, Serum 2.9 g/dL (3.2-5.0); Alkaline Phosphatase 67 U/L (45-117); Anion Gap 6 (5-15); BUN 13 mg/dL (7-18); Chloride 96 mmol/L (98-107); Creatinine, Serum 0.72 mg/dL (0.55-1.02); EST Glomerular Filtration Rate 82 mL/min (>60); Est Glom Filt Rate - Afr Amer 99 mL/min (>60); Estimated Creatinine Clearance 40.63 ml/min; Globulin 3.8 g/dL (2.2-4.2); Glucose 176 mg/dL (74-106); Potassium 3.9 mmol/L (3.5-5.1); Protein, Total 6.7 g/dL (6.4-8.2); Sodium Level 132 mmol/L (136-145)
[2024-11-19] MEDS: 0.9% Saline Lock 10 ML Syringe IV (05:25)
[2024-11-19] MEDS: oxyCODONE 5 MG Tablet 2.5 MG PO ×2 (06:22→12:28)
[2024-11-19] MEDS: guaiFENesin 10 ML UDC (200MG/10ML) 20 ML PO (06:22)
[2024-11-19] MEDS: Senna/Docusate Sodium 1 Tablet 2 TABLET PO (06:23)
[2024-11-19] MEDS: Insulin Lispro 100 UNIT/ML INSULN.PEN SC ×4 (06:28→21:27)
[2024-11-19 06:49] LABS: Bedside Glucose 186 mg/dL (74-106)
--- NOTE | 2024-11-19 07:56 | PCM.PN.HOSP ---
Reason for Visit Reason for Visit: Diagnoses Chronic obstructive pulmonary disease with (acute) exacerbation (11/18/24) Subjective Subjective Patient is an 84-year-old lady who presented with progressive shortness of breath diagnosed with acute asthma/COPD exacerbation admitted to a monitored bed for subsequent management Objective Data Objective Data Vital Signs: Vital Signs Temp Pulse Resp BP Pulse Ox O2 Del Method O2 Flow Rate 97.9 F 80 18 141/82 H 96 Nasal Cannula 5 11/19/24 04:40 11/19/24 05:20 11/19/24 05:20 11/19/24 04:40 11/19/24 07:55 11/19/24 07:55 11/19/24 07:55 FiO2 40 11/19/24 05:20 Oxygen Flow Rate (L/min) 5 Oxygen Delivery Method Nasal Cannula Weight: 56.9 kg Body Mass Index (BMI) 24.5 Intake & Output: Intake and Output for Last 24 Hours 11/17/24 11/18/24 11/19/24 23:59 23:59 23:59 Intake Total 1000 / 1000 Balance 1000 / 1000 Lab / Micro Data 11/19/24 04:09 11/19/24 04:09 Labs: Laboratory Results - last 24 hr 11/18/24 13:12: WBC 12.7 H, RBC 4.46, Hgb 12.4, Hct 38.2, MCV 85.7, MCH 27.8, MCHC 32.5, RDW Std Deviation 42.8, RDW Coeff of Katia 13.9, Plt Count 297, MPV 8.8, Immature Gran % (Auto) 0.600, Neut % (Auto) 80.2 H, Lymph % (Auto) 9.0 L, [place] % (Auto) 9.2, Eos % (Auto) 0.5, Baso % (Auto) 0.5, Absolute Neuts (auto) 10.2 H, Absolute Lymphs (auto) 1.14, Nucleated RBC % 0, Sodium 131 L, Potassium 4.0, Chloride 95 L, Carbon Dioxide 26.0, Anion Gap 10, BUN 14, Creatinine 0.83, Est GFR (MDRD) Af Amer 84, Est GFR (MDRD) Non-Af 69, BUN/Creatinine Ratio 16.9, Glucose 134 H, Calcium 9.2 11/18/24 14:43: WBC 10.9, RBC 4.25, Hgb 12.0, Hct 37.0, MCV 87.1, MCH 28.2, MCHC 32.4, RDW Std Deviation 43.8, RDW Coeff of Katia 13.9, Plt Count 280, MPV 8.9, Immature Gran % (Auto) 0.800, Neut % (Auto) 80.1 H, Lymph % (Auto) 9.3 L, [place] % (Auto) 8.8, Eos % (Auto) 0.4, Baso % (Auto) 0.6, Absolute Neuts (auto) 8.7 H, Absolute Lymphs (auto) 1.02, Nucleated RBC % 0, Sodium 131 L, Potassium 4.0, Chloride 93 L, Carbon Dioxide 34.0 H, Anion Gap 4 L, BUN 14, Creatinine 0.89, Estim Creat Clear Calc 36.14, Est GFR (MDRD) Af Amer 77, Est GFR (MDRD) Non-Af 64, BUN/Creatinine Ratio 15.7, Glucose 121 H, Lactic Acid 1.1, Calcium 9.4, Total Bilirubin 0.80, AST 27, ALT 18, Alkaline Phosphatase 69, Total Protein 7.0, Albumin 3.2, Globulin 3.8, Albumin/Globulin Ratio 0.8 L 11/18/24 17:35: Procalcitonin 0.20 H 11/18/24 23:22: POC Glucose 254 H 11/19/24 04:09: WBC 8.0, RBC 4.09 L, Hgb 11.5 L, Hct 35.0 L, MCV 85.6, MCH 28.1, MCHC 32.9, RDW Std Deviation 43.1, RDW Coeff of Katia 13.8, Plt Count 281, MPV 9.2, Immature Gran % (Auto) 0.900, Neut % (Auto) 93.4 H, Lymph % (Auto) 4.5 L, [place] % (Auto) 1.0, Eos % (Auto) 0.0, Baso % (Auto) 0.2, Absolute Neuts (auto) 7.5, Absolute Lymphs (auto) 0.36 L, Nucleated RBC % 0, Sodium 132 L, Potassium 3.9, Chloride 96 L, Carbon Dioxide 29.0, Anion Gap 6, BUN 13, Creatinine 0.72, Estim Creat Clear Calc 40.63, Est GFR (MDRD) Af Amer 99, Est GFR (MDRD) Non-Af 82, BUN/Creatinine Ratio 18.0, Glucose 176 H, Calcium 9.0, Total Bilirubin 0.60, AST 22, ALT 17, Alkaline Phosphatase 67, Total Protein 6.7, Albumin 2.9 L, Globulin 3.8, Albumin/Globulin Ratio 0.8 L 11/19/24 06:26: POC Glucose 186 H Micro: Microbiology 11/18/24 18:13 Nasal Secretion MRSA (PCR) - Final 11/18/24 15:25 Mucosa - Nose SARS-CoV-2, Influenza & RSV (PCR) - Final Radiography Diagnostic Testing: Radiology Impression Chest X-Ray 11/18/24 15:24 IMPRESSION: Heterogeneous airspace disease at the right lung base may represent aspiration/pneumonia in the appropriate clinical setting and appears slightly different/increased from the prior study. Electronically Signed: Drake Álvarez MD at 16:36 EST , Physical Exam Narrative GENERAL: cooperative HEENT: Atraumatic; normocephalic EYES; Anicteric, Normal Conjunctiva NECK; supple, normal thyroid, RESPIRATORY: Diminished to auscultation CARDIOVASCULAR: Regular S1 S2, GI: soft, normoactive bowel sounds, : No Renal angle tenderness; EXTREMITIES: No edema, no clubbing, MUSCULOSKELETAL: no muscle wasting NEURO: Awake; no lateralizing signs. SKIN: No Rash PSYCH; Flat affect Assessment & Plan Assessment/Plan (1) Acute exacerbation of chronic obstructive pulmonary disease: PLAN: Plan Patient is an 84-year-old lady who presented with progressive shortness of breath diagnosed with acute asthma/COPD exacerbation admitted to a monitored bed for subsequent management 1. COPD with acute exacerbation ? Patient started on bronchodilator treatment, systemic steroid as well as antibiotic therapy. Patient placed on oxygen titrated to keep saturation greater than 90. 2. Acute on chronic hypoxia ? Secondary to above placed on supplemental oxygen titrated to keep saturation greater than 90 3. Anemia ? Secondary to chronic disorder monitoring H&H and transfuse if patient becomes symptomatic or hemoglobin falls below 7 4. Rheumatoid arthritis ? Patient is on prednisone 20 mg daily 5. Diabetes mellitus type II -patient's oral hypoglycemics held. Placed on long acting insulin, Accu-Cheks a.c. and at bedtime and covered with sliding scale insulin 6. Hypertension ? Blood pressure controlled, home medications continued with dose adjustment as needed 7. Hypothyroidism ? Patient is on levothyroxine home dose continued 8. Allergic rhinitis ? Patient is on montelukast did continue 9. Depression with anxiety ? Patient is on mirtazapine at night did continue 10. GERD ? On PPI 11. Dyslipidemia ?Patient is on statin therapy, continued at home dose 12. DVT prophylaxis ? On enoxaparin Time spent in the patient's overall evaluation,decision-making process, review of diagnostic data, adjustment of management, discussion with other providers, nursing nursing and ancillary staff involved in patient's care documentation, 50 Minutes Charges/Coding Visit Charges Inpatient E&M: 35606 [facility] L3
[2024-11-19] MEDS: Pantoprazole Sodium 40 MG Tablet PO (08:45)
[2024-11-19] MEDS: Lisinopril 20 MG Tablet PO (08:45)
[2024-11-19] MEDS: Enoxaparin 40 MG/0.4 ML Syringe SC (08:45)
[2024-11-19] MEDS: Montelukast 10 MG Tablet PO (08:45)
[2024-11-19] MEDS: Aspirin 81 MG TAB.CHEW PO (08:45)
[2024-11-19] MEDS: Acetaminophen 325 MG Tablet 650 MG PO (10:49)
[2024-11-19 12:13] LABS: Bedside Glucose 241 mg/dL (74-106)
--- NOTE | 2024-11-19 12:40 | CASEMGMT ---
RN?CM?GEOMETRY TEACHER?CM?to room to meet with patient for initial transition planning/care coordination?assessment.?RN?CM?introduced self and role at [facility].? Pt voices understanding and consents to?assessment?at this time.? Pt resting in bed in no distress at this time.? Pt is A/O at this time and answers all questions appropriately.?? Care providers, pharmacy, and demographics verified/updated at this time. PCP: Dr Duran Specialists: Dr Cm Jorge-pulmonology Palliative: Pt active w/[facility]. Preferred Pharmacy: [facility] Insurance: [employer] Prescription Benefit:?Yes LNOK:Dtr, Esther. Son, Ramez Living Arrangements: Lives alone in one-story home w/13 steps to enter thru the garage w/railing and 3 steps to enter through the front door, but has to go through the front yard. Pt states she was indep w/ADL's, IADL's, and manages her own medications. Dtr is a nurse and lives nearby and checks on her often. Grand-daughter is an ALUM OPERATOR, who lives in [place]. 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 Transportation:?Pt states drives self. Family can assist, if needed DME: States has the following DME:?Pt has a cane, but does not use them. She also has a shower chair, adjustable bed, hand held shower, walker, O2 through [employer], nebulizer and a pulse ox. She states she has been wearing it @ 3 L/M continuous. Call placed to [facility] and spoke w/Chyna. Pt's current O2 orders are: 4 L/M continuous. Pt has a concentrator and POC. Pt also has a functioning glucometer w/supplies but states she does not usually check her BS's. Pt is interested in medical alert info to have for when she returns home. DIRECTOR OF [employer]PORATE [employer]ONSORSH[employer] Chyna LALA, made aware. Pt states no need for further DME at this time.? HHC/SNF: No hx of either. Pt states she has been having a lot of weakness and feels she would benefit going to SNF @ discharge before returning home. She asks for list to be reviewed/discussed w/her daughter, Esther, and to have Esther provide preferences. PLAN:??SNF. Norberto BSN?RN?CM
--- NOTE | 2024-11-19 14:01 | CASEMGMT ---
Discharge Planning A list of SNF providers including quality and resource use data and consistent with the patient's preferred geographic region, medical needs, and insurance network was created in [facility] Guide.? This list was provided to the SW. Marj De La Cruz Discharge Planning Asst.
--- NOTE | 2024-11-19 14:28 | CASEMGMT ---
SW was informed patient feels she needs to go to a prison facility for rehab. SW met with patient and her daughter Esther. Introduced self and role at [facility]. Both confirmed patient will need rehab at discharge. SW provided patient and her daughter with a list of prison facility providers including quality and resource use data and consistent with patient?s preferred geographic region, medical needs, and insurance network were provided from the [facility] Guide. SW let them know SW will need 3 preferences. Their first choice is [facility] and second is [facility]. Once therapy sees patient a referral will be made to [facility]. Plan: SNF pending accepting facility and a pre-cert. Sagrario JUAREZ
[2024-11-19 17:46] LABS: Bedside Glucose 307 mg/dL (74-106)
[2024-11-19 17:46] LABS: Bedside Glucose 286 mg/dL (74-106)
[2024-11-19] MEDS: Mirtazapine 15 MG Tablet PO (21:28)
[2024-11-19] MEDS: Atorvastatin Calcium 20 MG Tablet PO (21:28)
[2024-11-20] VITALS (15 sets, daily range): BP systolic 117–175; BP diastolic 54–84; PULSE 76–107; RESP 17–24; TEMP 36.1–36.9; O2SAT 84–99; BMI 25.5
[2024-11-20 00:50] LABS: Bedside Glucose 166 mg/dL (74-106)
[2024-11-20] MEDS: 0.9% Saline Lock 10 ML Syringe IV ×3 (02:42→21:46)
[2024-11-20] MEDS: hydrALAZINE 20 MG/ML Vial 10 MG IV (02:42)
[2024-11-20] MEDS: Ipratropium/Albuterol Sulfate 3 ML AMPUL.NEB INHALATION ×6 (03:21→23:29)
[2024-11-20] MEDS: Insulin Lispro 100 UNIT/ML INSULN.PEN SC ×4 (06:59→21:44)
[2024-11-20 07:21] LABS: Bedside Glucose 210 mg/dL (74-106)
[2024-11-20 07:24] LABS: Absolute Lymphocyte Count 0.39 X10^3/uL (0.83-4.51); Absolute Neutrophil Count 10.4 X10^3/uL (2.0-7.7); Basophil# 0.03 X10^3/uL; Basophil% 0.3 % (0-1); Hematocrit 34.9 % (37-47); Hemoglobin 11.1 g/dL (12.0-15.0); Lymphocyte # 0.39 X10^3/ul (0.83-4.51); Lymphocyte % 3.4 % (19-41); Mean Corp Hgb Conc 31.8 g/dL (32-36); Mean Corpuscular Hgb 27.5 pg (27.0-32.0); Mean Corpuscular Volume 86.6 fL (81-99); Mean Platelet Vol. 9.5 fl (6.2-12.0); Monocyte# 0.54 X10^3/uL; Monocyte% 4.7 % (0-10); NRBC Flagged by Analyzer 0 % (0-5); Neutrophil # 10.42 X10^3/uL (2.7-7.7); Neutrophil % 91.1 % (47-70); POSITIVE DIFFERENTIAL YES; Platelet Count 301 K/mm3 (150-450); RBC Distribution Width CV 13.9 % (11.6-14.6); RBC Distribution Width SD 43.7 fl (35.1-43.9); Red Blood Count 4.03 M/mm3 (4.2-5.4); White Blood Count 11.4 K/mm3 (4.4-11.0)
[2024-11-20 07:49] LABS: Anion Gap 6 (5-15); BUN 16 mg/dL (7-18); BUN/Creat Ratio 19.6 RATIO (10-20); Calcium,Total 9.6 mg/dL (8.5-10.1); Chloride 97 mmol/L (98-107); Creatinine, Serum 0.82 mg/dL (0.55-1.02); EST Glomerular Filtration Rate 71 mL/min (>60); Est Glom Filt Rate - Afr Amer 86 mL/min (>60); Estimated Creatinine Clearance 40.43 ml/min; Glucose 213 mg/dL (74-106); Magnesium 1.8 mg/dL (1.6-2.6); Phosphorus 3.6 mg/dL (2.5-4.9); Potassium 4.2 mmol/L (3.5-5.1); Sodium Level 134 mmol/L (136-145)
--- NOTE | 2024-11-20 08:31 | PCM.PN.HOSP ---
Reason for Visit Reason for Visit: Diagnoses Chronic obstructive pulmonary disease with (acute) exacerbation (11/18/24) Subjective Subjective Patient seen complains of profound weakness. Patient was seen working with therapy. When asked if he was interested in going to a snf facility patient answered in the affirmative Objective Data Objective Data Vital Signs: Vital Signs Temp Pulse Resp BP Pulse Ox O2 Del Method O2 Flow Rate 97.5 F L 82 18 117/54 L 95 Nasal Cannula 3 11/20/24 02:25 11/20/24 03:21 11/20/24 03:21 11/20/24 03:20 11/20/24 03:23 11/20/24 03:43 11/20/24 03:43 FiO2 40 11/19/24 05:20 Oxygen Flow Rate (L/min) 3 Oxygen Delivery Method Nasal Cannula Weight: 59.4 kg Body Mass Index (BMI) 25.5 Intake & Output: Intake and Output for Last 24 Hours 11/18/24 11/19/24 11/20/24 23:59 23:59 23:59 Intake Total 1480 / 1480 Output Total 200 / 200 300 / 300 Balance 1280 / 1280 -300 / -300 Lab / Micro Data 11/20/24 06:10 11/20/24 06:10 Labs: Laboratory Results - last 24 hr 11/19/24 11:50: POC Glucose 241 H 11/19/24 17:08: POC Glucose 307 H 11/19/24 17:11: POC Glucose 286 H 11/19/24 21:25: POC Glucose 166 H 11/20/24 06:10: WBC 11.4 H, RBC 4.03 L, Hgb 11.1 L, Hct 34.9 L, MCV 86.6, MCH 27.5, MCHC 31.8 L, RDW Std Deviation 43.7, RDW Coeff of Katia 13.9, Plt Count 301, MPV 9.5, Immature Gran % (Auto) 0.500, Neut % (Auto) 91.1 H, Lymph % (Auto) 3.4 L, [place] % (Auto) 4.7, Eos % (Auto) 0.0, Baso % (Auto) 0.3, Absolute Neuts (auto) 10.4 H, Absolute Lymphs (auto) 0.39 L, Nucleated RBC % 0, Sodium 134 L, Potassium 4.2, Chloride 97 L, Carbon Dioxide 31.0, Anion Gap 6, BUN 16, Creatinine 0.82, Estim Creat Clear Calc 40.43, Est GFR (MDRD) Af Amer 86, Est GFR (MDRD) Non-Af 71, BUN/Creatinine Ratio 19.6, Glucose 213 H, Calcium 9.6, Phosphorus 3.6, Magnesium 1.8 11/20/24 06:58: POC Glucose 210 H Micro: Microbiology 11/18/24 10:40 Mucosa - Nasopharyngeal Respiratory Panel (PCR) - Final 11/19/24 00:02 Sputum, Expectorated/Coughed Gram Stain - Final 11/18/24 18:13 Nasal Secretion MRSA (PCR) - Final 11/18/24 15:25 Mucosa - Nose SARS-CoV-2, Influenza & RSV (PCR) - Final Physical Exam Narrative GENERAL: cooperative but frail looking HEENT: Atraumatic; normocephalic EYES; Anicteric, Normal Conjunctiva NECK; supple, normal thyroid, RESPIRATORY: Diminished to auscultation CARDIOVASCULAR: Regular S1 S2, GI: soft, normoactive bowel sounds, : No Renal angle tenderness; EXTREMITIES: No edema, no clubbing, MUSCULOSKELETAL: no muscle wasting NEURO: Awake; no lateralizing signs. SKIN: No Rash PSYCH; Flat affect Assessment & Plan Assessment/Plan (1) Acute exacerbation of chronic obstructive pulmonary disease: PLAN: Plan Patient is an 84-year-old lady who presented with progressive shortness of breath diagnosed with acute asthma/COPD exacerbation admitted to a monitored bed for subsequent management 1. COPD with acute exacerbation ? Patient started on bronchodilator treatment, systemic steroid as well as antibiotic therapy. Patient placed on oxygen titrated to keep saturation greater than 90. ? 11/20/2024; patient still has bronchospasm. 2. Acute on chronic hypoxia ? Secondary to above placed on supplemental oxygen titrated to keep saturation greater than 90 ? 11/20/2024; patient remains on supplemental oxygen 3. Anemia ? Secondary to chronic disorder monitoring H&H and transfuse if patient becomes symptomatic or hemoglobin falls below 7 4. Rheumatoid arthritis ? Patient is on prednisone 20 mg daily 5. Diabetes mellitus type II -patient's oral hypoglycemics held. Placed on long acting insulin, Accu-Cheks a.c. and at bedtime and covered with sliding scale insulin ? 11/20/2024; patient has elevated blood glucose levels given her concomitant use of steroid made adjustment to her insulin regimen 6. Hypertension ? Blood pressure controlled, home medications continued with dose adjustment as needed 7. Hypothyroidism ? Patient is on levothyroxine home dose continued 8. Allergic rhinitis ? Patient is on montelukast did continue 9. Depression with anxiety ? Patient is on mirtazapine at night did continue 10. GERD ? On PPI 11. Dyslipidemia ?Patient is on statin therapy, continued at home dose 12. DVT prophylaxis ? On enoxaparin 13. Physical deconditioning ? Requested for PT OT eval and secondary social studies teacher to assist with discharge planning Time spent in the patient's overall evaluation,decision-making process, review of diagnostic data, adjustment of management, discussion with other providers, nursing nursing and ancillary staff involved in patient's care documentation, 50 Minutes Charges/Coding Visit Charges Inpatient E&M: 13671 [facility] Hosp L3
--- NOTE | 2024-11-20 08:53 | CASEMGMT ---
Therapy notes are in computer. SW asked Marj to send a referral to [facility]. Sagrario Connolly CHEMICAL TREATMENT PLANT TECHNICIAN LARRY
[2024-11-20] MEDS: Lisinopril 20 MG Tablet PO (08:57)
[2024-11-20] MEDS: levoFLOXacin 750 MG Tablet PO (08:57)
[2024-11-20] MEDS: Aspirin 81 MG TAB.CHEW PO (08:57)
[2024-11-20] MEDS: Montelukast 10 MG Tablet PO (08:57)
[2024-11-20] MEDS: Enoxaparin 40 MG/0.4 ML Syringe SC (08:57)
[2024-11-20] MEDS: Pantoprazole Sodium 40 MG Tablet PO (08:57)
--- NOTE | 2024-11-20 08:57 | CASEMGMT ---
Addendum entered by Marj De La Cruz 11/24/24 09:22: Updates sent to [facility] with request to check on status of precert. Marj De La Cruz DC Planning Asst. Addendum entered by Marj De La Cruz 11/20/24 16:09: [facility] has accepted and will submit for precert. SW updated. Marj De La Cruz DC Planning Asst. Original Note: Discharge Planning Referral sent to [facility]. Marj De La Cruz DC Planning Asst.
[2024-11-20 12:22] LABS: Bedside Glucose 220 mg/dL (74-106)
[2024-11-20] MEDS: hydrOXYzine 10 MG Tablet PO ×2 (12:42→17:47)
--- NOTE | 2024-11-20 15:49 | CASEMGMT ---
BERANDETTE called patient's daughter Esther and left her a voice mail letting her know BERNADETTE is still waiting on [facility] to notify if they can take patient or not. As soon as BERNADETTE hears something BERNADETTE will let her know. Sagrario Connolly LOG TURNER LARRY
[2024-11-20] MEDS: oxyCODONE 5 MG Tablet 2.5 MG PO (15:54)
[2024-11-20 17:44] LABS: Bedside Glucose 185 mg/dL (74-106)
[2024-11-20] MEDS: Atorvastatin Calcium 20 MG Tablet PO (21:46)
[2024-11-20] MEDS: Mirtazapine 15 MG Tablet PO (21:46)
[2024-11-20 23:09] LABS: Bedside Glucose 198 mg/dL (74-106)
[2024-11-21] VITALS (15 sets, daily range): BP systolic 133–151; BP diastolic 65–89; PULSE 82–105; RESP 14–24; TEMP 35.7–36.7; O2SAT 91–99; BMI 26.6
[2024-11-21] MEDS: hydrOXYzine 10 MG Tablet PO (00:12)
[2024-11-21] MEDS: MELATONIN 3 MG TABLET PO ×2 (00:14→23:46)
[2024-11-21] MEDS: Ipratropium/Albuterol Sulfate 3 ML AMPUL.NEB INHALATION ×6 (03:03→23:21)
[2024-11-21] MEDS: Insulin Lispro 100 UNIT/ML INSULN.PEN SC ×4 (06:43→21:25)
[2024-11-21] MEDS: 0.9% Saline Lock 10 ML Syringe IV ×3 (06:44→21:20)
[2024-11-21 07:02] LABS: Bedside Glucose 206 mg/dL (74-106)
[2024-11-21 07:28] LABS: Absolute Lymphocyte Count 0.32 X10^3/uL (0.83-4.51); Absolute Neutrophil Count 10.6 X10^3/uL (2.0-7.7); Basophil# 0.02 X10^3/uL; Basophil% 0.2 % (0-1); Hematocrit 34.2 % (37-47); Hemoglobin 11.1 g/dL (12.0-15.0); Lymphocyte # 0.32 X10^3/ul (0.83-4.51); Lymphocyte % 2.8 % (19-41); Mean Corp Hgb Conc 32.5 g/dL (32-36); Mean Corpuscular Hgb 28.2 pg (27.0-32.0); Mean Platelet Vol. 9.5 fl (6.2-12.0); Monocyte% 4.3 % (0-10); NRBC Flagged by Analyzer 0 % (0-5); Neutrophil # 10.58 X10^3/uL (2.7-7.7); Neutrophil % 91.9 % (47-70); POSITIVE DIFFERENTIAL YES; Platelet Count 324 K/mm3 (150-450); RBC Distribution Width CV 14.1 % (11.6-14.6); RBC Distribution Width SD 44.8 fl (35.1-43.9); Red Blood Count 3.93 M/mm3 (4.2-5.4); White Blood Count 11.5 K/mm3 (4.4-11.0)
[2024-11-21 07:46] LABS: Anion Gap 6 (5-15); BUN 18 mg/dL (7-18); BUN/Creat Ratio 18.6 RATIO (10-20); Calcium,Total 9.8 mg/dL (8.5-10.1); Chloride 96 mmol/L (98-107); Creatinine, Serum 0.97 mg/dL (0.55-1.02); EST Glomerular Filtration Rate 58 mL/min (>60); Est Glom Filt Rate - Afr Amer 70 mL/min (>60); Estimated Creatinine Clearance 34.85 ml/min; Glucose 223 mg/dL (74-106); Potassium 4.1 mmol/L (3.5-5.1); Sodium Level 132 mmol/L (136-145)
--- NOTE | 2024-11-21 07:58 | PCM.PN.HOSP ---
Reason for Visit Reason for Visit: Diagnoses Chronic obstructive pulmonary disease with (acute) exacerbation (11/18/24) Subjective Subjective Patient seen still complains of profound weakness awaiting transfer to long term facility pending insurance Objective Data Objective Data Vital Signs: Vital Signs Temp Pulse Resp BP Pulse Ox O2 Del Method O2 Flow Rate 97.5 F L 90 24 H 133/77 H 94 Nasal Cannula 3 11/21/24 03:00 11/21/24 03:03 11/21/24 03:03 11/21/24 03:00 11/21/24 03:03 11/21/24 03:03 11/21/24 03:03 FiO2 30 11/21/24 02:19 Oxygen Flow Rate (L/min) 3 Oxygen Delivery Method Nasal Cannula Weight: 61.9 kg Body Mass Index (BMI) 26.6 Intake & Output: Intake and Output for Last 24 Hours 11/19/24 11/20/24 11/21/24 23:59 23:59 23:59 Intake Total 1480 / 1480 480 / 480 Output Total 200 / 200 500 / 500 Balance 1280 / 1280 -20 / -20 Lab / Micro Data 11/21/24 06:29 11/21/24 06:29 Labs: Laboratory Results - last 24 hr 11/20/24 11:39: POC Glucose 220 H 11/20/24 17:19: POC Glucose 185 H 11/20/24 21:43: POC Glucose 198 H 11/21/24 06:29: WBC 11.5 H, RBC 3.93 L, Hgb 11.1 L, Hct 34.2 L, MCV 87.0, MCH 28.2, MCHC 32.5, RDW Std Deviation 44.8 H, RDW Coeff of Katia 14.1, Plt Count 324, MPV 9.5, Immature Gran % (Auto) 0.800, Neut % (Auto) 91.9 H, Lymph % (Auto) 2.8 L, [place] % (Auto) 4.3, Eos % (Auto) 0.0, Baso % (Auto) 0.2, Absolute Neuts (auto) 10.6 H, Absolute Lymphs (auto) 0.32 L, Nucleated RBC % 0, Sodium 132 L, Potassium 4.1, Chloride 96 L, Carbon Dioxide 30.0, Anion Gap 6, BUN 18, Creatinine 0.97, Estim Creat Clear Calc 34.85, Est GFR (MDRD) Af Amer 70, Est GFR (MDRD) Non-Af 58 L, BUN/Creatinine Ratio 18.6, Glucose 223 H, Calcium 9.8 11/21/24 06:42: POC Glucose 206 H Micro: Microbiology 11/19/24 00:02 Sputum, Expectorated/Coughed Gram Stain - Final 11/19/24 00:02 Sputum, Expectorated/Coughed Respiratory Culture - Preliminary GNR Poss Pseudomonas sp 11/18/24 10:40 Mucosa - Nasopharyngeal Respiratory Panel (PCR) - Final 11/18/24 18:13 Nasal Secretion MRSA (PCR) - Final 11/18/24 15:25 Mucosa - Nose SARS-CoV-2, Influenza & RSV (PCR) - Final Physical Exam Narrative GENERAL: cooperative but frail looking HEENT: Atraumatic; normocephalic EYES; Anicteric, Normal Conjunctiva NECK; supple, normal thyroid, RESPIRATORY: Diminished to auscultation CARDIOVASCULAR: Regular S1 S2, GI: soft, normoactive bowel sounds, : No Renal angle tenderness; EXTREMITIES: No edema, no clubbing, MUSCULOSKELETAL: no muscle wasting NEURO: Awake; no lateralizing signs. SKIN: No Rash PSYCH; Flat affect Assessment & Plan Assessment/Plan (1) Acute exacerbation of chronic obstructive pulmonary disease: PLAN: Plan Patient is an 84-year-old lady who presented with progressive shortness of breath diagnosed with acute asthma/COPD exacerbation admitted to a monitored bed for subsequent management 1. COPD with acute exacerbation ? Patient started on bronchodilator treatment, systemic steroid as well as antibiotic therapy. Patient placed on oxygen titrated to keep saturation greater than 90. ? 11/20/2024; patient still has bronchospasm. ? 11/21/2023; patient still remains dyspneic at rest 2. Acute on chronic hypoxia ? Secondary to above placed on supplemental oxygen titrated to keep saturation greater than 90 ? 11/20/2024; patient remains on supplemental oxygen 3. Anemia ? Secondary to chronic disorder monitoring H&H and transfuse if patient becomes symptomatic or hemoglobin falls below 7 4. Rheumatoid arthritis ? Patient is on prednisone 20 mg daily 5. Diabetes mellitus type II -patient's oral hypoglycemics held. Placed on long acting insulin, Accu-Cheks a.c. and at bedtime and covered with sliding scale insulin ? 11/20/2024; patient has elevated blood glucose levels given her concomitant use of steroid made adjustment to her insulin regimen 6. Hypertension ? Blood pressure controlled, home medications continued with dose adjustment as needed 7. Hypothyroidism ? Patient is on levothyroxine home dose continued 8. Allergic rhinitis ? Patient is on montelukast did continue 9. Depression with anxiety ? Patient is on mirtazapine at night did continue 10. GERD ? On PPI 11. Dyslipidemia ?Patient is on statin therapy, continued at home dose 12. DVT prophylaxis ? On enoxaparin 13. Physical deconditioning ? Requested for PT OT eval and nephrology social worker to assist with discharge planning Time spent in the patient's overall evaluation,decision-making process, review of diagnostic data, adjustment of management, discussion with other providers, nursing nursing and ancillary staff involved in patient's care documentation, 36 minutes Charges/Coding Visit Charges Inpatient E&M: 97215 [facility] Hosp L2
[2024-11-21] MEDS: Acetaminophen 325 MG Tablet 650 MG PO ×2 (08:31→21:16)
--- NOTE | 2024-11-21 09:46 | CASEMGMT ---
BERNADETTE called patient's daughter Esther. BERNADETTE let her know patient was accepted at [facility] and once insurance approves patient will be discharged to [facility]. BERNADETTE also let Esther know patient will be able to wear regular clothes while at [facility] and transport will not be covered so patient will get a bill. Esther verbalized understanding. Someone will notify her when patient is going to be discharged. Esther thanked BERNADETTE for the update. Plan: d/c to [facility] pending insurance approval. Sagrario JUAREZ
[2024-11-21] MEDS: Enoxaparin 40 MG/0.4 ML Syringe SC (10:56)
[2024-11-21] MEDS: Aspirin 81 MG TAB.CHEW PO (10:56)
[2024-11-21] MEDS: Lisinopril 20 MG Tablet PO (10:57)
[2024-11-21] MEDS: Pantoprazole Sodium 40 MG Tablet PO (10:57)
[2024-11-21] MEDS: Montelukast 10 MG Tablet PO (10:57)
[2024-11-21 11:44] LABS: Bedside Glucose 322 mg/dL (74-106)
--- NOTE | 2024-11-21 13:05 | CASEMGMT ---
Discharge Planning [facility] notified that pt could potentially return over the weekend if precert is obtained. Unit phone number given, green sheet completed and given to SW. Marj De La Cruz DC Planning Asst.
[2024-11-21 16:59] LABS: Bedside Glucose 190 mg/dL (74-106)
[2024-11-21] MEDS: Mirtazapine 15 MG Tablet PO (21:15)
[2024-11-21] MEDS: Atorvastatin Calcium 20 MG Tablet PO (21:15)
[2024-11-21] MEDS: Senna/Docusate Sodium 1 Tablet 2 TABLET PO (21:16)
[2024-11-21 22:28] LABS: Bedside Glucose 331 mg/dL (74-106)
[2024-11-21] MEDS: oxyCODONE 5 MG Tablet 2.5 MG PO (23:46)
[2024-11-22] VITALS (10 sets, daily range): BP systolic 152–162; BP diastolic 83–94; PULSE 70–97; RESP 12–20; TEMP 36.4–36.8; O2SAT 94–99; BMI 27.5
[2024-11-22] MEDS: Levothyroxine 137 MCG Tablet 548 MCG PO (05:46)
[2024-11-22] MEDS: Insulin Lispro 100 UNIT/ML INSULN.PEN SC ×3 (05:51→21:25)
[2024-11-22 06:12] LABS: Bedside Glucose 206 mg/dL (74-106)
[2024-11-22 06:30] LABS: Absolute Neutrophil Count 9.6 X10^3/uL (2.0-7.7); Basophil# 0.01 X10^3/uL; Basophil% 0.1 % (0-1); Hematocrit 33.1 % (37-47); Hemoglobin 10.5 g/dL (12.0-15.0); Lymphocyte % 3.8 % (19-41); Mean Corp Hgb Conc 31.7 g/dL (32-36); Mean Corpuscular Hgb 27.7 pg (27.0-32.0); Mean Corpuscular Volume 87.3 fL (81-99); Mean Platelet Vol. 9.4 fl (6.2-12.0); Monocyte% 4.7 % (0-10); NRBC Flagged by Analyzer 0 % (0-5); Neutrophil # 9.56 X10^3/uL (2.7-7.7); Neutrophil % 90.5 % (47-70); POSITIVE DIFFERENTIAL YES; Platelet Count 320 K/mm3 (150-450); RBC Distribution Width CV 13.9 % (11.6-14.6); RBC Distribution Width SD 44.1 fl (35.1-43.9); Red Blood Count 3.79 M/mm3 (4.2-5.4); White Blood Count 10.6 K/mm3 (4.4-11.0)
[2024-11-22] MEDS: Ipratropium/Albuterol Sulfate 3 ML AMPUL.NEB INHALATION ×4 (06:48→23:58)
[2024-11-22 07:07] LABS: Anion Gap 3 (5-15); BUN 19 mg/dL (7-18); BUN/Creat Ratio 22.3 RATIO (10-20); Calcium,Total 9.9 mg/dL (8.5-10.1); Chloride 97 mmol/L (98-107); Creatinine, Serum 0.85 mg/dL (0.55-1.02); EST Glomerular Filtration Rate 67 mL/min (>60); Est Glom Filt Rate - Afr Amer 82 mL/min (>60); Estimated Creatinine Clearance 40.38 ml/min; Glucose 214 mg/dL (74-106); Potassium 4.3 mmol/L (3.5-5.1); Sodium Level 131 mmol/L (136-145)
[2024-11-22] MEDS: Enoxaparin 40 MG/0.4 ML Syringe SC (09:48)
[2024-11-22] MEDS: Pantoprazole Sodium 40 MG Tablet PO (09:48)
[2024-11-22] MEDS: Lisinopril 20 MG Tablet PO (09:48)
[2024-11-22] MEDS: Aspirin 81 MG TAB.CHEW PO (09:48)
[2024-11-22] MEDS: Montelukast 10 MG Tablet PO (09:48)
[2024-11-22] MEDS: levoFLOXacin 750 MG Tablet PO (09:48)
--- NOTE | 2024-11-22 10:42 | PCM.PN.HOSP ---
Reason for Visit Reason for Visit: Diagnoses Chronic obstructive pulmonary disease with (acute) exacerbation (11/18/24) Subjective Subjective Patient sputum cultures came back positive for Pseudomonas subsequently started on Levaquin based on sensitivities Objective Data Objective Data Vital Signs: Vital Signs Temp Pulse Resp BP Pulse Ox O2 Del Method O2 Flow Rate 97.8 F 87 18 162/88 H 95 Nasal Cannula 2.5 11/22/24 09:38 11/22/24 09:38 11/22/24 09:38 11/22/24 09:38 11/22/24 09:38 11/22/24 09:54 11/22/24 09:54 FiO2 30 11/22/24 00:40 Oxygen Flow Rate (L/min) 2.5 Oxygen Delivery Method Nasal Cannula Weight: 63.9 kg Body Mass Index (BMI) 27.5 Intake & Output: Intake and Output for Last 24 Hours 11/20/24 11/21/24 11/22/24 23:59 23:59 23:59 Intake Total 480 / 480 1240 / 1240 240 / 240 Output Total 500 / 500 Balance -20 / -20 1240 / 1240 240 / 240 Lab / Micro Data 11/22/24 05:39 11/22/24 05:39 Labs: Laboratory Results - last 24 hr 11/21/24 11:15: POC Glucose 322 H 11/21/24 16:29: POC Glucose 190 H 11/21/24 21:24: POC Glucose 331 H 11/22/24 05:39: WBC 10.6, RBC 3.79 L, Hgb 10.5 L, Hct 33.1 L, MCV 87.3, MCH 27.7, MCHC 31.7 L, RDW Std Deviation 44.1 H, RDW Coeff of Katia 13.9, Plt Count 320, MPV 9.4, Immature Gran % (Auto) 0.900, Neut % (Auto) 90.5 H, Lymph % (Auto) 3.8 L, [place] % (Auto) 4.7, Eos % (Auto) 0.0, Baso % (Auto) 0.1, Absolute Neuts (auto) 9.6 H, Absolute Lymphs (auto) 0.40 L, Nucleated RBC % 0, Sodium 131 L, Potassium 4.3, Chloride 97 L, Carbon Dioxide 31.0, Anion Gap 3 L, BUN 19 H, Creatinine 0.85, Estim Creat Clear Calc 40.38, Est GFR (MDRD) Af Amer 82, Est GFR (MDRD) Non-Af 67, BUN/Creatinine Ratio 22.3 H, Glucose 214 H, Calcium 9.9 11/22/24 05:44: POC Glucose 206 H Micro: Microbiology 11/19/24 00:02 Sputum, Expectorated/Coughed Gram Stain - Final 11/19/24 00:02 Sputum, Expectorated/Coughed Respiratory Culture - Final Pseudomonas aeruginosa 11/18/24 10:40 Mucosa - Nasopharyngeal Respiratory Panel (PCR) - Final 11/18/24 18:13 Nasal Secretion MRSA (PCR) - Final 11/18/24 15:25 Mucosa - Nose SARS-CoV-2, Influenza & RSV (PCR) - Final Physical Exam Narrative GENERAL: cooperative but frail looking HEENT: Atraumatic; normocephalic EYES; Anicteric, Normal Conjunctiva NECK; supple, normal thyroid, RESPIRATORY: Diminished to auscultation CARDIOVASCULAR: Regular S1 S2, GI: soft, normoactive bowel sounds, : No Renal angle tenderness; EXTREMITIES: No edema, no clubbing, MUSCULOSKELETAL: no muscle wasting NEURO: Awake; no lateralizing signs. SKIN: No Rash PSYCH; Flat affect Assessment & Plan Assessment/Plan (1) Acute exacerbation of chronic obstructive pulmonary disease: PLAN: Plan Patient is an 84-year-old lady who presented with progressive shortness of breath diagnosed with acute asthma/COPD exacerbation admitted to a monitored bed for subsequent management 1. COPD with acute exacerbation secondary to Pseudomonas bronchitis ? Patient started on bronchodilator treatment, systemic steroid as well as antibiotic therapy. Patient placed on oxygen titrated to keep saturation greater than 90. ? 11/20/2024; patient still has bronchospasm. ? 11/21/2023; patient still remains dyspneic at rest ? 11/22/2023; sputum cultures came back positive for Pseudomonas subsequently started on appropriate antibiotic therapy 2. Acute on chronic hypoxia ? Secondary to above placed on supplemental oxygen titrated to keep saturation greater than 90 ? 11/20/2024; patient remains on supplemental oxygen 3. Anemia ? Secondary to chronic disorder monitoring H&H and transfuse if patient becomes symptomatic or hemoglobin falls below 7 4. Rheumatoid arthritis ? Patient is on prednisone 20 mg daily 5. Diabetes mellitus type II -patient's oral hypoglycemics held. Placed on long acting insulin, Accu-Cheks a.c. and at bedtime and covered with sliding scale insulin ? 11/20/2024; patient has elevated blood glucose levels given her concomitant use of steroid made adjustment to her insulin regimen 6. Hypertension ? Blood pressure controlled, home medications continued with dose adjustment as needed 7. Hypothyroidism ? Patient is on levothyroxine home dose continued 8. Allergic rhinitis ? Patient is on montelukast did continue 9. Depression with anxiety ? Patient is on mirtazapine at night did continue 10. GERD ? On PPI 11. Dyslipidemia ?Patient is on statin therapy, continued at home dose 12. DVT prophylaxis ? On enoxaparin 13. Physical deconditioning ? Requested for PT OT eval and social sciences department chair to assist with discharge planning Time spent in the patient's overall evaluation,decision-making process, review of diagnostic data, adjustment of management, discussion with other providers, nursing nursing and ancillary staff involved in patient's care documentation, 36 minutes Charges/Coding Visit Charges Inpatient E&M: 26996 Subs Hosp L2
[2024-11-22 12:45] LABS: Bedside Glucose 265 mg/dL (74-106)
[2024-11-22] MEDS: Sodium Chloride 0.65% 1 SPRAY SPRAY.BTL 2 SPRAY NASAL (14:28)
[2024-11-22] MEDS: 0.9% Saline Lock 10 ML Syringe IV (14:29)
[2024-11-22 17:04] LABS: Bedside Glucose 132 mg/dL (74-106)
[2024-11-22] MEDS: Atorvastatin Calcium 20 MG Tablet PO (21:25)
[2024-11-22] MEDS: Mirtazapine 15 MG Tablet PO (21:25)
[2024-11-22 22:09] LABS: Bedside Glucose 323 mg/dL (74-106)
[2024-11-23] VITALS (14 sets, daily range): BP systolic 154–164; BP diastolic 79–98; PULSE 82–110; RESP 16–22; TEMP 36.1–36.6; O2SAT 92–99; BMI 26.5
[2024-11-23] MEDS: 0.9% Saline Lock 10 ML Syringe IV ×2 (00:26→13:51)
[2024-11-23] MEDS: Ipratropium/Albuterol Sulfate 3 ML AMPUL.NEB INHALATION ×6 (03:28→23:45)
[2024-11-23] MEDS: Insulin Lispro 100 UNIT/ML INSULN.PEN SC ×4 (06:55→22:00)
--- NOTE | 2024-11-23 07:26 | PCM.PN.HOSP ---
Reason for Visit Reason for Visit: Diagnoses Chronic obstructive pulmonary disease with (acute) exacerbation (11/18/24) Subjective Subjective Patient seen continues to improve. Awaiting insurance precertification prior to transfer to retirement facility Objective Data Objective Data Vital Signs: Vital Signs Temp Pulse Resp BP Pulse Ox O2 Del Method O2 Flow Rate 96.9 F L 90 18 157/85 H 94 Nasal Cannula 3 11/23/24 04:00 11/23/24 06:46 11/23/24 06:46 11/23/24 04:00 11/23/24 06:46 11/23/24 06:46 11/23/24 06:46 FiO2 30 11/22/24 00:40 Oxygen Flow Rate (L/min) 3 Oxygen Delivery Method Nasal Cannula Weight: 61.7 kg Body Mass Index (BMI) 26.5 Intake & Output: Intake and Output for Last 24 Hours 11/21/24 11/22/24 11/23/24 23:59 23:59 23:59 Intake Total 1240 / 1240 240 / 340 580 / 580 Output Total 0 / 0 Balance 1240 / 1240 240 / 340 580 / 580 Lab / Micro Data 11/23/24 08:14 11/23/24 08:14 Labs: Laboratory Results - last 24 hr 11/22/24 12:23: POC Glucose 265 H 11/22/24 16:31: POC Glucose 132 H 11/22/24 21:21: POC Glucose 323 H Micro: Microbiology 11/19/24 00:02 Sputum, Expectorated/Coughed Gram Stain - Final 11/19/24 00:02 Sputum, Expectorated/Coughed Respiratory Culture - Final Pseudomonas aeruginosa 11/18/24 10:40 Mucosa - Nasopharyngeal Respiratory Panel (PCR) - Final 11/18/24 18:13 Nasal Secretion MRSA (PCR) - Final 11/18/24 15:25 Mucosa - Nose SARS-CoV-2, Influenza & RSV (PCR) - Final Physical Exam Narrative GENERAL: cooperative but frail looking HEENT: Atraumatic; normocephalic EYES; Anicteric, Normal Conjunctiva NECK; supple, normal thyroid, RESPIRATORY: Diminished to auscultation CARDIOVASCULAR: Regular S1 S2, GI: soft, normoactive bowel sounds, : No Renal angle tenderness; EXTREMITIES: No edema, no clubbing, MUSCULOSKELETAL: no muscle wasting NEURO: Awake; no lateralizing signs. SKIN: No Rash PSYCH; Flat affect Assessment & Plan Assessment/Plan (1) Acute exacerbation of chronic obstructive pulmonary disease: PLAN: Plan Patient is an 84-year-old lady who presented with progressive shortness of breath diagnosed with acute asthma/COPD exacerbation admitted to a monitored bed for subsequent management 1. COPD with acute exacerbation secondary to Pseudomonas bronchitis ? Patient started on bronchodilator treatment, systemic steroid as well as antibiotic therapy. Patient placed on oxygen titrated to keep saturation greater than 90. ? 11/20/2024; patient still has bronchospasm. ? 11/21/2023; patient still remains dyspneic at rest ? 11/22/2023; sputum cultures came back positive for Pseudomonas subsequently started on appropriate antibiotic therapy 2. Acute on chronic hypoxia ? Secondary to above placed on supplemental oxygen titrated to keep saturation greater than 90 ? 11/20/2024; patient remains on supplemental oxygen ? 11/23/2024; remains on supplemental oxygen 3. Anemia ? Secondary to chronic disorder monitoring H&H and transfuse if patient becomes symptomatic or hemoglobin falls below 7 4. Rheumatoid arthritis ? Patient is on prednisone 20 mg daily 5. Diabetes mellitus type II -patient's oral hypoglycemics held. Placed on long acting insulin, Accu-Cheks a.c. and at bedtime and covered with sliding scale insulin ? 11/20/2024; patient has elevated blood glucose levels given her concomitant use of steroid made adjustment to her insulin regimen 6. Hypertension ? Blood pressure controlled, home medications continued with dose adjustment as needed 7. Hypothyroidism ? Patient is on levothyroxine home dose continued 8. Allergic rhinitis ? Patient is on montelukast did continue 9. Depression with anxiety ? Patient is on mirtazapine at night did continue 10. GERD ? On PPI 11. Dyslipidemia ?Patient is on statin therapy, continued at home dose 12. DVT prophylaxis ? On enoxaparin 13. Physical deconditioning ? Requested for PT OT eval and social security specialist to assist with discharge planning ? Awaiting insurance precertification prior to transfer to retirement facility Time spent in the patient's overall evaluation,decision-making process, review of diagnostic data, adjustment of management, discussion with other providers, nursing nursing and ancillary staff involved in patient's care documentation, 36 minutes Charges/Coding Visit Charges Inpatient E&M: 03007 Subs Hosp L2
[2024-11-23 07:44] LABS: Bedside Glucose 199 mg/dL (74-106)
[2024-11-23 08:32] LABS: Absolute Lymphocyte Count 0.53 X10^3/uL (0.83-4.51); Absolute Neutrophil Count 12.9 X10^3/uL (2.0-7.7); Basophil# 0.02 X10^3/uL; Basophil% 0.1 % (0-1); Hematocrit 37.3 % (37-47); Hemoglobin 11.9 g/dL (12.0-15.0); Lymphocyte # 0.53 X10^3/ul (0.83-4.51); Lymphocyte % 3.7 % (19-41); Mean Corp Hgb Conc 31.9 g/dL (32-36); Mean Corpuscular Hgb 28.1 pg (27.0-32.0); Mean Corpuscular Volume 88.2 fL (81-99); Mean Platelet Vol. 9.1 fl (6.2-12.0); Monocyte# 0.79 X10^3/uL; Monocyte% 5.5 % (0-10); NRBC Flagged by Analyzer 0 % (0-5); Neutrophil # 12.94 X10^3/uL (2.7-7.7); Neutrophil % 89.5 % (47-70); POSITIVE DIFFERENTIAL YES; Platelet Count 357 K/mm3 (150-450); RBC Distribution Width CV 13.9 % (11.6-14.6); RBC Distribution Width SD 44.7 fl (35.1-43.9); Red Blood Count 4.23 M/mm3 (4.2-5.4); White Blood Count 14.5 K/mm3 (4.4-11.0)
[2024-11-23 08:51] LABS: Anion Gap 4 (5-15); BUN 15 mg/dL (7-18); BUN/Creat Ratio 16.2 RATIO (10-20); Calcium,Total 10.2 mg/dL (8.5-10.1); Chloride 99 mmol/L (98-107); Creatinine, Serum 0.92 mg/dL (0.55-1.02); EST Glomerular Filtration Rate 61 mL/min (>60); Est Glom Filt Rate - Afr Amer 74 mL/min (>60); Estimated Creatinine Clearance 36.69 ml/min; Glucose 211 mg/dL (74-106); Magnesium 1.8 mg/dL (1.6-2.6); Potassium 3.9 mmol/L (3.5-5.1); Sodium Level 137 mmol/L (136-145)
[2024-11-23 08:57] LABS: Phosphorus 2.9 mg/dL (2.5-4.9)
[2024-11-23] MEDS: Enoxaparin 40 MG/0.4 ML Syringe SC (09:18)
[2024-11-23] MEDS: Aspirin 81 MG TAB.CHEW PO (09:18)
[2024-11-23] MEDS: Pantoprazole Sodium 40 MG Tablet PO (09:18)
[2024-11-23] MEDS: Lisinopril 20 MG Tablet PO (09:19)
[2024-11-23] MEDS: Montelukast 10 MG Tablet PO (09:19)
[2024-11-23 11:37] LABS: Bedside Glucose 260 mg/dL (74-106)
[2024-11-23 16:54] LABS: Bedside Glucose 201 mg/dL (74-106)
[2024-11-23] MEDS: Atorvastatin Calcium 20 MG Tablet PO (22:01)
[2024-11-23] MEDS: hydrOXYzine 10 MG Tablet PO (22:01)
[2024-11-23] MEDS: Acetaminophen 325 MG Tablet 650 MG PO (22:01)
[2024-11-23] MEDS: Mirtazapine 15 MG Tablet PO (22:01)
[2024-11-23] MEDS: hydrALAZINE 20 MG/ML Vial 10 MG IV (22:02)
[2024-11-23] MEDS: oxyCODONE 5 MG Tablet 2.5 MG PO (22:33)
[2024-11-23 23:08] LABS: Bedside Glucose 280 mg/dL (74-106)
[2024-11-24] VITALS (11 sets, daily range): BP systolic 112–149; BP diastolic 68–83; PULSE 85–118; RESP 18–24; TEMP 36.8–37.2; O2SAT 91–98; BMI 26.3
[2024-11-24] MEDS: Acetaminophen 325 MG Tablet 650 MG PO ×3 (02:33→12:18)
[2024-11-24 05:22] LABS: Absolute Lymphocyte Count 0.42 X10^3/uL (0.83-4.51); Absolute Neutrophil Count 18.5 X10^3/uL (2.0-7.7); Basophil# 0.06 X10^3/uL; Basophil% 0.3 % (0-1); Eosinophil# 1.07 X10^3/uL; Hematocrit 34.6 % (37-47); Hemoglobin 11.2 g/dL (12.0-15.0); Lymphocyte # 0.42 X10^3/ul (0.83-4.51); Lymphocyte % 1.9 % (19-41); Mean Corp Hgb Conc 32.4 g/dL (32-36); Mean Corpuscular Hgb 28.3 pg (27.0-32.0); Mean Corpuscular Volume 87.4 fL (81-99); Mean Platelet Vol. 9.2 fl (6.2-12.0); Monocyte# 1.09 X10^3/uL; NRBC Flagged by Analyzer 0 % (0-5); Neutrophil # 18.51 X10^3/uL (2.7-7.7); Neutrophil % 85.7 % (47-70); POSITIVE DIFFERENTIAL YES; POSITIVE MORPHOLOGY YES; Platelet Count 361 K/mm3 (150-450); RBC Distribution Width CV 13.9 % (11.6-14.6); RBC Distribution Width SD 44.7 fl (35.1-43.9); Red Blood Count 3.96 M/mm3 (4.2-5.4); White Blood Count 21.6 K/mm3 (4.4-11.0)
[2024-11-24 05:27] LABS: Differential Indicated SCAN CRITERIA MET
[2024-11-24 05:50] LABS: Differential Comment SCANNED
[2024-11-24] MEDS: oxyCODONE 5 MG Tablet 2.5 MG PO ×3 (05:50→18:12)
[2024-11-24] MEDS: Insulin Lispro 100 UNIT/ML INSULN.PEN SC ×3 (06:36→16:41)
[2024-11-24] MEDS: Senna/Docusate Sodium 1 Tablet 2 TABLET PO (06:37)
[2024-11-24 06:58] LABS: Bedside Glucose 193 mg/dL (74-106)
[2024-11-24] MEDS: Ipratropium/Albuterol Sulfate 3 ML AMPUL.NEB INHALATION ×4 (06:59→19:05)
[2024-11-24] MEDS: Enoxaparin 40 MG/0.4 ML Syringe SC (08:00)
[2024-11-24] MEDS: Aspirin 81 MG TAB.CHEW PO (08:00)
[2024-11-24] MEDS: Lisinopril 20 MG Tablet PO (08:00)
[2024-11-24] MEDS: Pantoprazole Sodium 40 MG Tablet PO (08:00)
[2024-11-24] MEDS: Montelukast 10 MG Tablet PO (08:00)
[2024-11-24] MEDS: hydrOXYzine 10 MG Tablet PO (08:00)
--- NOTE | 2024-11-24 09:05 | PN.HOSP_ITS ---
Reason for Visit Reason for Visit: Diagnoses Chronic obstructive pulmonary disease with (acute) exacerbation (11/18/24) Objective Data Objective Data Vital Signs: Vital Signs Temp Pulse Resp BP Pulse Ox O2 Del Method O2 Flow Rate 98.9 F 104 H 18 140/79 H 94 Nasal Cannula 3 11/24/24 08:00 11/24/24 08:00 11/24/24 08:00 11/24/24 08:00 11/24/24 08:00 11/24/24 08:00 11/24/24 08:00 FiO2 30 11/22/24 00:40 Oxygen Flow Rate (L/min) 3 Oxygen Delivery Method Nasal Cannula Weight: 134 lb 14.766 oz Body Mass Index (BMI) 26.3 Intake & Output: Intake and Output for Last 24 Hours 11/22/24 11/23/24 11/24/24 23:59 23:59 23:59 Intake Total 240 / 340 1420 / 1420 200 / 200 Output Total 0 / 0 Balance 240 / 340 1420 / 1420 200 / 200 Lab / Micro Data 11/24/24 04:47 11/23/24 08:14 Labs: Laboratory Results - last 24 hr 11/23/24 11:17: POC Glucose 260 H 11/23/24 16:29: POC Glucose 201 H 11/23/24 21:59: POC Glucose 280 H 11/24/24 04:47: WBC 21.6 H, RBC 3.96 L, Hgb 11.2 L, Hct 34.6 L, MCV 87.4, MCH 28.3, MCHC 32.4, RDW Std Deviation 44.7 H, RDW Coeff of Katia 13.9, Plt Count 361, MPV 9.2, Immature Gran % (Auto) 2.100 H, Neut % (Auto) 85.7 H, Lymph % (Auto) 1.9 L, [place] % (Auto) 5.0, Eos % (Auto) 5.0, Baso % (Auto) 0.3, Absolute Neuts (auto) 18.5 H, Absolute Lymphs (auto) 0.42 L, Nucleated RBC % 0, Differential Comment SCANNED 11/24/24 06:36: POC Glucose 193 H Micro: Microbiology 11/19/24 00:02 Sputum, Expectorated/Coughed Gram Stain - Final 11/19/24 00:02 Sputum, Expectorated/Coughed Respiratory Culture - Final Pseudomonas aeruginosa 11/18/24 10:40 Mucosa - Nasopharyngeal Respiratory Panel (PCR) - Final 11/18/24 18:13 Nasal Secretion MRSA (PCR) - Final 11/18/24 15:25 Mucosa - Nose SARS-CoV-2, Influenza & RSV (PCR) - Final Physical Exam Narrative Patient complain of cough and left-sided inframammary pain mainly on deep breathing and cough. Brings up greenish-yellowish sputum. It states she did not have good sleep because of the pain. Did not use BiPAP at night. History of asthma. History of remote smoking, for 50 years in the past. No fever. complaint of mucus stuck in the chest. Complain of constipation, last BM 3 days prior to admission. Physical exam General: Alert, Oriented x3, Cooperative HEENT: Atraumatic, PERRLA, EOMI, Normocephalic Oral: Oral mucosa dry. No Gingival or Mucosal Lesions/ Ulcerations Neck: Supple, No JVD, Negative Carotid Bruits Chest wall/Lungs: Air entry diminished in bilateral lung bases. Bilateral coarse crepitations or rhonchi. Cardiovascular: Sinus rhythm, Normal S1, Normal S2, No M/G/R Abdomen: Bowel Sounds Present, Soft, Non Tender, Non-Distended : No dysuria. No renal angle tenderness. No suprapubic tenderness. Extremities: No edema, Capillary Refill Less than 3 Seconds Skin: No rashes, No breakdown Musculoskeletal: No Tenderness to Palpation of Joints or Extremities Neurological: Cranial nerves II-XII grossly intact, DTR 2+/4. No acute focal neurological deficit. Psych/Mental Status: Flat affect. Assessment & Plan Assessment/Plan (1) Acute exacerbation of chronic obstructive pulmonary disease: PLAN: Plan Patient is an 84-year-old lady who presented with progressive shortness of breath diagnosed with acute asthma/COPD exacerbation admitted to a monitored bed for subsequent management 1. COPD with acute exacerbation secondary to Pseudomonas bronchitis ? Patient started on bronchodilator treatment, systemic steroid as well as antibiotic therapy. Patient placed on oxygen titrated to keep saturation greater than 90. ? 11/20/2024; patient still has bronchospasm. ? 11/21/2023; patient still remains dyspneic at rest ? 11/22/2023; sputum cultures came back positive for Pseudomonas subsequently started on appropriate antibiotic therapy 11/23: Patient is started on IV Zosyn. ID consulted 2. Acute on chronic hypoxia ? Secondary to above placed on supplemental oxygen titrated to keep saturation greater than 90 ? 11/20/2024; patient remains on supplemental oxygen ? 11/23/2024; remains on supplemental oxygen 3. Anemia ? Secondary to chronic disorder monitoring H&H and transfuse if patient becomes symptomatic or hemoglobin falls below 7 4. Rheumatoid arthritis ? Patient is on prednisone 20 mg daily 5. Diabetes mellitus type II -patient's oral hypoglycemics held. Placed on long acting insulin, Accu-Cheks a.c. and at bedtime and covered with sliding scale insulin ? 11/20/2024; patient has elevated blood glucose levels given her concomitant use of steroid made adjustment to her insulin regimen 6. Hypertension ? Blood pressure controlled, home medications continued with dose adjustment as needed 7. Hypothyroidism ? Patient is on levothyroxine home dose continued 8. Allergic rhinitis ? Patient is on montelukast did continue 9. Depression with anxiety ? Patient is on mirtazapine at night did continue 10. GERD ? On PPI 11. Dyslipidemia ?Patient is on statin therapy, continued at home dose 12. DVT prophylaxis ? On enoxaparin 13. Physical deconditioning ? Requested for PT OT eval and social media sr strategy manager to assist with discharge planning ? Awaiting insurance precertification prior to transfer to shelter facility Time spent in the patient's overall evaluation,decision-making process, review of diagnostic data, adjustment of management, discussion with other providers, nursing nursing and ancillary staff involved in patient's care documentation, 36 minutes
[2024-11-24] MEDS: BENZOCAINE/MENTHOL 1 LOZENGE 2 LOZENGE MUCOUS MEM (10:35)
[2024-11-24] MEDS: Lactulose 20 GM/30 ML UDC PO (10:35)
[2024-11-24] MEDS: guaiFENesin/D-Methorphan TAB.SR.12H 2 TABLET PO (10:35)
[2024-11-24] MEDS: Piperacil/Tazobactam 3.375 GM in 0.9% Normal Saline (50mL MB+) 50 ML IV ×2 (10:36→14:48)
--- NOTE | 2024-11-24 13:09 | CON.PCM.ID_ITS ---
Assessment & Plan Assessment/Plan (1) Acute exacerbation of chronic obstructive pulmonary disease: (2) Pseudomonas pneumonia: PLAN: Overall improved. Will order midline and 6 days zosyn. Will follow, thank you, d/w registered nurse hh case manager HPI Consult Data Date of Consult: 11/24/24 HPI Narrative Reason for Consultation: pneumonia HPI Narrative: MARIELA LARIOS, is a 84 F with h/o copd with 2-3L home O2, DM, RA, presented 11/18 with about a week progressive dyspnea, cough with green sputum, congestion, chills, weakness. Family found her more confused. Taken to OR, admitted on levaquin. Now sputum with PsA, changed to zosyn today, feeling better overall but still weak/cough/short of breath. Full ROS performed and neg except as noted above. [facility] Medical History COPD exacerbation Pneumonia Hypoxia COVID-19 Acute respiratory failure Rheumatoid arthritis Hyperlipidemia Osteoarthritis Anemia Hypothyroidism Diabetes On home oxygen therapy Asthma COPD (chronic obstructive pulmonary disease) HTN (hypertension) Diabetes mellitus, type 2 Normocytic anemia Former tobacco use Intermittent constipation COPD (chronic obstructive pulmonary disease) Arthritis Thyroid disease Home Medications ?Medication ?Instructions ?Recorded ?Last Taken ?Type metformin 500 mg tablet 500 mg PO QPM diabetes 04/03/19 08/11/24 History simvastatin 40 mg tablet 40 mg PO QHS cholesterol 04/03/19 08/10/24 History ipratropium 0.5 mg-albuterol 3 mg 1.5 ml continuous nebulization 01/31/24 08/11/24 Rx (2.5 mg base)/3 mL nebulization DAILY PRN shortness of breath or soln wheezing #180 mL montelukast 10 mg tablet 10 mg PO DAILY 02/20/24 08/10/24 History aspirin 81 mg chewable tablet 81 mg PO DAILYCM 30 days #30 tabs 05/29/24 08/10/24 Rx levothyroxine 137 mcg capsule 548 mcg PO SA 06/11/24 08/03/24 History mirtazapine 15 mg tablet 15 mg PO QHS 06/11/24 08/10/24 History omeprazole 40 mg capsule,delayed 40 mg PO DAILY 06/11/24 08/10/24 History release albuterol sulfate 2.5 mg/3 mL 2.5 mg (3 mL) inhalation Q4H PRN 06/26/24 08/11/24 Rx (0.083 %) solution for nebulization #25 vials fluticasone fur. 200 mcg-umeclid 1 ea inhalation BID copd #60 ea 08/22/24 Unknown Rx 62.5 mcg-vilant 25 mcg inhalat.powder (Trelegy Ellipta) albuterol sulfate 90 mcg/actuation 1 - 2 inh inhalation Q6H PRN 11/18/24 Unknown History aerosol inhaler (Ventolin HFA) shortness of breath or wheezing lisinopril 20 mg tablet 20 mg PO DAILY 11/18/24 Unknown History metformin 500 mg tablet 1,000 mg PO DAILY 11/18/24 Unknown History oxycodone 5 mg tablet 2.5 mg PO Q6H PRN dyspnea 11/18/24 11/17/24 History prednisone 20 mg tablet 20 mg PO DAILY 11/18/24 Unknown History piperacillin-tazobactam 3.375 3.375 g (56.25 mL) IV Q8H 6 days 11/24/24 Unknown Rx gram/50 mL dextrose(iso-os) IV piggyback (Zosyn) Allergy/AdvReac Type Severity Reaction Status Date / Time Sulfa (Sulfonamide Allergy Itching Verified 11/18/24 12:42 Antibiotics) bacitracin (From Neosporin AdvReac Mild Rash Verified 11/18/24 12:42 ([id number])) neomycin (From Neosporin AdvReac Mild Rash Verified 11/18/24 12:42 ([id number])) polymyxin B (From Neosporin AdvReac Mild Rash Verified 11/18/24 12:42 ([id number])) Family History Mother Hypertension Father Cancer Passed age 2828 years old, she notes suspect if was cancer but unclear exact etiology. Brother Heart disease Surgical History History of bilateral cataract extraction H/O rectal polypectomy History of surgery of uterus Hx of colonoscopy Hx of foot surgery Social History household members: none Smoking Status: Former smoker how long ago did patient quit smoking: Quit 07/22/2013, smoked 1 ppd x 50 years until quit. second hand exposure: No alcohol intake: never substance use type: does not use caffeine: Yes frequency: does not exercise Physical Exam Const alert and no apparent distress Constitutional Narrative: oriented General Appearance: cooperative HEENT normocephalic and head/scalp atraumatic Eyes PERRL and EOMs intact bilaterally Neck supple and No nodes Resp Auscultation: wheezes and diminished lung sounds Cardio regular rate and regular rhythm GI soft to palpation, non-tender and non-distended Extremity General Extremity: Negative for edema Skin no rashes or lesions noted Neuro CN's II-XII intact bilaterally Lab / Micro Data Attestation: I reviewed the patient's lab results. 11/24/24 04:47 11/23/24 08:14 Labs: Laboratory Results - last 24 hr 11/23/24 16:29: POC Glucose 201 H 11/23/24 21:59: POC Glucose 280 H 11/24/24 04:47: WBC 21.6 H, RBC 3.96 L, Hgb 11.2 L, Hct 34.6 L, MCV 87.4, MCH 28.3, MCHC 32.4, RDW Std Deviation 44.7 H, RDW Coeff of Katia 13.9, Plt Count 361, MPV 9.2, Immature Gran % (Auto) 2.100 H, Neut % (Auto) 85.7 H, Lymph % (Auto) 1.9 L, [place] % (Auto) 5.0, Eos % (Auto) 5.0, Baso % (Auto) 0.3, Absolute Neuts (auto) 18.5 H, Absolute Lymphs (auto) 0.42 L, Nucleated RBC % 0, Differential Comment SCANNED 11/24/24 06:36: POC Glucose 193 H
[2024-11-24 13:41] LABS: Bedside Glucose 228 mg/dL (74-106)
--- NOTE | 2024-11-24 13:49 | CASEMGMT ---
KIRSTEN has obtained auth to admit. Marj De La Cruz DC Planning Asst.
--- NOTE | 2024-11-24 14:12 | CASEMGMT ---
BERNADETTE sent the prescription for patient's IV antibiotic to [place]. Sagrario Connolly AMUSEMENT MACHINE MECHANIC LARRY
--- NOTE | 2024-11-24 14:17 | PCM.TXEXTCAR ---
Diet Diet Order/Speech Therapy: 11/18/24 17:34 Diet: Consistent Carb - Calorie Controlled Food consistency:: Regular Liquid Consistency:: Regular/Thin Type of Dietary Supplement:: Glucerna Shake Diet Comments: meats cut up. 120mL Glucerna w/meals How many daily calories?: 1800 calorie Routine Orders/Code Status Suppository Type: Dulcolax 10mg Suppository Frequency: Daily PRN DC O2, CPAP, BIPAP needs Home O2 Discharge instructions: Yes Type of respiratory needs?: Oxygen Oxygen frequency: Continuous Continuous oxygen liters per minute: 3 L/m Therapies Extremity Affected:: Bilateral Lower Physical Therapy: Eval and Treat Occupational Therapy: Eval and Treat Speech Therapy: Eval and Treat Problem/Diagnosis (1) Acute exacerbation of chronic obstructive pulmonary disease: Status: Chronic Code(s): J44.1 - Chronic obstructive pulmonary disease with (acute) exacerbation (2) Pseudomonas pneumonia: Status: Acute Code(s): J15.1 - Pneumonia due to Pseudomonas Plan Patient is an 84-year-old lady who presented with progressive shortness of breath diagnosed with acute asthma/COPD exacerbation admitted to a monitored bed for subsequent management 1. COPD with acute exacerbation secondary to Pseudomonas bronchitis ? Patient started on bronchodilator treatment, systemic steroid as well as antibiotic therapy. Patient placed on oxygen titrated to keep saturation greater than 90. ? 11/20/2024; patient still has bronchospasm. ? 11/21/2023; patient still remains dyspneic at rest ? 11/22/2023; sputum cultures came back positive for Pseudomonas subsequently started on appropriate antibiotic therapy 11/23: Patient is started on IV Zosyn. ID consulted 2. Acute on chronic hypoxia ? Secondary to above placed on supplemental oxygen titrated to keep saturation greater than 90 ? 11/20/2024; patient remains on supplemental oxygen ? 11/23/2024; remains on supplemental oxygen 3. Anemia ? Secondary to chronic disorder monitoring H&H and transfuse if patient becomes symptomatic or hemoglobin falls below 7 4. Rheumatoid arthritis ? Patient is on prednisone 20 mg daily 5. Diabetes mellitus type II -patient's oral hypoglycemics held. Placed on long acting insulin, Accu-Cheks a.c. and at bedtime and covered with sliding scale insulin ? 11/20/2024; patient has elevated blood glucose levels given her concomitant use of steroid made adjustment to her insulin regimen 6. Hypertension ? Blood pressure controlled, home medications continued with dose adjustment as needed 7. Hypothyroidism ? Patient is on levothyroxine home dose continued 8. Allergic rhinitis ? Patient is on montelukast did continue 9. Depression with anxiety ? Patient is on mirtazapine at night did continue 10. GERD ? On PPI 11. Dyslipidemia ?Patient is on statin therapy, continued at home dose 12. DVT prophylaxis ? On enoxaparin 13. Physical deconditioning ? Requested for PT OT eval and social work professor to assist with discharge planning ? Awaiting insurance precertification prior to transfer to care home facility Time spent in the patient's overall evaluation,decision-making process, review of diagnostic data, adjustment of management, discussion with other providers, nursing nursing and ancillary staff involved in patient's care documentation, 36 minutes Allergies/Procedures Done in Hospital Allergies Sulfa (Sulfonamide Antibiotics) Allergy (Verified 11/18/24 12:42) Itching bacitracin (From Neosporin ([id number])) Adverse Reaction (Mild, Verified 11/18/24 12:42) Rash neomycin (From Neosporin ([id number])) Adverse Reaction (Mild, Verified 11/18/24 12:42) Rash polymyxin B (From Neosporin ([id number])) Adverse Reaction (Mild, Verified 11/18/24 12:42) Rash Type of Care/Length of Stay Estimated LOS: Convalescent Care Less Than 30 days Type of Care Needed: Skilled Rehab Potential: Good Prognosis: Good Additional Orders/Day of Discharge Day of Discharge: 11/24/24 Dietary and Speech Recommendations Dietitian Recommendations/Changes: Continue 1800 calorie controlled/consistent carbohydrate diet and will add cut meats into pieces. Will order 120ml glucerna TID with meals. PO still needs to be established, will adjust ONS as needed. Will monitor weight trends. Reviewed and approved by Yoselin Mckenzie RDN, LD. Discharge Plan Admission Admit Date/Time: 11/18/24 16:36 Attending Provider: Mark Sethi Primary Care Provider: Ciro Duran Consulting Providers: Celena House; Ramez Henry; Sammy Carlisle Discharge Orders/Prescriptions Prescriptions: New Zosyn in dextrose (iso-osm) 3.375 gram/50 mL piggyback 3.375 g IV Q8H 6 Days Rx Instructions: dx: pseudomonas pneumonia. Stop date 11/30/24. Weekly bmp and cbc, fax to [phone]. Routine line care per protocol. acetaminophen 325 mg Tablet 650 mg PO Q4H PRN PRN (Reason: Fever, pain 1-08/21) Qty: 0 0RF Sore Throat (benzocaine-menth) 15-3.6 mg Lozenge 1 mali mucous membrane Q2H PRN PRN (Reason: SORE THROAT) Qty: 0 0RF dextromethorphan-guaifenesin 60-1,200 mg tablet extended release 12 hr 1 tab PO BID 7 Days Qty: 14 0RF ipratropium-albuterol 0.5 mg-3 mg(2.5 mg base)/3 mL Solution For Nebulization 3 ml inhalation Q4H.RT PRN (Reason: SOB) Qty: 0 0RF sennosides-docusate sodium [Stimulant Laxative Plus] 8.6-50 mg Tablet 2 tab PO BID Qty: 0 0RF insulin lispro [Humalog KwikPen Insulin] 100 unit/mL Insulin Pen See Protocol subcut ACHS Qty: 0 0RF Protocol: 3. Sliding Scale Insulin Med Dosing Condition: 150-189 mg/dl = 1 unit Condition: 190-229 mg/dl = 2 units Condition: 230-269 mg/dl = 3 units Condition: 270-309 mg/dl = 4 units Condition: 310-349 mg/dl = 5 units Condition: 350-399 mg/dl = 6 units Condition: 400-449 mg/dl = 7 units Condition: Greater than 449 call physician Protocol Text: - Use for Total Daily Dose of Insulin 37-55 units - Obsese, infected, or steroid patients MEDIUM DOSING ALGORITHIM Deep [place] Nasal 0.65 % Aerosol,[place] 2 spray NASAL TID PRN PRN (Reason: Nasal Dryness) Qty: 0 0RF prednisone 20 mg tablet See Rx Instructions .Route .COMPLEX Qty: 25 0RF Rx Instructions: 40 mg daily for 4 days, 30 mg for 4 days, 20 mg for 4 days and 10 mg 8 days Continued Trelegy Ellipta 200-62.5-25 mcg blister with device 1 ea INHALATION BID Qty: 60 11RF montelukast 10 mg tablet 10 mg PO DAILY omeprazole 40 mg capsule,delayed release(DR/EC) 40 mg PO DAILY mirtazapine 15 mg tablet 15 mg PO QHS levothyroxine 137 mcg capsule 548 mcg PO SA Rx Instructions: take 4 tablets by mouth once weekly metformin 500 MG tablet 500 mg PO QPM Rx Instructions: 1000 in am and 500 pm simvastatin 40 MG tablet 40 mg PO QHS aspirin 81 mg Tablet,Chewable 81 mg PO DAILYCM 30 Days Qty: 30 0RF albuterol sulfate 2.5 mg /3 mL (0.083 %) solution for nebulization 2.5 mg inhalation Q4H PRN Qty: 25 0RF Rx Instructions: Use q4 hours and PRN for wheezing albuterol sulfate [Ventolin HFA] 90 mcg/actuation HFA aerosol inhaler 1 - 2 inh inhalation Q6H PRN (Reason: shortness of breath or wheezing) lisinopril 20 mg tablet 20 mg PO DAILY metformin 500 mg tablet 1,000 mg PO DAILY Rx Instructions: 1000 in am and 500 pm oxycodone 5 mg tablet 2.5 mg PO Q6H PRN (Reason: dyspnea) Discontinued ipratropium-albuterol 0.5 mg-3 mg(2.5 mg base)/3 mL solution for nebulization 1.5 ml continuous nebulization DAILY PRN (Reason: shortness of breath or wheezing) Qty: 180 3RF prednisone 20 mg tablet 20 mg PO DAILY Referrals / Follow Up: Ciro Duran MD [Primary Care Provider] - Sammy Carlisle MD [Med Staff - Active Staff] - Within 1 Month Gail Le NP, STITCH BONDER MACHINE OPERATOR HELPER-C [Med Staff - Adv Practice Prof] - Within 2 Weeks Disposition Disposition (needs filled in before D/C Order can be placed): Home, Self Care
--- NOTE | 2024-11-24 14:25 | PCM.DC.SUM ---
Providers Date of Admission: 11/18/24 Date of Discharge: 11/24/24 Primary Care Physician: Dr. Ciro Duran MD Consultations 11/24/24 09:06 Consult: Infectious Disease Routine Consulting Provider: Sammy Carlisle Reason for Consult: SOB, COPD exa, PsA in sputum EMERGENT Consult: No MD Notified: Yes Date Notified: 11/24/24 Time Notified: 09:06 Method of Notification: Text Reason For Visit: COPD EXAC, ACUTE ON CHRONIC RESPIRATORY FAILURE Diagnosis Discharge Diagnosis (1) Acute exacerbation of chronic obstructive pulmonary disease: Status: Chronic Code(s): J44.1 - Chronic obstructive pulmonary disease with (acute) exacerbation (2) Pseudomonas pneumonia: Status: Acute Code(s): J15.1 - Pneumonia due to Pseudomonas Plan Patient is an 84-year-old lady who presented with progressive shortness of breath diagnosed with acute asthma/COPD exacerbation admitted to a monitored bed for subsequent management 1. COPD with acute exacerbation secondary to Pseudomonas pneumonia ? Patient started on bronchodilator treatment, systemic steroid as well as antibiotic therapy. Patient placed on oxygen titrated to keep saturation greater than 90. ? sputum cultures came back positive for Pseudomonas subsequently started on appropriate antibiotic therapy 11/24: Patient is started on IV Zosyn. ID consulted and note reviewed and appreciated. Midline ordered and 6 days of IV Zosyn was prescribed by ID. Patient on IV Solu-Medrol since admission. Discharged on prolonged course of prednisone. DuoNeb to continue. Incentive spirometry 2. Acute on chronic hypoxia ? Secondary to above placed on supplemental oxygen titrated to keep saturation greater than 90 11/24 continue oxygen currently on 3 L/min. 3. Anemia ? Secondary to chronic disorder monitoring H&H and transfuse if patient becomes symptomatic or hemoglobin falls below 7 4. Rheumatoid arthritis ? Patient is on prednisone 20 mg daily 5. Diabetes mellitus type II -patient's oral hypoglycemics held. Placed on long acting insulin, Accu-Cheks a.c. and at bedtime and covered with sliding scale insulin 11/24: Continue Accu-Chek before meals and at bedtime with Humalog sliding scale coverage and hypoglycemia protocol. 6. Hypertension ? Blood pressure controlled, home medications continued with dose adjustment as needed 7. Hypothyroidism ? Patient is on levothyroxine home dose continued 8. Allergic rhinitis ? Patient is on montelukast did continue 9. Depression with anxiety ? Patient is on mirtazapine at night did continue 10. GERD ? On PPI 11. Dyslipidemia ?Patient is on statin therapy, continued at home dose 12. DVT prophylaxis ? On enoxaparin 13. Physical deconditioning PT and OT to continue Discharge to SNF. Follow-up in pulmonary clinic in 2 weeks Discharge medication reconciliation done. Discharge follow-up instructions completed. Discharge process discussed with the patient and all questions were answered to patient's satisfaction. Follow with PCP in 1 to 2 weeks Total time spent, exact 35 minutes on discharge meds reconciliation, examination, coordination of care with nurses and ancillary staff, review of imaging and blood test and discussion with the patient on follow-up instructions. Medications at Discharge Home Medications metformin 500 mg tablet 500 mg PO QPM diabetes 04/03/19 simvastatin 40 mg tablet 40 mg PO QHS cholesterol 04/03/19 montelukast 10 mg tablet 10 mg PO DAILY 02/20/24 aspirin 81 mg chewable tablet 81 mg PO DAILYCM 30 days #30 tabs 05/29/24 levothyroxine 137 mcg capsule 548 mcg PO SA 06/11/24 mirtazapine 15 mg tablet 15 mg PO QHS 06/11/24 omeprazole 40 mg capsule,delayed release 40 mg PO DAILY 06/11/24 albuterol sulfate 2.5 mg/3 mL (0.083 %) solution for nebulization 2.5 mg (3 mL) inhalation Q4H PRN #25 vials 06/26/24 fluticasone fur. 200 mcg-umeclid 62.5 mcg-vilant 25 mcg inhalat.powder (Trelegy Ellipta) 1 ea inhalation BID copd #60 ea 08/22/24 albuterol sulfate 90 mcg/actuation aerosol inhaler (Ventolin HFA) 1 - 2 inh inhalation Q6H PRN shortness of breath or wheezing 11/18/24 lisinopril 20 mg tablet 20 mg PO DAILY 11/18/24 metformin 500 mg tablet 1,000 mg PO DAILY 11/18/24 oxycodone 5 mg tablet 2.5 mg PO Q6H PRN dyspnea 11/18/24 acetaminophen 325 mg tablet 650 mg (2 x 325 mg) PO Q4H PRN PRN Fever, pain -08/21 #0 tabs 11/24/24 benzocaine 15 mg-menthol 3.6 mg lozenges (Sore Throat (benzocaine with menthol)) 1 mali mucous membrane Q2H PRN PRN SORE THROAT #0 ea 11/24/24 dextromethorphan-guaifenesin ER 60 mg-1,200 mg tab,extend release,12hr 1 tab PO BID 7 days #14 tabs 11/24/24 insulin lispro 100 unit/mL subcutaneous pen (Humalog KwikPen (U-100) Insulin) See Protocol subcut ACHS #0 mL 11/24/24 ipratropium 0.5 mg-albuterol 3 mg (2.5 mg base)/3 mL nebulization soln 3 ml inhalation Q4H.RT PRN SOB #0 mL 11/24/24 piperacillin-tazobactam 3.375 gram/50 mL dextrose(iso-os) IV piggyback (Zosyn) 3.375 g (56.25 mL) IV Q8H 6 days 11/24/24 prednisone 20 mg tablet See Rx Instructions .Route .COMPLEX #25 tabs 11/24/24 sennosides 8.6 mg-docusate sodium 50 mg tablet (Stimulant Laxative Plus) 2 tab PO BID #0 tabs 11/24/24 sodium chloride 0.65 % nasal spray aerosol (Deep Sea Nasal) 2 spray NASAL TID PRN PRN Nasal Dryness #0 mL 11/24/24 Physical Exam Narrative Patient complain of cough and left-sided inframammary pain mainly on deep breathing and cough. Brings up greenish-yellowish sputum. It states she did not have good sleep because of the pain. Did not use BiPAP at night. History of asthma. History of remote smoking, for 50 years in the past. No fever. complaint of mucus stuck in the chest. Complain of constipation, last BM 3 days prior to admission. Physical exam General: Alert, Oriented x3, Cooperative HEENT: Atraumatic, PERRLA, EOMI, Normocephalic Oral: Oral mucosa dry. No Gingival or Mucosal Lesions/ Ulcerations Neck: Supple, No JVD, Negative Carotid Bruits Chest wall/Lungs: Air entry diminished in bilateral lung bases. Bilateral coarse crepitations or rhonchi. Cardiovascular: Sinus rhythm, Normal S1, Normal S2, No M/G/R Abdomen: Bowel Sounds Present, Soft, Non Tender, Non-Distended : No dysuria. No renal angle tenderness. No suprapubic tenderness. Extremities: No edema, Capillary Refill Less than 3 Seconds Skin: No rashes, No breakdown Musculoskeletal: No Tenderness to Palpation of Joints or Extremities Neurological: Cranial nerves II-XII grossly intact, DTR 2+/4. No acute focal neurological deficit. Psych/Mental Status: Flat affect. Weight / BMI Weight Weight: 134 lb 14.766 oz Body Mass Index (BMI) 26.3 ABG / Lab / Microbiology Data 11/24/24 04:47 11/23/24 08:14 Laboratory: Laboratory Results - last 24 hr 11/23/24 16:29: POC Glucose 201 H 11/23/24 21:59: POC Glucose 280 H 11/24/24 04:47: WBC 21.6 H, RBC 3.96 L, Hgb 11.2 L, Hct 34.6 L, MCV 87.4, MCH 28.3, MCHC 32.4, RDW Std Deviation 44.7 H, RDW Coeff of Katia 13.9, Plt Count 361, MPV 9.2, Immature Gran % (Auto) 2.100 H, Neut % (Auto) 85.7 H, Lymph % (Auto) 1.9 L, [place] % (Auto) 5.0, Eos % (Auto) 5.0, Baso % (Auto) 0.3, Absolute Neuts (auto) 18.5 H, Absolute Lymphs (auto) 0.42 L, Nucleated RBC % 0, Differential Comment SCANNED 11/24/24 06:36: POC Glucose 193 H 11/24/24 12:10: POC Glucose 228 H Microbiology: Microbiology 11/19/24 00:02 Sputum, Expectorated/Coughed Gram Stain - Final 11/19/24 00:02 Sputum, Expectorated/Coughed Respiratory Culture - Final Pseudomonas aeruginosa 11/18/24 10:40 Mucosa - Nasopharyngeal Respiratory Panel (PCR) - Final 11/18/24 18:13 Nasal Secretion MRSA (PCR) - Final 11/18/24 15:25 Mucosa - Nose SARS-CoV-2, Influenza & RSV (PCR) - Final D/C Instructions DC O2, CPAP, BIPAP Needs PSN CPAP & BiPAP: BiPAP & CPAP Settings per PSN Mode BiPAP 11/22/24 03:40 Bipap Delivery Device Face Mask 11/22/24 03:40 BiPAP Inspiratory Pressure 12 11/22/24 00:40 BiPAP Expiratory Pressure 8 11/22/24 00:40 BiPAP Rate 12 11/22/24 00:40 Fraction of Inspired Oxygen ( 30 11/22/24 00:40 FIO2) Home O2 Discharge instructions: Yes Type of respiratory needs?: Oxygen Oxygen frequency: Continuous Continuous oxygen liters per minute: 3 L/m DC home with Oxygen: Yes Home O2 MD Review: I have reviewed the oxygen testing, and the patient qualifies for home oxygen equipment and portability. The patient is mobile in the home and the community. Meaningful Use Info Meaningful Use Meaningful Use Diagnoses (Choose all that apply): None applicable Ischemic Stroke Statin Dosing Therapy Reference: STATIN DOSE THERAPY REFERENCE: * Patients > 75 years receive moderate or high dose statin therapy. * Patients 75 years or YOUNGER should receive HIGH intensity statin dose unless contraindicated. You will be required to document reason for non-treatment if statin daily dose does not meet guidelines. HIGH DOSE STATIN THERAPY DAILY Atorvastatin > than or = to 40 mg Rosuvastatin > than or = to 20 mg Amlodipine + Atorvastatin > than or = to 2.5/40 mg Ezetimibe + Simvastatin 10/80 mg Simvastatin 80mg Discharge Plan Admission Admit Date/Time: 11/18/24 16:36 Attending Provider: Mark Sethi Primary Care Provider: Ciro Duran Consulting Providers: Celena House; Ramez Henry; Sammy Carlisle Discharge Orders/Prescriptions Prescriptions: New Zosyn in dextrose (iso-osm) 3.375 gram/50 mL piggyback 3.375 g IV Q8H 6 Days Rx Instructions: dx: pseudomonas pneumonia. Stop date 11/30/24. Weekly bmp and cbc, fax to [phone]. Routine line care per protocol. acetaminophen 325 mg Tablet 650 mg PO Q4H PRN PRN (Reason: Fever, pain 1-08/21) Qty: 0 0RF Sore Throat (benzocaine-menth) 15-3.6 mg Lozenge 1 mali mucous membrane Q2H PRN PRN (Reason: SORE THROAT) Qty: 0 0RF dextromethorphan-guaifenesin 60-1,200 mg tablet extended release 12 hr 1 tab PO BID 7 Days Qty: 14 0RF ipratropium-albuterol 0.5 mg-3 mg(2.5 mg base)/3 mL Solution For Nebulization 3 ml inhalation Q4H.RT PRN (Reason: SOB) Qty: 0 0RF sennosides-docusate sodium [Stimulant Laxative Plus] 8.6-50 mg Tablet 2 tab PO BID Qty: 0 0RF insulin lispro [Humalog KwikPen Insulin] 100 unit/mL Insulin Pen See Protocol subcut ACHS Qty: 0 0RF Protocol: 3. Sliding Scale Insulin Med Dosing Condition: 150-189 mg/dl = 1 unit Condition: 190-229 mg/dl = 2 units Condition: 230-269 mg/dl = 3 units Condition: 270-309 mg/dl = 4 units Condition: 310-349 mg/dl = 5 units Condition: 350-399 mg/dl = 6 units Condition: 400-449 mg/dl = 7 units Condition: Greater than 449 call physician Protocol Text: - Use for Total Daily Dose of Insulin 37-55 units - Obsese, infected, or steroid patients MEDIUM DOSING ALGORITHIM Deep Sea Nasal 0.65 % Aerosol,[place] 2 spray NASAL TID PRN PRN (Reason: Nasal Dryness) Qty: 0 0RF prednisone 20 mg tablet See Rx Instructions .Route .COMPLEX Qty: 25 0RF Rx Instructions: 40 mg daily for 4 days, 30 mg for 4 days, 20 mg for 4 days and 10 mg 8 days Continued Trelegy Ellipta 200-62.5-25 mcg blister with device 1 ea INHALATION BID Qty: 60 11RF montelukast 10 mg tablet 10 mg PO DAILY omeprazole 40 mg capsule,delayed release(DR/EC) 40 mg PO DAILY mirtazapine 15 mg tablet 15 mg PO QHS levothyroxine 137 mcg capsule 548 mcg PO SA Rx Instructions: take 4 tablets by mouth once weekly metformin 500 MG tablet 500 mg PO QPM Rx Instructions: 1000 in am and 500 pm simvastatin 40 MG tablet 40 mg PO QHS aspirin 81 mg Tablet,Chewable 81 mg PO DAILYCM 30 Days Qty: 30 0RF albuterol sulfate 2.5 mg /3 mL (0.083 %) solution for nebulization 2.5 mg inhalation Q4H PRN Qty: 25 0RF Rx Instructions: Use q4 hours and PRN for wheezing albuterol sulfate [Ventolin HFA] 90 mcg/actuation HFA aerosol inhaler 1 - 2 inh inhalation Q6H PRN (Reason: shortness of breath or wheezing) lisinopril 20 mg tablet 20 mg PO DAILY metformin 500 mg tablet 1,000 mg PO DAILY Rx Instructions: 1000 in am and 500 pm oxycodone 5 mg tablet 2.5 mg PO Q6H PRN (Reason: dyspnea) Discontinued ipratropium-albuterol 0.5 mg-3 mg(2.5 mg base)/3 mL solution for nebulization 1.5 ml continuous nebulization DAILY PRN (Reason: shortness of breath or wheezing) Qty: 180 3RF prednisone 20 mg tablet 20 mg PO DAILY Referrals / Follow Up: Ciro Duran MD [Primary Care Provider] - Sammy Carlisle MD [Med Staff - Active Staff] - Within 1 Month Gail Le NP, [employer] [Med Staff - Adv Practice Prof] - Within 2 Weeks Disposition Disposition (needs filled in before D/C Order can be placed): Home, Self Care Charges/Coding Visit Charges Inpatient E&M: 04344 Disch Hosp >30min
--- NOTE | 2024-11-24 14:28 | CASEMGMT ---
SW completed a PASRR in [employer]. Plan: d/c to [place] under skilled level of care on a convalescent stay. Physicians will transport patient via wheelchair van. Sagrario JUAREZ
--- NOTE | 2024-11-24 14:30 | PHA.DC_ITS ---
Pharmacy [place] Med Reconciliation Pharmacy Service has performed discharge medication reconciliation for this patient. The patient's discharge medication list was reviewed for discrepancies and discrepancies were resolved. Medications at Discharge Home Medications metformin 500 mg tablet 500 mg PO QPM diabetes 04/03/19 simvastatin 40 mg tablet 40 mg PO QHS cholesterol 04/03/19 montelukast 10 mg tablet 10 mg PO DAILY 02/20/24 aspirin 81 mg chewable tablet 81 mg PO DAILYCM 30 days #30 tabs 05/29/24 levothyroxine 137 mcg capsule 548 mcg PO SA 06/11/24 mirtazapine 15 mg tablet 15 mg PO QHS 06/11/24 omeprazole 40 mg capsule,delayed release 40 mg PO DAILY 06/11/24 albuterol sulfate 2.5 mg/3 mL (0.083 %) solution for nebulization 2.5 mg (3 mL) inhalation Q4H PRN #25 vials 06/26/24 fluticasone fur. 200 mcg-umeclid 62.5 mcg-vilant 25 mcg inhalat.powder (Trelegy Ellipta) 1 ea inhalation BID copd #60 ea 08/22/24 albuterol sulfate 90 mcg/actuation aerosol inhaler (Ventolin HFA) 1 - 2 inh inhalation Q6H PRN shortness of breath or wheezing 11/18/24 lisinopril 20 mg tablet 20 mg PO DAILY 11/18/24 metformin 500 mg tablet 1,000 mg PO DAILY 11/18/24 oxycodone 5 mg tablet 2.5 mg PO Q6H PRN dyspnea 11/18/24 acetaminophen 325 mg tablet 650 mg (2 x 325 mg) PO Q4H PRN PRN Fever, pain 1-1 0/10 #0 tabs 11/24/24 benzocaine 15 mg-menthol 3.6 mg lozenges (Sore Throat (benzocaine with menthol)) 1 mali mucous membrane Q2H PRN PRN SORE THROAT #0 ea 11/24/24 dextromethorphan-guaifenesin ER 60 mg-1,200 mg tab,extend release,12hr 1 tab PO BID 7 days #14 tabs 11/24/24 insulin lispro 100 unit/mL subcutaneous pen (Humalog KwikPen (U-100) Insulin) See Protocol subcut ACHS #0 mL 11/24/24 ipratropium 0.5 mg-albuterol 3 mg (2.5 mg base)/3 mL nebulization soln 3 ml inhalation Q4H.RT PRN SOB #0 mL 11/24/24 piperacillin-tazobactam 3.375 gram/50 mL dextrose(iso-os) IV piggyback (Zosyn) 3.375 g (56.25 mL) IV Q8H 6 days 11/24/24 prednisone 20 mg tablet See Rx Instructions .Route .COMPLEX #25 tabs 11/24/24 sennosides 8.6 mg-docusate sodium 50 mg tablet (Stimulant Laxative Plus) 2 tab PO BID #0 tabs 11/24/24 sodium chloride 0.65 % nasal spray aerosol (Deep Sea Nasal) 2 spray NASAL TID PRN PRN Nasal Dryness #0 mL 11/24/24
--- NOTE | 2024-11-24 15:06 | CASEMGMT ---
Discharge Planning Discharge orders, signed med list, and transport time sent to [facility] via [facility]. Physicians will transport patient by wheelchair at 6:30p. Nursing, SW, and pt updated. left for pts daughter (Esther). Marj De La Cruz DC Planning Asst.
--- NOTE | 2024-11-24 17:07 | NURSING ---
This RN called and gave report to FAUSTO Murphy at [facility]
[2024-11-24 17:16] LABS: Bedside Glucose 235 mg/dL (74-106)
== END 2024-11-24 20:25 | DRG 190 ==
LOC: ED 16:19 → PCU 16:54
PROVIDERS: Internal Medicine; Admitting Provider Family Medicine; Emergency Provider Emergency Medicine; PCP Family Medicine; Visit Provider Internal Medicine
DX: J44.1 Chronic obstructive pulmonary disease with (acute) exacerbation (principal); J15.1 Pneumonia due to Pseudomonas; J45.901 Unspecified asthma with (acute) exacerbation; J96.11 Chronic respiratory failure with hypoxia; D63.1 Anemia in chronic kidney disease; K21.9 Gastro-esophageal reflux disease without esophagitis; Z66 Do not resuscitate; E11.22 Type 2 diabetes mellitus with diabetic chronic kidney disease; M06.9 Rheumatoid arthritis, unspecified; E03.9 Hypothyroidism, unspecified; I12.9 Hypertensive chronic kidney disease with stage 1 through stage 4 chronic kidney disease, or unspecified chronic kidney disease; F32.A Depression, unspecified; J44.0 Chronic obstructive pulmonary disease with (acute) lower respiratory infection; N18.2 Chronic kidney disease, stage 2 (mild); E78.5 Hyperlipidemia, unspecified; E11.65 Type 2 diabetes mellitus with hyperglycemia; F41.9 Anxiety disorder, unspecified; R53.81 Other malaise; Z20.822 Contact with and (suspected) exposure to COVID-19; Z99.81 Dependence on supplemental oxygen; Z79.51 Long term (current) use of inhaled steroids; Z79.52 Long term (current) use of systemic steroids; Z79.82 Long term (current) use of aspirin; Z79.84 Long term (current) use of oral hypoglycemic drugs; Z79.899 Other long term (current) drug therapy; Z86.16 Personal history of COVID-19; Z87.891 Personal history of nicotine dependence
CPT/HCPCS: 36415; 71046; 80048; 80053; 82962; 83605; 83735; 84100; 84145; 85025; 87070; 87077; 87184; 87186; 87205; 87631; 87633; 87641; 94002; 94003; 94640; 94668; 94760; 94762; 97110; 97116; 97162; 97166; 97530; 97535; 97802; 99285; A4216

== ENCOUNTER 2024-12-04 09:51 | Inpatient (IN) | payer MEDICARE, SELFPAY ==
[2024-12-04] VITALS (17 sets, daily range): BP systolic 93–139; BP diastolic 52–83; PULSE 65–155; RESP 12–28; TEMP 36.4–37.3; O2SAT 86–99; BMI 27.7; BMI 24.5
--- NOTE | 2024-12-04 10:04 | RAD_ITS ---
STUDY: X-RAY CHEST REASON FOR EXAM: Female, 84 years old. Cough. Increasing shortness of breath. TECHNIQUE: Single AP portable view of the chest. COMPARISON: Comparison is made with prior study dated November 18, 2024. FINDINGS: EKG electrodes are seen. Infiltration in the lingular segment of the left upper lobe as well as the right lung base. Follow-up recommended. There is no demonstrated pleural abnormality. Normal size heart. Normal mediastinum and simone. Normal visualized pulmonary arteries. There is atherosclerotic calcification of the aortic arch with tortuosity. Normal visualized thoracic spine. Normal visualized ribs, clavicles, and shoulders. There is no demonstrated abnormality of the visualized soft tissue structures of the upper abdomen. RAD/Chest 1 View (Portable) IMPRESSION: Lingular infiltrate. Patchy infiltrate at the right lung base. Electronically Signed: Santiago Bradshaw MD at 10:38 EST ,
--- NOTE | 2024-12-04 10:04 | EKG12_ITS ---
Test Reason : SOB Blood Pressure : */* mmHG Vent. Rate : 95 BPM Atrial Rate : 95 BPM P-R Int : 148 ms QRS Dur : 66 ms QT Int : 342 ms P-R-T Axes : 58 15 36 degrees QTcB Int : 429 ms Normal sinus rhythm Normal ECG Confirmed by JUAN DANIEL KINCAID, ELIUD ([id number]), telegraph editor KEIRY BE ([id number]) on 12/09/2024 7:12:39 AM Referred By: AJIT Confirmed By: ELIUD FRANCES MD
--- NOTE | 2024-12-04 10:07 | EX.ED.DYSGE1 ---
HPI History of Present Illness Chief Complaint: Shortness of Breath Informant: patient, family, EMS and SNF Narrative Narrative: 84-year-old female sent from care home. The patient's nurse practitioner called and stated that the patient has not had a bowel movement for couple days. They gave milk of magnesia and she had a small bowel movement but the abdomen is distended today. She notes that the patient also seemed more short of breath and her oxygen level was 88% with rhonchorous lung sounds. She has a history of COPD was recently admitted to the hospital and found to have Pseudomonas pneumonia and was discharged home on Zosyn through a PICC line. Reportedly the PICC line was removed yesterday. Patient notes her breathing does seem worse to her than normal but her biggest complaint is her abdominal distention. Very difficult to get much history from the patient when asked why she has a bruise on her left chest wall she states the chest ruptured or what ever it does. Nursing notes that she will typically wear 2 to 3 L of nasal cannula. Currently utilizing 6 to stay at about 90-91% [facility] Pseudomonas pneumonia COPD exacerbation Pneumonia Hypoxia COVID-19 Acute respiratory failure Rheumatoid arthritis Hyperlipidemia Osteoarthritis Anemia Hypothyroidism Diabetes On home oxygen therapy Asthma COPD (chronic obstructive pulmonary disease) HTN (hypertension) Diabetes mellitus, type 2 Normocytic anemia Former tobacco use Intermittent constipation COPD (chronic obstructive pulmonary disease) Arthritis Thyroid disease Home Medications ?Medication ?Instructions ?Recorded ?Last Taken ?Type metformin 500 mg tablet 500 mg PO QPM diabetes 04/03/19 08/11/24 History simvastatin 40 mg tablet 40 mg PO QHS cholesterol 04/03/19 08/10/24 History montelukast 10 mg tablet 10 mg PO DAILY 02/20/24 08/10/24 History levothyroxine 137 mcg capsule 548 mcg PO SA 06/11/24 08/03/24 History mirtazapine 15 mg tablet 15 mg PO QHS 06/11/24 08/10/24 History fluticasone fur. 200 mcg-umeclid 1 ea inhalation BID copd #60 ea 08/22/24 Unknown Rx 62.5 mcg-vilant 25 mcg inhalat.powder (Trelegy Ellipta) albuterol sulfate 90 mcg/actuation 1 - 2 inh inhalation Q6H PRN 11/18/24 Unknown History aerosol inhaler (Ventolin HFA) shortness of breath or wheezing lisinopril 20 mg tablet 20 mg PO DAILY 11/18/24 Unknown History metformin 500 mg tablet 1,000 mg PO DAILY 11/18/24 Unknown History piperacillin-tazobactam 3.375 3.375 g (56.25 mL) IV Q8H 6 days 11/24/24 Unknown Rx gram/50 mL dextrose(iso-os) IV piggyback (Zosyn) sennosides 8.6 mg-docusate sodium 2 tab PO BID #0 tabs 11/24/24 Unknown Rx 50 mg tablet (Stimulant Laxative Plus) oxycodone 5 mg tablet 5 mg PO Q6H PRN pain 20 days #60 12/01/24 Unknown Rx tabs acetaminophen 325 mg tablet 650 mg PO Q4H PRN Fever, pain 12/04/24 Unknown History 1-08/21 albuterol sulfate 2.5 mg/3 mL 2.5 mg inhalation Q6H PRN 12/04/24 Unknown History (0.083 %) solution for nebulization shortness of breath or wheezing benzocaine 15 mg-menthol 3.6 mg 1 mali mucous membrane Q2H PRN SORE 12/04/24 Unknown History lozenges (Sore Throat (benzocaine THROAT with menthol)) insulin lispro 100 unit/mL 1 sliding scale dose subcut ACHS 12/04/24 Unknown History subcutaneous pen (Humalog KwikPen DIABETES (U-100) Insulin) ipratropium 0.5 mg-albuterol 3 mg 3 ml inhalation Q4H PRN shortness 12/04/24 Unknown History (2.5 mg base)/3 mL nebulization of breath soln levothyroxine 137 mcg tablet 68.5 mcg PO TH 12/04/24 Unknown History (Euthyrox) lidocaine 4 % topical patch 1 patch topical DAILY 12/04/24 Unknown History magnesium hydroxide 400 mg/5 mL 30 ml PO DAILY PRN stomach upset 12/04/24 Unknown History oral suspension (Milk of Magnesia) melatonin 3 mg tablet 6 mg PO QHS PRN sleep 12/04/24 Unknown History pantoprazole 40 mg tablet,delayed 40 mg PO DAILY 12/04/24 Unknown History release prednisone 10 mg tablet 10 mg PO DAILY 12/04/24 Unknown History prednisone 20 mg tablet 20 mg PO DAILY 12/04/24 Unknown History Allergy/AdvReac Type Severity Reaction Status Date / Time Sulfa (Sulfonamide Allergy Itching Verified 12/04/24 09:52 Antibiotics) bacitracin (From Neosporin AdvReac Mild Rash Verified 12/04/24 09:52 ([id number])) neomycin (From Neosporin AdvReac Mild Rash Verified 12/04/24 09:52 ([id number])) polymyxin B (From Neosporin AdvReac Mild Rash Verified 12/04/24 09:52 ([id number])) Family History Mother Hypertension Father Cancer Passed age 2828 years old, she notes suspect if was cancer but unclear exact etiology. Brother Heart disease Surgical History History of bilateral cataract extraction H/O rectal polypectomy History of surgery of uterus Hx of colonoscopy Hx of foot surgery Social History household members: none Smoking Status: Former smoker how long ago did patient quit smoking: Quit 07/22/2013, smoked 1 ppd x 50 years until quit. second hand exposure: No alcohol intake: never substance use type: does not use caffeine: Yes frequency: does not exercise ROS ROS ED Constitutional Constitutional ED: Denies chills, fever(s) or weight loss Eyes Eyes: Denies change in vision or diplopia ENT ENT ED: Denies ear pain, rhinorrhea or sore throat Cardiovascular Cardiovascular: Denies chest pain, orthopnea, palpitations or racing heartbeat Respiratory/Chest Respiratory/Chest: Reports cough, dyspnea and dyspnea on exertion; Denies orthopnea Gastrointestinal Gastrointestinal: Reports abdominal pain, constipation and nausea; Denies diarrhea or vomiting Genitourinary Genitourinary ED: Denies dysuria, hematuria or urinary frequency Musculoskeletal Musculoskeletal: Denies arthralgias or myalgias Integumentary Denies abscess or rash Neurologic Neurologic: Denies headache(s) or weakness Psychiatric Psychiatric: Denies anxiety, depression, suicidal ideation or suicidal thoughts Endocrine Endocrinology: Denies polydipsia, polyphagia or polyuria Allergic/Immunologic Allergic/Immunologic ED: Denies mouth swelling, tongue swelling or urticaria EXAM Physical Exam Const Vital Signs: 12/04/24 09:53 12/04/24 09:53 12/04/24 10:00 Temperature 98.1 F 98.1 F Temperature Source Oral Oral Pulse Rate 100 102 H Respiratory Rate 17 21 H Respiratory Effort Short of Breath Respiratory Depth Normal Respiratory Pattern Normal Blood Pressure 139/71 H 136/83 H Blood Pressure Mean 93 100 Pulse Ox 86 92 Oxygen Delivery Method Nasal Cannula Room Air Nasal Cannula Oxygen Flow Rate (L/min) 2 6 12/04/24 10:04 12/04/24 11:00 12/04/24 11:05 Temperature 98 F Temperature Source Oral Pulse Rate 99 86 Respiratory Rate 22 H 14 Respiratory Effort Respiratory Depth Respiratory Pattern Blood Pressure 126/70 H 126/70 H Blood Pressure Mean 88 88 Pulse Ox 92 96 94 Oxygen Delivery Method Nasal Cannula Nasal Cannula Oxygen Flow Rate (L/min) 6 4 12/04/24 11:09 12/04/24 11:09 12/04/24 12:00 Temperature 98 F Temperature Source Oral Pulse Rate 87 93 Respiratory Rate 23 H 18 Respiratory Effort Respiratory Depth Respiratory Pattern Blood Pressure 128/64 H Blood Pressure Mean 85 Pulse Ox 95 92 Oxygen Delivery Method Nasal Cannula Nasal Cannula Oxygen Flow Rate (L/min) 4 4 Positive well nourished and well developed General Appearance ED: well developed HEENT Reports normocephalic, head/scalp atraumatic and moist mucous membranes Eyes PERRL and EOMs intact bilaterally Neck no lymphadenopathy, supple and no JVD Chest Wall Chest Narrative: There is a large area of purple ecchymosis just lateral to the left breast going towards the axilla. There is no crepitance. Resp Resp Narrative: Patient appears tachypneic with rhonchorous lung sounds best heard at the right base Cardio regular rate, regular rhythm and no murmurs Rate: tachycardic GI Inspection: abdominal distention Auscultation: hyperactive bowel sounds Palpation: soft, tender other (Diffusely tender) and guarding Back/Spine no CVA tenderness and normal ROM Extremity normal to inspection General Extremety ED: Negative for edema General Extremity: Negative for edema Neuro oriented x3 and CN's II-XII intact bilaterally Sensorium / Orientation: alert Motor Exam: strength 5/5 throughout Psych mental status grossly normal Mood & Affect: Negative for depressed or tearful Skin no rashes or lesions noted and no wounds Skin Narrative: Abdominal wall bruising consistent with recent injections. See chest wall exam above MDM MDM MDM Narrative Medical decision making narrative: Differential diagnosis includes but not limited to volvulus constipation fecal impaction colitis bowel obstruction urinary retention acute kidney injury electrolyte abnormalities pneumonia COPD exacerbation bronchitis pleural effusion congestive heart failure Patient's white count is elevated 21.3 hemoglobin 10.3 platelet count of 452. Lactic acid is normal BNP is 30.2 troponin is 7 glucose 122 sodium slightly low at 129 creatinine 0.83 urinalysis was obtained via catheter. She had approximately 2 L of urine out. This is negative for infection. My independent interpretation of the chest x-ray is multifocal pneumonia. A CT of the abdomen pelvis was obtained. Please see radiologist read for full details. There is evidence of pneumonia with a parapneumonic effusion and a cavitated infiltrate of the left upper lobe. I chose Zosyn to administered the patient because of the recent Pseudomonas infection. We obtained blood and urine cultures as well as attempting a sputum culture. Patient received IV fluid as well as morphine Zofran and a DuoNeb. Family and patient were updated History & Record Review Discussion w/independent historian: Patient and Family Additional record(s) reviewed:: Prior inpatient record, Prior outpatient record, Prior ED visit and Prior labs Lab Data Attestation: I reviewed the patient's lab results. Labs: Laboratory Results - last 24 hr 12/04/24 12/04/24 10:13 10:59 WBC 21.3 H RBC 3.66 L Hgb 10.3 L Hct 31.5 L MCV 86.1 MCH 28.1 MCHC 32.7 RDW Std Deviation 43.2 RDW Coeff of Katia 14.0 Plt Count 452 H MPV 8.9 Immature Gran % (Auto) 1.400 H Neut % (Auto) 84.5 H Lymph % (Auto) 7.1 L [place] % (Auto) 6.5 Eos % (Auto) 0.2 Baso % (Auto) 0.3 Absolute Neuts (auto) 18.0 H Absolute Lymphs (auto) 1.51 Nucleated RBC % 0 PT 13.2 INR 1.0 APTT 25.9 Sodium 129 L Potassium 4.2 Chloride 91 L Carbon Dioxide 32.0 Anion Gap 6 BUN 18 Creatinine 0.83 Estim Creat Clear Calc 41.41 Est GFR (MDRD) Af Amer 84 Est GFR (MDRD) Non-Af 70 BUN/Creatinine Ratio 21.8 H Glucose 122 H Lactic Acid 1.0 Calcium 9.9 Total Bilirubin 0.80 Direct Bilirubin 0.13 AST 13 L ALT 13 Alkaline Phosphatase 83 Troponin I High Sens 7 B-Natriuretic Peptide 30.2 Total Protein 6.7 Albumin 2.4 L Globulin 4.3 H Lipase 27 Urine Color Yellow Urine Clarity Clear Urine pH 6.5 Ur Specific [place] 1.010 Urine Protein Negative Urine Glucose (UA) Normal Urine Ketones Negative Urine Occult Blood Negative Urine Nitrite Negative Urine Bilirubin Negative Urine Urobilinogen Normal Ur Leukocyte Esterase Negative Urine RBC 0 SEEN Urine WBC 0 SEEN Ur Squamous Epith Cells 0 SEEN Urine Bacteria 0 SEEN Hyaline Casts 0-5 SEEN Urine Mucus 0 SEEN Radiography Diagnostic Testing: Clinical Impression(s) from Imaging Studies Chest X-Ray 12/04/24 10:04 IMPRESSION: Lingular infiltrate. Patchy infiltrate at the right lung base. Electronically Signed: Santiago Bradshaw MD at 10:38 EST , Abdomen/Pelvis CT 12/04/24 10:55 IMPRESSION: Cavitated mass in the lateral aspect of the left upper lobe with a small left pleural effusion. Consolidation in both lower lobes with bronchiectasis at the right lung base. Moderate amount of fecal material is seen in the rectosigmoid colon. Electronically Signed: Satniago Bradshaw MD at 12:20 EST , EKG Initial EKG: Attestation: I personally reviewed and interpreted this EKG as follows: Comments: Normal sinus rhythm ventricular rate of 95 bpm Management Discussion w/another healthcare provider: Hospitalist (Dr Palumbo) Discharge Plan Dx/Rx/DC Orders Clinical Impression: Pneumonia, COPD (chronic obstructive pulmonary disease), Acute and chronic respiratory failure with hypoxia, Acute urinary retention, Constipation, Parapneumonic effusion Disposition Disposition: [facility]
[2024-12-04 10:27] LABS: Absolute Lymphocyte Count 1.51 X10^3/uL (0.83-4.51); Basophil# 0.07 X10^3/uL; Basophil% 0.3 % (0-1); Eosinophil# 0.04 X10^3/uL; Eosinophils% 0.2 % (0-5); Hematocrit 31.5 % (37-47); Hemoglobin 10.3 g/dL (12.0-15.0); Lymphocyte # 1.51 X10^3/ul (0.83-4.51); Lymphocyte % 7.1 % (19-41); Mean Corp Hgb Conc 32.7 g/dL (32-36); Mean Corpuscular Hgb 28.1 pg (27.0-32.0); Mean Corpuscular Volume 86.1 fL (81-99); Mean Platelet Vol. 8.9 fl (6.2-12.0); Monocyte# 1.38 X10^3/uL; Monocyte% 6.5 % (0-10); NRBC Flagged by Analyzer 0 % (0-5); Neutrophil # 18.03 X10^3/uL (2.7-7.7); Neutrophil % 84.5 % (47-70); Platelet Count 452 K/mm3 (150-450); RBC Distribution Width SD 43.2 fl (35.1-43.9); Red Blood Count 3.66 M/mm3 (4.2-5.4); White Blood Count 21.3 K/mm3 (4.4-11.0)
[2024-12-04 10:37] LABS: Prothrombin Time (Protime)PT. 13.2 SECONDS (11.7-14.9)
[2024-12-04 10:38] LABS: Partial Thromboplast Time 25.9 Seconds (24.1-36.2)
[2024-12-04 10:48] LABS: BNP,B-Type NATRIURETIC PEPTIDE 30.2 pg/mL (0-100)
--- NOTE | 2024-12-04 10:55 | CT_ITS ---
STUDY: CT ABDOMEN AND PELVIS WITH CONTRAST REASON FOR EXAM: Female, 84 years old. Abdominal distension RADIATION DOSAGE (If Supplied By Facility): CTDIvol = ( 11.32 ) mGy, DLP = ( 635.25 ) mGycm TECHNIQUE: Transaxial images were obtained from the dome of the diaphragm to the symphysis pubis without oral contrast. IV 75mL Isovue-300 was administered. Sagittal and coronal images were reconstructed. Individualized dose optimization techniques were used for this CT. COMPARISON: Comparison is made with prior study dated May 28, 2024. FINDINGS: There are 3.7 cm x 3.7 cm cavitated mass in the lateral aspect of the left upper lobe. There is also evidence of a small left pleural effusion with some consolidation in the left lower lobe. Bronchiectasis with infiltration in the right lower lobe as well. Coronary artery calcification. Normal liver. Normal gallbladder and extrahepatic biliary system. Normal spleen. Normal pancreas. Normal bilateral adrenal glands. Normal right kidney. Normal left kidney. Normal visualized stomach. Normal small intestine. Moderate amount of fecal material is seen in the rectosigmoid colon. The appendix is visualized and appears normal. There is diffuse atherosclerotic calcification of the abdominal aorta and its major visceral branches, without a demonstrated aneurysm. Normal inferior vena cava. Normal retroperitoneum. Normal urinary bladder. Calcified fibroid uterus. Ann catheter is seen within the empty bladder. Normal abdominal wall. There are degenerative changes of the visualized lumbar spine. CT/Abdomen/Pelvis W IV Cont ONLY IMPRESSION: Cavitated mass in the lateral aspect of the left upper lobe with a small left pleural effusion. Consolidation in both lower lobes with bronchiectasis at the right lung base. Moderate amount of fecal material is seen in the rectosigmoid colon. Electronically Signed: Santiago Bradshaw MD at 12:20 EST ,
[2024-12-04] MEDS: Ipratropium/Albuterol Sulfate 3 ML AMPUL.NEB INHALATION ×3 (11:06→23:17)
[2024-12-04] MEDS: 0.9% Normal Saline (1000mL) 1,000 ML 999 ML IV (11:06)
[2024-12-04] MEDS: Ondansetron 4 MG/2 ML Vial IV (11:07)
[2024-12-04] MEDS: Morphine 4 MG/ML Syringe IV (11:07)
[2024-12-04 11:15] LABS: Bacteria 0 SEEN /hpf (None Seen); Mucous, Urine 0 SEEN /hpf (<or=2+); Red Blood Cells-Urine 0 SEEN /hpf (0-5); Squamous Epithelial Cells - UA 0 SEEN /hpf (5-10); White Blood Cells 0 SEEN /hpf (0-5)
[2024-12-04 11:16] LABS: AST(SGOT) 13 U/L (15-37); Alanine Aminotransfer ALT/SGPT 13 U/L (13-56); Albumin, Serum 2.4 g/dL (3.2-5.0); Alkaline Phosphatase 83 U/L (45-117); Anion Gap 6 (5-15); BUN 18 mg/dL (7-18); BUN/Creat Ratio 21.8 RATIO (10-20); Bilirubin, Direct 0.13 mg/dL (0.00-0.30); Calcium,Total 9.9 mg/dL (8.5-10.1); Chloride 91 mmol/L (98-107); Creatinine, Serum 0.83 mg/dL (0.55-1.02); EST Glomerular Filtration Rate 70 mL/min (>60); Est Glom Filt Rate - Afr Amer 84 mL/min (>60); Estimated Creatinine Clearance 41.41 ml/min; Globulin 4.3 g/dL (2.2-4.2); Glucose 122 mg/dL (74-106); Lipase 27 U/L (13-75); Potassium 4.2 mmol/L (3.5-5.1); Protein, Total 6.7 g/dL (6.4-8.2); Sodium Level 129 mmol/L (136-145); Troponin-I HS 7 pg/mL (3.0-54.0)
[2024-12-04 11:20] LABS: Color, Urine Yellow (Yellow); Glucose, Dipstick Normal (Normal); Ketone-Dipstick Negative (Negative); Leukocyte Esterase-Dipstick Negative /ul (Negative); Nitrite-Dipstick Negative (Negative); Occult Blood-Urine Negative /ul (Negative); Protein-Dipstick Negative (Negative); Urine Bilirubin Dipstick Negative (Negative); Urine Clarity Clear (Clear); Urine Urobilinogen Normal (Normal); Urine pH 6.5 (5.0 - 8.0)
[2024-12-04] MEDS: Piperacil/Tazobactam 4.5 GM in 0.9% Normal Saline (100mL MB+) 100 ML IV (11:31)
--- NOTE | 2024-12-04 11:44 | ED.RN ---
straight cath performed at this time. sample obtained and this rn proceeds to empty the patient's bladder. pt had 2 urinals full of urine totaling 2000 ml. verbal order obtained from Dr. Vega for a urinary catheter to be placed due to urinary retention. catheter placed, patient tolerated well
[2024-12-04 11:58] LABS: Hyaline Cast 0-5 SEEN /lpf (0-5)
[2024-12-04] MEDS: 0.9% Normal Saline (1000mL) 1,000 ML 125 ML IV (15:14)
--- NOTE | 2024-12-04 15:14 | CT_ITS ---
We are attempting to reach an attending provider to discuss findings. An addendum with communication details will be sent when the communication is complete. STUDY: CTA CHEST REASON FOR EXAM: Female, 84 years old. shortness of breath, tachcyardia, hypoxia, copd, pneumonia RADIATION DOSAGE (If Supplied By Facility): CTDIvol = ( 7.11 ) mGy, DLP = ( 206.12 ) mGycm TECHNIQUE: The examination was performed with the intravenous administration of IV 75mL Isovue-370. Post-processing of the angiographic images was performed, with multiplanar reformation and 3D reconstruction. Individualized dose optimization techniques were used for this CT. COMPARISON: August 11, 2024 FINDINGS: Normal enhancement of the main pulmonary artery and right and left pulmonary arteries. Intraluminal filling defects are noted within the proximal branch of vessels to the right middle lobe as well as thrombus within the proximal descending interlobar branch of the right lower lobe and proximal segmental branches . Atherosclerotic changes of the aorta without evidence for aneurysm. There is no demonstrated aortic dissection. Heart size is normal. There is multivessel coronary artery calcification. No definitive evidence for right ventricular strain Normal mediastinum. Normal hilar regions. Normal visualized trachea and bronchi. The lungs are well expanded. There is a pleural-based consolidative density in the left upper lobe with cavitation possibly atelectatic although neoplasm is not excluded as there was a much smaller nodular density in the same location on prior exam. Prominence of the interstitial markings in the lower lobes with associated consolidation left lower lobe and small to moderate-sized effusion. There is also consolidation within the right lower lobe. Normal pleura. Normal chest wall structures. Dorsal spine demonstrates degenerative changes. Normal visualized upper abdomen. CT/CTA Chest W/WO Contrast IMPRESSION: Chronic interstitial changes and ASHD. Multiple pulmonary emboli to the right middle and lower lobes with associated consolidation at the right base.. Left pleural effusion with consolidation of left lower lobe Pleural-based mass or masslike soft tissue density in the left upper lobe of indeterminate etiology possibly atelectasis although neoplasm is not entirely excluded. Clinical correlation recommended Electronically Signed: Richmond Armstrong MD at 17:03 EST ,
--- NOTE | 2024-12-04 15:20 | EKG12_ITS ---
Test Reason : EKGA Blood Pressure : */* mmHG Vent. Rate : 104 BPM Atrial Rate : 104 BPM P-R Int : 158 ms QRS Dur : 64 ms QT Int : 320 ms P-R-T Axes : 68 5 18 degrees QTcB Int : 420 ms Sinus tachycardia with Premature atrial complexes Low voltage QRS Inferior infarct , age undetermined Abnormal ECG When compared with ECG of 04-Dec-2024 10:01, MANUAL COMPARISON REQUIRED DATA IS UNCONFIRMED Confirmed by JUAN DANIEL KINCAID, ELIUD ([id number]), editorial specialist KEIRY BE ([id number]) on 12/08/2024 2:11:45 PM Referred By: SUDHAKAR Confirmed By: ELIUD FRANCES MD
[2024-12-04 16:57] LABS: D-Dimer Quantitative (DVT/PE) 5.97 FEU/ug/m (0.27-0.49)
--- NOTE | 2024-12-04 16:58 | HP.PCM.HOS_ITS ---
HPI - General General Date of Admission: 12/04/24 Date of Service: 12/04/24 Chief Complaint: shortness of breath HPI Narrative MARIELA LARIOS, is a 84 F with a past medical history as outlined was admitted from her assisted with a complaint of shortness of breath. She had been sent to the assisted for Pseudomonas pneumonia and on IV antibiotics namely Zosyn via PICC line. She completed the course of antibiotics on 11/30/2024. PICC line was removed the day before admission. It was noted that his shortness of breath got worse and she also complained of abdominal distention. She says usually wore 2 to 3 L of oxygen at home. She denied any lightheadedness or dizziness, palpitations, nausea vomiting or any other symptoms. Vitals in the ED at time of review where temperature of 91.8 Fahrenheit with pulse rate of 91, blood pressure 118/64 and respiratory rate of 16. She was saturating at 95% on [address] of the abdomen and pelvis showed a cavitated mass in the lateral aspect of the left upper lobe with a small left pleural effusion and consolidation in both lower lobes with bronchiectasis at the right lung base. On arrival in the ED, a ignacio catheter was inserted due to concerns for her complaints of abdominal distension being due to urinary retention. She ahd drainage of about 2L of urine via the ignacio catheter in the ED. She was started on IV zosyn o/a of the evidence of pneumonia on the CT abdomen and pelvis. No chest CT was done in the ED. On admission to the floor she suddenly became tachycardic with her HR going up to 150s. In light of her having had a PICC line in situ and just removed yesterday and prolonged period in the assisted as well as shortness of breath, stat D-dimer was ordered. I also elected to do a CTA of the chest and called radiology to confirm that this could be done as she had just received contrast with the CTA of the abdomen and pelvis. Radiology said this could be done and recommended that she be prehydrated and hydrated afterwards also. CT chest done did confirm evidence of a PE. Patient started on heparin drip. She is therefore being managed for abdominal distention due to urinary retention as well as hypoxia due to bilateral PE. [facility] Medical History (Updated 12/04/24 @ 17:[address] Kinsey Palumbo MD) GERD (gastroesophageal reflux disease) Pseudomonas pneumonia Rheumatoid arthritis COPD exacerbation Pneumonia Hypoxia COVID-19 Hyperlipidemia Osteoarthritis Acute respiratory failure Anemia Hypothyroidism Diabetes On home oxygen therapy Asthma COPD (chronic obstructive pulmonary disease) HTN (hypertension) Diabetes mellitus, type 2 Normocytic anemia Former tobacco use Intermittent constipation COPD (chronic obstructive pulmonary disease) Arthritis Thyroid disease Home Medications ?Medication ?Instructions ?Recorded ?Last Taken ?Type metformin 500 mg tablet 500 mg PO QPM diabetes 04/03/19 08/11/24 History simvastatin 40 mg tablet 40 mg PO QHS cholesterol 04/03/19 08/10/24 History montelukast 10 mg tablet 10 mg PO DAILY 02/20/24 08/10/24 History levothyroxine 137 mcg capsule 548 mcg PO SA 06/11/24 08/03/24 History mirtazapine 15 mg tablet 15 mg PO QHS 06/11/24 08/10/24 History fluticasone fur. 200 mcg-umeclid 1 ea inhalation BID copd #60 ea 08/22/24 Unknown Rx 62.5 mcg-vilant 25 mcg inhalat.powder (Trelegy Ellipta) albuterol sulfate 90 mcg/actuation 1 - 2 inh inhalation Q6H PRN 11/18/24 Unknown History aerosol inhaler (Ventolin HFA) shortness of breath or wheezing lisinopril 20 mg tablet 20 mg PO DAILY 11/18/24 Unknown History metformin 500 mg tablet 1,000 mg PO DAILY 11/18/24 Unknown History piperacillin-tazobactam 3.375 3.375 g (56.25 mL) IV Q8H 6 days 11/24/24 Unknown Rx gram/50 mL dextrose(iso-os) IV piggyback (Zosyn) sennosides 8.6 mg-docusate sodium 2 tab PO BID #0 tabs 11/24/24 Unknown Rx 50 mg tablet (Stimulant Laxative Plus) oxycodone 5 mg tablet 5 mg PO Q6H PRN pain 20 days #60 12/01/24 Unknown Rx tabs acetaminophen 325 mg tablet 650 mg PO Q4H PRN Fever, pain 12/04/24 Unknown History 1-08/21 albuterol sulfate 2.5 mg/3 mL 2.5 mg inhalation Q6H PRN 12/04/24 Unknown History (0.083 %) solution for nebulization shortness of breath or wheezing benzocaine 15 mg-menthol 3.6 mg 1 mali mucous membrane Q2H PRN SORE 12/04/24 Unknown History lozenges (Sore Throat (benzocaine THROAT with menthol)) insulin lispro 100 unit/mL 1 sliding scale dose subcut ACHS 12/04/24 Unknown History subcutaneous pen (Humalog KwikPen DIABETES (U-100) Insulin) ipratropium 0.5 mg-albuterol 3 mg 3 ml inhalation Q4H PRN shortness 12/04/24 Unknown History (2.5 mg base)/3 mL nebulization of breath soln levothyroxine 137 mcg tablet 68.5 mcg PO TH 12/04/24 Unknown History (Euthyrox) lidocaine 4 % topical patch 1 patch topical DAILY 12/04/24 Unknown History magnesium hydroxide 400 mg/5 mL 30 ml PO DAILY PRN stomach upset 12/04/24 Unknown History oral suspension (Milk of Magnesia) melatonin 3 mg tablet 6 mg PO QHS PRN sleep 12/04/24 Unknown History pantoprazole 40 mg tablet,delayed 40 mg PO DAILY 12/04/24 Unknown History release prednisone 10 mg tablet 10 mg PO DAILY 12/04/24 Unknown History prednisone 20 mg tablet 20 mg PO DAILY 12/04/24 Unknown History Allergy/AdvReac Type Severity Reaction Status Date / Time Sulfa (Sulfonamide Allergy Itching Verified 12/04/24 09:52 Antibiotics) bacitracin (From Neosporin AdvReac Mild Rash Verified 12/04/24 09:52 ([id number])) neomycin (From Neosporin AdvReac Mild Rash Verified 12/04/24 09:52 ([id number])) polymyxin B (From Neosporin AdvReac Mild Rash Verified 12/04/24 09:52 ([id number])) Family History Mother Hypertension Father Cancer Passed age 2828 years old, she notes suspect if was cancer but unclear exact etiology. Brother Heart disease Surgical History History of bilateral cataract extraction H/O rectal polypectomy History of surgery of uterus Hx of colonoscopy Hx of foot surgery Social History household members: none Smoking Status: Former smoker how long ago did patient quit smoking: Quit 07/22/2013, smoked 1 ppd x 50 years until quit. second hand exposure: No alcohol intake: never substance use type: does not use caffeine: Yes frequency: does not exercise ROS Constitutional Constitutional: Reports fatigue and weakness; Denies anorexia, chills or fever(s) Eyes Eyes: Denies change in vision ENT HEENT: Denies dysphagia, headache(s) or sore throat Cardiovascular Cardiovascular: Reports dyspnea on exertion, palpitations and rapid heart rate; Denies chest pain, edema, lightheadedness, orthopnea, paroxysmal nocturnal dyspnea or syncope Respiratory/Chest Respiratory/Chest: Reports dyspnea, shortness of breath at rest and shortness of breath with exertion; Denies cough, excessive phlegm production, hemoptysis or productive cough Gastrointestinal Gastrointestinal: Denies abdominal pain, constipation, diarrhea, nausea or vomiting Genitourinary Genitourinary: Denies dysuria Neurologic Neurologic: Denies confusion, dizziness, focal weakness or headache(s) Psychiatric Psychiatric: Denies anxiety or depression Vital Signs Vital Signs Vital Signs: 12/04/24 09:53 12/04/24 09:53 12/04/24 10:00 Temperature 98.1 F 98.1 F Temperature Source Oral Oral Pulse Rate 100 102 H Respiratory Rate 17 21 H Respiratory Effort Short of Breath Respiratory Depth Normal Respiratory Pattern Normal Blood Pressure 139/71 H 136/83 H Blood Pressure Mean 93 100 Blood Pressure Source Blood Pressure Position Blood Pressure Location Pulse Ox 86 92 Oxygen Delivery Method Nasal Cannula Room Air Nasal Cannula Oxygen Flow Rate (L/min) 2 6 12/04/24 10:04 12/04/24 11:00 12/04/24 11:05 Temperature 98 F Temperature Source Oral Pulse Rate 99 86 Respiratory Rate 22 H 14 Respiratory Effort Respiratory Depth Respiratory Pattern Blood Pressure 126/70 H 126/70 H Blood Pressure Mean 88 88 Blood Pressure Source Blood Pressure Position Blood Pressure Location Pulse Ox 92 96 94 Oxygen Delivery Method Nasal Cannula Nasal Cannula Oxygen Flow Rate (L/min) 6 4 12/04/24 11:09 12/04/24 11:09 12/04/24 12:00 Temperature 98 F Temperature Source Oral Pulse Rate 87 93 Respiratory Rate 23 H 18 Respiratory Effort Respiratory Depth Respiratory Pattern Blood Pressure 128/64 H Blood Pressure Mean 85 Blood Pressure Source Blood Pressure Position Blood Pressure Location Pulse Ox 95 92 Oxygen Delivery Method Nasal Cannula Nasal Cannula Oxygen Flow Rate (L/min) 4 4 12/04/24 13:00 12/04/24 13:33 12/04/24 14:42 Temperature 97.8 F 98 F 97.6 F L Temperature Source Oral Oral Pulse Rate 91 81 155 H Respiratory Rate 18 16 20 H Respiratory Effort Respiratory Depth Respiratory Pattern Blood Pressure 119/64 113/76 98/70 Blood Pressure Mean 82 88 79 Blood Pressure Source Blood Pressure Position Blood Pressure Location Pulse Ox 95 95 90 Oxygen Delivery Method Room Air Nasal Cannula Oxygen Flow Rate (L/min) 4 12/04/24 14:42 Temperature 97.6 F L Temperature Source Oral Pulse Rate 155 H Respiratory Rate 20 H Respiratory Effort Respiratory Depth Respiratory Pattern Blood Pressure 98/70 Blood Pressure Mean 79 Blood Pressure Source Monitor Blood Pressure Position Semi-Fowlers Blood Pressure Location Right Arm Pulse Ox 90 Oxygen Delivery Method Nasal Cannula Oxygen Flow Rate (L/min) 4 Weight Weight: 125 lb 14.143 oz Body Mass Index (BMI) 24.5 Physical Exam Const alert, oriented x3 and no apparent distress General Appearance: cooperative HEENT normocephalic, head/scalp atraumatic, moist oral mucous membranes and oropharynx normal Mouth: oral and palatal mucosa normal Eyes PERRL, EOMs intact bilaterally and conjunctivae normal Neck no lymphadenopathy and supple Resp Resp Narrative: mildly diminished breath sounds bibasally, no wheezes or crackles. On 3L of oxygen by nasal canula. Cardio regular rate, regular rhythm, S1 normal heart sound, S2 normal heart sound and no murmurs GI normal to inspection, nondistended, normoactive bowel sounds, soft to palpation and non-tender Extremity normal to inspection, full ROM and no clubbing, cyanosis or edema Neuro oriented x3, CN's II-XII intact bilaterally and moves all extremities Sensorium / Orientation: awake Motor Exam: strength 5/5 throughout Psych affect normal Results Lab / Micro Data 12/04/24 10:13 12/04/24 10:13 Labs: Laboratory Results - last 24 hr 12/04/24 10:13: WBC 21.3 H, RBC 3.66 L, Hgb 10.3 L, Hct 31.5 L, MCV 86.1, MCH 28.1, MCHC 32.7, RDW Std Deviation 43.2, RDW Coeff of [place] 14.0, Plt Count 452 H, MPV 8.9, Immature Gran % (Auto) 1.400 H, Neut % (Auto) 84.5 H, Lymph % (Auto) 7.1 L, [place] % (Auto) 6.5, Eos % (Auto) 0.2, Baso % (Auto) 0.3, Absolute Neuts (auto) 18.0 H, Absolute Lymphs (auto) 1.51, Nucleated RBC % 0, PT 13.2, INR 1.0, APTT 25.9, Sodium 129 L, Potassium 4.2, Chloride 91 L, Carbon Dioxide 32.0, Anion Gap 6, BUN 18, Creatinine 0.83, Estim Creat Clear Calc 41.41, Est GFR (MDRD) Af Amer 84, Est GFR (MDRD) Non-Af 70, BUN/Creatinine Ratio 21.8 H, G lucose 122 H, Lactic Acid 1.0, Calcium 9.9, Total Bilirubin 0.80, Direct Bilirubin 0.13, AST 13 L, ALT 13, Alkaline Phosphatase 83, Troponin I High Sens 7, B-Natriuretic Peptide 30.2, Total Protein 6.7, Albumin 2.4 L, Globulin 4.3 H, Lipase 27 12/04/24 10:59: Urine Color Yellow, Urine Clarity Clear, Urine pH 6.5, Ur Specific [place] 1.010, Urine Protein Negative, Urine Glucose (UA) Normal, Urine Ketones Negative, Urine Occult Blood Negative, Urine Nitrite Negative, Urine Bilirubin Negative, Urine Urobilinogen Normal, Ur Leukocyte Esterase Negative, Urine RBC 0 SEEN, Urine WBC 0 SEEN, Ur Squamous Epith Cells 0 SEEN, Urine Bacteria 0 SEEN, Hyaline Casts 0-5 SEEN, Urine Mucus 0 SEEN 12/04/24 13:35: D-Dimer Quant (PE/DVT) 5.97 H* Micro: Microbiology 12/04/24 11:05 Mucosa - Nose SARS-CoV-2, Influenza & RSV (PCR) - Final Imaging Radiology Impression Chest X-Ray 12/04/24 10:04 IMPRESSION: Lingular infiltrate. Patchy infiltrate at the right lung base. Electronically Signed: Santiago Bradshaw MD at 10:38 EST , Abdomen/Pelvis CT 12/04/24 10:55 IMPRESSION: Cavitated mass in the lateral aspect of the left upper lobe with a small left pleural effusion. Consolidation in both lower lobes with bronchiectasis at the right lung base. Moderate amount of fecal material is seen in the rectosigmoid colon. Electronically Signed: Santiago Bradshaw MD at 12:20 EST , Assessment & Plan Assessment/Plan (1) Parapneumonic effusion: (2) Acute urinary retention: (3) Pulmonary embolism: PLAN: Plan #Right-sided submassive PE PE * Patient admitted with a complaint of shortness of breath and abdominal distention. * CT of the abdomen and pelvis had shown a cavitated mass in the lateral aspect of the left upper lobe with a small left pleural effusion and consolidation in both lower lobes with bronchiectasis at the right lung base * On admission to the floor she became very tachycardic and blood pressure also dropped to 98/42. Stat CT of the chest done showed evidence of multiple pulmonary emboli to the right middle and lower lobes with associated consolidation at the right base and left pleural effusion with consolidation of the left middle lobe as well as pleural based mass or masslike soft tissue density in the left upper lobe of indeterminate etiology likely atelectasis though neoplasm cannot entirely be excluded. * Started on heparin drip with bolus * Consult pulmonology * Get 2D echo * #Left sided pneumonia with pleural effusion * CT findings as above with a cavitated mass in the lateral aspect of the left upper lobe though a CT of the chest showed consolidation at the right base and left pleural effusion with consolidation of the left middle lobe and a pleural-based mass in the left upper lobe * She was recently treated for Pseudomonas pneumonia and was on a course of antibiotics namely Zosyn, finishing the course on 11/30/2024. * start on IV meropenem due to CT findings. consult pulmonology and ID. #Acute urinary retention * Admitted from her assisted on account of abdominal distention. Found to be urinary retention on admission and had Ignacio catheter in situ which drained 2 L of oxygen. * Resolved. Keep Ignacio catheter. * #Chronic respiratory failure due to COPD: On 3 L of oxygen at home. #Hypothyroidism: On Synthroid #Hypertension: On lisinopril #Type 2 diabetes mellitus: On metformin. Insulin sliding scale. Accuhecks ACHS. #Hyperlipidemia: On statin DVT prophylaxis: Not indicated as patient is on heparin drip for PE CODE STATUS: DNR CCA no intubation * Patient and daughter counseled extensively about different types of CODE STATUS including full code, DNR CCA and DNR CCA. Patient elects to be DNRCCA no intubation and this was confirmed on paperwork from SN[facility]. * Total ragq-wj-onis time 16 minutes. Charges/Coding Visit Charges Inpatient E&M: 08522 Init Hosp L3 Procedures Hospitalists Procedures: 12087 Advncd Care Plan 30 Min
[2024-12-04] MEDS: Heparin Injection (Vial) 5,000 UNIT/ML VIAL 3500 UNIT IV (17:49)
[2024-12-04] MEDS: HEPARIN/D5w 25,000 UNITS 25,000 UNITS/250 ML IV.SOLN. 7 UNITS CONT INF (17:50)
[2024-12-04] MEDS: Meropenem 1 GM in 0.9% Normal Saline (100mL MB+) 100 ML IV (18:14)
[2024-12-04 18:36] LABS: Bedside Glucose 145 mg/dL (74-106)
--- NOTE | 2024-12-04 19:37 | PCM.HOSP.N ---
Hospitalist Note Patient with increased work of breathing and hypoxia with notable wheezing. Discussed with respiratory therapy and will place on BiPAP however patient is very anxious thus will trial low-dose Ativan x 1 with BiPAP usage now. Patient is already on steroids and aerosols. Will reassess to see if this intervention is beneficial.
[2024-12-04] MEDS: 0.9% Saline Lock 10 ML Syringe IV ×2 (19:47→22:28)
[2024-12-04] MEDS: LORazepam 2 MG/ML Syringe 0.5 MG IV (19:47)
[2024-12-04 22:57] LABS: Bedside Glucose 199 mg/dL (74-106)
[2024-12-04] MEDS: Mirtazapine 15 MG Tablet PO (23:14)
[2024-12-04] MEDS: Senna/Docusate Sodium 1 Tablet 2 TABLET PO (23:15)
[2024-12-04] MEDS: Atorvastatin Calcium 20 MG Tablet PO (23:15)
[2024-12-05] VITALS (10 sets, daily range): BP systolic 103–118; BP diastolic 54–66; PULSE 65–91; RESP 16–18; TEMP 36.4–36.9; O2SAT 76–98
[2024-12-05 00:12] LABS: Partial Thromboplast Time 68.8 Seconds (24.1-36.2)
[2024-12-05] MEDS: 0.9% Saline Lock 10 ML Syringe IV (06:03)
[2024-12-05 06:25] LABS: Bedside Glucose 168 mg/dL (74-106)
--- NOTE | 2024-12-05 07:00 | NURSING ---
after multiple attempts, lab unable to draw patients blood, Charge to go in room and draw blood, report given to FAUSTO Mcclure who will follw up with PTT timing
[2024-12-05] MEDS: Ipratropium/Albuterol Sulfate 3 ML AMPUL.NEB INHALATION ×3 (07:45→19:52)
[2024-12-05 07:54] LABS: Absolute Lymphocyte Count 0.47 X10^3/uL (0.83-4.51); Absolute Neutrophil Count 21.8 X10^3/uL (2.0-7.7); Basophil# 0.03 X10^3/uL; Basophil% 0.1 % (0-1); Hematocrit 28.3 % (37-47); Hemoglobin 9.1 g/dL (12.0-15.0); Lymphocyte # 0.47 X10^3/ul (0.83-4.51); Lymphocyte % 2.1 % (19-41); Mean Corp Hgb Conc 32.2 g/dL (32-36); Mean Corpuscular Hgb 28.2 pg (27.0-32.0); Mean Corpuscular Volume 87.6 fL (81-99); Monocyte# 0.26 X10^3/uL; Monocyte% 1.1 % (0-10); NRBC Flagged by Analyzer 0 % (0-5); Neutrophil # 21.76 X10^3/uL (2.7-7.7); Neutrophil % 95.5 % (47-70); POSITIVE DIFFERENTIAL YES; Platelet Count 354 K/mm3 (150-450); RBC Distribution Width SD 43.9 fl (35.1-43.9); Red Blood Count 3.23 M/mm3 (4.2-5.4); White Blood Count 22.8 K/mm3 (4.4-11.0)
[2024-12-05 07:55] LABS: Differential Indicated SCAN CRITERIA MET
--- NOTE | 2024-12-05 08:05 | EX.PCM.CONCC ---
Assessment & Plan Assessment/Plan (1) Pulmonary embolism: PLAN: Plan RECOMMENDATIONS: 1. Antimicrobials per ID recommendations. 2. Continue bronchodilators and steroids. 3. Okay to transition from heparin to either Eliquis or Xarelto. 4. Continue to wean supplemental oxygen as tolerated. 5. Encourage incentive spirometer use and mobilize patient as tolerated. 6. Follow-up in the pulmonary medicine clinic on December 25, as scheduled. IMPRESSIONS: 1. COPD with exacerbation/chronic hypoxemic respiratory failure/newly identified PE The patient was admitted with shortness of breath in the setting of a newly identified right sided pulmonary embolism. The patient has a known history of advanced age COPD and chronic hypoxemic respiratory failure with a baseline requirement of 3 L/min. She was recently hospitalized with pseudomonal pneumonia, having recently completed her IV antibiotic course. The findings noted on her CT imaging, including basilar consolidation and cavitary left upper lobe consolidation may certainly be the sequelae of her pseudomonal pneumonia. There was no prior CT imaging completed during her last hospitalization for comparison purposes. She is maintaining appropriate oxygen saturations on her baseline requirement at the present time. Therefore, it is reasonable to continue scheduled bronchodilators and steroids. I will defer antimicrobial management to infectious diseases. Ultimately, I would recommend that the patient have a follow-up CT scan completed in 6 to 8 weeks. 2. History of hypertension/hypothyroidism/hyperlipidemia/diabetes mellitus Complicates care, management, recovery and prognosis. Continue home medications as indicated. This note was generated with [employer] dictation software. It may contain incorrect words, spelling, and punctuation that were not noted in checking the note before signing. HPI Consult Data Date of Consult: 12/05/24 HPI Narrative Reason for Consultation: Pulmonary embolism HPI Narrative: The patient is an 84-year-old female, with a history as outlined below, who presented to the emergency department via EMS on December 04 with shortness of breath. The patient was previously under the care of Dr. Kamran Mathews until his departure. She is regularly followed in the pulmonary medicine clinic due to a history of COPD on triple therapy inhaler regimen and chronic hypoxemic respiratory failure, requiring 2 L/min at rest and 3 L/min with exertion. The patient was just admitted to the hospital November 18, during which time, she was treated for a COPD exacerbation secondary to pseudomonal pneumonia, with antimicrobials managed by infectious diseases. On presentation to the emergency department, the patient was documented to be afebrile hemodynamically stable. She was initially saturating 86% on 3 L/min via nasal cannula. Laboratory evaluation revealed a white blood cell count of 21,000 with a hemoglobin of 10.3 g/dL and platelet count of 452,000. Chemistry profile was notable for a sodium of 129, chloride of 91 and normal creatinine. BNP and troponin were negative. Urine analysis was unremarkable. CTA chest demonstrated pulmonary embolism, along with consolidative changes in the bilateral lower lobes along with a pleural-based consolidative density in the left upper lobe. The patient was subsequently placed on a weight-based heparin infusion along with scheduled bronchodilators, steroids and antimicrobials. Consultation was placed to infectious diseases. It should be noted that CT imaging of the chest was not completed during the patient's prior hospitalization for comparison purposes. She was subsequently admitted to the progressive care unit for further management. As of this morning, the patient is maintaining appropriate oxygen saturations on 3 L/min at rest. She does report the presence of exertional shortness of breath, which is a chronic problem for her, along with an intermittently productive cough. She is currently afebrile. [facility] Medical History (Updated 12/04/24 @ 17:[address] Kinsey Palumbo MD) GERD (gastroesophageal reflux disease) Pseudomonas pneumonia Rheumatoid arthritis COPD exacerbation Pneumonia Hypoxia COVID-19 Hyperlipidemia Osteoarthritis Acute respiratory failure Anemia Hypothyroidism Diabetes On home oxygen therapy Asthma COPD (chronic obstructive pulmonary disease) HTN (hypertension) Diabetes mellitus, type 2 Normocytic anemia Former tobacco use Intermittent constipation COPD (chronic obstructive pulmonary disease) Arthritis Thyroid disease Home Medications ?Medication ?Instructions ?Recorded ?Last Taken ?Type metformin 500 mg tablet 500 mg PO QPM diabetes 04/03/19 08/11/24 History simvastatin 40 mg tablet 40 mg PO QHS cholesterol 04/03/19 08/10/24 History montelukast 10 mg tablet 10 mg PO DAILY 02/20/24 08/10/24 History levothyroxine 137 mcg capsule 548 mcg PO SA 06/11/24 08/03/24 History mirtazapine 15 mg tablet 15 mg PO QHS 06/11/24 08/10/24 History fluticasone fur. 200 mcg-umeclid 1 ea inhalation BID copd #60 ea 08/22/24 Unknown Rx 62.5 mcg-vilant 25 mcg inhalat.powder (Trelegy Ellipta) albuterol sulfate 90 mcg/actuation 1 - 2 inh inhalation Q6H PRN 11/18/24 Unknown History aerosol inhaler (Ventolin HFA) shortness of breath or wheezing lisinopril 20 mg tablet 20 mg PO DAILY 11/18/24 Unknown History metformin 500 mg tablet 1,000 mg PO DAILY 11/18/24 Unknown History piperacillin-tazobactam 3.375 3.375 g (56.25 mL) IV Q8H 6 days 11/24/24 Unknown Rx gram/50 mL dextrose(iso-os) IV piggyback (Zosyn) sennosides 8.6 mg-docusate sodium 2 tab PO BID #0 tabs 11/24/24 Unknown Rx 50 mg tablet (Stimulant Laxative Plus) oxycodone 5 mg tablet 5 mg PO Q6H PRN pain 20 days #60 12/01/24 Unknown Rx tabs acetaminophen 325 mg tablet 650 mg PO Q4H PRN Fever, pain 12/04/24 Unknown History 1-08/21 albuterol sulfate 2.5 mg/3 mL 2.5 mg inhalation Q6H PRN 12/04/24 Unknown History (0.083 %) solution for nebulization shortness of breath or wheezing benzocaine 15 mg-menthol 3.6 mg 1 mali mucous membrane Q2H PRN SORE 12/04/24 Unknown History lozenges (Sore Throat (benzocaine THROAT with menthol)) insulin lispro 100 unit/mL 1 sliding scale dose subcut ACHS 12/04/24 Unknown History subcutaneous pen (Humalog KwikPen DIABETES (U-100) Insulin) ipratropium 0.5 mg-albuterol 3 mg 3 ml inhalation Q4H PRN shortness 12/04/24 Unknown History (2.5 mg base)/3 mL nebulization of breath soln levothyroxine 137 mcg tablet 68.5 mcg PO TH 12/04/24 Unknown History (Euthyrox) lidocaine 4 % topical patch 1 patch topical DAILY 12/04/24 Unknown History magnesium hydroxide 400 mg/5 mL 30 ml PO DAILY PRN stomach upset 12/04/24 Unknown History oral suspension (Milk of Magnesia) melatonin 3 mg tablet 6 mg PO QHS PRN sleep 12/04/24 Unknown History pantoprazole 40 mg tablet,delayed 40 mg PO DAILY 12/04/24 Unknown History release prednisone 10 mg tablet 10 mg PO DAILY 12/04/24 Unknown History prednisone 20 mg tablet 20 mg PO DAILY 12/04/24 Unknown History Allergy/AdvReac Type Severity Reaction Status Date / Time Sulfa (Sulfonamide Allergy Itching Verified 12/04/24 09:52 Antibiotics) bacitracin (From Neosporin AdvReac Mild Rash Verified 12/04/24 09:52 ([id number])) neomycin (From Neosporin AdvReac Mild Rash Verified 12/04/24 09:52 ([id number])) polymyxin B (From Neosporin AdvReac Mild Rash Verified 12/04/24 09:52 ([id number])) Family History Mother Hypertension Father Cancer Passed age 2828 years old, she notes suspect if was cancer but unclear exact etiology. Brother Heart disease Surgical History History of bilateral cataract extraction H/O rectal polypectomy History of surgery of uterus Hx of colonoscopy Hx of foot surgery Social History household members: none Smoking Status: Former smoker how long ago did patient quit smoking: Quit 07/22/2013, smoked 1 ppd x 50 years until quit. second hand exposure: No alcohol intake: never substance use type: does not use caffeine: Yes frequency: does not exercise ROS ROS Narrative 10 systems were reviewed with pertinent positives as noted in the HPI above. Physical Exam Const alert and no apparent distress Constitutional Narrative: Currently resting comfortably in bed on 3 L/min via nasal cannula. General Appearance: cooperative HEENT normocephalic and head/scalp atraumatic Eyes PERRL, EOMs intact bilaterally and conjunctivae normal Neck supple General: trachea midline Chest inspection of chest normal Resp normal respiratory effort Auscultation: diminished lung sounds Cardio regular rate and regular rhythm GI normal to inspection, nondistended, normoactive bowel sounds Extremity no clubbing, cyanosis or edema Skin no rashes or lesions noted Neuro CN's II-XII intact bilaterally and no focal motor deficits Psych cooperative and affect normal Lab / Micro Data 12/05/24 07:46 12/05/24 07:46 Labs: Laboratory Results - last 24 hr 12/04/24 10:13: WBC 21.3 H, RBC 3.66 L, Hgb 10.3 L, Hct 31.5 L, MCV 86.1, MCH 28.1, MCHC 32.7, RDW Std Deviation 43.2, RDW Coeff of Katia 14.0, Plt Count 452 H, MPV 8.9, Immature Gran % (Auto) 1.400 H, Neut % (Auto) 84.5 H, Lymph % (Auto) 7.1 L, Banks % (Auto) 6.5, Eos % (Auto) 0.2, Baso % (Auto) 0.3, Absolute Neuts (auto) 18.0 H, Absolute Lymphs (auto) 1.51, Nucleated RBC % 0, PT 13.2, INR 1.0, APTT 25.9, Sodium 129 L, Potassium 4.2, Chloride 91 L, Carbon Dioxide 32.0, Anion Gap 6, BUN 18, Creatinine 0.83, Estim Creat Clear Calc 41.41, Est GFR (MDRD) Af Amer 84, Est GFR (MDRD) Non-Af 70, BUN/Creatinine Ratio 21.8 H, Glucose 122 H, Lactic Acid 1.0, Calcium 9.9, Total Bilirubin 0.80, Direct Bilirubin 0.13, AST 13 L, ALT 13, Alkaline Phosphatase 83, Troponin I High Sens 7, B-Natriuretic Peptide 30.2, Total Protein 6.7, Albumin 2.4 L, Globulin 4.3 H, Lipase 27 12/04/24 10:59: Urine Color Yellow, Urine Clarity Clear, Urine pH 6.5, Ur Specific Blackwood 1.010, Urine Protein Negative, Urine Glucose (UA) Normal, Urine Ketones Negative, Urine Occult Blood Negative, Urine Nitrite Negative, Urine Bilirubin Negative, Urine Urobilinogen Normal, Ur Leukocyte Esterase Negative, Urine RBC 0 SEEN, Urine WBC 0 SEEN, Ur Squamous Epith Cells 0 SEEN, Urine Bacteria 0 SEEN, Hyaline Casts 0-5 SEEN, Urine Mucus 0 SEEN 12/04/24 13:35: D-Dimer Quant (PE/DVT) 5.97 H* 12/04/24 18:11: POC Glucose 145 H 12/04/24 22:26: POC Glucose 199 H 12/04/24 23:35: APTT 68.8 H 12/05/24 06:02: POC Glucose 168 H 12/05/24 07:46: WBC 22.8 H, RBC 3.23 L, Hgb 9.1 L, Hct 28.3 L, MCV 87.6, MCH 28.2, MCHC 32.2, RDW Std Deviation 43.9, RDW Coeff of Katia 14.0, Plt Count 354, MPV 9.0, Immature Gran % (Auto) 1.200 H, Neut % (Auto) 95.5 H, Lymph % (Auto) 2.1 L, Banks % (Auto) 1.1, Eos % (Auto) 0.0, Baso % (Auto) 0.1, Absolute Neuts (auto) 21.8 H, Absolute Lymphs (auto) 0.47 L, Nucleated RBC % 0 Micro: Microbiology 12/04/24 11:05 Mucosa - Nose SARS-CoV-2, Influenza & RSV (PCR) - Final Imaging Radiology Impression Chest X-Ray 12/04/24 10:04 IMPRESSION: Lingular infiltrate. Patchy infiltrate at the right lung base. Electronically Signed: Santiago Bradshaw MD at 10:38 EST , Abdomen/Pelvis CT 12/04/24 10:55 IMPRESSION: Cavitated mass in the lateral aspect of the left upper lobe with a small left pleural effusion. Consolidation in both lower lobes with bronchiectasis at the right lung base. Moderate amount of fecal material is seen in the rectosigmoid colon. Electronically Signed: Santiago Bradshaw MD at 12:20 EST , Chest CTA 12/04/24 15:14 IMPRESSION: Chronic interstitial changes and ASHD. Multiple pulmonary emboli to the right middle and lower lobes with associated consolidation at the right base.. Left pleural effusion with consolidation of left lower lobe Pleural-based mass or masslike soft tissue density in the left upper lobe of indeterminate etiology possibly atelectasis although neoplasm is not entirely excluded. Clinical correlation recommended Electronically Signed: Richmond Armstrong MD at 17:03 EST , ADDENDUM: 12/04/24 1719 IMPRESSION: Chronic interstitial changes and ASHD. Multiple pulmonary emboli to the right middle and lower lobes with associated consolidation at the right base.. Left pleural effusion with consolidation of left lower lobe Pleural-based mass or masslike soft tissue density in the left upper lobe of indeterminate etiology possibly atelectasis although neoplasm is not entirely excluded. Clinical correlation recommended N.B. : The above Results were Read Back by Richmond Armstrong MD to Kinsey Palumbo MD, and understanding confirmed on 12/04/2024 17:12:33 (ET). Electronically Signed: Richmond Armstrong MD at 17:03 EST , Charges/Coding Visit Charges Inpatient E&M: 63996 Init Hosp L3
[2024-12-05 08:14] LABS: Anion Gap 6 (5-15); BUN 16 mg/dL (7-18); BUN/Creat Ratio 19.4 RATIO (10-20); Calcium,Total 9.2 mg/dL (8.5-10.1); Chloride 96 mmol/L (98-107); Creatinine, Serum 0.82 mg/dL (0.55-1.02); EST Glomerular Filtration Rate 70 mL/min (>60); Est Glom Filt Rate - Afr Amer 85 mL/min (>60); Glucose 183 mg/dL (74-106); Potassium 4.8 mmol/L (3.5-5.1); Sodium Level 134 mmol/L (136-145)
[2024-12-05 08:20] LABS: Partial Thromboplast Time 30.6 Seconds (24.1-36.2)
[2024-12-05] MEDS: Montelukast 10 MG Tablet PO (09:01)
[2024-12-05] MEDS: Senna/Docusate Sodium 1 Tablet 2 TABLET PO ×2 (09:01→21:09)
[2024-12-05] MEDS: Meropenem 1 GM in 0.9% Normal Saline (100mL MB+) 100 ML IV ×2 (09:01→21:17)
[2024-12-05] MEDS: Pantoprazole Sodium 40 MG Tablet PO (09:01)
[2024-12-05] MEDS: Lisinopril 20 MG Tablet PO (09:01)
[2024-12-05] MEDS: Lidocaine 5% Patch 1 PATCH TOPICAL (09:01)
[2024-12-05] MEDS: Heparin Injection (Vial) 5,000 UNIT/ML VIAL IV (09:02)
[2024-12-05] MEDS: APIXABAN 5 MG TABLET 10 MG PO ×2 (11:08→21:08)
[2024-12-05] MEDS: NYSTATIN 500,000 UNIT/5 ML UDC 500000 UNIT PO ×4 (11:08→21:08)
[2024-12-05] MEDS: Insulin Lispro 100 UNIT/ML INSULN.PEN SC ×3 (11:14→21:15)
[2024-12-05 11:28] LABS: Bedside Glucose 246 mg/dL (74-106)
--- NOTE | 2024-12-05 11:48 | CASEMGMT ---
Discharge Planning Pt wishes to return to [facility] at discharge. Updates sent to [facility]. Also noted that pt will be ready when auth is obtained and requested wknd phone/fax. Marj De La Cruz DC Planning Asst.
--- NOTE | 2024-12-05 11:56 | PN_ITS ---
Subjective Subjective Patient seen and examined. She still feels weak today. She still feels short of breath. She was stable for 5 L of oxygen to 3 L of oxygen today. She denied any chest pain, lightheadedness, palpitations, dizziness, nausea vomiting or any other symptoms. She is on heparin drip. Objective Data Objective Data Vital Signs: Vital Signs Temp Pulse Resp BP Pulse Ox O2 Del Method O2 Flow Rate 97.5 F L 81 18 118/66 93 Nasal Cannula 3 12/05/24 08:00 12/05/24 08:00 12/05/24 08:00 12/05/24 08:00 12/05/24 08:00 12/05/24 10:00 12/05/24 10:00 FiO2 50 12/04/24 19:40 Oxygen Flow Rate (L/min) 3 Oxygen Delivery Method Nasal Cannula Weight: 125 lb 14.143 oz Body Mass Index (BMI) 24.5 Intake & Output: Intake and Output for Last 24 Hours 12/03/24 12/04/24 12/05/24 23:59 23:59 23:59 Intake Total 1815.83 / 1815.83 116.34 / 116.34 Output Total 600 / 900 1000 / 1000 Balance 1215.83 / 915.83 -883.66 / -883.66 Lab / Micro Data 12/05/24 07:46 12/05/24 07:46 Labs: Laboratory Results - last 24 hr 12/04/24 10:59: Urine RBC 0 SEEN, Urine WBC 0 SEEN, Ur Squamous Epith Cells 0 SEEN, Urine Bacteria 0 SEEN, Hyaline Casts 0-5 SEEN, Urine Mucus 0 SEEN 12/04/24 13:35: D-Dimer Quant (PE/DVT) 5.97 H* 12/04/24 18:11: POC Glucose 145 H 12/04/24 22:26: POC Glucose 199 H 12/04/24 23:35: APTT 68.8 H 12/05/24 06:02: POC Glucose 168 H 12/05/24 07:46: WBC 22.8 H, RBC 3.23 L, Hgb 9.1 L, Hct 28.3 L, MCV 87.6, MCH 28.2, MCHC 32.2, RDW Std Deviation 43.9, RDW Coeff of Katia 14.0, Plt Count 354, MPV 9.0, Immature Gran % (Auto) 1.200 H, Neut % (Auto) 95.5 H, Lymph % (Auto) 2.1 L, Loup % (Auto) 1.1, Eos % (Auto) 0.0, Baso % (Auto) 0.1, Absolute Neuts (auto) 21.8 H, Absolute Lymphs (auto) 0.47 L, Nucleated RBC % 0, Differential Comment COMMENT, APTT 30.6, Sodium 134 L, Potassium 4.8, Chloride 96 L, Carbon Dioxide 32.0, Anion Gap 6, BUN 16, Creatinine 0.82, Estim Creat Clear Calc 39.70, Est GFR (MDRD) Af Amer 85, Est GFR (MDRD) Non-Af 70, BUN/Creatinine Ratio 19.4, Glucose 183 H, Calcium 9.2 12/05/24 11:07: POC Glucose 246 H Micro: Microbiology 12/04/24 11:05 Mucosa - Nose SARS-CoV-2, Influenza & RSV (PCR) - Final Radiography Diagnostic Testing: Radiology Impression Abdomen/Pelvis CT 12/04/24 10:55 IMPRESSION: Cavitated mass in the lateral aspect of the left upper lobe with a small left pleural effusion. Consolidation in both lower lobes with bronchiectasis at the right lung base. Moderate amount of fecal material is seen in the rectosigmoid colon. Electronically Signed: Santiago Bradshaw MD at 12:20 EST , Chest CTA 12/04/24 15:14 IMPRESSION: Chronic interstitial changes and ASHD. Multiple pulmonary emboli to the right middle and lower lobes with associated consolidation at the right base.. Left pleural effusion with consolidation of left lower lobe Pleural-based mass or masslike soft tissue density in the left upper lobe of indeterminate etiology possibly atelectasis although neoplasm is not entirely excluded. Clinical correlation recommended Electronically Signed: Richmond Armstrong MD at 17:03 EST , ADDENDUM: 12/04/24 1719 IMPRESSION: Chronic interstitial changes and ASHD. Multiple pulmonary emboli to the right middle and lower lobes with associated consolidation at the right base.. Left pleural effusion with consolidation of left lower lobe Pleural-based mass or masslike soft tissue density in the left upper lobe of indeterminate etiology possibly atelectasis although neoplasm is not entirely excluded. Clinical correlation recommended N.B. : The above Results were Read Back by Richmond Armstrong MD to Kinsey Palumbo MD, and understanding confirmed on 12/04/2024 17:12:33 (ET). Electronically Signed: Richmond Armstrong MD at 17:03 EST , Physical Exam Const alert, oriented x3 and no apparent distress General Appearance: cooperative HEENT normocephalic, head/scalp atraumatic, moist oral mucous membranes and oropharynx normal Eyes PERRL, EOMs intact bilaterally and conjunctivae normal Neck no lymphadenopathy and supple Resp Resp Narrative: mildly diminished breath sounds bibasally, no wheezes or crackles. On 3L of oxygen by nasal canula. Cardio regular rate, regular rhythm, S1 normal heart sound, S2 normal heart sound and no murmurs GI normal to inspection, nondistended, normoactive bowel sounds, soft to palpation and non-tender Extremity normal to inspection, full ROM and no clubbing, cyanosis or edema General Extremity: no tenderness to palpation of joints or extremities Skin General Skin Exam: no breakdown Neuro oriented x3, CN's II-XII intact bilaterally and moves all extremities Sensorium / Orientation: awake Motor Exam: strength 5/5 throughout Psych thought process normal, cooperative and affect normal Appearance: appropriate Assessment & Plan Assessment/Plan (1) Parapneumonic effusion: (2) Acute urinary retention: (3) Pulmonary embolism: PLAN: Plan #Right-sided submassive PE * Patient admitted with a complaint of shortness of breath and abdominal distention. * CT of the abdomen and pelvis had shown a cavitated mass in the lateral aspect of the left upper lobe with a small left pleural effusion and consolidation in both lower lobes with bronchiectasis at the right lung base * On admission to the floor she became very tachycardic and blood pressure also dropped to 98/42. Stat CT of the chest done showed evidence of multiple pulmonary emboli to the right middle and lower lobes with associated consolidation at the right base and left pleural effusion with consolidation of the left middle lobe as well as pleural based mass or masslike soft tissue density in the left upper lobe of indeterminate etiology likely atelectasis though neoplasm cannot entirely be excluded. * on 3L of oxygen today. switch to PO eliquis treatment dose * pulmonology on board * hold off on echo as she had an echo done in May 2024 * * #Left sided pneumonia with pleural effusion * CT findings as above with a cavitated mass in the lateral aspect of the left upper lobe though a CT of the chest showed consolidation at the right base and left pleural effusion with consolidation of the left middle lobe and a pleural-based mass in the left upper lobe * She was recently treated for Pseudomonas pneumonia and was on a course of antibiotics namely Zosyn, finishing the course on 11/30/2024. * on IV meropenem due to CT findings. * Await psych evaluation. Per discussion with pulmonology today antibiotics can be stopped as she just completed a course of Zosyn on 11/30/2024. #Acute urinary retention * Admitted from her longterm on account of abdominal distention. Found to be urinary retention on admission and had Ignacio catheter in situ which drained 2 L of oxygen. * Resolved. * give a voiding trial today and remove ignacio. * #Chronic respiratory failure due to COPD: On 3 L of oxygen at home. #Hypothyroidism: On Synthroid #Hypertension: On lisinopril #Type 2 diabetes mellitus: On metformin. Metformin was held yesterday as she received contrast. Will resume tomorrow. Insulin sliding scale. Accuhecks ACHS. #Hyperlipidemia: On statin DVT prophylaxis: not indicated as she is on eliquis for PE CODE STATUS: DNR CCA no intubation * Charges/Coding Visit Charges Inpatient E&M: 54620 Subs Hosp L2
--- NOTE | 2024-12-05 13:40 | CON.PCM.ID_ITS ---
Assessment & Plan Assessment/Plan (1) Pulmonary embolism: (2) Acute and chronic respiratory failure with hypoxia: PLAN: Will re-order sputum cx. Recent PsA pneumonia, cont reinier for now while cxs pending. Will follow, thank you HPI Consult Data Date of Consult: 12/05/24 HPI Narrative Reason for Consultation: dyspnea HPI Narrative: MARIELA LARIOS, is a 84 F with h/o COPD on 2-3L home O2, presented with several weeks dyspnea, cough with small amount sputum (some blood). Treated earlier this month for PsA pneumonia. Admitted again with ongoing symptoms. No fever. CTA showed PE. Admitted on meropenem, feeling about the same today. Full ROS performed and neg except as noted above. FOR[facility]LY [facility] Medical History GERD (gastroesophageal reflux disease) Pseudomonas pneumonia Rheumatoid arthritis COPD exacerbation Pneumonia Hypoxia COVID-19 Hyperlipidemia Osteoarthritis Acute respiratory failure Anemia Hypothyroidism Diabetes On home oxygen therapy Asthma COPD (chronic obstructive pulmonary disease) HTN (hypertension) Diabetes mellitus, type 2 Normocytic anemia Former tobacco use Intermittent constipation COPD (chronic obstructive pulmonary disease) Arthritis Thyroid disease Home Medications ?Medication ?Instructions ?Recorded ?Last Taken ?Type metformin 500 mg tablet 500 mg PO QPM diabetes 04/03/19 08/11/24 History simvastatin 40 mg tablet 40 mg PO QHS cholesterol 04/03/19 08/10/24 History montelukast 10 mg tablet 10 mg PO DAILY 02/20/24 08/10/24 History levothyroxine 137 mcg capsule 548 mcg PO SA 06/11/24 08/03/24 History mirtazapine 15 mg tablet 15 mg PO QHS 06/11/24 08/10/24 History fluticasone fur. 200 mcg-umeclid 1 ea inhalation BID copd #60 ea 08/22/24 Unknown Rx 62.5 mcg-vilant 25 mcg inhalat.powder (Trelegy Ellipta) albuterol sulfate 90 mcg/actuation 1 - 2 inh inhalation Q6H PRN 11/18/24 Unknown History aerosol inhaler (Ventolin HFA) shortness of breath or wheezing lisinopril 20 mg tablet 20 mg PO DAILY 11/18/24 Unknown History metformin 500 mg tablet 1,000 mg PO DAILY 11/18/24 Unknown History piperacillin-tazobactam 3.375 3.375 g (56.25 mL) IV Q8H 6 days 11/24/24 Unknown Rx gram/50 mL dextrose(iso-os) IV piggyback (Zosyn) sennosides 8.6 mg-docusate sodium 2 tab PO BID #0 tabs 11/24/24 Unknown Rx 50 mg tablet (Stimulant Laxative Plus) oxycodone 5 mg tablet 5 mg PO Q6H PRN pain 20 days #60 12/01/24 Unknown Rx tabs acetaminophen 325 mg tablet 650 mg PO Q4H PRN Fever, pain 12/04/24 Unknown History 1-08/21 albuterol sulfate 2.5 mg/3 mL 2.5 mg inhalation Q6H PRN 12/04/24 Unknown History (0.083 %) solution for nebulization shortness of breath or wheezing benzocaine 15 mg-menthol 3.6 mg 1 mali mucous membrane Q2H PRN SORE 12/04/24 Unknown History lozenges (Sore Throat (benzocaine THROAT with menthol)) insulin lispro 100 unit/mL 1 sliding scale dose subcut ACHS 12/04/24 Unknown History subcutaneous pen (Humalog KwikPen DIABETES (U-100) Insulin) ipratropium 0.5 mg-albuterol 3 mg 3 ml inhalation Q4H PRN shortness 12/04/24 Unknown History (2.5 mg base)/3 mL nebulization of breath soln levothyroxine 137 mcg tablet 68.5 mcg PO TH 12/04/24 Unknown History (Euthyrox) lidocaine 4 % topical patch 1 patch topical DAILY 12/04/24 Unknown History magnesium hydroxide 400 mg/5 mL 30 ml PO DAILY PRN stomach upset 12/04/24 Unknown History oral suspension (Milk of Magnesia) melatonin 3 mg tablet 6 mg PO QHS PRN sleep 12/04/24 Unknown History pantoprazole 40 mg tablet,delayed 40 mg PO DAILY 12/04/24 Unknown History release prednisone 10 mg tablet 10 mg PO DAILY 12/04/24 Unknown History prednisone 20 mg tablet 20 mg PO DAILY 12/04/24 Unknown History Allergy/AdvReac Type Severity Reaction Status Date / Time Sulfa (Sulfonamide Allergy Itching Verified 12/04/24 09:52 Antibiotics) bacitracin (From Neosporin AdvReac Mild Rash Verified 12/04/24 09:52 ([id number])) neomycin (From Neosporin AdvReac Mild Rash Verified 12/04/24 09:52 ([id number])) polymyxin B (From Neosporin AdvReac Mild Rash Verified 12/04/24 09:52 ([id number])) Family History Mother Hypertension Father Cancer Passed age 2828 years old, she notes suspect if was cancer but unclear exact etiology. Brother Heart disease Surgical History History of bilateral cataract extraction H/O rectal polypectomy History of surgery of uterus Hx of colonoscopy Hx of foot surgery Social History household members: none Smoking Status: Former smoker how long ago did patient quit smoking: Quit 07/22/2013, smoked 1 ppd x 50 years until quit. second hand exposure: No alcohol intake: never substance use type: does not use caffeine: Yes frequency: does not exercise Physical Exam Const alert Constitutional Narrative: ill appearing General Appearance: cooperative HEENT normocephalic and head/scalp atraumatic Eyes PERRL and EOMs intact bilaterally Neck supple and No nodes Resp Auscultation: wheezes and diminished lung sounds Cardio regular rate and regular rhythm GI soft to palpation, non-tender and non-distended Extremity General Extremity: Negative for edema Skin no rashes or lesions noted Neuro CN's II-XII intact bilaterally Lab / Micro Data Attestation: I reviewed the patient's lab results. 12/05/24 07:46 12/05/24 07:46 Labs: Laboratory Results - last 24 hr 12/04/24 13:35: D-Dimer Quant (PE/DVT) 5.97 H* 12/04/24 18:11: POC Glucose 145 H 12/04/24 22:26: POC Glucose 199 H 12/04/24 23:35: APTT 68.8 H 12/05/24 06:02: POC Glucose 168 H 12/05/24 07:46: WBC 22.8 H, RBC 3.23 L, Hgb 9.1 L, Hct 28.3 L, MCV 87.6, MCH 28.2, MCHC 32.2, RDW Std Deviation 43.9, RDW Coeff of Katia 14.0, Plt Count 354, MPV 9.0, Immature Gran % (Auto) 1.200 H, Neut % (Auto) 95.5 H, Lymph % (Auto) 2.1 L, [place] % (Auto) 1.1, Eos % (Auto) 0.0, Baso % (Auto) 0.1, Absolute Neuts (auto) 21.8 H, Absolute Lymphs (auto) 0.47 L, Nucleated RBC % 0, Differential Comment COMMENT, APTT 30.6, Sodium 134 L, Potassium 4.8, Chloride 96 L, Carbon Dioxide 32.0, Anion Gap 6, BUN 16, Creatinine 0.82, Estim Creat Clear Calc 39.70, Est GFR (MDRD) Af Amer 85, Est GFR (MDRD) Non-Af 70, BUN/Creatinine Ratio 19.4, Glucose 183 H, Calcium 9.2 12/05/24 11:07: POC Glucose 246 H Micro: Microbiology 12/04/24 11:05 Mucosa - Nose SARS-CoV-2, Influenza & RSV (PCR) - Final Imaging Radiology Impression Chest CTA 12/04/24 15:14 IMPRESSION: Chronic interstitial changes and ASHD. Multiple pulmonary emboli to the right middle and lower lobes with associated consolidation at the right base.. Left pleural effusion with consolidation of left lower lobe Pleural-based mass or masslike soft tissue density in the left upper lobe of indeterminate etiology possibly atelectasis although neoplasm is not entirely excluded. Clinical correlation recommended Electronically Signed: Richmond Armstrong MD at 17:03 EST Reading Location ID and State: [facility] / [place] Tel , Service support , ADDENDUM: 12/04/24 [id number] IMPRESSION: Chronic interstitial changes and ASHD. Multiple pulmonary emboli to the right middle and lower lobes with associated consolidation at the right base.. Left pleural effusion with consolidation of left lower lobe Pleural-based mass or masslike soft tissue density in the left upper lobe of indeterminate etiology possibly atelectasis although neoplasm is not entirely excluded. Clinical correlation recommended N.B. : The above Results were Read Back by Richmond Armstrong MD to Kinsey Palumbo MD, and understanding confirmed on 12/04/2024 17:12:33 (ET). Electronically Signed: Richmond Armstrong MD at 17:03 EST ,
[2024-12-05 17:43] LABS: Bedside Glucose 290 mg/dL (74-106)
[2024-12-05] MEDS: Atorvastatin Calcium 20 MG Tablet PO (21:08)
[2024-12-05] MEDS: Mirtazapine 15 MG Tablet PO (21:08)
[2024-12-05] MEDS: oxyCODONE 5 MG Tablet PO (22:00)
[2024-12-06] VITALS (10 sets, daily range): BP systolic 113–149; BP diastolic 71–83; PULSE 72–98; RESP 12–26; TEMP 35.9–36.7; O2SAT 94–100
[2024-12-06 00:14] LABS: Bedside Glucose 271 mg/dL (74-106)
[2024-12-06] MEDS: Ipratropium/Albuterol Sulfate 3 ML AMPUL.NEB INHALATION ×4 (00:51→19:08)
--- NOTE | 2024-12-06 01:53 | PCM.HOSP.N ---
Hospitalist Note Patient reporting anxiety to her RN. Prior had ativan only for anxiety with BIPAP. Currently not on BIPAP. Will trial buspar x 1.
[2024-12-06] MEDS: busPIRone 5 MG Tablet PO ×2 (02:20→14:51)
--- NOTE | 2024-12-06 02:59 | CPS ---
Patient refused PAP therapy for night time use.
[2024-12-06] MEDS: Levothyroxine 137 MCG Tablet 548 MCG PO (04:55)
[2024-12-06 05:02] LABS: Absolute Lymphocyte Count 0.46 X10^3/uL (0.83-4.51); Absolute Neutrophil Count 21.9 X10^3/uL (2.0-7.7); Basophil# 0.02 X10^3/uL; Basophil% 0.1 % (0-1); Eosinophil# 0.02 X10^3/uL; Eosinophils% 0.1 % (0-5); Lymphocyte # 0.46 X10^3/ul (0.83-4.51); Mean Corpuscular Hgb 27.8 pg (27.0-32.0); Mean Corpuscular Volume 86.8 fL (81-99); Mean Platelet Vol. 9.4 fl (6.2-12.0); Monocyte# 0.54 X10^3/uL; Monocyte% 2.3 % (0-10); NRBC Flagged by Analyzer 0 % (0-5); Neutrophil # 21.93 X10^3/uL (2.7-7.7); Neutrophil % 94.6 % (47-70); POSITIVE DIFFERENTIAL YES; Platelet Count 347 K/mm3 (150-450); RBC Distribution Width CV 13.9 % (11.6-14.6); RBC Distribution Width SD 43.7 fl (35.1-43.9); Red Blood Count 2.88 M/mm3 (4.2-5.4); White Blood Count 23.2 K/mm3 (4.4-11.0)
[2024-12-06 05:17] LABS: Differential Indicated SCAN CRITERIA MET
[2024-12-06 06:05] LABS: Differential Comment SCANNED
[2024-12-06] MEDS: Insulin Lispro 100 UNIT/ML INSULN.PEN SC ×4 (06:40→21:55)
[2024-12-06 07:00] LABS: Bedside Glucose 266 mg/dL (74-106)
[2024-12-06 07:03] LABS: Anion Gap 9 (5-15); BUN 16 mg/dL (7-18); BUN/Creat Ratio 19.7 RATIO (10-20); Calcium,Total 8.9 mg/dL (8.5-10.1); Chloride 92 mmol/L (98-107); Creatinine, Serum 0.81 mg/dL (0.55-1.02); EST Glomerular Filtration Rate 71 mL/min (>60); Est Glom Filt Rate - Afr Amer 86 mL/min (>60); Estimated Creatinine Clearance 40.19 ml/min; Glucose 251 mg/dL (74-106); Potassium 4.5 mmol/L (3.5-5.1); Sodium Level 131 mmol/L (136-145)
--- NOTE | 2024-12-06 08:33 | CASEMGMT ---
Social Work SW sent updates including PT/OT to [place] via [employer]. SW sent a message in [facility] asking [place] to call PCU should they get the precert. Green sheet and transport forms placed on chart in event precert is attained and pt is medically ready this weekend. SHARON Hsieh
[2024-12-06] MEDS: NYSTATIN 500,000 UNIT/5 ML UDC 500000 UNIT PO ×4 (09:33→21:28)
[2024-12-06] MEDS: Meropenem 1 GM in 0.9% Normal Saline (100mL MB+) 100 ML IV ×2 (09:33→21:33)
[2024-12-06] MEDS: 0.9% Saline Lock 10 ML Syringe IV (09:33)
[2024-12-06] MEDS: Pantoprazole Sodium 40 MG Tablet PO (09:34)
[2024-12-06] MEDS: Lidocaine 5% Patch 1 PATCH TOPICAL (09:34)
[2024-12-06] MEDS: APIXABAN 5 MG TABLET 10 MG PO (09:34)
[2024-12-06] MEDS: Lisinopril 20 MG Tablet PO (09:35)
[2024-12-06] MEDS: Senna/Docusate Sodium 1 Tablet 2 TABLET PO ×2 (09:35→21:28)
[2024-12-06] MEDS: Montelukast 10 MG Tablet PO (09:35)
[2024-12-06 11:45] LABS: Bedside Glucose 321 mg/dL (74-106)
--- NOTE | 2024-12-06 11:57 | PN_ITS ---
Subjective Subjective Patient seen and examined. She was sitting up in a chair watching TV. She complained of feeling weak but says she felt a bit better today. She denied any coughing or chest pain, palpitations, dizziness, nausea or vomiting. She was on 3 L of oxygen at time of review. Objective Data Objective Data Vital Signs: Vital Signs Temp Pulse Resp BP Pulse Ox O2 Del Method O2 Flow Rate 98.0 F 97 18 149/73 H 94 Nasal Cannula 3 12/06/24 10:00 12/06/24 10:00 12/06/24 10:00 12/06/24 10:00 12/06/24 10:00 12/06/24 10:00 12/06/24 11:04 FiO2 50 12/04/24 19:40 Oxygen Flow Rate (L/min) 3 Oxygen Delivery Method Nasal Cannula Weight: 125 lb 14.143 oz Body Mass Index (BMI) 24.5 Intake & Output: Intake and Output for Last 24 Hours 12/04/24 12/05/24 12/06/24 23:59 23:59 23:59 Intake Total 1815.83 / 1815.83 1086.34 / 1286.34 720 / 720 Output Total 600 / 900 1000 / 1000 375 / 375 Balance 1215.83 / 915.83 86.34 / 286.34 345 / 345 Lab / Micro Data 12/06/24 04:20 12/06/24 04:20 Labs: Laboratory Results - last 24 hr 12/05/24 17:20: POC Glucose 290 H 12/05/24 21:13: POC Glucose 271 H 12/06/24 04:20: WBC 23.2 H, RBC 2.88 L, Hgb 8.0 L, Hct 25.0 L, MCV 86.8, MCH 27.8, MCHC 32.0, RDW Std Deviation 43.7, RDW Coeff of Katia 13.9, Plt Count 347, MPV 9.4, Immature Gran % (Auto) 0.900, Neut % (Auto) 94.6 H, Lymph % (Auto) 2.0 L, [place] % (Auto) 2.3, Eos % (Auto) 0.1, Baso % (Auto) 0.1, Absolute Neuts (auto) 21.9 H, Absolute Lymphs (auto) 0.46 L, Nucleated RBC % 0, Differential Comment SCANNED, Sodium 131 L, Potassium 4.5, Chloride 92 L, Carbon Dioxide 30.0, Anion Gap 9, BUN 16, Creatinine 0.81, Estim Creat Clear Calc 40.19, Est GFR (MDRD) Af Amer 86, Est GFR (MDRD) Non-Af 71, BUN/Creatinine Ratio 19.7, Glucose 251 H, Calcium 8.9 12/06/24 06:39: POC Glucose 266 H 12/06/24 11:24: POC Glucose 321 H Micro: Microbiology 12/04/24 11:05 Mucosa - Nose SARS-CoV-2, Influenza & RSV (PCR) - Final Physical Exam Const alert, oriented x3, no apparent distress and well nourished General Appearance: cooperative HEENT normocephalic, head/scalp atraumatic, moist oral mucous membranes and oropharynx normal Eyes PERRL, EOMs intact bilaterally and conjunctivae normal Neck no lymphadenopathy and supple Lymph Lymphatic: no lymphadenopathy noted Resp Resp Narrative: mildly diminished breath sounds bibasally, no wheezes or crackles. On 3L of oxygen by nasal canula. Cardio regular rate, regular rhythm, S1 normal heart sound, S2 normal heart sound and no murmurs GI normal to inspection, nondistended, normoactive bowel sounds, soft to palpation and non-tender Extremity normal to inspection, full ROM and no clubbing, cyanosis or edema General Extremity: no tenderness to palpation of joints or extremities Skin General Skin Exam: no breakdown Neuro oriented x3, CN's II-XII intact bilaterally and moves all extremities Sensorium / Orientation: awake Motor Exam: strength 5/5 throughout and general weakness Psych thought process normal, cooperative and affect normal Appearance: appropriate Assessment & Plan Assessment/Plan (1) Parapneumonic effusion: (2) Acute urinary retention: (3) Pulmonary embolism: PLAN: Plan #Right-sided submassive PE * Patient admitted with a complaint of shortness of breath and abdominal distention. * CT of the abdomen and pelvis had shown a cavitated mass in the lateral aspect of the left upper lobe with a small left pleural effusion and consolidation in both lower lobes with bronchiectasis at the right lung base * On admission to the floor she became very tachycardic and blood pressure also dropped to 98/42. Stat CT of the chest done showed evidence of multiple pulmonary emboli to the right middle and lower lobes with associated consolidation at the right base and left pleural effusion with consolidation of the left middle lobe as well as pleural based mass or masslike soft tissue density in the left upper lobe of indeterminate etiology likely atelectasis though neoplasm cannot entirely be excluded. * remains on 3L of oxygen. * now on PO eliquis. * on 3L of oxygen today. switch to PO eliquis treatment dose * pulmonology on board * hold off on echo as she had an echo done in May 2024 * * #Left sided pneumonia with pleural effusion * CT findings as above with a cavitated mass in the lateral aspect of the left upper lobe though a CT of the chest showed consolidation at the right base and left pleural effusion with consolidation of the left middle lobe and a pleural-based mass in the left upper lobe * She was recently treated for Pseudomonas pneumonia and was on a course of antibiotics namely Zosyn, finishing the course on 11/30/2024. * on IV meropenem due to CT findings. * wbc today is 23.2. * Per ID, to continue IV meropenem and await sputum culture results. * * #Acute urinary retention * Admitted from her [facility]p on account of abdominal distention. Found to be urinary retention on admission and had Ann catheter in situ which drained 2 L of urine * patient failed voiding trial again and had to be straight cathed yesterday * to have Ann catheter reinserted, and to follow up with urology on outpatient basis. * #Chronic respiratory failure due to COPD: On 3 L of oxygen at home. #Anemia: * Hemoglobin is down to 8 today from around 9 yesterday. * She will be started on Eliquis. * There is no evidence of bleeding. * Monitor Hb very closely. * #Hypothyroidism: On Synthroid #Hypertension: On lisinopril #Type 2 diabetes mellitus: * On metformin. * resume metformin today as it is 48 hour since she received contrast. * ISS. Accuchecks ACHS. #Hyperlipidemia: On statin DVT prophylaxis: not indicated as she is on eliquis for PE CODE STATUS: DNR CCA no intubation * Charges/Coding Visit Charges Inpatient E&M: 83060 Subs Hosp L2
--- NOTE | 2024-12-06 14:16 | PN.CC_ITS ---
Objective Data Objective Data Vital Signs: Vital Signs Last response 3 Temperature 36.7 C 12/06/24 10:00 Temperature Source Oral 12/06/24 10:00 Pulse Rate 77 12/06/24 13:00 Pulse Strength Normal (2+) 12/06/24 10:00 Respiratory Rate 20 H 12/06/24 13:00 Respiratory Effort Normal 12/06/24 13:40 Respiratory Depth Normal 12/06/24 13:40 Respiratory Pattern Normal 12/06/24 13:40 Blood Pressure 149/73 H 12/06/24 10:00 Blood Pressure Mean 98 12/06/24 10:00 Blood Pressure Source Monitor 12/06/24 10:00 Blood Pressure Position Sitting 12/06/24 10:00 Blood Pressure Location Left Arm 12/06/24 10:00 Pulse Ox 94 12/06/24 10:00 Oxygen Delivery Method Nasal Cannula 12/06/24 13:40 Oxygen Flow Rate (L/min) 3 12/06/24 13:40 Fraction of Inspired Oxygen (FIO2) 50 12/04/24 19:40 I&O: I&O Last 24 Hours 3 12/05/24 12/06/24 12/06/24 23:59 11:59 23:59 Intake Total 970 / 1286.34 720 / 1200 480 / 1200 Output Total 375 / 375 0 / 375 Balance 970 / 286.34 345 / 825 480 / 825 I&O: Total Stay 3 12/04/24 09:51 thru 12/06/24 13:44 Intake Total 4102.17 Output Total 1975 Balance 2127.17 Current Meds Ordered / Administered: Current meds ordered / Administered 3 Generic Name Dose Route Start Last Admin Trade Name Freq PRN Reason Stop Dose Admin Acetaminophen 650 mg 12/04/24 14:25 Acetaminophen 325 Mg Tablet PO Q4H PRN Fever, pain 1-10/10 Albuterol/Ipratropium 3 ml 12/04/24 14:25 Ipratropium/Albuterol Sulfate 3 Ml Ampul.Neb INHALATION Q4H PRN shortness of breath Albuterol/Ipratropium 3 ml 12/04/24 14:40 12/06/24 13:00 Ipratropium/Albuterol Sulfate 3 Ml Ampul.Neb INHALATION 3 ml Q6HWA.RT NISA Administration Apixaban 10 mg 12/05/24 11:00 12/06/24 09:34 Apixaban 5 Mg Tablet PO 10 mg BID NISA Administration Atorvastatin Calcium 20 mg 12/04/24 22:00 12/05/24 21:08 Atorvastatin Calcium 20 Mg Tablet PO 20 mg QHS NISA Administration Buspirone HCl 5 mg 12/06/24 11:50 Buspirone 5 Mg Tablet PO DAILY NISA Glucagon 1 mg 12/04/24 14:25 Glucagon 1 Mg/Ml Syringe IM X1 PRN HYPOGLYCEMIA Protocol Heparin Sodium (Porcine) 0 unit 12/04/24 17:20 12/05/24 09:02 Heparin Injection (Vial) 5,000 Unit/Ml Vial IV 1,000 unit UD PRN Administration dose adjustment Protocol Dextrose 250 mls @ 0 mls/hr 12/04/24 14:25 Dextrose 10%-Water IV .Q0M PRN HYPOGLYCEMIA Protocol As Directed Sodium Chloride 100 mls @ 15 mls/hr 12/04/24 14:31 IV .Q6H40M PRN Saline Flush Sodium Chloride 100 mls @ 15 mls/hr 12/04/24 14:31 IV .Q6H40M PRN Additional IVPB Infusion Meropenem 1 gm/ Sodium 120 mls @ 33 mls/hr 12/04/24 17:20 12/06/24 13:44 Chloride IV Infused Q12 NISA Infusion Insulin Human Lispro 0 unit 12/04/24 16:00 12/06/24 11:25 Insulin Lispro 100 Unit/Ml Insuln.Pen SC 5 u ACHS NISA Administration Protocol Levothyroxine Sodium 548 mcg 12/06/24 06:00 12/06/24 04:55 Levothyroxine 137 Mcg Tablet PO 548 mcg Sa@0600 NISA Administration Levothyroxine Sodium 68.5 mcg 12/11/24 06:00 Levothyroxine 137 Mcg Tablet PO Th@0600 NISA Lidocaine 1 patch 12/05/24 10:00 12/06/24 09:34 Lidocaine 5% Patch TOPICAL 1 patch DAILY NISA Administration Lisinopril 20 mg 12/05/24 10:00 12/06/24 09:35 Lisinopril 20 Mg Tablet PO 20 mg DAILY NISA Administration Protocol Magnesium Hydroxide 30 ml 12/04/24 14:25 Magnesium Hydroxide 30 Ml Udc PO DAILY PRN stomach upset Melatonin 6 mg 12/04/24 14:25 Melatonin 3 Mg Tablet PO QHS PRN sleep Metformin HCl 500 mg 12/04/24 17:00 Metformin Hcl 500 Mg Tablet PO DAILY@1700 [facility] Metformin HCl 1,000 mg 12/05/24 08:00 12/05/24 07:44 Metformin Hcl 1,000 Mg Tablet PO Not Given DAILY@0800 [facility] Methylprednisolone 40 mg 12/04/24 14:25 12/06/24 04:55 Methylprednisolone 40 Mg/Ml Vial IV 40 mg Q8 NISA Administration Mirtazapine 15 mg 12/04/24 22:00 12/05/24 21:08 Mirtazapine 15 Mg Tablet PO 15 mg QHS NISA Administration Montelukast Sodium 10 mg 12/05/24 10:00 12/06/24 09:35 Montelukast 10 Mg Tablet PO 10 mg DAILY NISA Administration Morphine Sulfate 2 - 4 mg 12/04/24 14:25 Morphine 2 Mg/Ml Syringe IV Q3H PRN PRN Pain Score 6-10 Nitroglycerin 0.4 mg 12/04/24 14:25 Nitroglycerin (Inpatient Use) 0.4 Mg Tab.Subl SL Q5M PRN CARDIAC/CHEST PAIN Nystatin 500,000 unit 12/05/24 10:00 12/06/24 09:33 Nystatin 500,000 Unit/5 Ml Udc PO 500,000 unit 4X/DAY NISA Administration Ondansetron HCl 4 mg 12/04/24 14:25 Ondansetron 4 Mg/2 Ml Vial IV Q8H PRN PRN NAUSEA/VOMITING Oxycodone HCl 5 mg 12/04/24 14:25 12/05/24 22:00 Oxycodone 5 Mg Tablet PO 5 mg Q6H PRN Administration Pain Score 1-10 Pantoprazole Sodium 40 mg 12/05/24 10:00 12/06/24 09:34 Pantoprazole Sodium 40 Mg Tablet PO 40 mg DAILY NISA Administration Senna/Docusate Sodium 2 tablet 12/04/24 22:00 12/06/24 09:35 Senna/Docusate Sodium 1 Tablet PO 2 tablet BID NISA Administration Sodium Chloride 10 - 40 ml 12/04/24 14:31 12/06/24 09:33 0.9% Saline Lock 10 Ml Syringe IV 10 ml UD PRN Administration SALINE FLUSH Throat Lozenges 1 lozenge 12/04/24 14:25 Benzocaine/Menthol 1 Lozenge MUCOUS MEM Q2H PRN SORE THROAT Lab / Micro Data 12/06/24 19:30 12/06/24 04:20 Labs: Laboratory Results - last 24 hr 12/05/24 17:20: POC Glucose 290 H 12/05/24 21:13: POC Glucose 271 H 12/06/24 04:20: WBC 23.2 H, RBC 2.88 L, Hgb 8.0 L, Hct 25.0 L, MCV 86.8, MCH 27.8, MCHC 32.0, RDW Std Deviation 43.7, RDW Coeff of Katia 13.9, Plt Count 347, MPV 9.4, Immature Gran % (Auto) 0.900, Neut % (Auto) 94.6 H, Lymph % (Auto) 2.0 L, [place] % (Auto) 2.3, Eos % (Auto) 0.1, Baso % (Auto) 0.1, Absolute Neuts (auto) 21.9 H, Absolute Lymphs (auto) 0.46 L, Nucleated RBC % 0, Differential Comment SCANNED, Sodium 131 L, Potassium 4.5, Chloride 92 L, Carbon Dioxide 30.0, Anion Gap 9, BUN 16, Creatinine 0.81, Estim Creat Clear Calc 40.19, Est GFR (MDRD) Af Amer 86, Est GFR (MDRD) Non-Af 71, BUN/Creatinine Ratio 19.7, Glucose 251 H, Calcium 8.9 12/06/24 06:39: POC Glucose 266 H 12/06/24 11:24: POC Glucose 321 H Micro: Microbiology 12/05/24 14:45 Sputum, Expectorated/Coughed Gram Stain - Final 12/05/24 14:45 Sputum, Expectorated/Coughed Respiratory Culture - Preliminary Appears to be normal respiratory katja. Further studies to follow. Assessment and Plan . Assessment and plan: COPD Pulmonary embolism Hypothyroidism Hypertension Cavitary lesion DM II GERD - patietn will need out patietn follow up for caviatary lesion - will need consideration of bronchoscopy - swithc heparin to doac - cont with levothyroxine - cont with abx , per ID Critical Care 35 Time: The entirety of this encounter was done via Telemedicine Physical Exam Const alert and oriented x3 General Appearance: cooperative HEENT normocephalic Eyes PERRL and EOMs intact bilaterally Neck full ROM Resp Effort and Inspection: labored and actively coughing Cardio regular rate, regular rhythm, S1 normal heart sound and S2 normal heart sound GI normal to inspection, nondistended, normoactive bowel sounds Extremity no clubbing, cyanosis or edema Neuro oriented x3, CN's II-XII intact bilaterally and moves all extremities Subjective Subjective The patient is an 84-year-old female, with a history as outlined below, who presented to the emergency department via EMS on December 04 with shortness of breath. The patient was previously under the care of Dr. Kamran Mathews until his departure. She is regularly followed in the pulmonary medicine clinic due to a history of COPD on triple therapy inhaler regimen and chronic hypoxemic respiratory failure, requiring 2 L/min at rest and 3 L/min with exertion. The patient was just admitted to the hospital November 18, during which time, she was treated for a COPD exacerbation secondary to pseudomonal pneumonia, with antimicrobials managed by infectious diseases. On presentation to the emergency department, the patient was documented to be afebrile hemodynamically stable. She was initially saturating 86% on 3 L/min via nasal cannula. Laboratory evaluation revealed a white blood cell count of 21,000 with a hemoglobin of 10.3 g/dL and platelet count of 452,000. Chemistry profile was notable for a sodium of 129, chloride of 91 and normal creatinine. BNP and troponin were negative. Urine analysis was unremarkable. CTA chest demonstrated pulmonary embolism, along with consolidative changes in the bilateral lower lobes along with a pleural-based consolidative density in the left upper lobe. The patient was subsequently placed on a weight-based heparin infusion along with scheduChronic interstitial changes and ASHD. Consultation was placed to infectious diseases. It should be noted that CT imaging of the chest was not completed during the patient's prior hospitalization for comparison purposes. She was subsequently admitted to the progressive care unit for further management. As of this morning, the patient is maintaining appropriate oxygen saturations on 3 L/min at rest. She does report the presence of exertional shortness of breath, which is a chronic problem for her, along with an intermittently productive cough. She is currently afebrile. 12/06 Patient is on 3 L, she has been started on meropenem.
[2024-12-06 17:45] LABS: Bedside Glucose 215 mg/dL (74-106)
--- NOTE | 2024-12-06 18:54 | PCM.PN.BLA ---
Progress Note 18:54pm I was informed by patient's nurse that patient had started having hematuria with associated clot. As noted in today's progress note, her Hb had dropped to 8 from ~ 9. Stat CBC and type and screen ordered. Urology consult to Dr Rust placed; Dr Rust informed by text (phone call attempted). Hold eliquis. WIll get vascular surgery consult for evaluation for IVC filter insertion due to hematuria in light of recent diagnosis of PE during this admission necessitating patient being on eliquis.
[2024-12-06 19:37] LABS: Hematocrit 26.5 % (37-47); Hemoglobin 8.8 g/dL (12.0-15.0); Mean Corp Hgb Conc 33.2 g/dL (32-36); Mean Corpuscular Hgb 28.6 pg (27.0-32.0); Mean Platelet Vol. 9.2 fl (6.2-12.0); Platelet Count 421 K/mm3 (150-450); RBC Distribution Width CV 14.1 % (11.6-14.6); Red Blood Count 3.08 M/mm3 (4.2-5.4); White Blood Count 23.1 K/mm3 (4.4-11.0)
[2024-12-06] MEDS: oxyCODONE 5 MG Tablet PO (19:46)
[2024-12-06] MEDS: Mirtazapine 15 MG Tablet PO (21:28)
[2024-12-06] MEDS: Atorvastatin Calcium 20 MG Tablet PO (21:29)
[2024-12-06] MEDS: MELATONIN 3 MG TABLET 6 MG PO (21:30)
[2024-12-06 22:25] LABS: Bedside Glucose 335 mg/dL (74-106)
[2024-12-07] VITALS (9 sets, daily range): BP systolic 113–157; BP diastolic 72–87; PULSE 63–95; RESP 12–22; TEMP 36.2–36.5; O2SAT 94–98
[2024-12-07] MEDS: 0.9% Saline Lock 10 ML Syringe IV ×4 (05:28→21:37)
[2024-12-07] MEDS: Insulin Lispro 100 UNIT/ML INSULN.PEN SC ×4 (06:56→21:37)
[2024-12-07] MEDS: Ipratropium/Albuterol Sulfate 3 ML AMPUL.NEB INHALATION ×3 (07:01→18:45)
[2024-12-07 07:17] LABS: Bedside Glucose 189 mg/dL (74-106)
[2024-12-07 07:21] LABS: Absolute Lymphocyte Count 0.72 X10^3/uL (0.83-4.51); Absolute Neutrophil Count 17.8 X10^3/uL (2.0-7.7); Basophil# 0.02 X10^3/uL; Basophil% 0.1 % (0-1); Eosinophil# 0.04 X10^3/uL; Eosinophils% 0.2 % (0-5); Hematocrit 27.1 % (37-47); Hemoglobin 8.9 g/dL (12.0-15.0); Lymphocyte # 0.72 X10^3/ul (0.83-4.51); Lymphocyte % 3.7 % (19-41); Mean Corp Hgb Conc 32.8 g/dL (32-36); Mean Corpuscular Hgb 28.1 pg (27.0-32.0); Mean Corpuscular Volume 85.5 fL (81-99); Mean Platelet Vol. 9.1 fl (6.2-12.0); Monocyte# 0.33 X10^3/uL; Monocyte% 1.7 % (0-10); NRBC Flagged by Analyzer 0.1 % (0-5); Neutrophil # 17.75 X10^3/uL (2.7-7.7); Neutrophil % 92.3 % (47-70); Platelet Count 427 K/mm3 (150-450); RBC Distribution Width CV 14.1 % (11.6-14.6); RBC Distribution Width SD 43.3 fl (35.1-43.9); Red Blood Count 3.17 M/mm3 (4.2-5.4); White Blood Count 19.3 K/mm3 (4.4-11.0)
[2024-12-07 07:49] LABS: Anion Gap 6 (5-15); BUN 18 mg/dL (7-18); BUN/Creat Ratio 26.5 RATIO (10-20); Calcium,Total 9.6 mg/dL (8.5-10.1); Chloride 95 mmol/L (98-107); Creatinine, Serum 0.68 mg/dL (0.55-1.02); EST Glomerular Filtration Rate 88 mL/min (>60); Est Glom Filt Rate - Afr Amer 106 mL/min (>60); Glucose 192 mg/dL (74-106); Potassium 4.6 mmol/L (3.5-5.1); Sodium Level 132 mmol/L (136-145)
[2024-12-07] MEDS: Sodium Chloride 0.65% 1 SPRAY SPRAY.BTL 2 SPRAY NASAL (10:44)
[2024-12-07] MEDS: Lidocaine 5% Patch 1 PATCH TOPICAL (10:44)
[2024-12-07] MEDS: Pantoprazole Sodium 40 MG Tablet PO (10:45)
[2024-12-07] MEDS: Senna/Docusate Sodium 1 Tablet 2 TABLET PO ×2 (10:45→21:31)
[2024-12-07] MEDS: Montelukast 10 MG Tablet PO (10:45)
[2024-12-07] MEDS: NYSTATIN 500,000 UNIT/5 ML UDC 500000 UNIT PO ×4 (10:46→21:31)
[2024-12-07] MEDS: Lisinopril 20 MG Tablet PO (10:46)
[2024-12-07] MEDS: Meropenem 1 GM in 0.9% Normal Saline (100mL MB+) 100 ML IV ×2 (10:46→21:36)
[2024-12-07] MEDS: busPIRone 5 MG Tablet PO (10:46)
--- NOTE | 2024-12-07 11:09 | PN_ITS ---
Subjective Subjective Patient seen and examined. She said she felt better today. She denied any dizziness, fever, chills, cough, chest pain, palpitations, dizziness, nausea, vomiting or any other symptoms. Review of systems is otherwise negative. She is on 3L of oxygen by nasal canula. She had hematuria yesterday and so eliquis was stopped. Vascular surgery was consulted for evaluation of IVC filter. Urology was also consulted. Her urine is now clear and she denies any more hematuria. Her Hb is 8.9 today. Objective Data Objective Data Vital Signs: Vital Signs Temp Pulse Resp BP Pulse Ox O2 Del Method O2 Flow Rate 97.2 F L 95 20 H 157/86 H 96 Nasal Cannula 3 12/07/24 05:00 12/07/24 07:01 12/07/24 07:01 12/07/24 05:00 12/07/24 07:01 12/07/24 07:01 12/07/24 07:01 FiO2 30 12/06/24 23:30 Oxygen Flow Rate (L/min) 3 Oxygen Delivery Method Nasal Cannula Weight: 125 lb 14.143 oz Body Mass Index (BMI) 24.5 Intake & Output: Intake and Output for Last 24 Hours 12/05/24 12/06/24 12/07/24 23:59 23:59 23:59 Intake Total 1086.34 / 1286.34 1740 / 2180 800 / 800 Output Total 1000 / 1000 775 / 1075 700 / 700 Balance 86.34 / 286.34 965 / 1105 100 / 100 Lab / Micro Data 12/07/24 06:40 12/07/24 06:40 Labs: Laboratory Results - last 24 hr 12/06/24 11:24: POC Glucose 321 H 12/06/24 17:24: POC Glucose 215 H 12/06/24 19:30: WBC 23.1 H, RBC 3.08 L, Hgb 8.8 L, Hct 26.5 L, MCV 86.0, MCH 28.6, MCHC 33.2, RDW Std Deviation 43.0, RDW Coeff of Katia 14.1, Plt Count 421, MPV 9.2 12/06/24 21:42: POC Glucose 335 H 12/06/24 22:30: Blood Type B POSITIVE, Antibody Screen NEGATIVE, Crossmatch See Detail 12/07/24 06:40: WBC 19.3 H, RBC 3.17 L, Hgb 8.9 L, Hct 27.1 L, MCV 85.5, MCH 28.1, MCHC 32.8, RDW Std Deviation 43.3, RDW Coeff of Katia 14.1, Plt Count 427, MPV 9.1, Immature Gran % (Auto) 2.000 H, Neut % (Auto) 92.3 H, Lymph % (Auto) 3.7 L, [place] % (Auto) 1.7, Eos % (Auto) 0.2, Baso % (Auto) 0.1, Absolute Neuts (auto) 17.8 H, Absolute Lymphs (auto) 0.72 L, Nucleated RBC % 0.1, Sodium 132 L, Potassium 4.6, Chloride 95 L, Carbon Dioxide 31.0, Anion Gap 6, BUN 18, Creatinine 0.68, Estim Creat Clear Calc 40.70, Est GFR (MDRD) Af Amer 106, Est GFR (MDRD) Non-Af 88, BUN/Creatinine Ratio 26.5 H, Glucose 192 H, Calcium 9.6 12/07/24 06:55: POC Glucose 189 H Micro: Microbiology 12/05/24 14:45 Sputum, Expectorated/Coughed Gram Stain - Final 12/05/24 14:45 Sputum, Expectorated/Coughed Respiratory Culture - Preliminary Appears to be normal respiratory katja. Further studies to follow. 12/04/24 11:05 Mucosa - Nose SARS-CoV-2, Influenza & RSV (PCR) - Final Physical Exam Const alert, oriented x3, no apparent distress and well nourished General Appearance: cooperative HEENT normocephalic, head/scalp atraumatic, moist oral mucous membranes and oropharynx normal Eyes PERRL, EOMs intact bilaterally and conjunctivae normal Neck no lymphadenopathy and supple Lymph Lymphatic: no lymphadenopathy noted Resp Resp Narrative: mildly diminished breath sounds bibasally, no wheezes or crackles. On 3L of oxygen by nasal canula. Cardio regular rate, regular rhythm, S1 normal heart sound, S2 normal heart sound and no murmurs GI normal to inspection, nondistended, normoactive bowel sounds, soft to palpation and non-tender Extremity normal to inspection, full ROM, normal capillary refill and no clubbing, cyanosis or edema General Extremity: no tenderness to palpation of joints or extremities Skin General Skin Exam: no breakdown Neuro oriented x3, CN's II-XII intact bilaterally and moves all extremities Sensorium / Orientation: awake Motor Exam: strength 5/5 throughout and general weakness Psych thought process normal, cooperative and affect normal Appearance: appropriate Assessment & Plan Assessment/Plan (1) Parapneumonic effusion: (2) Acute urinary retention: (3) Pulmonary embolism: PLAN: Plan #Right-sided submassive PE * Patient admitted with a complaint of shortness of breath and abdominal distention. * CT of the abdomen and pelvis had shown a cavitated mass in the lateral aspect of the left upper lobe with a small left pleural effusion and consolidation in both lower lobes with bronchiectasis at the right lung base * On admission to the floor she became very tachycardic and blood pressure also dropped to 98/42. Stat CT of the chest done showed evidence of multiple pulmonary emboli to the right middle and lower lobes with associated consolidation at the right base and left pleural effusion with consolidation of the left middle lobe as well as pleural based mass or masslike soft tissue density in the left upper lobe of indeterminate etiology likely atelectasis though neoplasm cannot entirely be excluded. * remains on 3L of oxygen. * now on PO eliquis. Eliquis held yesterday due to hematuria which has now resolved. * SHe had a ignacio catheter inserted, so hematuria may have possibly been traumatic * since hematuria has now resolved, will put on heparin drip to see if hematuria recurs. If it doesnt, will put back on eliquis. * pulmonology on board. * hold off on echo as she had an echo done in May 2024 * #Left sided pneumonia with pleural effusion * CT findings as above with a cavitated mass in the lateral aspect of the left upper lobe though a CT of the chest showed consolidation at the right base and left pleural effusion with consolidation of the left middle lobe and a pleural-based mass in the left upper lobe * She was recently treated for Pseudomonas pneumonia and was on a course of antibiotics namely Zosyn, finishing the course on 11/30/2024. * on IV meropenem due to CT findings. * wbc today is 23.2. * Per ID, to continue IV meropenem and await sputum culture results. Sputum culture negative. * will therefore finish meropenem today and dc. * * #Acute urinary retention with hematuria * Admitted from her half-way on account of abdominal distention. Found to be urinary retention on admission and had Ignacio catheter in situ which drained 2 L of urine * patient failed voiding trial again and Ignacio catheter had to be inserted again. * she then developed hematuria. eliquis discontinued. Since hematuria has cleared up now, will start on heparin drip and see. Hb is also stable * if hematuria does not recur, then will consider putting back on eliquis * Urology consulted; await recs. * vascular surgery also consulted to evaluate for IVC filter if needed. * * #Chronic respiratory failure due to COPD: On 3 L of oxygen at home. #Anemia: * Hemoglobin is down to 8 today from around 9 yesterday. * Hb today is 8.9. * did have hematuria but it has not recurred. * on heparin drip; will monitor closely. * * #Hypothyroidism: On Synthroid #Hypertension: On lisinopril #Type 2 diabetes mellitus: * On metformin. * ISS. Accuchpat SANTANAS. #Hyperlipidemia: On statin DVT prophylaxis:now on heparin drip CODE STATUS: DNR CCA no intubation * Charges/Coding Visit Charges Inpatient E&M: 24373 Subs Hosp L3
[2024-12-07 11:39] LABS: Partial Thromboplast Time 26.8 Seconds (24.1-36.2)
[2024-12-07] MEDS: HEPARIN/D5w 25,000 UNITS 25,000 UNITS/250 ML IV.SOLN. 7 UNITS CONT INF (12:22)
--- NOTE | 2024-12-07 12:45 | PCM.PN.TICU ---
Objective Data Objective Data Vital Signs: Vital Signs Last response Temperature 36.2 C L 12/07/24 05:00 Temperature Source Temporal 12/07/24 05:00 Pulse Rate 95 12/07/24 07:01 Pulse Strength Weak (1+) 12/07/24 10:00 Respiratory Rate 20 H 12/07/24 07:01 Respiratory Effort Normal, Non-Labored 12/07/24 03:38 Respiratory Depth Normal 12/07/24 03:38 Respiratory Pattern Normal 12/07/24 07:01 Blood Pressure 157/86 H 12/07/24 05:00 Blood Pressure Mean 109 12/07/24 05:00 Blood Pressure Source Monitor 12/07/24 05:00 Blood Pressure Position Semi-Fowlers 12/07/24 05:00 Blood Pressure Location Right Arm 12/07/24 05:00 Pulse Ox 96 12/07/24 07:01 Oxygen Delivery Method Nasal Cannula 12/07/24 07:01 Oxygen Flow Rate (L/min) 3 12/07/24 11:34 Fraction of Inspired Oxygen (FIO2) 30 12/06/24 23:30 I&O: I&O Last 24 Hours 12/06/24 12/07/24 12/07/24 23:59 11:59 23:59 Intake Total 1020 / 2180 800 / 800 Output Total 400 / 1075 700 / 700 Balance 620 / 1105 100 / 100 I&O: Total Stay 12/04/24 09:51 thru 12/07/24 06:00 Intake Total 5442.17 Output Total 3075 Balance 2367.17 Current Meds Ordered / Administered: Current meds ordered / Administered Generic Name Dose Route Start Last Admin Trade Name Freq PRN Reason Stop Dose Admin Acetaminophen 650 mg 12/04/24 14:25 Acetaminophen 325 Mg Tablet PO Q4H PRN Fever, pain 1-10/10 Albuterol/Ipratropium 3 ml 12/04/24 14:25 Ipratropium/Albuterol Sulfate 3 Ml Ampul.Neb INHALATION Q4H PRN shortness of breath Albuterol/Ipratropium 3 ml 12/04/24 14:40 12/07/24 07:01 Ipratropium/Albuterol Sulfate 3 Ml Ampul.Neb INHALATION 3 ml Q6HWA.RT NISA Administration Atorvastatin Calcium 20 mg 12/04/24 22:00 12/06/24 21:29 Atorvastatin Calcium 20 Mg Tablet PO 20 mg QHS NISA Administration Buspirone HCl 5 mg 12/06/24 11:50 12/07/24 10:46 Buspirone 5 Mg Tablet PO 5 mg DAILY NISA Administration Glucagon 1 mg 12/04/24 14:25 Glucagon 1 Mg/Ml Syringe IM X1 PRN HYPOGLYCEMIA Protocol Heparin Sodium (Porcine) 0 unit 12/04/24 17:20 12/05/24 09:02 Heparin Injection (Vial) 5,000 Unit/Ml Vial IV 1,000 unit UD PRN Administration dose adjustment Protocol Dextrose 250 mls @ 0 mls/hr 12/04/24 14:25 Dextrose 10%-Water IV .Q0M PRN HYPOGLYCEMIA Protocol As Directed Sodium Chloride 100 mls @ 15 mls/hr 12/04/24 14:31 IV .Q6H40M PRN Saline Flush Sodium Chloride 100 mls @ 15 mls/hr 12/04/24 14:31 IV .Q6H40M PRN Additional IVPB Infusion Meropenem 1 gm/ Sodium 120 mls @ 33 mls/hr 12/04/24 17:20 12/07/24 10:46 Chloride IV 33 mls/hr Q12 NISA Administration Heparin Sodium/Dextrose 25,000 units in 250 mls @ 7 mls/hr 12/07/24 11:10 12/07/24 12:22 CONT INF 700 units/hr .[id number] NISA 7 mls/hr Administration Protocol As Directed Insulin Human Lispro 0 unit 12/04/24 16:00 12/07/24 12:21 Insulin Lispro 100 Unit/Ml Insuln.Pen SC 5 u ACHS NISA Administration Protocol Levothyroxine Sodium 548 mcg 12/06/24 06:00 12/06/24 04:55 Levothyroxine 137 Mcg Tablet PO 548 mcg Sa@0600 NISA Administration Levothyroxine Sodium 68.5 mcg 12/11/24 06:00 Levothyroxine 137 Mcg Tablet PO Th@0600 NISA Lidocaine 1 patch 12/05/24 10:00 12/07/24 10:44 Lidocaine 5% Patch TOPICAL 1 patch DAILY NISA Administration Lisinopril 20 mg 12/05/24 10:00 12/07/24 10:46 Lisinopril 20 Mg Tablet PO 20 mg DAILY NISA Administration Protocol Magnesium Hydroxide 30 ml 12/04/24 14:25 Magnesium Hydroxide 30 Ml Udc PO DAILY PRN stomach upset Melatonin 6 mg 12/04/24 14:25 12/06/24 21:30 Melatonin 3 Mg Tablet PO 6 mg QHS PRN Administration sleep Metformin HCl 500 mg 12/04/24 17:00 Metformin Hcl 500 Mg Tablet PO DAILY@1700 NISA Metformin HCl 1,000 mg 12/05/24 08:00 12/05/24 07:44 Metformin Hcl 1,000 Mg Tablet PO Not Given DAILY@0800 NISA Methylprednisolone 40 mg 12/04/24 14:25 12/07/24 05:24 Methylprednisolone 40 Mg/Ml Vial IV 40 mg Q8 NISA Administration Mirtazapine 15 mg 12/04/24 22:00 12/06/24 21:28 Mirtazapine 15 Mg Tablet PO 15 mg QHS NISA Administration Montelukast Sodium 10 mg 12/05/24 10:00 12/07/24 10:45 Montelukast 10 Mg Tablet PO 10 mg DAILY NISA Administration Morphine Sulfate 2 - 4 mg 12/04/24 14:25 Morphine 2 Mg/Ml Syringe IV Q3H PRN PRN Pain Score 6-10 Nitroglycerin 0.4 mg 12/04/24 14:25 Nitroglycerin (Inpatient Use) 0.4 Mg Tab.Subl SL Q5M PRN CARDIAC/CHEST PAIN Nystatin 500,000 unit 12/05/24 10:00 12/07/24 10:46 Nystatin 500,000 Unit/5 Ml Udc PO 500,000 unit 4X/DAY NISA Administration Ondansetron HCl 4 mg 12/04/24 14:25 Ondansetron 4 Mg/2 Ml Vial IV Q8H PRN PRN NAUSEA/VOMITING Oxycodone HCl 5 mg 12/04/24 14:25 12/06/24 19:46 Oxycodone 5 Mg Tablet PO 5 mg Q6H PRN Administration Pain Score 1-10 Pantoprazole Sodium 40 mg 12/05/24 10:00 12/07/24 10:45 Pantoprazole Sodium 40 Mg Tablet PO 40 mg DAILY NISA Administration Senna/Docusate Sodium 2 tablet 12/04/24 22:00 12/07/24 10:45 Senna/Docusate Sodium 1 Tablet PO 2 tablet BID NISA Administration Sodium Chloride 10 - 40 ml 12/04/24 14:31 12/07/24 05:28 0.9% Saline Lock 10 Ml Syringe IV 30 ml UD PRN Administration SALINE FLUSH Sodium Chloride 2 spray 12/06/24 17:36 12/07/24 10:44 Sodium Chloride 0.65% 1 [place] Berkeley.Btl NASAL 2 spray TID PRN PRN Administration NASAL DRYNESS Throat Lozenges 1 lozenge 12/04/24 14:25 Benzocaine/Menthol 1 Lozenge MUCOUS MEM Q2H PRN SORE THROAT Lab / Micro Data 12/07/24 06:40 12/07/24 06:40 Labs: Laboratory Results - last 24 hr 12/06/24 17:24: POC Glucose 215 H 12/06/24 19:30: WBC 23.1 H, RBC 3.08 L, Hgb 8.8 L, Hct 26.5 L, MCV 86.0, MCH 28.6, MCHC 33.2, RDW Std Deviation 43.0, RDW Coeff of Katia 14.1, Plt Count 421, MPV 9.2 12/06/24 21:42: POC Glucose 335 H 12/06/24 22:30: Blood Type B POSITIVE, Antibody Screen NEGATIVE, Crossmatch See Detail 12/07/24 06:40: WBC 19.3 H, RBC 3.17 L, Hgb 8.9 L, Hct 27.1 L, MCV 85.5, MCH 28.1, MCHC 32.8, RDW Std Deviation 43.3, RDW Coeff of Katia 14.1, Plt Count 427, MPV 9.1, Immature Gran % (Auto) 2.000 H, Neut % (Auto) 92.3 H, Lymph % (Auto) 3.7 L, [place] % (Auto) 1.7, Eos % (Auto) 0.2, Baso % (Auto) 0.1, Absolute Neuts (auto) 17.8 H, Absolute Lymphs (auto) 0.72 L, Nucleated RBC % 0.1, Sodium 132 L, Potassium 4.6, Chloride 95 L, Carbon Dioxide 31.0, Anion Gap 6, BUN 18, Creatinine 0.68, Estim Creat Clear Calc 40.70, Est GFR (MDRD) Af Amer 106, Est GFR (MDRD) Non-Af 88, BUN/Creatinine Ratio 26.5 H, Glucose 192 H, Calcium 9.6 12/07/24 06:55: POC Glucose 189 H 12/07/24 11:24: APTT 26.8 Micro: Microbiology 12/05/24 14:45 Sputum, Expectorated/Coughed Gram Stain - Final 12/05/24 14:45 Sputum, Expectorated/Coughed Respiratory Culture - Preliminary GNR Poss Pseudomonas sp Assessment and Plan . Assessment and plan: COPD Pulmonary embolism Hypothyroidism Hypertension Cavitary lesion DM II GERD Pseudomonas Pneumonia - will need to determine cause/source of PE to determine need for group home AG - patient will need out patient follow up for caviatary lesion - will need consideration of bronchoscopy - patient started on heparin gtt after hematuria but likely can go back to DOAC - cont with levothyroxine - growing GNR liekly pseudomonas , cont with abx , per ID Critical Care Time 34 The entirety of this encounter was done via Telemedicine Physical Exam Const alert and oriented x3 General Appearance: cooperative and well developed HEENT normocephalic Eyes PERRL and EOMs intact bilaterally Resp normal respiratory effort Cardio regular rate, regular rhythm, S1 normal heart sound and S2 normal heart sound GI normal to inspection, nondistended, normoactive bowel sounds Skin no rashes or lesions noted Neuro oriented x3 and CN's II-XII intact bilaterally Psych cooperative and affect normal Subjective Subjective The patient is an 84-year-old female, with a history as outlined below, who presented to the emergency department via EMS on December 04 with shortness of breath. The patient was previously under the care of Dr. Kamran Mathews until his departure. She is regularly followed in the pulmonary medicine clinic due to a history of COPD on triple therapy inhaler regimen and chronic hypoxemic respiratory failure, requiring 2 L/min at rest and 3 L/min with exertion. The patient was just admitted to the hospital November 18 through , during which time, she was treated for a COPD exacerbation secondary to pseudomonal pneumonia, with antimicrobials managed by infectious diseases. On presentation to the emergency department, the patient was documented to be afebrile hemodynamically stable. She was initially saturating 86% on 3 L/min via nasal cannula. Laboratory evaluation revealed a white blood cell count of 21,000 with a hemoglobin of 10.3 g/dL and platelet count of 452,000. Chemistry profile was notable for a sodium of 129, chloride of 91 and normal creatinine. BNP and troponin were negative. Urine analysis was unremarkable. CTA chest demonstrated pulmonary embolism, along with consolidative changes in the bilateral lower lobes along with a pleural-based consolidative density in the left upper lobe. The patient was subsequently placed on a weight-based heparin infusion along with scheduled changes and ASHD. Consultation was placed to infectious diseases. It should be noted that CT imaging of the chest was not completed during the patient's prior hospitalization for comparison purposes. She was subsequently admitted to the progressive care unit for further management. As of this morning, the patient is maintaining appropriate oxygen saturations on 3 L/min at rest. She does report the presence of exertional shortness of breath, which is a chronic problem for her, along with an intermittently productive cough. She is currently afebrile. 12/06 Patient is on 3 L, she has been started on meropenem. 12/07 Patient had some hematuria today. She states she wore biap for an hour. She is at her baseline oxygen of 3 Ls . Micro showing GNR pseudomonas
[2024-12-07 13:00] LABS: Bedside Glucose 316 mg/dL (74-106)
[2024-12-07] MEDS: oxyCODONE 5 MG Tablet PO ×2 (14:37→21:32)
--- NOTE | 2024-12-07 15:17 | NURSING ---
This RN taking over care of pt at this time.
[2024-12-07 17:18] LABS: Bedside Glucose 255 mg/dL (74-106)
[2024-12-07 18:54] LABS: Partial Thromboplast Time 34.6 Seconds (24.1-36.2)
[2024-12-07] MEDS: Heparin Injection (Vial) 5,000 UNIT/ML VIAL IV (18:59)
[2024-12-07] MEDS: MELATONIN 3 MG TABLET 6 MG PO (21:31)
[2024-12-07] MEDS: Atorvastatin Calcium 20 MG Tablet PO (21:31)
[2024-12-07] MEDS: Mirtazapine 15 MG Tablet PO (21:31)
[2024-12-08] VITALS (13 sets, daily range): BP systolic 134–169; BP diastolic 72–89; PULSE 59–85; RESP 16–20; TEMP 36.3–36.7; O2SAT 76–100
[2024-12-08 00:42] LABS: Bedside Glucose 256 mg/dL (74-106)
[2024-12-08] MEDS: Insulin Lispro 100 UNIT/ML INSULN.PEN SC ×4 (06:25→22:42)
[2024-12-08 06:46] LABS: Absolute Lymphocyte Count 0.92 X10^3/uL (0.83-4.51); Absolute Neutrophil Count 11.8 X10^3/uL (2.0-7.7); Basophil# 0.03 X10^3/uL; Basophil% 0.2 % (0-1); Hematocrit 24.3 % (37-47); Hemoglobin 7.9 g/dL (12.0-15.0); Lymphocyte # 0.92 X10^3/ul (0.83-4.51); Lymphocyte % 6.8 % (19-41); Mean Corp Hgb Conc 32.5 g/dL (32-36); Mean Corpuscular Hgb 28.3 pg (27.0-32.0); Mean Corpuscular Volume 87.1 fL (81-99); Mean Platelet Vol. 9.2 fl (6.2-12.0); Monocyte# 0.37 X10^3/uL; Monocyte% 2.7 % (0-10); NRBC Flagged by Analyzer 0.1 % (0-5); Neutrophil # 11.81 X10^3/uL (2.7-7.7); Neutrophil % 87.8 % (47-70); Platelet Count 382 K/mm3 (150-450); RBC Distribution Width CV 13.8 % (11.6-14.6); RBC Distribution Width SD 43.1 fl (35.1-43.9); Red Blood Count 2.79 M/mm3 (4.2-5.4); White Blood Count 13.5 K/mm3 (4.4-11.0)
[2024-12-08 06:50] LABS: Bedside Glucose 233 mg/dL (74-106)
--- NOTE | 2024-12-08 07:15 | PCM.CONS.U ---
HPI Consult Data Date of Consult: 12/08/24 HPI Narrative Reason for Consultation: Transient gross hematuria HPI Narrative: MARIELA LARIOS, is a 84 F who presents to the hospital with pulmonary embolism she was started on blood thinners and then had gross hematuria from the catheter. Blood thinners were held for some time. She did have a CAT scan done of the kidney abdomen pelvis, on review of the CAT scan I do not see any findings in her kidneys the ureter or the bladder that would cause her bleeding is possible that the bleeding was just some irritation of the lining from the catheter and was bleeding with hematuria caused by the blood thinners at this point I do not see any reason why you can resume anticoagulation for her pulmonary embolism she does have a Ann catheter in place still and is nice and clear once she does not need it we can remove the catheter for voiding trial leave this up to the primary physicians to manage. Otherwise no other intervention necessary from urology standpoint call me with questions. ON LICENSE OF [facility] Medical History GERD (gastroesophageal reflux disease) Pseudomonas pneumonia Rheumatoid arthritis COPD exacerbation Pneumonia Hypoxia COVID-19 Hyperlipidemia Osteoarthritis Acute respiratory failure Anemia Hypothyroidism Diabetes On home oxygen therapy Asthma COPD (chronic obstructive pulmonary disease) HTN (hypertension) Diabetes mellitus, type 2 Normocytic anemia Former tobacco use Intermittent constipation COPD (chronic obstructive pulmonary disease) Arthritis Thyroid disease Home Medications ?Medication ?Instructions ?Recorded ?Last Taken ?Type metformin 500 mg tablet 500 mg PO QPM diabetes 04/03/19 08/11/24 History simvastatin 40 mg tablet 40 mg PO QHS cholesterol 04/03/19 08/10/24 History montelukast 10 mg tablet 10 mg PO DAILY 02/20/24 08/10/24 History levothyroxine 137 mcg capsule 548 mcg PO SA 06/11/24 08/03/24 History mirtazapine 15 mg tablet 15 mg PO QHS 06/11/24 08/10/24 History fluticasone fur. 200 mcg-umeclid 1 ea inhalation BID copd #60 ea 08/22/24 Unknown Rx 62.5 mcg-vilant 25 mcg inhalat.powder (Trelegy Ellipta) albuterol sulfate 90 mcg/actuation 1 - 2 inh inhalation Q6H PRN 11/18/24 Unknown History aerosol inhaler (Ventolin HFA) shortness of breath or wheezing lisinopril 20 mg tablet 20 mg PO DAILY 11/18/24 Unknown History metformin 500 mg tablet 1,000 mg PO DAILY 11/18/24 Unknown History piperacillin-tazobactam 3.375 3.375 g (56.25 mL) IV Q8H 6 days 11/24/24 Unknown Rx gram/50 mL dextrose(iso-os) IV piggyback (Zosyn) sennosides 8.6 mg-docusate sodium 2 tab PO BID #0 tabs 11/24/24 Unknown Rx 50 mg tablet (Stimulant Laxative Plus) oxycodone 5 mg tablet 5 mg PO Q6H PRN pain 20 days #60 12/01/24 Unknown Rx tabs acetaminophen 325 mg tablet 650 mg PO Q4H PRN Fever, pain 12/04/24 Unknown History -08/21 albuterol sulfate 2.5 mg/3 mL 2.5 mg inhalation Q6H PRN 12/04/24 Unknown History (0.083 %) solution for nebulization shortness of breath or wheezing benzocaine 15 mg-menthol 3.6 mg 1 mali mucous membrane Q2H PRN SORE 12/04/24 Unknown History lozenges (Sore Throat (benzocaine THROAT with menthol)) insulin lispro 100 unit/mL 1 sliding scale dose subcut ACHS 12/04/24 Unknown History subcutaneous pen (Humalog KwikPen DIABETES (U-100) Insulin) ipratropium 0.5 mg-albuterol 3 mg 3 ml inhalation Q4H PRN shortness 12/04/24 Unknown History (2.5 mg base)/3 mL nebulization of breath soln levothyroxine 137 mcg tablet 68.5 mcg PO TH 12/04/24 Unknown History (Euthyrox) lidocaine 4 % topical patch 1 patch topical DAILY 12/04/24 Unknown History magnesium hydroxide 400 mg/5 mL 30 ml PO DAILY PRN stomach upset 12/04/24 Unknown History oral suspension (Milk of Magnesia) melatonin 3 mg tablet 6 mg PO QHS PRN sleep 12/04/24 Unknown History pantoprazole 40 mg tablet,delayed 40 mg PO DAILY 12/04/24 Unknown History release prednisone 10 mg tablet 10 mg PO DAILY 12/04/24 Unknown History prednisone 20 mg tablet 20 mg PO DAILY 12/04/24 Unknown History Allergy/AdvReac Type Severity Reaction Status Date / Time Sulfa (Sulfonamide Allergy Itching Verified 12/04/24 09:52 Antibiotics) bacitracin (From Neosporin AdvReac Mild Rash Verified 12/04/24 09:52 ([id number])) neomycin (From Neosporin AdvReac Mild Rash Verified 12/04/24 09:52 ([id number])) polymyxin B (From Neosporin AdvReac Mild Rash Verified 12/04/24 09:52 ([id number])) Family History Mother Hypertension Father Cancer Passed age 2828 years old, she notes suspect if was cancer but unclear exact etiology. Brother Heart disease Surgical History History of bilateral cataract extraction H/O rectal polypectomy History of surgery of uterus Hx of colonoscopy Hx of foot surgery Social History household members: none Smoking Status: Former smoker how long ago did patient quit smoking: Quit 07/22/2013, smoked 1 ppd x 50 years until quit. second hand exposure: No alcohol intake: never substance use type: does not use caffeine: Yes frequency: does not exercise Lab / Micro Data 12/08/24 06:33 12/07/24 06:40 Labs: Laboratory Results - last 24 hr 12/07/24 06:40: WBC 19.3 H, RBC 3.17 L, Hgb 8.9 L, Hct 27.1 L, MCV 85.5, MCH 28.1, MCHC 32.8, RDW Std Deviation 43.3, RDW Coeff of Katia 14.1, Plt Count 427, MPV 9.1, Immature Gran % (Auto) 2.000 H, Neut % (Auto) 92.3 H, Lymph % (Auto) 3.7 L, [place] % (Auto) 1.7, Eos % (Auto) 0.2, Baso % (Auto) 0.1, Absolute Neuts (auto) 17.8 H, Absolute Lymphs (auto) 0.72 L, Nucleated RBC % 0.1, Sodium 132 L, Potassium 4.6, Chloride 95 L, Carbon Dioxide 31.0, Anion Gap 6, BUN 18, Creatinine 0.68, Estim Creat Clear Calc 40.70, Est GFR (MDRD) Af Amer 106, Est GFR (MDRD) Non-Af 88, BUN/Creatinine Ratio 26.5 H, Glucose 192 H, Calcium 9.6 12/07/24 06:55: POC Glucose 189 H 12/07/24 11:24: APTT 26.8 12/07/24 11:49: POC Glucose 316 H 12/07/24 16:35: POC Glucose 255 H 12/07/24 18:23: APTT 34.6 12/07/24 21:29: POC Glucose 256 H 12/08/24 00:57: APTT 67.0 H 12/08/24 06:22: POC Glucose 233 H 12/08/24 06:33: WBC 13.5 H, RBC 2.79 L, Hgb 7.9 L, Hct 24.3 L, MCV 87.1, MCH 28.3, MCHC 32.5, RDW Std Deviation 43.1, RDW Coeff of Katia 13.8, Plt Count 382, MPV 9.2, Immature Gran % (Auto) 2.500 H, Neut % (Auto) 87.8 H, Lymph % (Auto) 6.8 L, [place] % (Auto) 2.7, Eos % (Auto) 0.0, Baso % (Auto) 0.2, Absolute Neuts (auto) 11.8 H, Absolute Lymphs (auto) 0.92, Nucleated RBC % 0.1 Micro: Microbiology 12/05/24 14:45 Sputum, Expectorated/Coughed Gram Stain - Final 12/05/24 14:45 Sputum, Expectorated/Coughed Respiratory Culture - Preliminary GNR Poss Pseudomonas sp
[2024-12-08 07:18] LABS: Partial Thromboplast Time 90.3 Seconds (24.1-36.2)
[2024-12-08] MEDS: Ipratropium/Albuterol Sulfate 3 ML AMPUL.NEB INHALATION ×2 (07:31→19:41)
[2024-12-08 07:56] LABS: Anion Gap 5 (5-15); BUN 23 mg/dL (7-18); BUN/Creat Ratio 31.5 RATIO (10-20); Calcium,Total 9.3 mg/dL (8.5-10.1); Chloride 95 mmol/L (98-107); Creatinine, Serum 0.73 mg/dL (0.55-1.02); EST Glomerular Filtration Rate 80 mL/min (>60); Est Glom Filt Rate - Afr Amer 97 mL/min (>60); Glucose 251 mg/dL (74-106); Potassium 4.3 mmol/L (3.5-5.1); Sodium Level 134 mmol/L (136-145)
[2024-12-08] MEDS: busPIRone 5 MG Tablet PO (09:22)
[2024-12-08] MEDS: Lidocaine 5% Patch 1 PATCH TOPICAL (09:23)
[2024-12-08] MEDS: Pantoprazole Sodium 40 MG Tablet PO (09:23)
[2024-12-08] MEDS: NYSTATIN 500,000 UNIT/5 ML UDC 500000 UNIT PO ×3 (09:23→17:44)
[2024-12-08] MEDS: Senna/Docusate Sodium 1 Tablet 2 TABLET PO ×2 (09:24→20:23)
[2024-12-08] MEDS: Montelukast 10 MG Tablet PO (09:24)
[2024-12-08] MEDS: Lisinopril 20 MG Tablet PO (09:25)
--- NOTE | 2024-12-08 09:35 | CASEMGMT ---
Requested updates sent to [facility]. Marj De La Cruz DC Planning Asst.
[2024-12-08 11:50] LABS: Bedside Glucose 209 mg/dL (74-106)
[2024-12-08 13:59] LABS: Hematocrit 27.6 % (37-47); Hemoglobin 8.8 g/dL (12.0-15.0)
[2024-12-08 14:11] LABS: Partial Thromboplast Time 59.2 Seconds (24.1-36.2)
[2024-12-08] MEDS: 0.9% Saline Lock 10 ML Syringe IV (15:08)
--- NOTE | 2024-12-08 15:37 | CASEMGMT ---
[facility] has rec'd auth to admit. SW updated. Marj De La Cruz DC Planning Asst.
--- NOTE | 2024-12-08 15:48 | PCM.TXEXTCAR ---
Diet Diet Order/Speech Therapy: 12/05/24 16:04 Diet: Carbohydrate Controlled Food consistency:: Regular Liquid Consistency:: Regular/Thin Type of Dietary Supplement:: 4oz Ensure Clear w/ meals Diet Comments: Den w/ breakfast and dinner Routine Orders/Code Status Code Status: DNRCC-A (No intubation) DC O2, CPAP, BIPAP needs Home O2 Discharge instructions: Yes Type of respiratory needs?: Oxygen Oxygen frequency: Continuous Continuous oxygen liters per minute: 3 L Wound(s) Coccyx: Wound Type: Pressure Injury Therapies Weight Bearing: Full weight bearing Physical Therapy: Eval and Treat Occupational Therapy: Eval and Treat Problem/Diagnosis (1) Parapneumonic effusion: Status: Acute Code(s): J18.9 - Pneumonia, unspecified organism; J91.8 - Pleural effusion in other conditions classified elsewhere (2) Acute urinary retention: Status: Acute Code(s): R33.8 - Other retention of urine (3) Pulmonary embolism: Status: Acute Code(s): I26.99 - Other pulmonary embolism without acute cor pulmonale (4) Arthritis: Status: Acute Code(s): M19.90 - Unspecified osteoarthritis, unspecified site Plan Final diagnosis: #1 right-sided pulmonary embolism #2 positive Pseudomonas in sputum-possible colonization #3 acute urinary retention #4 hematuria #5 chronic hypoxic respiratory failure secondary to COPD #6 COPD with exacerbation #7 anemia-etiology unclear #8 type 2 diabetes Allergies/Procedures Done in Hospital Allergies Sulfa (Sulfonamide Antibiotics) Allergy (Verified 12/04/24 09:52) Itching bacitracin (From Neosporin ([id number])) Adverse Reaction (Mild, Verified 12/04/24 09:52) Rash neomycin (From Neosporin ([id number])) Adverse Reaction (Mild, Verified 12/04/24 09:52) Rash polymyxin B (From Neosporin ([id number])) Adverse Reaction (Mild, Verified 12/04/24 09:52) Rash Procedures: None Type of Care/Length of Stay Estimated LOS: Convalescent Care Less Than 30 days Type of Care Needed: Skilled Rehab Potential: Good Prognosis: Good Additional Orders/Day of Discharge H&P will serve as current which was dated: 12/04/24 Day of Discharge: 12/08/24 Dietary and Speech Recommendations Dietitian Recommendations/Changes: Will liberalize diet to carbohydrate controlled (no caloric restriction). Will add Den w/ breakfast and dinner. Will add 120mL ensure clear w/ meals. Consider STUDENT [employer]ICE [employer]IDENT evaluation if chewing difficulty continues. Discharge Plan Admission Admit Date/Time: 12/04/24 12:47 Primary Reason for Your Visit: Pulmonary embolism, COPD with exacerbation Attending Provider: Benji Pham Primary Care Provider: Ciro Duran Consulting Providers: Sammy Carlisle; Cm Jorge; Anuel Smith; Washington Rust; Kinsey Palumbo Discharge Orders/Prescriptions Prescriptions: New oxycodone 5 mg Tablet 5 mg PO Q6H PRN (Reason: Pain Score 1-10) 2 Days Qty: 8 0RF Deep Sea Nasal 0.65 % Aerosol,J[place] 2 spray NASAL TID PRN PRN (Reason: NASAL DRYNESS) Qty: 0 0RF prednisone 20 mg tablet 40 mg PO DAILY Qty: 14 0RF Rx Instructions: 2 tabs daily x 7 days then discontinue Eliquis 5 mg tablet 10 mg PO BID Qty: 1 0RF Rx Instructions: 10 mg twice a day beginning the morning of 12/09/2024-for a total of 13 doses, then reduce to 5 mg twice daily thereafter Continued Trelegy Ellipta 200-62.5-25 mcg blister with device 1 ea INHALATION BID Qty: 60 11RF montelukast 10 mg tablet 10 mg PO DAILY mirtazapine 15 mg tablet 15 mg PO QHS levothyroxine 137 mcg capsule 548 mcg PO SA Rx Instructions: take 4 tablets by mouth on Sun, and 1/2 tab on metformin 500 MG tablet 500 mg PO QPM Rx Instructions: 1000 in am and 500 pm simvastatin 40 MG tablet 40 mg PO QHS levothyroxine [Euthyrox] 137 mcg tablet 68.5 mcg PO lidocaine 4 % adhesive patch,medicated 1 patch topical DAILY melatonin 3 mg tablet 6 mg PO QHS PRN (Reason: sleep) magnesium hydroxide [Milk of Magnesia] 400 mg/5 mL suspension 30 ml PO DAILY PRN (Reason: stomach upset) pantoprazole 40 mg tablet,delayed release (DR/EC) 40 mg PO DAILY acetaminophen 325 mg Tablet 650 mg PO Q4H PRN (Reason: Fever, pain 1-10/10) ipratropium-albuterol 0.5 mg-3 mg(2.5 mg base)/3 mL Solution For Nebulization 3 ml inhalation Q4H PRN (Reason: shortness of breath) albuterol sulfate 2.5 mg /3 mL (0.083 %) solution for nebulization 2.5 mg inhalation Q6H PRN (Reason: shortness of breath or wheezing) insulin lispro [Humalog KwikPen Insulin] 100 unit/mL Insulin Pen 1 sliding scale dose subcut ACHS Protocol: 3. Sliding Scale Insulin Med Dosing Condition: 150-189 mg/dl = 1 unit Condition: 190-229 mg/dl = 2 units Condition: 230-269 mg/dl = 3 units Condition: 270-309 mg/dl = 4 units Condition: 310-349 mg/dl = 5 units Condition: 350-399 mg/dl = 6 units Condition: 400-449 mg/dl = 7 units Condition: Greater than 449 call physician Protocol Text: - Use for Total Daily Dose of Insulin 37-55 units - Obsese, infected, or steroid patients MEDIUM DOSING ALGORITHIM Sore Throat (benzocaine-menth) 15-3.6 mg Lozenge 1 mali mucous membrane Q2H PRN (Reason: SORE THROAT) albuterol sulfate [Ventolin HFA] 90 mcg/actuation HFA aerosol inhaler 1 - 2 inh inhalation Q6H PRN (Reason: shortness of breath or wheezing) lisinopril 20 mg tablet 20 mg PO DAILY metformin 500 mg tablet 1,000 mg PO DAILY Rx Instructions: 1000 in am and 500 pm sennosides-docusate sodium [Stimulant Laxative Plus] 8.6-50 mg Tablet 2 tab PO BID Qty: 0 0RF Discontinued prednisone 10 mg tablet 10 mg PO DAILY prednisone 20 mg tablet 20 mg PO DAILY Zosyn in dextrose (iso-osm) 3.375 gram/50 mL piggyback 3.375 g IV Q8H 6 Days Rx Instructions: dx: pseudomonas pneumonia. Stop date 11/30/24. Weekly bmp and cbc, fax to [phone]. Routine line care per protocol. oxycodone 5 mg tablet 5 mg PO Q6H PRN (Reason: pain) 20 Days Qty: 60 0RF Referrals / Follow Up: Bursley,Ciro, MD [Primary Care Provider] - Disposition Disposition (needs filled in before D/C Order can be placed): Custodial Facility
--- NOTE | 2024-12-08 16:04 | CASEMGMT ---
Patient is ready to be discharged back to [facility] under skilled level of care. Physicians will transport patient. Sagrario JUAREZ
--- NOTE | 2024-12-08 16:19 | DS.PCM_ITS ---
Providers Date of Admission: 12/04/24 Date of Discharge: 12/08/24 Primary Care Physician: Dr. Ciro Duran MD Consultations 12/04/24 14:25 Consult: Infectious Disease Routine Consulting Provider: Sammy Carlisle Reason for Consult: pneumonia EMERGENT Consult: No Notified: Yes Date Notified: 12/04/24 Time Notified: 13:00 Method of Notification: Text 12/04/24 17:19 Consult: Infectious Disease Routine Consulting Provider: Sammy Carlisle Reason for Consult: bilateral pneumonia EMERGENT Consult: No Notified: Yes Date Notified: 12/05/24 Time Notified: 07:43 Method of Notification: Text Consult: Test Man / Pulmonary Medicine Routine Consulting Provider: Cm Jorge Reason for Consult: submassive PE EMERGENT Consult: No Notified: Yes Date Notified: 12/05/24 Time Notified: 07:48 Method of Notification: Text 12/06/24 18:58 Consult: Urology Routine Consulting Provider: Washington Rust Reason for Consult: hematuria EMERGENT Consult: Yes MD Notified: Yes Date Notified: 12/06/24 Time Notified: 18:58 Method of Notification: Verbal Reason For Visit: HYPOXIA, PNEUMONIA, COPD EXACERBATION Diagnosis Discharge Diagnosis (1) Parapneumonic effusion: Status: Acute Code(s): J18.9 - Pneumonia, unspecified organism; J91.8 - Pleural effusion in other conditions classified elsewhere (2) Acute urinary retention: Status: Acute Code(s): R33.8 - Other retention of urine (3) Pulmonary embolism: Status: Acute Code(s): I26.99 - Other pulmonary embolism without acute cor pulmonale (4) Arthritis: Status: Acute Code(s): M19.90 - Unspecified osteoarthritis, unspecified site Plan Final diagnosis: #1 right-sided pulmonary embolism #2 positive Pseudomonas in sputum-possible colonization #3 acute urinary retention #4 hematuria #5 chronic hypoxic respiratory failure secondary to COPD #6 COPD with exacerbation #7 anemia-etiology unclear #8 type 2 diabetes #9 leukocytosis secondary to corticosteroid use Community-acquired pneumonia was ruled out Medications at Discharge Home Medications metformin 500 mg tablet 500 mg PO QPM diabetes 04/03/19 simvastatin 40 mg tablet 40 mg PO QHS cholesterol 04/03/19 montelukast 10 mg tablet 10 mg PO DAILY 02/20/24 levothyroxine 137 mcg capsule 548 mcg PO SA 06/11/24 mirtazapine 15 mg tablet 15 mg PO QHS 06/11/24 fluticasone fur. 200 mcg-umeclid 62.5 mcg-vilant 25 mcg inhalat.powder (Trelegy Ellipta) 1 ea inhalation BID copd #60 ea 08/22/24 albuterol sulfate 90 mcg/actuation aerosol inhaler (Ventolin HFA) 1 - 2 inh inhalation Q6H PRN shortness of breath or wheezing 11/18/24 lisinopril 20 mg tablet 20 mg PO DAILY 11/18/24 metformin 500 mg tablet 1,000 mg PO DAILY 11/18/24 sennosides 8.6 mg-docusate sodium 50 mg tablet (Stimulant Laxative Plus) 2 tab PO BID #0 tabs 11/24/24 acetaminophen 325 mg tablet 650 mg PO Q4H PRN Fever, pain 1-08/2112/04/24 albuterol sulfate 2.5 mg/3 mL (0.083 %) solution for nebulization 2.5 mg inhalation Q6H PRN shortness of breath or wheezing 12/04/24 benzocaine 15 mg-menthol 3.6 mg lozenges (Sore Throat (benzocaine with menthol)) 1 mali mucous membrane Q2H PRN SORE THROAT 12/04/24 insulin lispro 100 unit/mL subcutaneous pen (Humalog KwikPen (U-100) Insulin) 1 sliding scale dose subcut ACHS DIABETES 12/04/24 ipratropium 0.5 mg-albuterol 3 mg (2.5 mg base)/3 mL nebulization soln 3 ml inhalation Q4H PRN shortness of breath 12/04/24 levothyroxine 137 mcg tablet (Euthyrox) 68.5 mcg PO TH 12/04/24 lidocaine 4 % topical patch 1 patch topical DAILY 12/04/24 magnesium hydroxide 400 mg/5 mL oral suspension (Milk of Magnesia) 30 ml PO DAILY PRN stomach upset 12/04/24 melatonin 3 mg tablet 6 mg PO QHS PRN sleep 12/04/24 pantoprazole 40 mg tablet,delayed release 40 mg PO DAILY 12/04/24 apixaban 5 mg tablet (Eliquis) 10 mg (2 x 5 mg) PO BID #1 TAB 12/08/24 oxycodone 5 mg tablet 5 mg PO Q6H PRN Pain Score 1-10 2 days #8 tabs 12/08/24 prednisone 20 mg tablet 40 mg (2 x 20 mg) PO DAILY #14 tabs 12/08/24 sodium chloride 0.65 % nasal spray aerosol (Deep Sea Nasal) 2 spray NASAL TID PRN PRN NASAL DRYNESS #0 mL 12/08/24 Hospital Course Operations None Procedures None Summary of Care Provided Minutes Spent on Discharge: 32 Hospital Course: This 84-year-old white female was seen in the emergency room at [facility] after being transported from a local extended care facility due to shortness of breath. Patient has been recently hospitalized for pneumonia and had completed a course of antibiotics in the [facility]. Patient has a history of COPD and is on oxygen chronically. Workup in the emergency room showed an elevated white blood cell count of 21.3, hemoglobin was 10.3, sodium was 129, patient's urinalysis was unremarkable. Chest x-ray showed a lingular infiltrate and a patchy infiltrate at the right lung base. 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 Patient's abdomen was noted to be distended and it was noted that the patient had urinary retention and a Ann was placed. A CTA of the chest was performed which showed evidence of a pulmonary embolism, patient was started on a heparin drip and admitted to PCU, she was seen in consultation by infectious diseases and pulmonary medicine, she was placed on meropenem and a sputum culture was obtained which was positive for Pseudomonas-it appears that the patient has several sputum cultures that were positive for Pseudomonas over the last year. I had discussions with infectious diseases and they felt that the patient did not require additional IV antibiotics on her return to the [facility]. It is unknown whether the patient has a colonization from Pseudomonas. Patient was to follow-up with pulmonary medicine as an outpatient. On 12/08/2024, patient was seen and examined: On examination she appeared her stated age, she does not appear to be in any distress. Vital signs as documented. Skin warm and dry and without overt rashes. Neck without JVD, thyroid appears normal, trachea is midline, neck is supple. Lungs clear, normal air movement was noted. Heart exam notable for regular rhythm, normal sounds and absence of murmurs, rubs or gallops. Abdomen unremarkable and without evidence of organomegaly, masses, or abdominal aortic enlargement, bowel sounds are present in all 4 quadrants, no abdominal tenderness was noted. Extremities nonedematous, no cyanosis was noted, no clubbing was noted. Neuro: Cranial nerves II through XII are grossly intact, no focal motor deficits were noted, sensation to light touch and pinprick is intact, motor exam 5/5 throughout. Psych: Patient is alert and oriented x3, she does not appear anxious or depressed, she does not appear agitated. Patient was stable for transfer back to her [facility] facility for continued inpatient rehab services on 12/08/2024. Weight / BMI Weight Weight: 57.1 kg Body Mass Index (BMI) 24.5 ABG / Lab / Microbiology Data 12/08/24 13:40 12/08/24 06:33 Laboratory: Laboratory Results - last 24 hr 12/07/24 18:23: APTT 34.6 12/07/24 21:29: POC Glucose 256 H 12/08/24 00:57: APTT 67.0 H 12/08/24 06:22: POC Glucose 233 H 12/08/24 06:33: WBC 13.5 H, RBC 2.79 L, Hgb 7.9 L, Hct 24.3 L, MCV 87.1, MCH 28.3, MCHC 32.5, RDW Std Deviation 43.1, RDW Coeff of Katia 13.8, Plt Count 382, MPV 9.2, Immature Gran % (Auto) 2.500 H, Neut % (Auto) 87.8 H, Lymph % (Auto) 6.8 L, [place] % (Auto) 2.7, Eos % (Auto) 0.0, Baso % (Auto) 0.2, Absolute Neuts (auto) 11.8 H, Absolute Lymphs (auto) 0.92, Nucleated RBC % 0.1, APTT 90.3 H*, S odium 134 L, Potassium 4.3, Chloride 95 L, Carbon Dioxide 34.0 H, Anion Gap 5, B UN 23 H, Creatinine 0.73, Estim Creat Clear Calc 40.70, Est GFR (MDRD) Af Amer 97, Est GFR (MDRD) Non-Af 80, BUN/Creatinine Ratio 31.5 H, Glucose 251 H, Calcium 9.3 12/08/24 11:29: POC Glucose 209 H 12/08/24 13:40: Hgb 8.8 L, Hct 27.6 L, APTT 59.2 H 12/08/24 17:08: POC Glucose 278 H Microbiology: Microbiology 12/05/24 14:45 Sputum, Expectorated/Coughed Gram Stain - Final 12/05/24 14:45 Sputum, Expectorated/Coughed Respiratory Culture - Final Pseudomonas aeruginosa 12/04/24 11:05 Mucosa - Nose SARS-CoV-2, Influenza & RSV (PCR) - Final D/C Instructions DC O2, CPAP, BIPAP Needs PSN CPAP & BiPAP: BiPAP & CPAP Settings per PSN Mode BiPAP 12/07/24 23:07 Bipap Delivery Device Face Mask 12/07/24 23:07 BiPAP Inspiratory Pressure 14 12/07/24 23:07 BiPAP Expiratory Pressure 8 12/07/24 23:07 BiPAP Rate 12 12/07/24 23:07 Fraction of Inspired Oxygen ( 30 12/07/24 23:07 FIO2) Home O2 Discharge instructions: Yes Type of respiratory needs?: Oxygen Oxygen frequency: Continuous Continuous oxygen liters per minute: 3 L DC home with Oxygen: Yes Home O2 MD Review: I have reviewed the oxygen testing, and the patient qualifies for home oxygen equipment and portability. The patient is mobile in the home and the community. Meaningful Use Info Meaningful Use Meaningful Use Diagnoses (Choose all that apply): VTE Ischemic Stroke Statin Dosing Therapy Reference: STATIN DOSE THERAPY REFERENCE: * Patients > 75 years receive moderate or high dose statin therapy. * Patients 75 years or YOUNGER should receive HIGH intensity statin dose unless contraindicated. You will be required to document reason for non-treatment if statin daily dose does not meet guidelines. HIGH DOSE STATIN THERAPY DAILY Atorvastatin > than or = to 40 mg Rosuvastatin > than or = to 20 mg Amlodipine + Atorvastatin > than or = to 2.5/40 mg Ezetimibe + Simvastatin 10/80 mg Simvastatin 80mg VTE Anticoag overlap given w/in hospital stay or rx'd at dc?: No Pt receive overlap for 5 days?: No Reason overlap not ordered, prescribed, or given for 5 days: Treatment Not Indicated Discharge Plan Admission Admit Date/Time: 12/04/24 12:47 Primary Reason for Your Visit: Pulmonary embolism, COPD with exacerbation Attending Provider: Benji Pham Primary Care Provider: Ciro Duran Consulting Providers: Sammy Carlisle; Cm Jorge; Washington Rust; Kinsey Palumbo Instructions Additional Instructions / Restrictions: Maintain Ann catheter for 2 weeks, then perform voiding trial for removal Discharge Orders/Prescriptions Prescriptions: New oxycodone 5 mg Tablet 5 mg PO Q6H PRN (Reason: Pain Score 1-10) 2 Days Qty: 8 0RF Deep Sea Nasal 0.65 % Aerosol,[place] 2 spray NASAL TID PRN PRN (Reason: NASAL DRYNESS) Qty: 0 0RF prednisone 20 mg tablet 40 mg PO DAILY Qty: 14 0RF Rx Instructions: 2 tabs daily x 7 days then discontinue Eliquis 5 mg tablet 10 mg PO BID Qty: 1 0RF Rx Instructions: 10 mg twice a day beginning the morning of 12/09/2024-for a total of 13 doses, then reduce to 5 mg twice daily thereafter Continued Trelegy Ellipta 200-62.5-25 mcg blister with device 1 ea INHALATION BID Qty: 60 11RF montelukast 10 mg tablet 10 mg PO DAILY mirtazapine 15 mg tablet 15 mg PO QHS levothyroxine 137 mcg capsule 548 mcg PO SA Rx Instructions: take 4 tablets by mouth on Sun, and 1/2 tab on metformin 500 MG tablet 500 mg PO QPM Rx Instructions: 1000 in am and 500 pm simvastatin 40 MG tablet 40 mg PO QHS levothyroxine [Euthyrox] 137 mcg tablet 68.5 mcg PO TH lidocaine 4 % adhesive patch,medicated 1 patch topical DAILY melatonin 3 mg tablet 6 mg PO QHS PRN (Reason: sleep) magnesium hydroxide [Milk of Magnesia] 400 mg/5 mL suspension 30 ml PO DAILY PRN (Reason: stomach upset) pantoprazole 40 mg tablet,delayed release (DR/EC) 40 mg PO DAILY acetaminophen 325 mg Tablet 650 mg PO Q4H PRN (Reason: Fever, pain 1-10/10) ipratropium-albuterol 0.5 mg-3 mg(2.5 mg base)/3 mL Solution For Nebulization 3 ml inhalation Q4H PRN (Reason: shortness of breath) albuterol sulfate 2.5 mg /3 mL (0.083 %) solution for nebulization 2.5 mg inhalation Q6H PRN (Reason: shortness of breath or wheezing) insulin lispro [Humalog KwikPen Insulin] 100 unit/mL Insulin Pen 1 sliding scale dose subcut [facility] Protocol: 3. Sliding Scale Insulin Med Dosing Condition: 150-189 mg/dl = 1 unit Condition: 190-229 mg/dl = 2 units Condition: 230-269 mg/dl = 3 units Condition: 270-309 mg/dl = 4 units Condition: 310-349 mg/dl = 5 units Condition: 350-399 mg/dl = 6 units Condition: 400-449 mg/dl = 7 units Condition: Greater than 449 call physician Protocol Text: - Use for Total Daily Dose of Insulin 37-55 units - Obsese, infected, or steroid patients MEDIUM DOSING ALGORITHIM Sore Throat (benzocaine-menth) 15-3.6 mg Lozenge 1 mali mucous membrane Q2H PRN (Reason: SORE THROAT) albuterol sulfate [Ventolin HFA] 90 mcg/actuation HFA aerosol inhaler 1 - 2 inh inhalation Q6H PRN (Reason: shortness of breath or wheezing) lisinopril 20 mg tablet 20 mg PO DAILY metformin 500 mg tablet 1,000 mg PO DAILY Rx Instructions: 1000 in am and 500 pm sennosides-docusate sodium [Stimulant Laxative Plus] 8.6-50 mg Tablet 2 tab PO BID Qty: 0 0RF Discontinued prednisone 10 mg tablet 10 mg PO DAILY prednisone 20 mg tablet 20 mg PO DAILY Zosyn in dextrose (iso-osm) 3.375 gram/50 mL piggyback 3.375 g IV Q8H 6 Days Rx Instructions: dx: pseudomonas pneumonia. Stop date 11/30/24. Weekly bmp and cbc, fax to [phone]. Routine line care per protocol. oxycodone 5 mg tablet 5 mg PO Q6H PRN (Reason: pain) 20 Days Qty: 60 0RF Referrals / Follow Up: Ciro Duran MD [Primary Care Provider] - Disposition Disposition (needs filled in before D/C Order can be placed): [facility] Facility Charges/Coding Visit Charges Inpatient E&M: 88394 Disch Hosp >30min
--- NOTE | 2024-12-08 16:29 | CASEMGMT ---
Discharge orders, signed med list, and transport time sent to [facility]. Physicians will transport pt by wheelchair at 8p. Nursing and pt updated. left for pts daughter (Esther). Marj De La Cruz DC Planning Asst.
[2024-12-08] MEDS: APIXABAN 5 MG TABLET 10 MG PO (17:44)
[2024-12-08 17:53] LABS: Bedside Glucose 278 mg/dL (74-106)
[2024-12-08] MEDS: Atorvastatin Calcium 20 MG Tablet PO (20:23)
[2024-12-08] MEDS: Mirtazapine 15 MG Tablet PO (20:23)
[2024-12-08 20:47] LABS: Partial Thromboplast Time 29.1 Seconds (24.1-36.2)
[2024-12-08] MEDS: oxyCODONE 5 MG Tablet PO (22:42)
[2024-12-08] MEDS: MELATONIN 3 MG TABLET 6 MG PO (22:43)
[2024-12-08] MEDS: Acetaminophen 325 MG Tablet 650 MG PO (22:43)
[2024-12-08 23:06] LABS: Bedside Glucose 197 mg/dL (74-106)
--- NOTE | 2024-12-09 00:27 | NURSING ---
report given to samuel at [facility].
== END 2024-12-09 00:29 | disposition skilled nursing facility (03) | DRG 175 ==
LOC: ED 12:47 → PCU 13:28
PROVIDERS: Family Medicine; Admitting Provider Student in an Organized Health Care Education/Training Program; Emergency Provider Emergency Medicine; PCP Family Medicine; Visit Provider Internal Medicine
DX: I26.99 Other pulmonary embolism without acute cor pulmonale (principal); J15.1 Pneumonia due to Pseudomonas; J47.0 Bronchiectasis with acute lower respiratory infection; J44.0 Chronic obstructive pulmonary disease with (acute) lower respiratory infection; J96.10 Chronic respiratory failure, unspecified whether with hypoxia or hypercapnia; J91.8 Pleural effusion in other conditions classified elsewhere; E11.65 Type 2 diabetes mellitus with hyperglycemia; D64.9 Anemia, unspecified; Z66 Do not resuscitate; M06.9 Rheumatoid arthritis, unspecified; E03.9 Hypothyroidism, unspecified; I10 Essential (primary) hypertension; Z79.4 Long term (current) use of insulin; K21.9 Gastro-esophageal reflux disease without esophagitis; K59.00 Constipation, unspecified; E78.5 Hyperlipidemia, unspecified; F41.9 Anxiety disorder, unspecified; Z79.891 Long term (current) use of opiate analgesic; Z79.51 Long term (current) use of inhaled steroids; Z87.891 Personal history of nicotine dependence; Z86.16 Personal history of COVID-19; Z79.84 Long term (current) use of oral hypoglycemic drugs; Z79.52 Long term (current) use of systemic steroids; R33.9 Retention of urine, unspecified; Z79.890 Hormone replacement therapy; R31.9 Hematuria, unspecified; Z99.81 Dependence on supplemental oxygen; Z79.85 Long-term (current) use of injectable non-insulin antidiabetic drugs; Z88.2 Allergy status to sulfonamides; Z88.8 Allergy status to other drugs, medicaments and biological substances
CPT/HCPCS: 36415; 71045; 71275; 74177; 80048; 80076; 81001; 82962; 83605; 83690; 83880; 84484; 85014; 85018; 85025; 85027; 85379; 85610; 85730; 86850; 86900; 86901; 87070; 87077; 87184; 87186; 87205; 87631; 93005; 94002; 94003; 94640; 94668; 94762; 97116; 97162; 97166; 97530; 97535; 97802; 99285; J2185; Q9967; A4216; J2405